=== PATIENT | female | born 1955 | race Hispanic/Latino ===

== ENCOUNTER 2016-08-30 13:53 | Inpatient (IN) | payer OTHER ==
[~2016-08-30] VITALS: Ht 157.5 cm; Wt 151.1 kg
[~2016-08-30 13:53] MED LIST: ACET-171 PO; BISA-67 PO; CRAN200C2 PO; Heparin 5,000 Unit/mL Inj SUBQ SCH; LISI10TA PO; METO25TA6 PO; MULT-1018 PO; NITR100 PO; NPR500T PO; OMEP20TA24 PO; ONDA8TAB7 PO; POLY17PO6 PO; PROC-4 PO
[2016-08-30 13:59] VITALS: BP 148/96; PULSE 81; RESP 18; O2SAT 97
[2016-08-30 16:20] LABS: BASOPHILS % (AUTO) 0.3 % (0-3); EOSINOPHILS % (AUTO) 0 % (0-5); MONOCYTES % (AUTO) 5.1 % (4-12)
[2016-08-30 16:23] LABS: Mean Corpuscular Hemoglobin 31.9 pg (27.0-35.0); Mean Corpuscular Volume 90.9 fL (81-100); NEUTROPHILS % (AUTO) 81.1 % (40-74); Platelet Count 92 bil/L (150-400)
[2016-08-30 16:45] LABS: TROPONIN T < 0.010 ug/L (0.0-0.011)
--- NOTE | 2016-08-30 16:56 | ED.REPORT ---
HPI-General Illness Date of Service Aug 30, 2016 ED Provider: Salo Meyer MD The patient is a 61-year-old lady with a history of intrahepatic cholangiocarcinoma with the bulk of the disease being located in the left hepatic lobe with poorly metastatic disease to the right femur. She has been treated with cisplatin and gemcitabine in our center with a palliative intent. Pt was seen by her oncologist, Dr. Meier, today who referred her to the ED for admission and further workup. Pt was noted to have an elevated bilirubin of 12.9. Her last CT was yesterday, last chemotherapy 08/02/16. Pt reports one week of increasing generalized weakness and "loose" swain colored stools with mild incontinence. Today the patient's noticed yellowing to the skin and eyes. She also reports fever ([id number], Tylenol improved) and head pressure. She denies cough. She finished a course of antibiotics for UTI this week. Denies dysuria currently. CODE STATUS: Full code Nursing Notes Stated Complaint: BILI LAB Chief Complaint: General Complaint Nursing Notes Reviewed: Yes Allergies: Coded Allergies: amoxicillin (Verified Allergy, Intermediate, Rash, 08/30/16) Scheduled Amlodipine (Amlodipine) 5 Mg Tablet 5 MG PO DAILY Bisacodyl (Dulcolax) 5 Mg Tablet.dr 5 MG PO DAILY Cranberry Extract (Cranberry) 200 Mg Capsule 200 MG PO BID Lisinopril (Lisinopril) 10 Mg Tablet 20 MG PO DAILY Metoprolol Tartrate (Metoprolol Tartrate) 25 Mg Tablet 25 MG PO DAILY Multivitamin (Multi Vitamin Daily) 1 Each Tablet 2 EACH PO DAILY Omeprazole Magnesium (Prilosec Otc) 20 Mg Tablet.dr 20 MG PO DAILY Polyethylene Glycol 3350 (Miralax) 17 Gm Powd.pack 17 GM PO DAILY Sertraline HCl (Zoloft) 20 Mg/1 Ml Oral.conc 50 MG PO DAILY Scheduled PRN Acetaminophen (Acetaminophen) 500 Mg Tablet 500 MG PO Q6H PRN PRN For Pain Naproxen (Naproxen) 500 Mg Tab 500 MG PO BID PRN PRN For Pain Ondansetron ODT (Zofran ODT) 8 Mg Tablet 8 MG PO Q8HRS PRN PRN PRN For Nausea Prochlorperazine Maleate (Compazine) 10 Mg Tablet 10 MG PO Q6H PRN PRN For Nausea General Time Seen by MD: 16:55 Chief Complaint Weakness (and elevated Bili) Hx Obtained From: Patient Arrived By: Walk-in Sudden in Onset?: No Onset Occurred: 1 week ago Symptom Duration: Since onset Severity: Current: No pain currently Associated with: Reports: Fever, Headache, Weakness Recent Healthcare: Recent doctor visit Past Medical History Past Medical History Intrahepatic cholangiocarcinoma with the bulk of the disease being located in the left hepatic lobe with poorly metastatic disease to the right femur. She has not had any convincing evidence of other metastatic sites. She has had tiny pulmonary nodules between 2-3 mm that were present at diagnosis in February and remained unchanged in May but some of them were smaller in the recent scan of August 15. She has been treated with cisplatin and gemcitabine with a palliative intent, Reports: Hypertension Past Surgical History Femur 2 partial knee replacement Smoking History Never Smoker Social History Alcohol Use: Denies alcohol use Drug Use: Denies drug use Other Social History: Good social support Review of Systems Full Review of Systems Constitutional: Reports: Fever, Weakness - generalized Respiratory: Denies: Shortness of breath Cardiovascular: Denies: Chest pain GI: Reports: Diarrhea, Denies: Abdominal pain, Vomiting Female: Denies: Dysuria Skin: Denies Rash Neurologic: Reports: Headache, Weakness, Denies: Change LOC Complete sys rev & neg: except as marked. Physical Exam Vital Signs Vital Signs Date Time Temp Pulse Resp B/P Pulse Ox O2 Delivery O2 Flow Rate FiO2 08/30/16 19:34 81 20 137/78 98 Room Air 08/30/16 13:59 36.5 81 18 148/96 97 Room Air Initial VS: Reviewed Neck: Full range of motion Extremities: Vascular intact, Neuro intact Neurologic: Alert, Oriented, Nonfocal Psychiatric: Mood/affect normal, Behavior normal, Normal thought content General/Constitutional: Awake, Alert Head / Eyes: Atraumatic, Normocephalic, PERRL Conjunctiva / Sclera: Positive: Icteric Respiratory / Chest: Breath sounds NL, Breath sounds = bilat, No respiratory distress, No rales, No rhonchi, No wheezing Abdomen: Soft, Non-tender, No rebound Skin: Warm, Dry Color / Condition: Positive: Jaundice present Interpretation & Diagnostics Lab Results Interpretation Result Diagram: 08/30/16 1609 08/30/16 1609 Test 1/18/17 16:09 08/30/16 16:51 White Blood Count 15.3th/mm3 (3.8-10.1) Red Blood Count 3.42mil/mm3 (3.90-5.20) Hemoglobin 10.9g/dL (12.0-15.6) Hematocrit 31.1% (35.0-46.0) Mean Corpuscular Volume 90.9fL (81-100) Mean Corpuscular Hemoglobin 31.9pg (27.0-35.0) Mean Corpuscular Hemoglobin Concent 35.0% (32.0-37.0) Red Cell Distribution Width 23.8% (12.3-15.4) Platelet Count 92bil/L (150-400) Neutrophils (%) (Auto) 81.1% (40-74) Lymphocytes (%) (Auto) 10.7% (14-46) Monocytes (%) (Auto) 5.1% (4-12) Eosinophils (%) (Auto) 0% (0-5) Basophils (%) (Auto) 0.3% (0-3) Sodium Level 133mEq/L (134-144) Potassium Level 3.5mEq/L (3.5-5.2) Chloride Level 90mEq/L (97-108) Carbon Dioxide Level 26mmol/L (18-29) Blood Urea Nitrogen 52mg/dL (8-27) Creatinine 1.62mg/dL (0.57-1.00) Estimat Glomerular Filtration Rate 46mL/min (>59) Glucose Level 100mg/dL (60-99) Calcium Level 8.2mg/dL (8.5-10.1) Magnesium Level 1.0mg/dL (1.6-2.6) Total Bilirubin 14.2mg/dL (0.0-1.2) Aspartate Amino Transf (AST/SGOT) 133U/L (0-50) Alanine Aminotransferase (ALT/SGPT) 76U/L (0-32) Alkaline Phosphatase 486U/L (25-165) Troponin T < 0.010ug/L (0.0-0.011) Total Protein 6.5g/dL (6.4-8.4) Albumin 2.5g/dL (3.4-5.0) Urine Color Dark yellow (YELLOW) Urine Appearance Hazy (CLEAR,HAZY) Urine pH 5.0 (5.0-8.0) Urine Specific King 1.025 (1.003-1.035) Urine Protein 100mg/dL (NEG,TRACE) Urine Glucose (UA) Negativemg/dL (NEGATIVE) Urine Ketones Tracemg/dL (NEGATIVE) Urine Occult Blood Moderate (NEGATIVE) Urine Nitrite Negative (NEGATIVE) Urine Bilirubin Large (NEGATIVE) Urine Ictotest Positive (Negative) Urine Urobilinogen 2.0mg/dL (NORMAL) Urine Leukocyte Esterase Moderate (NEGATIVE) Urine RBC 3-10/hpf (0-2) Urine WBC 6-10/hpf (0-5) Urine Epithelial Cells None/hpf (NONE-MOD) Urine Crystals None seen (NONE SEEN) Urine Bacteria Few/hpf (NONE-FEW) Urine Hyaline Casts None/lpf (NONE) Urine Granular Casts None seen (NONE SEEN) Urine Waxy Casts None seen (NONE SEEN) Urine Red Blood Cell Casts None seen (NONE SEEN) Urine White Blood Cell Casts None seen (NONE SEEN) Urine Mucus None seen (None Seen) Urine Trichomonas None seen (NONE SEEN) Urine Yeast None (NONE SEEN) Urinalysis Comment None Urine Culture Reflexed Indicated Re-Eval/Medical Decision Med Decision/Clinical Course 61-year-old female history of intrahepatic cholangiocarcinoma status post chemotherapy seen by Dr. Campos sent in by him for admission for rising bilirubin and requesting admission for MRCP. Patient with normal bilirubin 2 weeks ago now 14. CT scan yesterday shows no worsening of the cholangiocarcinoma. White blood cell count elevated. Urine suggestive UTI. Discussed with Dr. Blevins who would like patient admitted for MRCP tomorrow and IV hydration for acute kidney injury. She was also given a dose of Rocephin for UTI. Given 1 L normal saline. Patient is full code. Time of Eval: 19:23 Re-Evaluation/Progress Note: Pt understands and agrees with plan for admission. All questions addressed. Consultation #1: Referral / Consult Name: Derik West MD Call Returned at: 18:35 Note: GI- Nothing that he can do. Referred to consult with Hardeep. Consultation #2: Referral / Consult Name: Demarco Sofia MD Consulted With: Assistant Editor (/oncologist) Call Returned at: 19:14 Consultation #3: Referral / Consult Name: Markos Milligan MD Consulted With: Hospitalist Call Returned at: 19:43 Subscription Agent: Will see patient, Agrees with eval, Agrees with plan, Accepts admit Counseled Regarding: Diagnosis, Lab results, Need for admission Discharge & Departure Primary Impression: Cholangiocarcinoma metastatic to bone Additional Impressions: Hyperbilirubinemia UTI (urinary tract infection) Urinary tract infection type: site unspecified Hematuria presence: without hematuria Qualified Code: N39.0 - Urinary tract infection, site not specified REBEKA (acute kidney injury) Disposition: ADMITTED TO HOSPITAL Discharge Condition All VS Reviewed: Yes Referrals: Akhil Mo MD (PCP) Scribe Attestation Portions of this note were transcribed by Marissa Allen. I, (Dr. Meyer) personally performed the history, physical exam and medical decision-making; I reviewed and confirmed the accuracy of the information in the transcribed note. Signed by: Marissa Allen. 08/30/2016, 1943 copies to: Akhil Mo MD, Ben M MD Aug 30, 2016 16:56 Marissa Allen Aug 30, 2016 18:18
[2016-08-30] MEDS ORDERED: 0.9% Sodium Chloride 500 ML ONE (17:07)
[2016-08-30 17:26] LABS: APPEARANCE,URINE HAZY (CLEAR,HAZY); COLOR,URINE DARK YELLOW (YELLOW)
[2016-08-30 17:27] LABS: OCCULT BLOOD,URINE MODERATE (NEGATIVE)
[2016-08-30] MEDS ORDERED: cefTRIAXone Inj 1,000 MG in IV Premix 1 EACH IV ONE (18:30)
[2016-08-30] MEDS ORDERED: 0.9% Sodium Chloride 1,000 ML IV ONE (19:20)
[2016-08-30 19:34] VITALS: BP 137/78; PULSE 81; RESP 20; O2SAT 98
[2016-08-30] MEDS ORDERED: Magnesium Sulf 4 Gm/100 mL H2O 4 GM in IV Premix 1 EACH IV ONE (19:50)
[2016-08-30] MEDS ORDERED: Polyethylene Glycol (PEG) 17 Gm Powder PO PRN (20:20)
[2016-08-30] MEDS ORDERED: Alum-Mag Hydrox-Simeth 30 mL Suspension PO PRN (20:20)
[2016-08-30] MEDS ORDERED: SERT20OR PO (20:36)
--- NOTE | 2016-08-30 20:41 | NUR ---
MEDICATION Pt and her both state that she was started on additional BP medication about one week ago-they cannot recall the name at this time; it's not listed in 's notes and their pharmacy is already closed ([facility]). states he can call it in, once he gets home-please FOLLOW UP on this issue, thank you!
[2016-08-30 20:59] LABS: ICTOTEST,URINE POSITIVE (Negative)
--- NOTE | 2016-08-30 21:54 | NUR ---
care update spoke to Dr Askew, notified that no telemetry boxes are available at this time. ice chips okay til midnight. then npo. increase ivf to 150 ml/hr. care ongoing. Addendum: 08/30/16 at 2156 by MANOLO VELÁSQUEZ RN also ordered an ekg. called RT. notified. went home. notified of room change to 239-1.
[2016-08-30] MEDS: 0.9% Sodium Chloride 1,000 ML IV SCH (22:09)
--- NOTE | 2016-08-30 22:10 | PCM.HPMED ---
Subjective Date of Service Aug 30, 2016 Primary Provider: Admitting Physician: Primary Care Physician: Akhil Mo MD Attending Physician: Chief Complaint: jaundice and fevers History of Present Illness: The patient is a 61-year-old lady with a history of metastatic cholangiocarcinoma, HTN, and JAYLA presents for evaluation of acute jaundice and fever. Pt was seen by her oncologist, Dr. Meier, today who referred her to the ED for admission and further workup after noticing that her Tbili has been rapidly rising over the past 10 days. She has also had a CT abd/pelvis last week that did not show any disease progression. Per patient and , she has been having intermittent fevers since Sunday (Tmax 102), and also mild epigastric pain, increase in loose swain stools, and fatigue. reports that patient was diagnosed last summer with metastatic cholangiocarcinoma after a right femur fracture. They report that they have not noticed her to be jaundiced prior to today. They deny any associated CP, SOB, vision changes, focal weakness, or mental status changes. Patient does endorse a decrease in her urinary stream and a pressure sensation with urination. She has also been having a mild head congestion but denies any cough or rhinorrhea. Of note is that she just finished a course of antibiotics for UTI this week and reports that her urinary frequency and dysuria has improved. Per report, she is being treated with cisplatin and gemcitabine in our center with a palliative intent. In the ER, she was afebrile and her VSS. Her labs were pertinent for a WBC of 15.3 with segs of 81.1% and a Hct of 31.1. CMP was pertinent for BUN/Cr of 52/1.62 and Magnesium of 1.0. Albumin of 2.5 and Calcium of 8.2 Tbili- 14.2, AST-133, ALT- 76, Alk Phos - 486 A nam was placed and a UA was obtained which showed mod blood, Large Bili, and Moderate LEs. No casts were seen. She was started on IV Ceftriaxone, but no blood cultures were drawn yet. U/S abd was pending. EKG was pending. Review of Systems: 12 Point ROS negative except as stated in HPI Allergies Coded Allergies: amoxicillin (Verified Allergy, Intermediate, Rash, 08/30/16) PMH Hypertension Morbid Obesity Right femur fracture Left Clavicle fracture Metastatic Cholangiocarcinoma Obstructive Sleep Apnea Frequent UTIs Gastric Ulcers Surgical History Right knee arthroplasty Femur IM Family History Sister with CVA at age 57 Father with TIA Social History Hx Alcohol Use: No Hx Substance Use: No Hx Tobacco Use: No Smoking Status: Never Smoker Living Arrangement: with Family Exam Vital Signs Vital Sign - Last Date Time Temp Pulse Resp B/P Pulse Ox O2 Delivery O2 Flow Rate FiO2 08/30/16 19:34 81 20 137/78 98 Room Air 08/30/16 13:59 36.5 Exam Gen: Obese female who is frankly jaundiced, appears in NAD, cooperative HEENT: Mild Hirsutism noted, Sclera Icteric, Oropharynx non-erythematous, Oral mucosa pink but dry Neck: Obese, soft, non-tender CV: RRR, 2/6 systolic murmur noted Resp: CTAB, normal effort Abd; Morbidly obese, mild tenderness of epigastrium, normoactive BS, no rashes MSK: Grossly intact, Moderate pitting edema of BLE up to knee, R>L. Neuro: Alert and Oriented x3, Sensation grossly intact Skin: Stasis dermatitis changes of BLE, Warm, dry, no rashes noted. Psych: Appropriate mood and affect Lab and Diagnostics Result Diagram: 08/30/16 1609 08/30/16 1609 X-Rays, CTs and MRIs CT Abd/pelvis with contrast IMPRESSION: There is an irregular, lobulated mass involving the left aspect of the liver. This mass measures slightly decreased in size compared to the prior examinations. Please correlate with interval treatment. New development of moderate simple fluid within the peritoneal cavity. The gallbladder wall appears irregular and hyperenhancing, consistent with the given history of gallbladder cancer. Stable left adrenal nodule. Faintly seen right adrenal nodule. A few stable pulmonary nodules can be seen at the lung bases. Incidental note is made of: Dextroconvex scoliosis Bony degenerative changes Dictated by: Varghese Thorpe M.D. on 08/29/2016 at 15:30 Approved by: Varghese Thorpe M.D. on 08/29/2016 at 15:30 Assessment & Plan The patient is a 61-year-old lady with a history of metastatic cholangiocarcinoma, HTN, and JAYLA presents for evaluation of acute jaundice and fever. She is admitted for evaluation of possible obstructive cholangitis vs progression of cholangiocarcinoma, along with treatment for REBEKA likely secondary to contrast after CT and poor fluid intake. #Elevated Bilirubin, POA With her complaints of fever, epigastric abdominal pain, and rapidly increasing Tbili with anisha jaundice, this likely represents Cholangitis vs progression of her cholangiocarcinoma GI is already aware of the patient and will evaluate in the AM for MRCP or ERCP. Please refer to Dr. Meier's note for detailed heme/onc history. Tbili of 14.2 on admit NPO after midnight in anticipation of any procedures IV Ceftriaxone given in ER, but will switch to IV Zosyn (08/30) for better coverage. IV Zofran prn nausea, IV Dilaudid prn pain #Acute Kidney Injury, POA Baseline Cr noted to be around 0.8, is now 1.62 on admit Cr was slowly rising over the last few weeks, but abruptly increased yesterday after her CT with contrast. Likely REBEKA secondary to contrast, but patient's poor fluid intake along with her previous UTI likely contributed. Will plan to hydrate with IV NS 150mls/hr, but if Cr continues to worsen, consider renal U/S #Possible Urinary tract Infection, POA With patient's foul smelling urine, complaint of urinary pressure, and moderate LEs on UA, this is likely a UTI that was not completely treated Will tailor antibiotic therapy once cultures return, but IV Zosyn should have some coverage #Hypomagnesemia, POA Replenished with 4gm IV rider in the ER, continue to monitor and replenish as needed Placed on Telemetry for CV monitoring (no tele-box available at time of admit) EKG pending #Hypertension, POA Continue patient's home medication: Lisinopril and Metoprolol #JAYLA, POA Likely due to morbid obesity CPAP is patient is willing #Normocytic Anemia, POA Likely due to chemotherapy adverse effect per Dr. Meier No s/s of bleeding Continue to monitor, transfuse if Hgb <7.0 #Anxiety and Depression, POA Continue patient's Sertraline #Morbid Obesity, BMI 47.7, POA Tylenol prn fever/pain Pain Evaluation: Adequate Pain Control VTE Prophylaxis: Sub-Q Heparin (Unfractionated) Resuscitation Status: CPR: Attempt Resuscitation Attending Statement The patient was seen and examined together with Dr. Mcgrath on 08/30 and I agree with the history, exam and plan as outlined in the note above. copies to: Demarco Sofia MD [facility],Marc Wang DO Aug 30, 2016 21:05 Markos Milligan MD Aug 30, 2016 22:47
[2016-08-30 22:15] VITALS: BP 154/80; PULSE 77; RESP 20; O2SAT 97
[2016-08-30] MEDS: Piper-Tazo 3.375 Gm/50 mL D5W Minibag Plus - Q8H over 4 hrs IV SCH ×2 (23:07)
[2016-08-30] MEDS ORDERED: AMLO5TAB2 PO (23:17)
--- NOTE | 2016-08-30 23:45 | NUR ---
admission patient admitted to 239-1. no complaints of pain. nam catheter with dark gabby cloudy urine. denies nausea. reviewed fall precautions. verbalized understanding.
[2016-08-31] VITALS (8 sets, daily range): BP systolic 137–174; BP diastolic 77–85; PULSE 69–81; RESP 18–20; O2SAT 96–100
[2016-08-31] MEDS ORDERED: Meropenem Inj 1,000 MG in IV Premix 1 EACH IV SCH (00:30)
[2016-08-31] MEDS: Heparin 5,000 Unit/mL Inj SUBQ SCH ×3 (00:30→17:01)
[2016-08-31] MEDS ORDERED: HYDROmorphone 0.5 mg/0.5 mL iSecure Syringe IVPUSH PRN (00:55)
--- NOTE | 2016-08-31 01:14 | NUR ---
lab draw spoke to dr mccullough. gave okay for lactic acid to be drawn at 0300 along with the magnesium
[2016-08-31] MEDS: Ondansetron 2 mg/mL 2 mL Inj IVPUSH PRN (01:30)
--- NOTE | 2016-08-31 02:16 | NUR ---
PAIN PATIENT HAS DISCOMFORT "FULL FEELING" TO UPPER RIGHT ABDOMEN. RATES 3 MEDICATED WITH DILAUDID 0.5MG IV AND ZOFRAN 8MG IV PATIENT HAS EFFECTIVE RELIEF. RATES DISCOMFORT 0-1. PLACED ON 2 LITERS NC FOR JAYLA.
[2016-08-31 02:22] LABS: BASOPHILS % (AUTO) 0.3 % (0-3); EOSINOPHILS % (AUTO) 0.1 % (0-5); MONOCYTES % (AUTO) 8.8 % (4-12); Mean Corpuscular Hemoglobin 32.1 pg (27.0-35.0); Mean Corpuscular Volume 92.5 fL (81-100); NEUTROPHILS % (AUTO) 77.7 % (40-74); Platelet Count 89 bil/L (150-400)
[2016-08-31 02:45] LABS: INR 1.82 ratio
[2016-08-31] MEDS: 0.9% Sodium Chloride 1,000 ML IV SCH ×3 (03:58→17:55)
[2016-08-31] MEDS: Piper-Tazo 3.375 Gm/50 mL D5W Minibag Plus - Q8H over 4 hrs IV SCH ×8 (05:41→23:26)
[2016-08-31] MEDS: Pantoprazole 40 mg ER24 Tablet PO SCH (05:47)
--- NOTE | 2016-08-31 11:27 | DRSVH ---
PROCEDURE: MR ABDOMEN MRCP INDICATIONS: Elevated bilirubin TECHNIQUE: Coronal HASTE through the abdomen, axial 2-D FLASH in- and [id number], and breath-hold T2 FSE with fat saturation through the biliary system and pancreas. Oblique coronal and axial thin-slice HASTE, radial thick-slab HASTE centered on the extrahepatic bile ducts. Intravenous secretin: Not requested. COMPARISON: [facility], CT, CT CHEST ABD PELVIS W CON, 08/15/2016, 10:56. Outside Film, CT, CT CHEST ABD PELVIS W CON, 04/07/2016, 9:05. [facility], CT, CT ABD W CON, 08/29/2016, 14:07. FINDINGS: Image quality: Excellent. Pancreas and biliary system: Intra- and extra-hepatic biliary ducts are non dilated. Pancreas is no rmal in morphology, without adjacent soft tissue edema. Pancreatic duct is normal in caliber, withou t developmental anomalies. Other solid organs: Demonstrates abnormal signal change predominantly within the left lobe, extending into a small portion of the medial right hepatic lobe. This corresponds to the previously identified area of neoplasm. Gallbladder is contracted and irregular. No adrenal nodules. Both kidneys are no rmal in size, without hydronephrosis. Nodes and vessels: No retroperitoneal or mesenteric adenopathy by size criteria. Aorta and inferior vena cava are normal in size. Bowel and peritoneum: Unenhanced bowel loops are normal in caliber. The intrahepatic and perisplenic fluid are present, unchanged compared to 08/29/16. Partially visualized pelvic fluid is also noted. Lung bases: No basal pleural effusions. Heart size is normal. Bones and soft tissues: No ventral hernias. Bone marrow is of normal overall signal. IMPRESSION: 1. Mass lesion within the liver as previously identified and consistent with known history of neopla sm. 2. Contracted irregular gallbladder as above. While this could be secondary to contraction, superimpo sed neoplasm cannot be excluded. 3. No visualized biliary ductal dilation. Dictated by: Andreina Pena M.D. on 08/31/2016 at 11:25 Approved by: Andreina Pena M.D. on 08/31/2016 at 11:25
--- NOTE | 2016-08-31 13:05 | PCM.CHPMED ---
Subjective Date of Service: Aug 31, 2016 Provider requesting consult: Marc Mcgrath DO Primary Physician: Admitting Physician: Markos Milligan MD Primary Care Physician: Akhil Mo MD Attending Physician: Markos Milligan MD Chief Complaint: Chief Complaint: Jaundice History of Present Illness: Patient is a 61-year-old female with a history of metastatic cholangiocarcinoma who presents for evaluation of acute jaundice and fever. 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 Family stated they did not notice any jaundice prior to today. She denies any associated CP, SOB, vision changes, focal weakness, or mental status changes. She denies pruritus. She reports that she had been experiencing dysuria and frequency, and was recently diagnosed with UTI and completed outpatient antibiotics. She reports some improved dysuria , and her frequency has resolved. reports that patient was diagnosed last summer with metastatic cholangiocarcinoma after a right femur fracture. She has been seen by Dr. Meier , treated with cisplatin and gemcitabine in our center with a palliative intent. She was seen by Dr. Meier today who referred her to the ED for admission and further workup after noticing that her total bilirubin has been rapidly rising over the past 10 days. She has also had a CT abd/pelvis last week that did not show any disease progression. She denies smoking or alcohol use. She denies NSAID or Tylenol use. Her last colonoscopy was 12 years ago at 49, where she states polyps and diverticulosis were found. She has not followed up on a repeat colonoscopy since. No family history of colon cancer, Crohn's, UC, or Celiac disease. Today, WBC was 15.1, Hb 9.4, Hct 27.1, plt 89. K 3.3, Cr 1.49, bilirubin 12.7 down from 14.2 on admission, AST 133 --> 117, ALT 76 --> 66, alk phos 486 --> 428. Lipase was 40. UA showed large bilirubin, 6-10 WBC. Urine cultures showed gram negative rods, probable E. coli. Review of Systems: Comprehensive review of systems conducted and was negative except for the pertinent positives listed above. PMH Past Medical History Hypertension Morbid Obesity Right femur fracture Left Clavicle fracture Metastatic Cholangiocarcinoma Obstructive Sleep Apnea Frequent UTIs Gastric Ulcers Surgical History Right knee arthroplasty Femur IM Allergies: Coded Allergies: amoxicillin (Verified Allergy, Intermediate, Rash, 08/30/16) Family History Family History Sister with CVA at age 57 Father with TIA Social History Hx Alcohol Use: NoHx Substance Use: NoHx Tobacco Use: No Smoking Status: Never Smoker Living Arrangement: with Family Exam Vital Signs Vital Sign - Last Date Time Temp Pulse Resp B/P Pulse Ox O2 Delivery O2 Flow Rate FiO2 08/31/16 11:03 36.3 69 18 163/85 100 Nasal Cannula 2.00 Intake and Output 08/30/16 08/30/16 08/31/16 Cumulative From/Thru 15:00 23:00 07:00 08/30/16 13:59 - 08/31/16 05:04 Intake Total 500 ml 1227 ml 1727 ml Output Total 550 ml 550 ml Balance 500 ml 677 ml 1177 ml Intake Oral 100 ml 100 ml IV Total 500 ml 1127 ml 1627 ml Output Urine Total 550 ml 550 ml # Bowel Movements 0 0 Additional Information: General: Alert, Oriented X3, Cooperative, No Acute Distress Head: Normocephalic, atraumatic. External ears normal. Eyes: PERRLA, EOMI. Mild scleral icterus Mouth: Mouth Normal, Mucous Membranes Moist/[place] Neck: Neck supple with full range of motion. Chest & Lungs: Clear to auscultation bilaterally with no crackles, wheezes, or rhonchi. Cardiovascular: Regular Rate/Rhythm, Normal S1, Normal S2, No Murmurs/Rubs/ Gallops Abdomen: Non-tender, Non-distended, Normoactive bowel tones, Soft. Right sided epigastric mass palpable Musculoskeletal: Normal Range of Motion Extremities: No cyanosis/clubbing/edema bilaterally Skin: Jaundice present Neurological: Slurred Speech Lab and Diagnostics Result Diagram: 08/31/16 0200 08/31/16 0200 Assessment & Plan Assessment Patient is a 61-year-old female with a history of metastatic cholangiocarcinoma who presents for evaluation of acute jaundice and fever. Hyperbilirubinemia, acute. - Pt complains of fever, abdominal pressure but no pain in the context of high bilirubin, which has improved since admit (14.2 --> 12.7). Pt was afebrile this hospitalization. WBC was elevated (15.3). MRCP showed ascites, a mass lesion within the liver as previously identified, contracted irregular gallbladder, and no visualized biliary ductal dilation. She may have intrahepatic cholestasis secondary to her tumor, although the mass does not appear to have changed significantly. This may be a drug reaction; she was on an unknown antibiotic around the time her symptoms started. Gemcitabine has been associated with transaminitis, elevated alk phos, and elevated bilirubin. It has also been associated with hemolytic anemia, and she has been anemic, but she appears to have a direct hyperbilirubinemia based on recent labs. She is no longer on gemcitabine and her last dose was about 2 weeks ago, so if this is the cause, her labs should continue to improve. There does not appear to be any extrahepatic pathology that can be addressed via ERCP. Progression of her cholangiocarcinoma is likely the cause of her hyperbilirubinemia and jaundice. Ascending cholangitis is unlikely, as she does not have obvious abdominal pain to palpation and her fever and leukocytosis may be explained by her UTI. - IV Zosyn for empirical coverage - Continue to monitor LFTs and bilirubin Elevated LFTs, acute. - LFTs have been steadily increasing since 07/26/16, normal before that date. This may represent progression of her cholangiocarcinoma with hepatic injury. - Continue to monitor LFTs - Will order hepatitis A/B workup History of Cholangiocarcinoma - Patient has history of intrahepatic cholangiocarcinoma diagnosed in February 2016 , mainly in the left hepatic lobe, metastatic to the right femur. She is currently receiving palliative chemotherapy per Dr. Meier with cisplatin. - Dr. Meier of Oncology is following at this time. We appreciate his input. Problems: Pain Evaluation: Adequate Pain Control VTE Prophylaxis: Sub-Q Heparin (Unfractionated) Resuscitation Status: CPR: Attempt Resuscitation Attending Statement Patient seen and examined today along with Dr Arnold. Agree with the assessment and plan as described above. Essentially, painless jaundice with recent fevers. There is no evidence of tumor progression and no suggestion of biliary obstruction that would be amenable to stent insertion. Acute hepatitis serologies are pending. I'm quite concerned that she has developed an acute hepatotoxicity from nitrofurantoin. In speaking with her , sounds like this might have been stopped about 2 wks ago. Nitrofurantoin has been rarely associated with acute hepatotoxicity and often demonstrates autoimmune characteristics. Today bilirubin is slightly improved but this could easily be simply a consequence of IV hydration. INR is elevated. I have requested ARIANA and anti smooth muscle antibody. If these are positive and the patient does not continue to trend in the right direction (since nitrofurantoin has been removed), we'll need to consider a course of cortiocosteroid therapy. Daily PT/ INR, CMP, CBC should be followed. Will continue to follow with you. Arley Arnold Aug 31, 2016 13:05 Derik West MD Aug 31, 2016 22:05
--- NOTE | 2016-08-31 13:59 | NUR ---
MRCP done this shift. vinicius paged doctor r/t patient asking if any other procedures and has been NPO. doctor will contact GI doctor and notified patient.
--- NOTE | 2016-08-31 17:27 | NUR ---
Vital sign and mentation patient is alert and oriented X3. able to make needs known. notified doctor r/t systolic blood pressures this shift. general diet. patient's spouse wanting to speak with Dr. cross. vinicius paged doctor Jenna. room air per doctor orders. Mccurdy draining dark gabby color urine and patient. stable mood. call light with in reach for safety and verbalize the use of call light. IV normal saline and Zosyn running as ordered.
--- NOTE | 2016-08-31 17:34 | NUR ---
systolic blood pressures Doctor responded back r/t systolic blood pressures. no new orders noted. continue to monitor vital signs, pain and safety.
[2016-08-31] MEDS: 0.9% Sodium Chloride 250 ML IV SCH (18:32)
[2016-08-31] MEDS ORDERED: HepLOK Flush 100 unit/mL 5 mL Inj IVFLUSH PRN (18:35)
[2016-08-31] MEDS ORDERED: Sodium Chloride LOK Flush 10 mL Syringe IVFLUSH PRN ×2 (18:35)
--- NOTE | 2016-08-31 20:31 | NUR ---
spiritual care: pt request through nursing conversational visit; pt detailed her situation, concern and sources of hope/comfort. Plans to contact on her own, but was thankful for time of prayer and sifting through emotions with me and family members. prayer --care ongoing.
--- NOTE | 2016-08-31 20:35 | PCM.PNMED ---
Subjective Date of Service Aug 31, 2016 Subjective Patient was seen and examined at bedside today. Patient complains of mild abdominal pain. Patient denies chest pain, shortness of breath, nausea, vomiting, diarrhea. Exam Vital Signs Vital Sign - Last Date Time Temp Pulse Resp B/P Pulse Ox O2 Delivery O2 Flow Rate FiO2 08/31/16 16:48 36.4 73 18 162/80 100 Room Air Intake and Output 08/30/16 08/30/16 08/31/16 Cumulative From/Thru 15:00 23:00 07:00 08/30/16 13:59 - 08/31/16 05:04 Intake Total 500 ml 1227 ml 1727 ml Output Total 550 ml 550 ml Balance 500 ml 677 ml 1177 ml Intake Oral 100 ml 100 ml IV Total 500 ml 1127 ml 1627 ml Output Urine Total 550 ml 550 ml # Bowel Movements 0 0 Exam Physical Exam: GEN: Patient was awake, alert, responding appropriately to questions HEENT: PERRLA, EOMI, Neck soft supple, trachea midline, nomocephalic/atraumatic , eyes icteric bilaterally Skin: Positive jaundice CV: +S1/S2, RRR, no murmurs auscultated Respiratory: CTAB, no wheezes, rales, rhonchi GI: +bowel sounds x4, soft, compressible, non TTP EXT: no c/c/ bilateral pitting edema +2 Neuro: CN II-XII grossly intact Psych: mood and affect were appropriate IVs and Medications Medications Reviewed: Medications were reviewed in detail Medications Current Medications Heparin Sodium (Porcine) 5000 unit 5,000 unit Q8 SUBQ; Start 08/30/16 at 00:30; Stop 08/31/16 at 01:58; Status DC Sodium Chloride 1,000 ml @ 150 mls/hr Q6H40M IV Last administered on 08/31/16 17:55; Admin Dose 150 MLS/HR; Start 08/30/16 at 20:19 Al Hydrox/Mg Hydrox/Simethicone 30 ml Q6H PRN PO; Start 08/30/16 at 20:20 Ondansetron HCl 4 to 8 mg Q4H PRN IVPUSH Last administered on 08/31/16 01:30; Admin Dose 8 MG; Start 08/30/16 at 20:20 Senna 17.2 mg BID PRN PO; Start 08/30/16 at 20:20 Polyethylene Glycol 17 gm DAILY PRN PO; Start 08/30/16 at 20:20 Temazepam 15 mg HS PRN PO; Start 08/30/16 at 20:20 Acetaminophen 650 mg 650 mg Q4H PRN PO; Start 08/30/16 at 20:20 Meropenem-0.9% Sodium Chloride 1000 mg/Premix 50 ml @ 16.667 mls/ hr Q8 IV; Start 08/31/16 at 00:30; Status UNV Piperacillin Sod/ Tazobactam Sod/ Dextrose/Water 50 ml @ 12.5 mls/hr Q8H IV Last administered on 08/31/16 14:09; Admin Dose 12.5 MLS/HR; Start 08/30/16 at 22:30 Lisinopril 20 mg DAILY PO Last administered on 08/31/16 08:38; Admin Dose 20 MG ; Start 08/31/16 at 08:30 Metoprolol Tartrate 25 mg DAILY PO Last administered on 08/31/16 08:38; Admin Dose 25 MG; Start 08/31/16 at 08:30 Sertraline HCl 50 mg DAILY PO Last administered on 08/31/16 08:39; Admin Dose 50 MG; Start 08/31/16 at 08:30 Non-Formulary Medication 200 mg BID PO; Start 08/31/16 at 08:30; Status UNV Pantoprazole 40 mg 0630 PO Last administered on 08/31/16 05:47; Admin Dose 40 MG; Start 08/31/16 at 06:30 Hydromorphone HCl 0.5 mg Q4H PRN IVPUSH Last administered on 08/31/16 01:29; Admin Dose 0.5 MG; Start 08/31/16 at 00:55 Heparin Sodium (Porcine) 5,000 unit Q8 SUBQ Last administered on 08/31/16 17:01 ; Admin Dose 5,000 UNIT; Start 08/31/16 at 00:30 Potassium Chloride 10 meq 10 meq DAILYWM PO Last administered on 08/31/16 08:38 ; Admin Dose 10 MEQ; Start 08/31/16 at 08:00 Sodium Chloride 250 ml @ 10 mls/hr Q24H IV; Start 08/31/16 at 18:32 Lab and Diagnostics Result Diagram: 08/31/16 0200 08/31/16 0200 X-Rays, CTs and MRIs CT Abd/pelvis with contrast IMPRESSION: There is an irregular, lobulated mass involving the left aspect of the liver. This mass measures slightly decreased in size compared to the prior examinations. Please correlate with interval treatment. New development of moderate simple fluid within the peritoneal cavity. The gallbladder wall appears irregular and hyperenhancing, consistent with the given history of gallbladder cancer. Stable left adrenal nodule. Faintly seen right adrenal nodule. A few stable pulmonary nodules can be seen at the lung bases. Incidental note is made of: Dextroconvex scoliosis Bony degenerative changes Dictated by: Varghese Thorpe M.D. on 08/29/2016 at 15:30 Approved by: Varghese Thorpe M.D. on 08/29/2016 at 15:30 Assessment & Plan The patient is a 61-year-old lady with a history of metastatic cholangiocarcinoma, HTN, and JAYLA presents for evaluation of acute jaundice and fever. She is admitted for evaluation of possible obstructive cholangitis vs progression of cholangiocarcinoma, along with treatment for REBEKA likely secondary to contrast after CT and poor fluid intake. #Elevated Bilirubin, POA -- ERCP was performed today GI states that the patient will most likely not a candidate for ERCP -- Continue IV Zofran prn nausea, IV Dilaudid prn pain #Acute Kidney Injury, POA Baseline Cr noted to be around 0.8, is now 1.62 on admit Cr was slowly rising over the last few weeks, but abruptly increased yesterday after her CT with contrast. Likely REBEKA secondary to contrast, but patient's poor fluid intake along with her previous UTI likely contributed. Will plan to hydrate with IV NS 150mls/hr, but if Cr continues to worsen, consider renal U/S #Possible Urinary tract Infection, POA -- Gram-negative rods found in the urine sensitivity pending -- Cipro 500 mg twice a day #Hypomagnesemia, POA resolving -- Magnesium level will continue to monitor 2 -- We will continue to monitor #Hypertension, POA Continue patient's home medication: Lisinopril and Metoprolol #JAYLA, POA Likely due to morbid obesity --Nighttime oxygen #Normocytic Anemia, POA Likely due to chemotherapy adverse effect per Dr. Hardeep No s/s of bleeding Continue to monitor, transfuse if Hgb <7.0 #Anxiety and Depression, POA Continue patient's Sertraline #Morbid Obesity, BMI 47.7, POA Tylenol prn fever/pain VTE Prophylaxis: Sub-Q Heparin (Unfractionated) Resuscitation Status: CPR: Attempt Resuscitation Pallavi Jacobs DO Aug 31, 2016 20:35
[2016-08-31] MEDS: Ciprofloxacin Inj 400 MG in IV Premix 1 EACH IV SCH (22:22)
--- NOTE | 2016-08-31 23:32 | NUR ---
activity patient very fatigued this evening. alert and oriented x3 answers questions appropriately. states "i didn't sleep well last night." denies discomfort to abdomen at this time. supportive care given. care ongoing.
[2016-09-01] VITALS (10 sets, daily range): BP systolic 113–155; BP diastolic 68–83; PULSE 63–78; RESP 16–19; O2SAT 95–100
[2016-09-01] MEDS: Heparin 5,000 Unit/mL Inj SUBQ SCH ×3 (00:41→16:11)
[2016-09-01] MEDS: 0.9% Sodium Chloride 1,000 ML IV SCH ×4 (00:42→19:51)
[2016-09-01 06:10] LABS: Hepatitis A Antibody IgM Negative (Negative); Hepatitis B Core Antibody IgM Negative (Negative)
[2016-09-01] MEDS: Pantoprazole 40 mg ER24 Tablet PO SCH (06:21)
[2016-09-01] MEDS: Piper-Tazo 3.375 Gm/50 mL D5W Minibag Plus - Q8H over 4 hrs IV SCH ×6 (06:21→22:30)
[2016-09-01 08:50] LABS: Mean Corpuscular Hemoglobin 31.6 pg (27.0-35.0); Mean Corpuscular Volume 93.8 fL (81-100)
[2016-09-01] MEDS: Ciprofloxacin Inj 400 MG in IV Premix 1 EACH IV SCH ×2 (09:15→19:52)
--- NOTE | 2016-09-01 10:30 | NUR ---
Morning Rounds Staffed patient's case with Dr. Jacobs, social work and case management. I asked for a PT eval, Dr. Jacobs stated she would put the order in for PT eval. Dr. Jacobs stated patient will likely not discharge today, will likely stay through the weekend.
[2016-09-01] MEDS: Ondansetron 2 mg/mL 2 mL Inj IVPUSH PRN (11:25)
--- NOTE | 2016-09-01 11:48 | PCM.PNMED ---
Subjective Date of Service Sep 01, 2016 Subjective Patient reports that she feels much better today; significantly improved energy and less nausea. She reports abdominal pressure when trying to have a bowel movement and reports constipation. No BM in 2 days. She reports her dysuria is improved today. She has no other complaints. On further history, she reports she was on Nitrofurantoin for a UTI. She states she started taking 2 tablets BID starting the evening of 08/24/16, ending . She reports her symptoms leading to this hospitalization began shortly after then. Exam Vital Signs Vital Sign - Last Date Time Temp Pulse Resp B/P Pulse Ox O2 Delivery O2 Flow Rate FiO2 09/01/16 08:28 36.8 74 18 146/83 95 Room Air 08/31/16 16:48 Intake and Output 08/31/16 08/31/16 09/01/16 Cumulative From/Thru 15:00 23:00 07:00 08/30/16 13:59 - 09/01/16 05:40 Intake Total 360 ml 1575 ml 3662 ml Output Total 550 ml 1100 ml Balance 360 ml 1025 ml 2562 ml Intake Oral 360 ml 320 ml 780 ml IV Total 1255 ml 2882 ml Output Urine Total 550 ml 1100 ml # Bowel Movements 0 0 Exam General: Alert, Oriented X3, Cooperative, No Acute Distress Head: Normocephalic, atraumatic. External ears normal. Eyes: PERRLA, EOMI. Scleral icterus present. Mouth: Mouth Normal, Mucous Membranes Moist/[place] Neck: Neck supple with full range of motion. Chest & Lungs: Clear to auscultation bilaterally with no crackles, wheezes, or rhonchi. Cardiovascular: Regular Rate/Rhythm, Normal S1, Normal S2, No Murmurs/Rubs/ Gallops Abdomen: Non-tender, Non-distended, Normoactive bowel tones, Soft. Right sided epigastric mass palpable Musculoskeletal: Normal Range of Motion Extremities: No cyanosis/clubbing/edema bilaterally Skin: Jaundice present Neurological: Slurred Speech Lab and Diagnostics Result Diagram: 09/01/16 0810 09/01/16 0810 X-Rays, CTs and MRIs CT Abd/pelvis with contrast IMPRESSION: There is an irregular, lobulated mass involving the left aspect of the liver. This mass measures slightly decreased in size compared to the prior examinations. Please correlate with interval treatment. New development of moderate simple fluid within the peritoneal cavity. The gallbladder wall appears irregular and hyperenhancing, consistent with the given history of gallbladder cancer. Stable left adrenal nodule. Faintly seen right adrenal nodule. A few stable pulmonary nodules can be seen at the lung bases. Incidental note is made of: Dextroconvex scoliosis Bony degenerative changes Dictated by: Varghese Thorpe M.D. on 08/29/2016 at 15:30 Approved by: Varghese Thorpe M.D. on 08/29/2016 at 15:30 Assessment & Plan Patient is a 61-year-old female with a history of metastatic cholangiocarcinoma who presents for evaluation of acute jaundice and fever. Hyperbilirubinemia, acute. - Pt complains of fever, abdominal pressure but no pain in the context of high bilirubin. Bilirubin remains high today. Pt was afebrile this hospitalization. WBC was elevated (15.3). MRCP showed ascites, a mass lesion within the liver as previously identified, contracted irregular gallbladder, and no visualized biliary ductal dilation. She may have intrahepatic cholestasis secondary to her tumor, although the mass does not appear to have changed significantly. There does not appear to be any extrahepatic pathology that can be addressed via ERCP. Gemcitabine has been associated with transaminitis and elevated bilirubin , but she has not had this medication for several weeks. She reports she finished a course of nitrofurantoin for UTI around the time her symptoms started , and this medication has been associated with autoimmune hepatitis. Her LFTs appear to be improving after stopping nitrofurantoin, so this may be the source of her symptoms. - Continue to monitor LFTs and bilirubin Elevated LFTs, acute. - LFTs have been mildly elevated since 07/26/16, normal before that date. They became more elevated around 08/30, when she started her nitrofurantoin. Hepatitis workup negative. Ordered autoimmune workup to rule out nitrofurantoin- induced autoimmune hepatitis. - Continue to monitor LFTs - ARIANA, anti-Sm, CARRIER WASHER, anti-smooth muscle Abs pending. Elevated INR, acute. - INR 1.82 on admission, significantly elevated from previous INR of 1.34 in July. Likely secondary to acute hepatic injury. - Continue to monitor INR daily - Recommend Vitamin K if INR continues to increase Constipation, acute. - Pt complains of constipation and appears slightly confused, may be an element of early hepatic encephalopathy. - Will treat with lactulose 10 g daily History of Cholangiocarcinoma - Patient has history of intrahepatic cholangiocarcinoma diagnosed in February 2016 , mainly in the left hepatic lobe, metastatic to the right femur. She is currently receiving palliative chemotherapy per Dr. Meier with cisplatin. - Dr. Meier of Oncology is following at this time. We appreciate his input. VTE Prophylaxis: Sub-Q Heparin (Unfractionated) Resuscitation Status: CPR: Attempt Resuscitation Attending Statement Patient seen and examined today along with Dr Arnold. Agree with the assessment and plan as above. I suspect this may be related to nitrofurantoin toxicity. INR and Bilirubin up slightly. Awaiting ARIANA and antismooth muscle results. If no improvement tomorrow, then i'd be inclined to consider and empiric initiation of prednisone. Recommend a 10mg dose of SQ vitamin K Arley Arnold Sep 01, 2016 11:48 Derik West MD Sep 01, 2016 21:30
[2016-09-01] MEDS: Lactulose 20 Gm/30 mL 30 mL Syrup PO SCH (12:16)
[2016-09-01 12:41] LABS: INR 1.97 ratio
--- NOTE | 2016-09-01 15:12 | NUR ---
Social Work Continued Discharge Planning/Screen Note: SW met with patient at bedside to discuss discharge plan. Patient is a 61 year old female admitted on 08/30/16 for elevated bilirubin, UTI. [facility] [employer] health plan. 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 Patient PCP as MD Mo. Patient states residing in [place] with Akhil, who cares and assists with patient needs. Patient has no previous HHC history. Patient has previous SNF history in past, name unknown. Patient uses a wheelchair at home. Patient states oncologist as MD Umanzor. Patient states assists and care for her needs at home. SW will continue to follow if further needs arise. PLAN: Home with via POV. Wheelchair baseline. SW to follow pending clinical course Conrad MARTINEZ Addendum: 09/01/16 at 1520 by ANGEL BEST Therapy ordered. SW to await therapy eval for discharge recommendations. Conrad MARTINEZ
[2016-09-01] MEDS: 0.9% Sodium Chloride 250 ML IV SCH (18:32)
--- NOTE | 2016-09-01 18:55 | PCM.PNMED ---
Subjective Date of Service Sep 01, 2016 Subjective Patient was examined at bedside today. Patient denies any chest pain, shortness of breath. Diarrhea. Patient reports nausea and vomiting and abdominal pain Exam Vital Signs Vital Sign - Last Date Time Temp Pulse Resp B/P Pulse Ox O2 Delivery O2 Flow Rate FiO2 09/01/16 18:22 36.5 66 17 131/75 95 Room Air 08/31/16 16:48 Intake and Output 08/31/16 08/31/16 09/01/16 Cumulative From/Thru 15:00 23:00 07:00 08/30/16 13:59 - 09/01/16 05:40 Intake Total 360 ml 1575 ml 3662 ml Output Total 550 ml 1100 ml Balance 360 ml 1025 ml 2562 ml Intake Oral 360 ml 320 ml 780 ml IV Total 1255 ml 2882 ml Output Urine Total 550 ml 1100 ml # Bowel Movements 0 0 Exam Physical Exam: GEN: Patient was awake, alert, responding appropriately to questions HEENT: PERRLA, EOMI, Neck soft supple, trachea midline, nomocephalic/atraumatic , eyes icteric however improved from yesterday CV: +S1/S2, RRR, no murmurs auscultated Respiratory: CTAB, no wheezes, rales, rhonchi GI: +bowel sounds x4, soft, compressible, mildly TTP, hepatomegaly, positive distention : Mccurdy catheter in place turbid urine Skin: Positive jaundice improved from yesterday EXT: no c/c +2 pitting edema Neuro: CN II-XII grossly intact Psych: mood and affect were appropriate IVs and Medications Medications Reviewed: Medications were reviewed in detail Medications Current Medications Sodium Chloride 1,000 ml @ 150 mls/hr Q6H40M IV Last administered on 09/01/16 14:29; Admin Dose 150 MLS/HR; Start 08/30/16 at 20:19 Al Hydrox/Mg Hydrox/Simethicone 30 ml Q6H PRN PO; Start 08/30/16 at 20:20 Ondansetron HCl 4 to 8 mg Q4H PRN IVPUSH Last administered on 09/01/16 11:25; Admin Dose 8 MG; Start 08/30/16 at 20:20 Senna 17.2 mg BID PRN PO Last administered on 09/01/16 09:25; Admin Dose 17.2 MG; Start 08/30/16 at 20:20 Polyethylene Glycol 17 gm DAILY PRN PO; Start 08/30/16 at 20:20 Temazepam 15 mg HS PRN PO; Start 08/30/16 at 20:20 Acetaminophen 650 mg 650 mg Q4H PRN PO; Start 08/30/16 at 20:20 Meropenem-0.9% Sodium Chloride 1000 mg/Premix 50 ml @ 16.667 mls/ hr Q8 IV; Start 08/31/16 at 00:30; Status UNV Piperacillin Sod/ Tazobactam Sod/ Dextrose/Water 50 ml @ 12.5 mls/hr Q8H IV Last administered on 09/01/16 14:29; Admin Dose 12.5 MLS/HR; Start 08/30/16 at 22:30 Lisinopril 20 mg DAILY PO Last administered on 09/01/16 09:13; Admin Dose 20 MG ; Start 08/31/16 at 08:30 Metoprolol Tartrate 25 mg DAILY PO Last administered on 09/01/16 09:13; Admin Dose 25 MG; Start 08/31/16 at 08:30 Sertraline HCl 50 mg DAILY PO Last administered on 09/01/16 09:13; Admin Dose 50 MG; Start 08/31/16 at 08:30 Non-Formulary Medication 200 mg BID PO; Start 08/31/16 at 08:30; Status UNV Pantoprazole 40 mg 0630 PO Last administered on 09/01/16 06:21; Admin Dose 40 MG; Start 08/31/16 at 06:30 Hydromorphone HCl 0.5 mg Q4H PRN IVPUSH Last administered on 08/31/16 01:29; Admin Dose 0.5 MG; Start 08/31/16 at 00:55 Heparin Sodium (Porcine) 5,000 unit Q8 SUBQ Last administered on 09/01/16 16:11 ; Admin Dose 5,000 UNIT; Start 08/31/16 at 00:30 Potassium Chloride 10 meq 10 meq DAILYWM PO Last administered on 09/01/16 09:13 ; Admin Dose 10 MEQ; Start 08/31/16 at 08:00 Sodium Chloride 250 ml @ 10 mls/hr Q24H IV; Start 08/31/16 at 18:32 Ciprofloxacin Lactate/Premix 200 ml @ 200 mls/hr Q12 IV Last administered on t 09:15; Admin Dose 200 MLS/HR; Start 08/31/16 at 20:35 Lactulose 10 gm DAILY PO Last administered on 09/01/16t 12:16; Admin Dose 10 GM ; Start 09/01/16 at 11:50 Lab and Diagnostics Result Diagram: 09/01/16 0810 09/01/16 0810 X-Rays, CTs and MRIs CT Abd/pelvis with contrast IMPRESSION: There is an irregular, lobulated mass involving the left aspect of the liver. This mass measures slightly decreased in size compared to the prior examinations. Please correlate with interval treatment. New development of moderate simple fluid within the peritoneal cavity. The gallbladder wall appears irregular and hyperenhancing, consistent with the given history of gallbladder cancer. Stable left adrenal nodule. Faintly seen right adrenal nodule. A few stable pulmonary nodules can be seen at the lung bases. Incidental note is made of: Dextroconvex scoliosis Bony degenerative changes Dictated by: Varghese Thorpe M.D. on 08/29/2016 at 15:30 Approved by: Varghese Thorpe M.D. on 08/29/2016 at 15:30 Assessment & Plan Patient is a 61-year-old female with a history of metastatic cholangiocarcinoma who presents for evaluation of acute jaundice and fever. Hyperbilirubinemia, acute. - Pt complains of fever, abdominal pressure but no pain in the context of high bilirubin. Bilirubin remains high today. Pt was afebrile this hospitalization. WBC was elevated (15.3). MRCP showed ascites, a mass lesion within the liver as previously identified, contracted irregular gallbladder, and no visualized biliary ductal dilation. She may have intrahepatic cholestasis secondary to her tumor, although the mass does not appear to have changed significantly. There does not appear to be any extrahepatic pathology that can be addressed via ERCP. Gemcitabine has been associated with transaminitis and elevated bilirubin , but she has not had this medication for several weeks. She reports she finished a course of nitrofurantoin for UTI around the time her symptoms started , and this medication has been associated with autoimmune hepatitis. Her LFTs appear to be improving after stopping nitrofurantoin, so this may be the source of her symptoms. - Continue to monitor LFTs and bilirubin Elevated LFTs, acute. - LFTs have been mildly elevated since 07/26/16, normal before that date. They became more elevated around 08/30, when she started her nitrofurantoin. Hepatitis workup negative. Ordered autoimmune workup to rule out nitrofurantoin- induced autoimmune hepatitis. - Continue to monitor LFTs - ARIANA, anti-Sm, SCROLL SHEAR OPERATOR, anti-smooth muscle Abs pending. Elevated INR, acute. - INR 1.82 on admission, significantly elevated from previous INR of 1.34 in July. Likely secondary to acute hepatic injury. - Continue to monitor INR daily - Recommend Vitamin K if INR continues to increase Constipation, acute. - Pt complains of constipation and appears slightly confused, may be an element of early hepatic encephalopathy. - Will treat with lactulose 10 g daily History of Cholangiocarcinoma - Patient has history of intrahepatic cholangiocarcinoma diagnosed in February 2016 , mainly in the left hepatic lobe, metastatic to the right femur. She is currently receiving palliative chemotherapy per Dr. Meier with cisplatin. - Dr. Meier of Oncology is following at this time. We appreciate his input. Disposition: At this time we will continue to follow the recommendations of GI in and Dr. Meier her oncologist. At this time we are going to monitor the patient's T bili as it has been increasing. If the patient's T bili continues to increase and not respond to gentle hydration will consider treating the patient with steroids. Dr. Meier who was present today and agrees with this particular plan. The patient he feels is very fragile at this moment and should have closer monitoring. Physical therapy has also been added to this particular patient for deconditioning. VTE Prophylaxis: Sub-Q Heparin (Unfractionated) Resuscitation Status: CPR: Attempt Resuscitation Pallavi Jacobs DO Sep 01, 2016 18:55
[2016-09-01] MEDS ORDERED: Phytonadione (Adult) 10 mg/1 mL Inj PO ONE (22:35)
[2016-09-01 23:51] LABS: APPEARANCE,URINE CLOUDY (CLEAR,HAZY); COLOR,URINE ORANGE (YELLOW)
[2016-09-02] VITALS (8 sets, daily range): BP systolic 120–155; BP diastolic 74–84; PULSE 60–81; RESP 16–20; O2SAT 95–100
[2016-09-02] MEDS: Heparin 5,000 Unit/mL Inj SUBQ SCH ×3 (00:28→16:30)
--- NOTE | 2016-09-02 00:48 | CCS NOTE ---
[facility] [address], [address] [address] MEDICAL ONCOLOGY OFFICE NOTE PATIENT: HENRY HARRY : 1955 MR#: [id number] DATE: 08/30/2016 JOB ID: [id number] MEDICAL ONCOLOGY PROGRESS NOTE: DATE: 09/01/2016 SUBJECTIVE: Patient has remained afebrile since hospitalization after seen in our clinic on August 30, 2016. For details, please refer to my office note of August 30, 2016. She had acute elevation of bilirubin and a urinary tract infection. She has been started on ciprofloxacin and was given a dose of Zosyn IV q.8 h. starting since the ER transfer on August 30, 2016. Urine culture was positive for E. coli. LABORATORIES: Show a persistent mild leukocytosis of around 16,000, which today has improved to 12. Hemoglobin 9.2, platelets 89. Chemistry shows today of gradual improvement of creatinine from 1.66 to now 1.38. Total bilirubin remains elevated with 13. Liver transaminases are trending downward though. Alkaline phosphatase which was up to 493 is down to 400 now. MRCP showed no evidence of biliary obstruction. On exam, she is oriented and in no acute distress. Her is at bedside. Abdomen is soft. She is eating breakfast. No vomiting. ASSESSMENT AND PLAN: A 61-year-old pleasant lady with intrahepatic cholangiocarcinoma affecting the left hepatic lobe bordering to the medial aspect of the liver and a single metastatic site to the right femur that has been radiated. She had presented with this acute onset of rising bilirubin. Details are summarized in my note of August 30, 2016 through the office visit. I have had detailed conversations with Dr. West of Gastroenterology and also had a conference with her today reviewing the data so far. In summary, there appears to be neither an obstructive process in the biliary tree nor evidence of tumor progression radiographically based on the several CT scans that she has had in the last couple of months and the last one being performed on August 29, 2016, and prior to that, on August 15, 2016. Therefore, although tumor infiltration related cholestasis cannot be entirely excluded, it appears unusual given the acuity and lack of radiographic progression. Dr. West thought of possibility of some sort of liver toxicity possibly from antibiotics or other medication. We will continue supportive care at this point and observation. There is currently no role for ERCP which I agree with. Her urinary tract infection is being treated. She had received treatment with nitrofurantoin as an outpatient by primary care for her urinary tract infection which had started a couple of weeks ago. That timely would possibly fit to this acute deterioration. Dr. West has also sent off for a chronic hepatitis and autoimmune hepatitis panel. We would hope to see a trend towards improvement of the bilirubin in the next couple of days. The transaminase and alkaline phosphatase is improving slightly. Also, her acute kidney injury seems to be improving, creatinine coming down. That aspect I think was related possibly to multiple exposures to iodine contrast in this past two weeks.
[2016-09-02] MEDS: 0.9% Sodium Chloride 1,000 ML IV SCH ×4 (01:39→21:39)
--- NOTE | 2016-09-02 04:04 | NUR ---
GI/Urine Output/Medications Patient continues to have frequent soft stools; at least 4 BMs this shift. Single episode of nausea with 350 ml output of emesis. Specimen collected and sent for repeat urinalysis per order of Dr. West; urine noted to be dark colored and turbid, with small blood clots. Heparin sub-q held due to low platelets and elevated PTT; vitamin K PO given. Zosyn discontinued per Dr. West. Continue to monitor.
[2016-09-02 08:03] LABS: Mean Corpuscular Hemoglobin 31.6 pg (27.0-35.0); Mean Corpuscular Volume 94.2 fL (81-100)
[2016-09-02 08:13] LABS: INR 1.76 ratio
[2016-09-02] MEDS: Ciprofloxacin Inj 400 MG in IV Premix 1 EACH IV SCH ×2 (10:07→20:48)
[2016-09-02] MEDS: Lactulose 20 Gm/30 mL 30 mL Syrup PO SCH (10:07)
[2016-09-02] MEDS: Pantoprazole 40 mg ER24 Tablet PO SCH (10:07)
--- NOTE | 2016-09-02 10:09 | NUR ---
Held Heparin Held Heparin due to low platelets.
--- NOTE | 2016-09-02 10:40 | NUR ---
Morning Rounds Staffed patient's case with Dr. Jacobs and social service agency director. Dr. Jacobs stated patient's bilirubin still needs to be monitored and PT eval is still pending, no plan for discharge at this time.
--- NOTE | 2016-09-02 13:30 | NUR ---
Evaluation completed. Please go to "Notes" then click on "Assessments and Notes" (bottom left corner of screen). Then select appropriate discipline tab on top of screen.
--- NOTE | 2016-09-02 13:46 | PROG NOTE ---
[address] [address] PROGRESS NOTE PATIENT: HENRY HARRY : 1955 MR#: [id number] ADMIT: 08/30/2016 JOB ID: [id number] DATE: 09/02/2016 SUBJECTIVE: The patient has some nausea that has persisted and she did not keep her lunch down today. She, however, does still have evidence of urinary tract infection on her updated UA (this in spite of an appropriate antibiotic for the E. coli appears to be pansensitive). The patient's was at the bedside today and I helped to answer some questions. His thought was that the nitrofurantoin was stopped about nine days ago or so and she only remembers a five day course. OBJECTIVE: Vital signs are stable. Blood pressure 139/84. The patient is conversational, in no distress. Lying in the right lateral decubitus semi-recumbent position. LABORATORIES: UA demonstrates excess white cells. Bilirubin is up to 14.6. Creatinine is down to 1.21. INR came down with 10 mg of oral vitamin K to 1.76. Platelets are 91. White count is 12.8. Hemoglobin 9.9, hematocrit 29.5. Albumin is 2.2. Acute hepatitis serologies were negative. The ARIANA and anti smooth muscle antibody results are still pending. ASSESSMENT AND PLAN: A 61-year-old female with metastatic cholangiocarcinoma. She has developed subacute jaundice, but does not appear to have a significant increase in tumor burden nor does she have evidence of biliary obstruction. I suspect this is an intrahepatic cholestatic problem likely brought on by some element of drug toxicity. It is interesting that she was taking nitrofurantoin up to about nine days ago which very rarely has been associated with severe liver dysfunction, even fulminant liver failure and . I would defer any ongoing urinary tract infection problem to primary team. I would recommend we continue to follow PT/INR, CMP, CBC every day. Explained to the patient that it may take some time for her bilirubin to fall back down to normal, but that as long as her INR is stable or trending in a safe direction, she may be able to go home perhaps as early as Sunday depending on how things play out. I would like to see the ARIANA results before empirically starting her on steroid at this point in that she is for the most part right now clinically stable.
[2016-09-02] MEDS: Ondansetron 2 mg/mL 2 mL Inj IVPUSH PRN (15:07)
--- NOTE | 2016-09-02 15:50 | NUR ---
Mouth Sores Contacted Dr. Jacobs with the following cook page: Patient is reporting sores in her mouth, I have seen the sores and they are on the right side of her tongue, fairly large, some appear yellow and others appears red. Patient requesting something to decrease the sores. Please advise. Thank you. Camlia GOTTLIEB
--- NOTE | 2016-09-02 16:45 | NUR ---
Held Heparin Heparin held due to low platelets.
--- NOTE | 2016-09-02 16:59 | NUR ---
Return Call from Dr. Jacobs Received return call from DR. Jacobs regarding page concerning mouth sores, she stated to have the patient gargle/swish with some warm salt water.
--- NOTE | 2016-09-02 17:10 | PCM.PNMED ---
Subjective Date of Service Sep 02, 2016 Subjective Patient was examined at bedside today. Patient denies any chest pain, shortness of breath, diarrhea. Patient reports nausea vomiting but states that she feels this is more related to her diet as if she does not eat on a regular schedule she becomes nauseous and sometimes vomits. Patient states that overall today she is not feeling very well but unable to describe this in more detail. Exam Vital Signs Vital Sign - Last Date Time Temp Pulse Resp B/P Pulse Ox O2 Delivery O2 Flow Rate FiO2 09/02/16 12:43 36.4 61 20 139/84 95 Nasal Cannula 2.00 Intake and Output 09/01/16 09/01/16 09/02/16 Cumulative From/Thru 15:00 23:00 07:00 08/30/16 13:59 - 09/02/16 05:19 Intake Total 1857 ml 2356 ml 7875 ml Output Total 360 ml 400 ml 1860 ml Balance 1497 ml 1956 ml 6015 ml Intake Oral 540 ml 600 ml 1920 ml IV Total 1317 ml 1756 ml 5955 ml Output Urine Total 360 ml 400 ml 1860 ml # Bowel Movements 0 Exam Physical Exam: GEN: Patient was awake, alert, responding appropriately to questions HEENT: PERRLA, EOMI, Neck soft supple, trachea midline, nomocephalic/atraumatic , eyes icteric CV: +S1/S2, RRR, no murmurs auscultated Respiratory: CTAB, no wheezes, rales, rhonchi GI: +bowel sounds x4, soft, compressible, non TTP, obese Skin: Positive jaundice EXT: no c/c bilateral 2+ pitting edema in the lower extremities with mild tenderness to palpation bilaterally unchanged from baseline Neuro: CN II-XII grossly intact Psych: mood and affect were appropriate IVs and Medications Medications Reviewed: Medications were reviewed in detail Medications Current Medications Sodium Chloride 250 ml @ 10 mls/hr Q24H IV; Start 08/31/16 at 18:32 Ciprofloxacin Lactate/Premix 200 ml @ 200 mls/hr Q12 IV Last administered on 10:07; Admin Dose 200 MLS/HR; Start 08/31/16 at 20:35 Lactulose 10 gm DAILY PO Last administered on 09/02/16 10:07; Admin Dose 10 GM ; Start 09/01/16 at 11:50 Lab and Diagnostics Result Diagram: 09/02/16 0612 09/02/16 0612 X-Rays, CTs and MRIs CT Abd/pelvis with contrast IMPRESSION: There is an irregular, lobulated mass involving the left aspect of the liver. This mass measures slightly decreased in size compared to the prior examinations. Please correlate with interval treatment. New development of moderate simple fluid within the peritoneal cavity. The gallbladder wall appears irregular and hyperenhancing, consistent with the given history of gallbladder cancer. Stable left adrenal nodule. Faintly seen right adrenal nodule. A few stable pulmonary nodules can be seen at the lung bases. Incidental note is made of: Dextroconvex scoliosis Bony degenerative changes Dictated by: Varghese Thorpe M.D. on 08/29/2016 at 15:30 Approved by: Varghese Thorpe M.D. on 08/29/2016 at 15:30 Assessment & Plan Patient is a 61-year-old female with a history of metastatic cholangiocarcinoma who presents for evaluation of acute jaundice and fever. Hyperbilirubinemia, acute. - T bili on admission 12.7, 13.9 on 09/01/2016, 14.6 on 09/02/2016 T bili continues to trend upward - Continue to monitor LFTs and bilirubin Elevated LFTs, acute. - LFTs have been mildly elevated since 07/26/16, normal before that date. They became more elevated around 08/30, when she started her nitrofurantoin. Hepatitis workup negative. Ordered autoimmune workup to rule out nitrofurantoin- induced autoimmune hepatitis. - Continue to monitor LFTs - ARIANA, anti-Sm, DESIGN MAKER, anti-smooth muscle Abs pending. Elevated INR, acute. - INR 1.82 on admission, significantly elevated from previous INR of 1.34 in July. Likely secondary to acute hepatic injury. - INR today 1.76 trending down - Continue to monitor INR daily Constipation, acute. - Pt complains of constipation and appears slightly confused, may be an element of early hepatic encephalopathy. - Will treat with lactulose 10 g daily History of Cholangiocarcinoma - Patient has history of intrahepatic cholangiocarcinoma diagnosed in February 2016 , mainly in the left hepatic lobe, metastatic to the right femur. She is currently receiving palliative chemotherapy per Dr. Meier with cisplatin. - Dr. Meier of Oncology is following at this time. We appreciate his input. Disposition: At this time or continue to trend the patient's T bili as per recommendations by GI. At this time GI feels that the patient seems to be stabilizing and as long as her INR remained stable she may be able to be discharged home and followed as an outpatient next week. We will continue to monitor the patient and manage as medically necessary. VTE Prophylaxis: Sub-Q Heparin (Unfractionated) Resuscitation Status: CPR: Attempt Resuscitation Pallavi Jacobs DO Sep 02, 2016 17:10
[2016-09-02] MEDS: 0.9% Sodium Chloride 250 ML IV SCH (18:13)
[2016-09-03] VITALS (8 sets, daily range): BP systolic 99–157; BP diastolic 64–102; PULSE 61–65; RESP 16–20; O2SAT 94–100
--- NOTE | 2016-09-03 00:29 | NUR ---
Edema Pt has pitting edema to her lower extremities. Her weight since admission is up 6 kg per bedscale. Lungs are CTA. Pt denies SOB> Resting comfortably. Will cont to monitor
[2016-09-03] MEDS: Heparin 5,000 Unit/mL Inj SUBQ SCH ×2 (00:30→08:30)
[2016-09-03] MEDS: 0.9% Sodium Chloride 1,000 ML IV SCH (01:51)
[2016-09-03 04:06] LABS: Mean Corpuscular Hemoglobin 31.5 pg (27.0-35.0); Mean Corpuscular Volume 94.2 fL (81-100)
[2016-09-03 04:22] LABS: INR 1.77 ratio
--- NOTE | 2016-09-03 06:50 | NUR ---
Scale Attempted to get pt on standing scale. She is too weak. Bed scale is adequate at this time. Reported weight gain to this AM
--- NOTE | 2016-09-03 06:51 | NUR ---
Critical value Reported high bilirubin to oncoming red team via cook paging.
[2016-09-03] MEDS: Ciprofloxacin Inj 400 MG in IV Premix 1 EACH IV SCH ×2 (08:30→20:53)
[2016-09-03] MEDS: Pantoprazole 40 mg ER24 Tablet PO SCH (08:35)
[2016-09-03] MEDS: Lactulose 20 Gm/30 mL 30 mL Syrup PO SCH (08:35)
--- NOTE | 2016-09-03 10:42 | NUR ---
Morning Rounds Staffed patient's case with Dr. Jacobs and social work. Dr. Jacobs stated GI will need to make the recommendation for next course of action due to increasing bilirubin. D/C Heparin and Lactulose, Dr. Jacobs will recheck mag level, may also increase K. Dr. Jacobs asked that I contact pharmacy to find out if they can mix magic mouthwash, if so, put in verbal order for Magic Mouthwash TID, swish and spit.
[2016-09-03] MEDS: Diphen-Lido-Mylanta 1:1:1 Susp 15 mL Syringe PO SCH ×2 (11:53→20:51)
[2016-09-03] MEDS ORDERED: Potassium Chloride 20 mEq SR Tablet PO ONE (13:05)
--- NOTE | 2016-09-03 13:13 | PCM.PNMED ---
Subjective Date of Service Sep 03, 2016 Subjective Patient was examined at bedside today. Patient states that she is doing well today. Patient denies any chest pain, shortness of breath, nausea, vomiting, diarrhea. Patient reports abdominal pain has improved. Exam Vital Signs Vital Sign - Last Date Time Temp Pulse Resp B/P Pulse Ox O2 Delivery O2 Flow Rate FiO2 09/03/16 11:36 Room Air 09/03/16 09:10 65 09/03/16 07:47 36.6 16 124/79 98 09/03/16 04:38 2.00 Intake and Output 09/02/16 09/02/16 09/03/16 Cumulative From/Thru 15:00 23:00 07:00 08/30/16 13:59 - 09/03/16 06:41 Intake Total 2783 ml 1860 ml 86419 ml Output Total 600 ml 350 ml 2810 ml Balance 2183 ml 1510 ml 9708 ml Intake Oral 840 ml 220 ml 2980 ml IV Total 1943 ml 1640 ml 9538 ml Output Urine Total 600 ml 350 ml 2810 ml # Bowel Movements 3 3 6 Exam Physical Exam: GEN: Patient was awake, alert, responding appropriately to questions HEENT: PERRLA, EOMI, Neck soft supple, trachea midline, nomocephalic/atraumatic , eyes icteric, patient complains of lateral tongue ulcers CV: +S1/S2, RRR, no murmurs auscultated Respiratory: CTAB, no wheezes, rales, rhonchi GI: +bowel sounds x4, soft, compressible, non TTP, obese Skin: Positive jaundice EXT: no c/c bilateral 2+ pitting edema in the lower extremities with mild tenderness to palpation bilaterally unchanged from baseline Neuro: CN II-XII grossly intact Psych: mood and affect were appropriate IVs and Medications Medications Reviewed: Medications were reviewed in detail Medications Current Medications Lidocaine/ Diphenhydramine/ Alumin/Mg 15 ml TID PO Last administered on t 11:53; Admin Dose 15 ML; Start 09/03/16 at 14:30 Lab and Diagnostics Result Diagram: 09/03/16 0401 09/03/16 0401 X-Rays, CTs and MRIs CT Abd/pelvis with contrast IMPRESSION: There is an irregular, lobulated mass involving the left aspect of the liver. This mass measures slightly decreased in size compared to the prior examinations. Please correlate with interval treatment. New development of moderate simple fluid within the peritoneal cavity. The gallbladder wall appears irregular and hyperenhancing, consistent with the given history of gallbladder cancer. Stable left adrenal nodule. Faintly seen right adrenal nodule. A few stable pulmonary nodules can be seen at the lung bases. Incidental note is made of: Dextroconvex scoliosis Bony degenerative changes Dictated by: Varghese Thorpe M.D. on 08/29/2016 at 15:30 Approved by: Varghese Thorpe M.D. on 08/29/2016 at 15:30 Assessment & Plan Patient is a 61-year-old female with a history of metastatic cholangiocarcinoma who presents for evaluation of acute jaundice and fever. Hyperbilirubinemia, acute. - T bili on admission 12.7, 13.9 on 09/01/2016, 14.6 on 09/02/2016 T bili continues to trend upward today T bili was 15.3 - Continue to monitor LFTs and bilirubin - GI following Elevated LFTs, acute. - LFTs have been mildly elevated since 07/26/16, normal before that date. They became more elevated around 08/30, when she started her nitrofurantoin. Hepatitis workup negative. Ordered autoimmune workup to rule out nitrofurantoin- induced autoimmune hepatitis. - Continue to monitor LFTs - ARIANA, anti-Sm, VEGETABLE THINNER, anti-smooth muscle Abs pending. -Hepatitis A, B, C screen are negative Elevated INR, acute. - INR 1.82 on admission, significantly elevated from previous INR of 1.34 in July. Likely secondary to acute hepatic injury. - INR is currently stable - Continue to monitor INR daily Constipation, acute-resolved - Pt complains of constipation and appears slightly confused, may be an element of early hepatic encephalopathy. - Discontinue lactulose 10 g daily Hypokalemia - Potassium 3.3 - Continue patient's normal 10 mEq daily add a one-time dose of 20 mEq today - We will continue to monitor New onset camphorus ulcers of the tounge - Continue warm salt water gargles 3 times a day - Start Magic mouthwash 3 times a day - We will continue to monitor Hypomagnesemia on admission - Magnesium of 1.0 replacement was done magnesium improved to 2.0 - We will repeat magnesium in the morning to ensure this has stabilized History of Cholangiocarcinoma - Patient has history of intrahepatic cholangiocarcinoma diagnosed in February 2016 , mainly in the left hepatic lobe, metastatic to the right femur. She is currently receiving palliative chemotherapy per Dr. Meier with cisplatin. - Dr. Meier of Oncology is following at this time. We appreciate his input. Disposition: At this time or continue to trend the patient's T bili as per recommendations by GI. At this time GI feels that the patient seems to be stabilizing and as long as her INR remained stable she may be able to be discharged home and followed as an outpatient next week. We will continue to monitor the patient and manage as medically necessary. VTE Prophylaxis: Sub-Q Heparin (Unfractionated) Resuscitation Status: CPR: Attempt Resuscitation Pallavi Jacobs DO Sep 03, 2016 13:13
--- NOTE | 2016-09-03 16:29 | NUR ---
Heparin/Emesis Spoke with Dr. Jacobs about d/c'ing Heparin, she stated the Heparin can be discontinued, but she needs to be wearing SCD's. Also informed Dr. Jacobs that patient had a bout of vomiting about an hour after taking Potassium with applesauce, she stated she will recheck the Potassium level in the morning and prescribe IV Potassium if needed.
--- NOTE | 2016-09-03 17:30 | NUR ---
Social Work: Readiness for d/c Data: Pt is on day 4 of hospitalization. EMR reviewed, pt discussed in rounds. MD states pt likely to d/c in 1-2 days. GI to consult with pt. PSYCHOLOGIST MILITARY PERSONNEL will continue to follow. Assessment: Pt who is independent at baseline. Plan: Pt will d/c home via POV when medically stable. PSYCHOLOGIST MILITARY PERSONNEL will continue to follow. JUAN Benitez
[2016-09-03] MEDS: 0.9% Sodium Chloride 250 ML IV SCH (19:30)
--- NOTE | 2016-09-03 21:35 | PROG NOTE ---
[address] [address] PROGRESS NOTE PATIENT: HENRY HARRY : 1955 MR#: [id number] ADMIT: 08/30/2016 JOB ID: [id number] DATE: 09/03/2016 SUBJECTIVE: No significant clinical changes. The patient seemed to be intolerant of acutely taking in very cold content. She had a small emesis as a consequence. She has been a little on the constipated side but bowels have been moving in response to lactulose. The patient continues to prefer to lie in the semirecumbent right lateral decubitus position. She has 2-3+ bilateral pitting edema. OBJECTIVE: Vitals earlier this afternoon: Blood pressure a little elevated, pulse in the 60s, breathing comfortably 97% on room air, 36.5 temperature. She was conversational, alert, oriented, appropriate, cooperative. 2-3+ edema bilaterally in the lower extremities. LABORATORIES: Bilirubin 15.3, creatinine is down to 1.05. Potassium was a little low at 3.3. Albumin was 2.1. Hemoglobin is 9.3, hematocrit 27.8, white count 14.1, platelets 95. INR is essentially stable today at 1.77. The ARIANA and the anti smooth muscle antibody results are still pending. Repeat urinalysis from the continued to demonstrate evidence of urinary tract infection, however, the culture is so far not growing anything out. ASSESSMENT AND PLAN: This is a 61-year-old female with metastatic cholangiocarcinoma and recent onset of jaundice. So far this does not appear to be evidence of extrahepatic or even intrahepatic biliary obstruction. There is no suggestion of increase in tumor size. We suspect that this is some form of hepatotoxicity and nitrofurantoin is a possible culprit. We are still waiting on ARIANA and anti smooth muscle antibody results. I have not empirically started steroids in that the INR has demonstrated sufficient stability. We will continue to follow. Should the patient develop any symptoms of diarrhea with her antibiotic history, I would recommend a C. diff assay.
[2016-09-04] VITALS (8 sets, daily range): BP systolic 111–148; BP diastolic 69–81; PULSE 57–68; RESP 17–19; O2SAT 97–100
[2016-09-04] MEDS: 0.9% Sodium Chloride 1,000 ML IV SCH (04:19)
--- NOTE | 2016-09-04 04:27 | NUR ---
Mobility Patient prefers right side lying in bed for comfort need encouraged to reposition off the one side
[2016-09-04 06:27] LABS: Mean Corpuscular Hemoglobin 31.7 pg (27.0-35.0); Mean Corpuscular Volume 94.8 fL (81-100)
[2016-09-04] MEDS: Pantoprazole 40 mg ER24 Tablet PO SCH (06:31)
[2016-09-04 06:43] LABS: INR 1.79 ratio
[2016-09-04] MEDS: Diphen-Lido-Mylanta 1:1:1 Susp 15 mL Syringe PO SCH ×3 (08:49→20:22)
[2016-09-04] MEDS: Ciprofloxacin Inj 400 MG in IV Premix 1 EACH IV SCH (08:51)
--- NOTE | 2016-09-04 11:04 | NUR ---
nausea/vomiting pt states N/V post meals, this is not new for her. Feels better after mild vomiting. small emesis amount out at 1100. MD aware.
--- NOTE | 2016-09-04 11:20 | NUR ---
Social Work Continued Discharge Planning: SW met with patient at bedside to discuss discharge plan. Therapy notes reviewed and recommendations for SNF placement. SW met with patient at bedside to discuss discharge plan. SNF and HHC choice list provided. Patient states pending therapy eval today, she to follow up with NISHANT regarding plan of care of SNF vs HHC. Patient states SNF choice as [facility] or [facility]. NISHANT requested that UR specialist send referral. Patient states if insurance unable to authorize, alterative plans as home with and HHC via [facility]. SW will continue to follow pending clinical course. PLAN: Possible SNF vs HHC ([facility]), pending further PT eval and clinical course. SNF pending acceptance and auth. Conrad MARTINEZ
--- NOTE | 2016-09-04 11:24 | PCM.PNMED ---
Subjective Date of Service Sep 04, 2016 Subjective Pt reports her bowel movements have become more regular after starting lactulose , but apparently she may have some trouble telling when she is having a bowel movement. She reports nausea and vomiting, abdominal discomfort, and lower extremity edema but denies diarrhea, fevers, or chills. Exam Vital Signs Vital Sign - Last Date Time Temp Pulse Resp B/P Pulse Ox O2 Delivery O2 Flow Rate FiO2 09/04/16 10:27 57 09/04/16 08:40 Supplement Oxygen 09/04/16 07:20 36.5 18 146/69 99 09/04/16 05:37 2.00 Intake and Output 09/03/16 09/03/16 09/04/16 Cumulative From/Thru 15:00 23:00 07:00 08/30/16 13:59 - 09/04/16 06:34 Intake Total 964 ml 236 ml 63260 ml Output Total 400 ml 450 ml 3660 ml Balance 564 ml -214 ml 92885 ml Intake Oral 340 ml 236 ml 3556 ml IV Total 624 ml 87440 ml Output Urine Total 300 ml 250 ml 3360 ml Emesis 100 ml 200 ml 300 ml # Bowel Movements 2 4 12 Exam General: Alert, Oriented X3, Cooperative, No Acute Distress Head: Normocephalic, atraumatic. External ears normal. Eyes: PERRLA, EOMI. Scleral icterus present. Mouth: Mouth Normal, Mucous Membranes Moist/[place] Neck: Neck supple with full range of motion. Chest & Lungs: Clear to auscultation bilaterally with no crackles, wheezes, or rhonchi. Cardiovascular: Regular Rate/Rhythm, Normal S1, Normal S2, No Murmurs/Rubs/ Gallops Abdomen: Diffuse discomfort to palpation, Non-distended, Normoactive bowel tones, Soft. Right sided epigastric mass palpable Musculoskeletal: Normal Range of Motion Extremities: Bilateral lower extremity edema Skin: Jaundice present Neurological: Slurred Speech Lab and Diagnostics Result Diagram: 09/04/16 0610 09/04/16 0610 X-Rays, CTs and MRIs CT Abd/pelvis with contrast IMPRESSION: There is an irregular, lobulated mass involving the left aspect of the liver. This mass measures slightly decreased in size compared to the prior examinations. Please correlate with interval treatment. New development of moderate simple fluid within the peritoneal cavity. The gallbladder wall appears irregular and hyperenhancing, consistent with the given history of gallbladder cancer. Stable left adrenal nodule. Faintly seen right adrenal nodule. A few stable pulmonary nodules can be seen at the lung bases. Incidental note is made of: Dextroconvex scoliosis Bony degenerative changes Dictated by: Varghese Thorpe M.D. on 08/29/2016 at 15:30 Approved by: Varghese Thorpe M.D. on 08/29/2016 at 15:30 Assessment & Plan Patient is a 61-year-old female with a history of metastatic cholangiocarcinoma who presents for evaluation of acute jaundice and fever. Hyperbilirubinemia, acute. - Pt complains of fever, abdominal pressure but no pain in the context of high bilirubin. Bilirubin remains high today. Pt was afebrile this hospitalization. WBC was elevated (15.3). MRCP showed ascites, a mass lesion within the liver as previously identified, contracted irregular gallbladder, and no visualized biliary ductal dilation. She may have intrahepatic cholestasis secondary to her tumor, although the mass does not appear to have changed significantly. There does not appear to be any extrahepatic pathology that can be addressed via ERCP. Gemcitabine has been associated with transaminitis and elevated bilirubin , but she has not had this medication for several weeks. She reports she finished a course of nitrofurantoin for UTI around the time her symptoms started , and this medication has been associated with autoimmune hepatitis. Her bilirubin continues to climb. MRCP showed contracted irregular gallbladder. - Continue to monitor LFTs and bilirubin - Will order HIDA scan to evaluate gallbladder and biliary emptying. Elevated LFTs, acute. - LFTs have been mildly elevated since 07/26/16, normal before that date. They became more elevated around 08/30, when she started her nitrofurantoin. Hepatitis workup negative. Her LFTs have been fairly stable since, but appear to have started climbing again today. ARIANA positive, anti-smooth muscle weakly positive. Anti-Sm and TRAVEL ASSISTANT negative. Autoimmune hepatitis is possible. - Continue to monitor LFTs Elevated INR, acute. - INR 1.82 on admission, significantly elevated from previous INR of 1.34 in July. Likely secondary to acute hepatic injury. Pt received one dose of Vit K. INR now stable, in 1.7 - 1.8 range. - Continue to monitor INR daily - Recommend Vitamin K if INR continues to increase Leukocytosis, acute. - Pt has had leukocytosis (WBC 12 - 15) throughout her hospital stay but her WBC increased to 17.5 today. Blood cultures negative, repeat urine culture negative. C diff negative. Her repeat UA showed more WBCs (>50) but follow up urine cultures were negative. - Could be secondary to autoimmune hepatitis but consider ongoing infection. Constipation, acute. Improved. - Pt complains of constipation and appears slightly confused, may be an element of early hepatic encephalopathy. - Will treat with lactulose 10 g daily History of Cholangiocarcinoma - Patient has history of intrahepatic cholangiocarcinoma diagnosed in February 2016 , mainly in the left hepatic lobe, metastatic to the right femur. She is currently receiving palliative chemotherapy per Dr. Meier with cisplatin. - Dr. Meier of Oncology is following at this time. We appreciate his input. VTE Prophylaxis: Sub-Q Heparin (Unfractionated) VTE Mechanical Devices: Intermittant Pneumatic CD Resuscitation Status: CPR: Attempt Resuscitation Attending Statement Patient seen and examined. Agree with assessment and plan as described by Dr Arnold. Increased WBC. Slight increase in bili. ARIANA positive. INR stable. PO intolerance. Abnl gallbladder on imaging. Will hold on corticosteroid for now. HIDA scan is ordered. Arley Arnold Sep 04, 2016 11:24 Derik West MD Sep 04, 2016 21:56
--- NOTE | 2016-09-04 13:24 | PCM.PNMED ---
Subjective Date of Service Sep 04, 2016 Subjective Patient was examined at bedside today. Patient denies any chest pain, shortness of breath, diarrhea. Patient reports abdominal pain, Nausea, and occasional vomiting. Patient states that the abdominal pain and the nausea have improved. The patient states that overall she is feeling well and much improved. The patient also complains of multiple tongue ulcers however she states that since she started gargling with saltwater and Magic mouthwash the one that was central on her tongue seems to have improved significantly. Exam Vital Signs Vital Sign - Last Date Time Temp Pulse Resp B/P Pulse Ox O2 Delivery O2 Flow Rate FiO2 09/04/16 12:13 36.4 58 18 128/78 98 Room Air 09/04/16 05:37 2.00 Intake and Output 09/03/16 09/03/16 09/04/16 Cumulative From/Thru 15:00 23:00 07:00 08/30/16 13:59 - 09/04/16 06:34 Intake Total 964 ml 236 ml 36638 ml Output Total 400 ml 450 ml 3660 ml Balance 564 ml -214 ml 48120 ml Intake Oral 340 ml 236 ml 3556 ml IV Total 624 ml 60791 ml Output Urine Total 300 ml 250 ml 3360 ml Emesis 100 ml 200 ml 300 ml # Bowel Movements 2 4 12 Exam Physical Exam: GEN: Patient was awake, alert, responding appropriately to questions HEENT: PERRLA, EOMI, Neck soft supple, trachea midline, nomocephalic/atraumatic , eyes icteric, multiple tongue lesions CV: +S1/S2, RRR, no murmurs auscultated Respiratory: CTAB, no wheezes, rales, rhonchi GI: +bowel sounds x4, soft, compressible, non TTP, obese Skin: Positive jaundice EXT: no c/c bilateral 2+ pitting edema in the lower extremities with mild tenderness to palpation bilaterally unchanged from baseline Neuro: CN II-XII grossly intact Psych: mood and affect were appropriate IVs and Medications Medications Reviewed: Medications were reviewed in detail Medications Current Medications Lidocaine/ Diphenhydramine/ Alumin/Mg 15 ml TID PO Last administered on t 08:49; Admin Dose 15 ML; Start 09/03/16 at 14:30 Lab and Diagnostics Result Diagram: 09/04/16 0610 09/04/16 0610 X-Rays, CTs and MRIs CT Abd/pelvis with contrast IMPRESSION: There is an irregular, lobulated mass involving the left aspect of the liver. This mass measures slightly decreased in size compared to the prior examinations. Please correlate with interval treatment. New development of moderate simple fluid within the peritoneal cavity. The gallbladder wall appears irregular and hyperenhancing, consistent with the given history of gallbladder cancer. Stable left adrenal nodule. Faintly seen right adrenal nodule. A few stable pulmonary nodules can be seen at the lung bases. Incidental note is made of: Dextroconvex scoliosis Bony degenerative changes Dictated by: Varghese Thorpe M.D. on 08/29/2016 at 15:30 Approved by: Varghese Thorpe M.D. on 08/29/2016 at 15:30 Assessment & Plan Patient is a 61-year-old female with a history of metastatic cholangiocarcinoma who presents for evaluation of acute jaundice and fever. Hyperbilirubinemia, acute. - T bili on admission 12.7, 13.9 on 09/01/2016, 14.6 on 09/02/2016 T bili continues to trend upward today T bili was yesterday and 15.3 and 17 today - Continue to monitor LFTs and bilirubin - GI following Elevated LFTs, acute. -LFTs have been mildly elevated since admission however they were steadily trending down. However today he started to trend upwards once again. - Continue to monitor LFTs - ARIANA, anti-Sm, OPTICS ENGINEER, anti-smooth muscle Abs pending. -Hepatitis A, B, C screen are negative Elevated INR, acute. - INR is currently stable - Continue to monitor INR daily Constipation, acute-resolved - Discontinue lactulose 10 g daily - Patient currently has bowel movements will get a stool culture should patient have increase in loose stools. Hypokalemia (resolved) - Potassium 3.3 yesterday and today potassium is corrected to 4.0 - Continue patient's normal 10 mEq daily add a one-time dose of 20 mEq today - We will continue to monitor New onset camphorus ulcers of the tounge (resolving) - Continue warm salt water gargles 3 times a day - Continue Magic mouthwash 3 times a day - We will continue to monitor Hypomagnesemia on admission - Magnesium of 1.0 replacement was done magnesium improved to 2.0 - We will repeat magnesium in the morning to ensure this has stabilized History of Cholangiocarcinoma - Patient has history of intrahepatic cholangiocarcinoma diagnosed in February 2016 , mainly in the left hepatic lobe, metastatic to the right femur. She is currently receiving palliative chemotherapy per Dr. Meier with cisplatin. - Dr. Meier of Oncology is following at this time. We appreciate his input. DVT prophylaxis -Heparin has been discontinued from these lesions patient as her platelets have been low. - Continue using SCDs Disposition: Clinically patient seems to be improving daily however T Bili continues to rise. Unsure as to cause an appreciate the continue recommendations from GI. All antibiotics have been stopped and stool cultures have been sent for possible infection. Still awaiting immunologic testing results. Once these results are known GI will consider starting steroid therapy. We will continue to monitor the patient. Pain Evaluation: Adequate Pain Control VTE Prophylaxis: SCDs VTE Mechanical Devices: Intermittant Pneumatic CD Resuscitation Status: CPR: Attempt Resuscitation Time spent Greater than 35 minutes Pallavi Jacobs DO Sep 04, 2016 13:24
--- NOTE | 2016-09-04 15:35 | NUR ---
Faxed referral to [facility] per [facility]
--- NOTE | 2016-09-04 16:43 | CCS NOTE ---
[facility] [address], [address] [address] MEDICAL ONCOLOGY OFFICE NOTE PATIENT: HENRY HARRY : 1955 MR#: [id number] DATE: 08/30/2016 JOB ID: [id number] DATE: 09/04/2016 SUBJECTIVE: Patient is in bed and communicated in no apparent distress. Clinical data over the weekend in [facility] reviewed. She has not had any febrile issues. Continues on some hydration. Ciprofloxacin has been now discontinued. Urinalysis shows clearance of urine culture. Urine culture of August 30 was positive for E. coli. Repeat culture of September 01 was negative. She had a Mccurdy catheter in place. Is fairly inactive. LABS: Otherwise show a continuous gradual increase of bilirubin now to 17 from 15.3 yesterday and 13.9 on Sunday, September 01. On the other hand, the transaminases and alkaline phosphatase are slightly improved since admission but plateaued. The most significant improvement has been her renal function with creatinine and BUN gradually improving. The creatinine now is 0.89 compared to 1.66 on admission. On exam, she does not appear ill or toxic. Remains jaundiced. Afebrile, blood pressure 128/78, O2 sat 98% on room air. No significant edema. CURRENT MEDICATIONS: 1. Amlodipine. 2. Lisinopril. 3. Metoprolol. 4. Zoloft. 5. Omeprazole. 6. P.r.n. Compazine. ASSESSMENT AND PLAN: A 61-year-old lady with oligometastatic intrahepatic cholangiocarcinoma affecting a significant portion of the left hepatic lobe and a single metastases to the left femur that has been radiated. She has acute elevation of bilirubin without evidence of biliary obstruction and without radiographic evidence of tumor progression. So far, the idea has been that this could be some degree of hepatic stress reaction to medication, possibly nitrofurantoin, but we are so far not seeing any trend of improvement of bilirubin. Transaminases and alkaline phosphatase has started trending downward but has now plateaued. She does not appear toxic or infected systemically, although has had a positive urine culture for E. coli that was treated with Cipro and has cleared. Her acute kidney injury likely due to both infection and [id number] exposure to iodine contrast has gradually improved. Today, creatinine is normalized. Dr. West's input from GI is very much appreciated, pending the evaluation regarding the possibility of any autoimmune hepatitis. Viral hepatitis has been ruled out.
--- NOTE | 2016-09-04 16:49 | NUR ---
spiritual care: routine pt continuing to receive eucharistic ministry visits per her request
--- NOTE | 2016-09-04 17:25 | NUR ---
GI Dr. West at bedside this afternoon. Notified of loose bmx2-3 today with ongoing n/v post meals. MD aware. Aware of urine color/nam output. Notified of oral sores - being treated with salt water swish and swallow and magic mouthwash. Plan is for HIDA scan in am, pt to be npo at midnight. No narcotics after midnight. No pain this shfit. Per nuc med, will get patient at about 0800 tomorrow morning.
--- NOTE | 2016-09-04 18:01 | NUR ---
Viv DEAN notified that pt has only had 200ml of urine output in viv this shift. Addendum: 09/04/16 at 1837 by JARAD MARTINEZ RN to order 1L fluid bolus
[2016-09-04] MEDS ORDERED: 0.9% Sodium Chloride 1,000 ML IV ONE (18:35)
--- NOTE | 2016-09-04 21:15 | NUR ---
IV Fluids Dr Jacobs ordered the remainder of 1L bolus of fluid to be run at 150 mls/hour for the remainder of the bag and then run at 100 mls/hour for the next bags.
[2016-09-05] VITALS (7 sets, daily range): BP systolic 108–127; BP diastolic 63–81; PULSE 54–63; RESP 16–18; O2SAT 93–100
[2016-09-05] MEDS: 0.9% Sodium Chloride 250 ML IV SCH ×2 (00:33→16:26)
[2016-09-05] MEDS: 0.9% Sodium Chloride 1,000 ML IV SCH ×4 (00:37→21:23)
[2016-09-05 07:47] LABS: Mean Corpuscular Hemoglobin 32.2 pg (27.0-35.0); Mean Corpuscular Volume 95.3 fL (81-100)
[2016-09-05 07:59] LABS: INR 1.73 ratio
[2016-09-05 08:20] LABS: Magnesium 1.2 mg/dL (1.6-2.6)
--- NOTE | 2016-09-05 08:23 | NUR ---
Critical Pamela Contacted Dr. Jacobs with the following cook page: Critical labs-Mag 1.2 and Total Bilirubin 17.6. Please advise. Thank you. Camila GOTTLIEB
[2016-09-05] MEDS ORDERED: Magnesium Sulf 4 Gm/100 mL H2O 4 GM in IV Premix 1 EACH IV ONE (08:30)
[2016-09-05] MEDS: Pantoprazole 40 mg ER24 Tablet PO SCH (10:12)
[2016-09-05] MEDS: Diphen-Lido-Mylanta 1:1:1 Susp 15 mL Syringe PO SCH (10:12)
--- NOTE | 2016-09-05 10:29 | PCM.PNMED ---
Subjective Date of Service Sep 05, 2016 Subjective Patient has no complaints today, denies nausea, vomiting, abdominal pain, fevers , or chills. Exam Vital Signs Vital Sign - Last Date Time Temp Pulse Resp B/P Pulse Ox O2 Delivery O2 Flow Rate FiO2 09/05/16 07:35 36.4 59 16 127/68 93 Room Air 09/04/16 05:37 2.00 Intake and Output 09/04/16 09/04/16 09/05/16 Cumulative From/Thru 15:00 23:00 07:00 08/30/16 13:59 - 09/05/16 06:22 Intake Total 1075 ml 1894 ml 06670 ml Output Total 200 ml 250 ml 4110 ml Balance 875 ml 1644 ml 35022 ml Intake Oral 460 ml 600 ml 4616 ml IV Total 615 ml 1294 ml 02472 ml Output Urine Total 200 ml 250 ml 3810 ml Emesis 300 ml # Bowel Movements 3 2 17 Exam General: Alert, Oriented X3, Cooperative, No Acute Distress Head: Normocephalic, atraumatic. External ears normal. Eyes: PERRLA, EOMI. Scleral icterus present. Mouth: Ulcers on sides of tongue, Mucous Membranes Moist/[place] Neck: Neck supple with full range of motion. Chest & Lungs: Clear to auscultation bilaterally with no crackles, wheezes, or rhonchi. Cardiovascular: Regular Rate/Rhythm, Normal S1, Normal S2, No Murmurs/Rubs/ Gallops Abdomen: Diffuse mild discomfort to palpation, Non-distended, Normoactive bowel tones, Soft. Right sided epigastric mass palpable Musculoskeletal: Normal Range of Motion Extremities: Mild bilateral lower extremity edema Skin: Jaundice present Neurological: Slurred Speech Lab and Diagnostics Result Diagram: 09/05/16 0733 09/05/16 0733 X-Rays, CTs and MRIs CT Abd/pelvis with contrast There is an irregular, lobulated mass involving the left aspect of the liver. This mass measures slightly decreased in size compared to the prior examinations. Please correlate with interval treatment. New development of moderate simple fluid within the peritoneal cavity. The gallbladder wall appears irregular and hyperenhancing, consistent with the given history of gallbladder cancer. Stable left adrenal nodule. Faintly seen right adrenal nodule. A few stable pulmonary nodules can be seen at the lung bases. Incidental note is made of: Dextroconvex scoliosis and bony degenerative changes Assessment & Plan Patient is a 61-year-old female with a history of metastatic cholangiocarcinoma who presents for evaluation of acute jaundice and fever. Hyperbilirubinemia, acute. - Pt complains of fever, abdominal pressure but no pain in the context of high bilirubin. Bilirubin remains high today. Pt was afebrile this hospitalization. WBC was elevated (15.3). MRCP showed ascites, a mass lesion within the liver as previously identified, contracted irregular gallbladder, and no visualized biliary ductal dilation. She may have intrahepatic cholestasis secondary to her tumor, although the mass does not appear to have changed significantly. There does not appear to be any extrahepatic pathology that can be addressed via ERCP. Gemcitabine has been associated with transaminitis and elevated bilirubin , but she has not had this medication for several weeks. She reports she finished a course of nitrofurantoin for UTI around the time her symptoms started , and this medication has been associated with autoimmune hepatitis. Her bilirubin continues to climb. MRCP showed contracted irregular gallbladder. - Continue to monitor LFTs and bilirubin - HIDA scan results pending. Elevated LFTs, acute. - LFTs have been mildly elevated since 07/26/16, normal before that date. They became more elevated around 08/30, when she started her nitrofurantoin. Hepatitis workup negative. Her LFTs have been fairly stable since, but appear to have started climbing again today. ARIANA positive, anti-smooth muscle weakly positive. Anti-Sm and CAP COVERER negative. Autoimmune hepatitis is possible. - Continue to monitor LFTs Elevated INR, acute. Stable. - INR 1.82 on admission, significantly elevated from previous INR of 1.34 in July. Likely secondary to acute hepatic injury. Pt received one dose of Vit K. INR now stable, in 1.7 - 1.8 range. - Continue to monitor INR daily - Recommend Vitamin K if INR continues to increase Leukocytosis, acute. - Pt has had leukocytosis (WBC 12 - 15) throughout her hospital stay but her WBC increased to 17.5 today. Blood cultures negative, repeat urine culture negative. C diff negative. Her repeat UA showed more WBCs (>50) but follow up urine cultures were negative. - Could be secondary to autoimmune hepatitis but consider ongoing infection. Constipation, acute. Improved. - Pt complains of constipation and appears slightly confused, may be an element of early hepatic encephalopathy. - Will treat with lactulose 10 g daily History of Cholangiocarcinoma - Patient has history of intrahepatic cholangiocarcinoma diagnosed in February 2016 , mainly in the left hepatic lobe, metastatic to the right femur. She is currently receiving palliative chemotherapy per Dr. Meier with cisplatin. - Dr. Meier of Oncology is following at this time. We appreciate his input. VTE Prophylaxis: SCDs VTE Mechanical Devices: Intermittant Pneumatic CD Resuscitation Status: CPR: Attempt Resuscitation Attending Statement Patient seen and examined. Agree with assessment and plan as described by Dr Arnold. INR down. Cr stable. Bili up slightly. HIDA scan inconclusive but suspicious for hepatocellular injury. We discussed her intermittent emesis. A little better today. Sounds like with her left should fracture, she has been very limited in body positioning while in bed and prefers the right lateral position. We explored the possibility of obstipation. Sounds like she had a severe episode of obstipation a couple of years ago. I performed nurse chaperoned rectal examination. There was a swain stool that had seeped out into the perianal region. No mass lesions noted. Could not palpate a rectal impaction. I recommended we try make sure the bowel is well evacuated with a couple of enemas this afternoon. Will continue to follow. With INR stability, will hold on steroids. Arley Arnold Sep 05, 2016 10:29 Derik West MD Sep 05, 2016 22:36
--- NOTE | 2016-09-05 10:37 | NUR ---
Morning Rounds Staffed patient's case with Dr. Jacobs and case management/social work. Hida Scan done today, GI still following. Social Work stated they are looking at SNF placement for this placement, but no order to discharge at this time. Dr. Jacobs stated she does want NS @ 100ml/hr.
--- NOTE | 2016-09-05 10:50 | NUR ---
Page MD as requested Contacted Dr. Jacobs with the following cook page: Paging you as requested once patient brushed her teeth. Thank you.
--- NOTE | 2016-09-05 11:58 | DRSVH ---
PROCEDURE: NM HIDA SCAN WITHOUT CCK RADIOPHARMACEUTICAL: 5.6 mCi Tc-99m mebrofenin IV. INDICATIONS: Hyperbilirubinemia, hx cholangiocarcinoma TECHNIQUE: Following intravenous administration of Tc-99m mebrofenin, sequential anterior abdominal images were obtained through at least 60 minutes. COMPARISON: None. FINDINGS: There is markedly diminished tracer uptake and excretion by the liver. There is no visual ization of intrahepatic ducts, common bile duct, and the gallbladder. There is no definite tracer ex cretion into duodenum. IMPRESSION: Study is nondiagnostic for evaluation of biliary disease. There is markedly reduced radio tracer uptake and excretion by the liver suggesting severe hepatocellular disease. Please correlate w ith clinical and laboratory data. Dictated by: Melissa Pa MD, PhD on 09/05/2016 at 11:55 Approved by: Melissa Pa MD, PhD on 09/05/2016 at 11:56
[2016-09-05] MEDS: Nystatin 100,000 Unit/mL 5 mL Suspension PO SCH ×3 (13:52→22:49)
--- NOTE | 2016-09-05 16:03 | NUR ---
spiritual care: follow up pt continues to rec eucharistic visitors as requested. brief caring visit. pt said she's "holding her own" and was appreciative of prayer/visit. continuing to follow
--- NOTE | 2016-09-05 16:21 | NUR ---
Fleets Enema Enema administered at this time, will monitor patient and will repeat in 1.5 hrs as directed by Dr. West.
--- NOTE | 2016-09-05 18:05 | NUR ---
2nd Fleets Enema Administered repeat Fleets Enema as directed, only a small amount of BM from previous enema.
--- NOTE | 2016-09-05 19:06 | PCM.PNMED ---
Subjective Date of Service Sep 05, 2016 Subjective Patient was examined at bedside today. Patient denies any chest pain, shortness of breath, nausea, vomiting, diarrhea. Patient does complain of sores on her tongue. The patient states that overall she is feeling improved. Exam Vital Signs Vital Sign - Last Date Time Temp Pulse Resp B/P Pulse Ox O2 Delivery O2 Flow Rate FiO2 09/05/16 16:20 36.3 55 18 119/81 98 Room Air 09/04/16 05:37 2.00 Intake and Output 09/04/16 09/04/16 09/05/16 Cumulative From/Thru 15:00 23:00 07:00 08/30/16 13:59 - 09/05/16 06:22 Intake Total 1075 ml 1894 ml 75023 ml Output Total 200 ml 250 ml 4110 ml Balance 875 ml 1644 ml 08064 ml Intake Oral 460 ml 600 ml 4616 ml IV Total 615 ml 1294 ml 65020 ml Output Urine Total 200 ml 250 ml 3810 ml Emesis 300 ml # Bowel Movements 3 2 17 Lab and Diagnostics Result Diagram: 09/05/16 0733 09/05/16 0733 X-Rays, CTs and MRIs CT Abd/pelvis with contrast There is an irregular, lobulated mass involving the left aspect of the liver. This mass measures slightly decreased in size compared to the prior examinations. Please correlate with interval treatment. New development of moderate simple fluid within the peritoneal cavity. The gallbladder wall appears irregular and hyperenhancing, consistent with the given history of gallbladder cancer. Stable left adrenal nodule. Faintly seen right adrenal nodule. A few stable pulmonary nodules can be seen at the lung bases. Incidental note is made of: Dextroconvex scoliosis and bony degenerative changes Assessment & Plan Patient is a 61-year-old female with a history of metastatic cholangiocarcinoma who presents for evaluation of acute jaundice and fever. Hyperbilirubinemia, acute. - T bili on admission 12.7, 13.9 on 09/01/2016, 14.6 on 09/02/2016 T bili continues to trend upward today T bili was yesterday and 15.3 and 17 today - Continue to monitor LFTs and bilirubin - HIDA scan results pending - GI following Oral thrush -- Nystatin swish and swallow daily Elevated LFTs, acute. -LFTs have been mildly elevated since admission however they were steadily trending down. However today he started to trend upwards once again. - Continue to monitor LFTs - ARIANA, anti-Sm, CALL CENTER OPERATOR, anti-smooth muscle Abs pending. -Hepatitis A, B, C screen are negative Elevated INR, acute. - INR is currently stable - Continue to monitor INR daily Constipation, acute-resolved - Discontinue lactulose 10 g daily - Patient currently has bowel movements will get a stool culture should patient have increase in loose stools. Hypokalemia (resolved) - Potassium 3.3 yesterday and today potassium is corrected to 4.0 - Continue patient's normal 10 mEq daily add a one-time dose of 20 mEq today - We will continue to monitor New onset camphorus ulcers of the tounge (resolving) -Ulcers are improving daily with warm salt water gargles however patient has now developed oral thrush. Hypomagnesemia on admission - Magnesium of 1.0 replacement was done magnesium improved to 2.0 - We will repeat magnesium in the morning to ensure this has stabilized History of Cholangiocarcinoma - Patient has history of intrahepatic cholangiocarcinoma diagnosed in February 2016 , mainly in the left hepatic lobe, metastatic to the right femur. She is currently receiving palliative chemotherapy per Dr. Meier with cisplatin. - Dr. Meier of Oncology is following at this time. We appreciate his input. DVT prophylaxis -Heparin has been discontinued from these lesions patient as her platelets have been low. - Continue using SCDs Disposition: Patient currently has a history of cholangiocarcinoma which is currently being treated. The patient presented with an elevated T bili on admission and GI was consulted immediately. The patient's T bili has been monitored and continues to increase. 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 Multiple serologic studies have been done as the patient might need to be placed on steroid therapy. GI is currently following and appreciate their recommendations. The patient also had REBEKA which seemed to respond to IV fluids. IV fluids were stopped and the patient had decreased urinary output and IV fluids were then restarted. We are continuing to monitor the patient's urine output but recommendations from GI should be reviewed before discharge of the patient. VTE Prophylaxis: SCDs VTE Mechanical Devices: Intermittant Pneumatic CD Resuscitation Status: CPR: Attempt Resuscitation Pallavi Jacobs DO Sep 05, 2016 19:06
--- NOTE | 2016-09-05 19:53 | CCS NOTE ---
[facility] [address], [address] [address] MEDICAL ONCOLOGY OFFICE NOTE PATIENT: HENRY HARRY : 1955 MR#: [id number] DATE: 08/30/2016 JOB ID: [id number] DATE: 09/05/2016 HISTORY OF PRESENT ILLNESS: The patient's clinical status is unchanged, afebrile. Slightly lethargic but fully arousable and communicative and oriented. The constipation is being addressed by Dr. West with an enema. Her lab studies, unfortunately, show further increase of bilirubin slightly from previously 17 yesterday to now 17.6. Transaminases without any significant change. Her creatinine that had improved has now risen slightly. She was not exposed to any iodine contrast. She had a HIDA scan earlier today at the request of Gastroenterology, but it was nondiagnostic. EXAMINATION: On exam, she is afebrile, severely obese and jaundiced. Abdomen nontender. There is edema in the legs. ASSESSMENT AND PLAN: A 61-year-old lady with cholangiocarcinoma and acute liver dysfunction and hyperbilirubinemia. Unfortunately, we are not seeing over the past several days any improvement trend of her hyperbilirubinemia that has slightly worsened since admission. The majority of the deterioration, however, occurred the preceding week when her bilirubin went up from 2.5 to around 13 but since admission has increased from 13-17. The HIDA scan is nondiagnostic. The persistent hyperbilirubinemia with slight further elevation raises the concern about overall longer lasting dysfunction of the liver. I spoke today with Dr. Holder of Radiation Therapy and requested that the plan for liver radiation that was being discussed be placed on hold. Will review the situation tomorrow with Gastroenterology, Dr. West, and today her was not at bedside and will try to involve him in discussion of management as well. Her ARIANA was positive, but the antismooth muscle and antimitochondrial antibodies were negative.
[2016-09-06] VITALS (7 sets, daily range): BP systolic 110–132; BP diastolic 69–82; PULSE 57–62; RESP 14–18; O2SAT 96–100
[2016-09-06] MEDS: Pantoprazole 40 mg ER24 Tablet PO SCH (05:39)
[2016-09-06] MEDS: 0.9% Sodium Chloride 1,000 ML IV SCH ×4 (05:39→15:26)
--- NOTE | 2016-09-06 06:03 | NUR ---
Oxygen Pt did not need 02 throughout the night. Sats were 96%-100%
[2016-09-06 06:33] LABS: Mean Corpuscular Hemoglobin 32.5 pg (27.0-35.0); Mean Corpuscular Volume 94.5 fL (81-100)
--- NOTE | 2016-09-06 08:42 | NUR ---
Spoke with Dustin at [facility] and this is being reviewed and all they need to work on now is insurance piece. Updated HELMINTHOLOGY TEACHER Addendum: 09/06/16 at 1041 by JANELLE HANLEY [facility] is not in network for this patient and there would only be 60% coverage. Need to find SNF in network with [facility]. Updated HELMINTHOLOGY TEACHER
[2016-09-06 09:20] LABS: INR 1.67 ratio
[2016-09-06] MEDS: Nystatin 100,000 Unit/mL 5 mL Suspension PO SCH ×4 (09:50→22:00)
--- NOTE | 2016-09-06 10:13 | NUR ---
Low Urine Output/BM Dr. Arnold at bedside, made him aware of patient's continued low urine output, only 150 out overnight. Also made him aware that patient only had one small BM after first Fleets enema prescribed by Dr. West. He mentioned Lactulose, but I made him aware that this medication was discontinued.
--- NOTE | 2016-09-06 10:50 | NUR ---
Following Up on PT Called to find out if PT would be working with patient today, spoke with Eris, he was currently in a patient room, but stated he would check the schedule at his earliest convenience and will call back once he knows.
--- NOTE | 2016-09-06 10:56 | NUR ---
Morning Rounds Staffed patient's case with Dr. Shirley, case management and social work. Dr. Shirley stated there is no plan for discharge at this time. Dr. Shirley stated he will recheck Mag level in the morning. Dr. Shirley stated he thinks Pallative/Hospice may need to get involved, but would like to review the chart further and see the patient before making any plans.
--- NOTE | 2016-09-06 11:34 | PCM.PNMED ---
Subjective Date of Service Sep 06, 2016 Subjective Pt reports she has been constipated, and received 2x Fleets enema and only had a small bowel movement. No nausea or vomiting, and she reports she has been tolerating food better, with improving appetite. Exam Vital Signs Vital Sign - Last Date Time Temp Pulse Resp B/P Pulse Ox O2 Delivery O2 Flow Rate FiO2 09/06/16 09:17 62 09/06/16 08:01 36.4 14 132/82 100 Room Air 09/04/16 05:37 2.00 Intake and Output 09/05/16 09/05/16 09/06/16 Cumulative From/Thru 15:00 23:00 07:00 08/30/16 13:59 - 09/06/16 06:13 Intake Total 1531 ml 1265 ml 00765 ml Output Total 250 ml 120 ml 4480 ml Balance 1281 ml 1145 ml 75285 ml Intake Oral 720 ml 100 ml 5436 ml IV Total 811 ml 1165 ml 83662 ml Output Urine Total 250 ml 120 ml 4180 ml Emesis 300 ml # Bowel Movements 1 18 Exam General: Alert, Oriented X3, Cooperative, No Acute Distress Head: Normocephalic, atraumatic. External ears normal. Eyes: PERRLA, EOMI. Scleral icterus present. Mouth: Ulcers on sides of tongue, Mucous Membranes Moist/[place] Neck: Neck supple with full range of motion. Chest & Lungs: Clear to auscultation bilaterally with no crackles, wheezes, or rhonchi. Cardiovascular: Regular Rate/Rhythm, Normal S1, Normal S2, No Murmurs/Rubs/ Gallops Abdomen: No tenderness, Non-distended, Normoactive bowel tones, Soft. Right sided epigastric mass palpable Musculoskeletal: Normal Range of Motion Extremities: Mild bilateral lower extremity edema Skin: Jaundice present Neurological: Grossly neurologically intact. Lab and Diagnostics Result Diagram: 09/06/16 0550 09/06/16 0550 X-Rays, CTs and MRIs CT Abd/pelvis with contrast There is an irregular, lobulated mass involving the left aspect of the liver. This mass measures slightly decreased in size compared to the prior examinations. Please correlate with interval treatment. New development of moderate simple fluid within the peritoneal cavity. The gallbladder wall appears irregular and hyperenhancing, consistent with the given history of gallbladder cancer. Stable left adrenal nodule. Faintly seen right adrenal nodule. A few stable pulmonary nodules can be seen at the lung bases. Incidental note is made of: Dextroconvex scoliosis and bony degenerative changes Assessment & Plan Patient is a 61-year-old female with a history of metastatic cholangiocarcinoma who presents for evaluation of acute jaundice and fever. Hyperbilirubinemia, acute. Stable - Pt complains of fever, abdominal pressure but no pain in the context of high bilirubin. Bilirubin remains high today. Pt was afebrile this hospitalization. WBC was elevated (15.3). MRCP showed ascites, a mass lesion within the liver as previously identified, contracted irregular gallbladder, and no visualized biliary ductal dilation. She may have intrahepatic cholestasis secondary to her tumor, although the mass does not appear to have changed significantly. There does not appear to be any extrahepatic pathology that can be addressed via ERCP. MRCP showed contracted irregular gallbladder. HIDA scan was inconclusive but suspicious for hepatocellular injury. Her bilirubin has now leveled off and is starting to decrease and she is feeling better clinically, so she may begin to improve past this point. - Continue to monitor LFTs and bilirubin - HIDA scan results pending. Elevated LFTs, acute. Stable. - LFTs have been mildly elevated since 07/26/16, normal before that date. They became more elevated around 08/30, when she started her nitrofurantoin. Hepatitis workup negative. Her LFTs have been fairly stable since, but appear to have started climbing again today. ARIANA positive, anti-smooth muscle weakly positive. Anti-Sm and TEST ENGINEERING TECHNICIAN negative. Autoimmune hepatitis is possible. LFTs mildly elevated but stable. - Continue to monitor LFTs Elevated INR, acute. Improving. - INR 1.82 on admission, significantly elevated from previous INR of 1.34 in July. Likely secondary to acute hepatic injury. Pt received one dose of Vit K. INR now stable, in 1.7 - 1.8 range. Will hold off on steroids considering her INR is improving. - Continue to monitor INR daily Constipation, acute. - Pt complains of recurring constipation. She had experienced diarrhea with lactulose 10 g daily, so will try a lower dose. She reports a severe episode of obstipation a couple of years ago, so recommend treating constipation. No rectal impaction on exam yesterday. - Lactulose 5g daily. - Fiber supplements - Miralax PRN Leukocytosis, acute. - Blood cultures negative, repeat urine culture negative. C diff negative. Her repeat UA showed more WBCs (>50) but follow up urine cultures were negative. - Could be secondary to autoimmune hepatitis but consider ongoing infection. History of Cholangiocarcinoma - Patient has history of intrahepatic cholangiocarcinoma diagnosed in February 2016 , mainly in the left hepatic lobe, metastatic to the right femur. She is currently receiving palliative chemotherapy per Dr. Meier with cisplatin. - Dr. Meier of Oncology is following at this time. We appreciate his input. VTE Prophylaxis: SCDs VTE Mechanical Devices: Intermittant Pneumatic CD Resuscitation Status: CPR: Attempt Resuscitation Attending Statement Patient seen and examined. Agree with the assessment and plan as described by Dr Arnold. Minimal output with the enemas from yesterday. However, no further n/v. INR and bili down slightly. On a touch of lactulose. Has nam in situ. Would leave to discretion of primary service what to do on that score. Arley Arnold Sep 06, 2016 11:34 Derik West MD Sep 06, 2016 21:33
--- NOTE | 2016-09-06 11:35 | NUR ---
Order Issue Spoke with June in the pharmacy, she stated Dr. Arnold put in an order for this patient, but it was placed incorrectly, stated she has already paged Dr. Arnold at . June stated she will not be able to verify this order until he calls back to correct the order. I will monitor this issue and if the order is not verified within the hour, I will attempt to contact Dr. Arnold as well.
--- NOTE | 2016-09-06 12:57 | NUR ---
Attempt to reach Dr. Arnold I attemped to contact Dr. Arnold at the residency clinic at , was told to call ext [phone] and ask for Alejandra, as the doctor should be with Alejandra. I attempted to contact Dr. Arnold through Alejandra at ext [phone] in order to have him clarify Lactulose order for pharmacy, but was only able to leave a message requesting Dr. Arnold call pharmacy or [facility] in order to correct the order for Lactulose, otherwise the order will not be verified by the pharmacy.
--- NOTE | 2016-09-06 15:00 | NUR ---
PT Assisted PT supply assistant Della while working with patient. Patient was able to sit up and get to the edge of the bed with assistance and was able to stand a couple of times, but nothing further. Patient did not report any dizziness, but stated she felt like her energy was "zapped".
[2016-09-06] MEDS: Lactulose 20 Gm/30 mL 30 mL Syrup PO SCH (15:13)
[2016-09-06] MEDS: 0.9% Sodium Chloride 250 ML IV SCH (16:01)
--- NOTE | 2016-09-06 17:40 | NUR ---
Advanced Care Planning Dr. Shirley at bedside, he spoke with patient and her , had advanced care planning meeting/discussion. He will get Pallative Care involved and have them complete POLST.
--- NOTE | 2016-09-06 19:28 | CCS NOTE ---
[facility] [address] [place] [address], [address] [address] MEDICAL ONCOLOGY OFFICE NOTE PATIENT: HENRY HARRY : 1955 MR#: [id number] DATE: 08/30/2016 JOB ID: [id number] DATE: 09/06/2016 I saw the patient at beside, unfortunately her was not present. I checked on her both at noontime as well as the early evening. She remained afebrile and has shown again a trend of deterioration of creatinine and I am not sure about the cause. There has not been a significant change in her medication and she has not received any iodine contrast. Her bilirubin for the first time after the past 10 days shows a slight improvement after showing an ongoing trend upwards. It is down to about 16.5. PHYSICAL EXAMINATION: She is jaundiced but does not appear toxic. Denies any abdominal pain. Vitals stable. Her severely elevated blood pressure activity has significantly improved. She is on lisinopril. 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 She was diagnosed in February 2016 and has radiographically stable disease but has recent rapid and acute rise of bilirubin from previously normal within those two weeks. There is no evidence of any obstructive phenomena of the biliary tree. The main differential diagnosis remains medication-induced liver toxicity versus intrahepatic cholestasis due to tumor effect. The latter has been so far less favored due to lack of change in the size of the tumor and the sudden onset of this biliary change. However, so far we have not seen any major improvement of her bilirubin although today for the first time it had slightly improved after several days of gradual rise. She has had a conversation today about goals of care. I also reported that in case of a cardiopulmonary arrest, a resuscitation attempt would be detrimental in the face of advanced cholangiocarcinoma. A palliative care consult has been also obtained which I think is very reasonable to discuss this option to the patient. Up until a few weeks ago, she was planned to receive radiation therapy to the left hepatic lobe but this has been placed on hold. If her lab tomorrow shows further improvement of bilirubin, that would be a positive sign, otherwise I remain concerned that she might not recover her liver function adequate enough to receive meaningful therapy.
--- NOTE | 2016-09-06 22:02 | NUR ---
Bariatric bed Pt qualifies for a bariatric foam bed. Moved to new bed with 3 to assist with slider board Tolerated procedure. No complaints.
--- NOTE | 2016-09-06 23:45 | PCM.PNMED ---
Subjective Date of Service Sep 06, 2016 Subjective The patient has no new complaints. She appears optimistic about getting better. She has no pain, no fever, no chills, or other new complaints. Exam Vital Signs Vital Sign - Last Date Time Temp Pulse Resp B/P Pulse Ox O2 Delivery O2 Flow Rate FiO2 09/06/16 21:14 36.4 57 18 110/72 98 Room Air 09/04/16 05:37 2.00 Intake and Output 09/05/16 09/05/16 09/06/16 Cumulative From/Thru 15:00 23:00 07:00 08/30/16 13:59 - 09/06/16 06:13 Intake Total 1531 ml 1265 ml 66536 ml Output Total 250 ml 120 ml 4480 ml Balance 1281 ml 1145 ml 74867 ml Intake Oral 720 ml 100 ml 5436 ml IV Total 811 ml 1165 ml 50847 ml Output Urine Total 250 ml 120 ml 4180 ml Emesis 300 ml # Bowel Movements 1 18 Exam General: Patient is in no apparent distress HEENT: Head is atraumatic normocephalic. Eyes: Pupils are equally round and reactive to light and accommodation. Extraocular muscles are intact. Sclera are icteric. Subconjunctival mucosa is pink. Ears and nose are unremarkable. Oropharynx: There is no mucosal lesions, there is no thrush, there is no pharyngitis. Neck: Is supple, there are no nodes, or masses, or tenderness. Chest: Is clear to auscultation and percussion. There are no rales, rhonchi, wheezes or rubs. However, there is decreased breath sounds at the bases. Heart: Rate, rhythm is regular. There is no murmur, rub or gallop. Abdomen: Good bowel sounds are present. Abdomen is soft, nontender, no organomegaly or masses were appreciated. Extremities: Are symmetrical and well perfused. There is no edema, there is no cellulitis, no rash. Neurologic: There are no focal neurological deficits. Cranial nerves II through XII are intact. There are no sensory or motor deficits. Psychiatric: Patients mood is calm and shows no sign of agitation. Genital: Deferred Rectal: Deferred Lab and Diagnostics Result Diagram: 09/06/16 0550 09/06/16 0550 Microbiology Name: HENRY HARRY Age/Sex: 61/F Attend Dr: Markos Milligan MD Acct: [id number] Unit: [id number] Status: ADM [place] [facility] [place] Re08/30/16 Disch: Specimen: [id number] Collected: 09/04/16 Status: COMP Req#: [id number] Received: 09/04/16 Source: STOOL Sp Desc : STL ASP Subm Dr: Pallavi Jacobs DO Ordered: C DIFF DNA PCR Comments: Collected by Nurse/Unit? Y/N Y Procedure Result Verified Site Microbiology ARNALDO C DIF PCR STOOL Final 09/04/16-1247 CDIF DNA BY PCR NEGATIVE REFERENCE INTERVAL NEGATIVE Specimen: [id number] Collected: 08/30/16 Status: COMP Req#: [id number] Received: 08/30/16 Source: URINE CC Sp Desc : SAMIR Perry Dr: DOC,ED Ordered: URINE CULT Procedure Result Verified Site Microbiology ARNALDO CULT URINE Final 09/01/16-827 Organism 1 ESCHERICHIA COLI U COLONY COUNT/QUANTITY >100,000 CFU/ml Cefazolin-predicts results for the oral agents, cefaclor,cefdinir, cefpodoximen, cefprozil, cefuroximne axetil, cephalexin and loracarbed when used for therapy of uncomplicated UTI's due to E. coli, K. pneumoniae, and Proteus mirabilis. Cefpodoxime, cefdinir and cefuroxime axetil may be tested individually because some isolates may be susceptible to these agents while testing resistant to cefazolin. (CLSI S612-U00 pg 53) 1. ESCHERICHIA COLI M.I.C Interp --------- ------ * AMOXICILLIN/CLAVULATE <=2 S * AMPICILLIN 4 S * CEFAZOLIN (CEPHALOSPORIN) UTI 4 S * CEFEPIME <=1 S * CEFTRIAXONE <=1 S * CEFUROXIME SODIUM 4 S * CIPROFLOXACIN <=0.25 S * ERTAPENEM <=0.5 S * GENTAMICIN <=1 S * IMIPENEM <=1 S * LEVOFLOXACIN <=0.12 S * NITROFURANTOIN <=16 S * TETRACYCLINE <=1 S * TOBRAMYCIN <=1 S * TRIMETHOPRIM/SULFAMETHOXAZOLE <=20 S Name: HENRY HARRY Age/Sex: 61/F Attend Dr: Markos Milligan MD Acct: [id number] Unit: [id number] Status: ADM [place] [facility] [facility] [place]-1 Re08/30/16 Disch: Specimen: [id number] Collected: 09/01/16 Status: COMP Req#: [id number] Received: 09/01/16 Source: URINE CC Sp Desc : PP [place] Dr: Derik West MD Ordered: URINE CULT Procedure Result Verified Site Microbiology ARNALDO CULT URINE Final 09/03/16 No growth (<1,000 organisms/mL) Name: HENRY HARRY Age/Sex: 61/F Attend Dr: Markos Milligan MD Acct: [id number] Unit: [id number] Status: ADM IN Location: [place] [address] Re08/30/16 Disch: Specimen: [id number] Collected: 08/30/16 Status: COMP Req#: [id number] Received: 08/30/16 Source: BLOOD Sp Desc : ADRIANO Perry Dr: Marc Mcgrath DO Ordered: KAYY Comments: Collected by Nurse/Unit? Y/N N Comment: add on ok Procedure Result Verified Site Microbiology ARNALDO CULTURE BLOOD Final 09/04/16 NO GROWTH AFTER 5 DAYS X-Rays, CTs and MRIs CT Abd/pelvis with contrast There is an irregular, lobulated mass involving the left aspect of the liver. This mass measures slightly decreased in size compared to the prior examinations. Please correlate with interval treatment. New development of moderate simple fluid within the peritoneal cavity. The gallbladder wall appears irregular and hyperenhancing, consistent with the given history of gallbladder cancer. Stable left adrenal nodule. Faintly seen right adrenal nodule. A few stable pulmonary nodules can be seen at the lung bases. Incidental note is made of: Dextroconvex scoliosis and bony degenerative changes Assessment & Plan Patient is a 61-year-old female with a history of metastatic cholangiocarcinoma who presents for evaluation of acute jaundice and fever. Hyperbilirubinemia, acute. - T bili on admission 12.7, 13.9 on 09/01/2016, 14.6 on 09/02/2016 T bili continues to trend upward today T bili was yesterday and 15.3 and 17 today - Continue to monitor LFTs and bilirubin - HIDA scan results pending - GI following Oral thrush -- Nystatin swish and swallow daily Elevated LFTs, acute. -LFTs have been mildly elevated since admission however they were steadily trending down. However today he started to trend upwards once again. - Continue to monitor LFTs - ARIANA, anti-Sm, PLOW AND BORING MACHINE TENDER, anti-smooth muscle Abs pending. -Hepatitis A, B, C screen are negative Elevated INR, acute. - INR is currently stable - Continue to monitor INR daily Constipation, acute-resolved - Discontinue lactulose 10 g daily - Patient currently has bowel movements will get a stool culture should patient have increase in loose stools. Hypokalemia (resolved) - Potassium 3.3 yesterday and today potassium is corrected to 4.0 - Continue patient's normal 10 mEq daily add a one-time dose of 20 mEq today - We will continue to monitor New onset camphorus ulcers of the tounge (resolving) -Ulcers are improving daily with warm salt water gargles however patient has now developed oral thrush. Hypomagnesemia on admission - Magnesium of 1.0 replacement was done magnesium improved to 2.0 - We will repeat magnesium in the morning to ensure this has stabilized History of Cholangiocarcinoma - Patient has history of intrahepatic cholangiocarcinoma diagnosed in February 2016 , mainly in the left hepatic lobe, metastatic to the right femur. She is currently receiving palliative chemotherapy per Dr. Meier with cisplatin. - Dr. Meier of Oncology is following at this time. We appreciate his input. DVT prophylaxis -Heparin has been discontinued from these lesions patient as her platelets have been low. - Continue using SCDs Disposition: Patient currently has a history of cholangiocarcinoma which is currently being treated. The patient presented with an elevated T bili on admission and GI was consulted immediately. The patient's T bili has been monitored and continues to increase. 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 Multiple serologic studies have been done as the patient might need to be placed on steroid therapy. GI is currently following and appreciate their recommendations. The patient also had REBEKA which seemed to respond to IV fluids. IV fluids were stopped and the patient had decreased urinary output and IV fluids were then restarted. We are continuing to monitor the patient's urine output but recommendations from GI should be reviewed before discharge of the patient. I spent 30 minutes today in advance care planning with the patient at the bedside. She is still to achieve some improvement with current therapy and possibly with radiation therapy in the future. However, she is aware of her diagnosis of stage IV metastatic cholangiocarcinoma. She has not yet signed a POLST form and is willing to discuss this with palliative care even though she would like to continue to pursue whatever palliative events Dr. Meier he may have planned for her. Pain Evaluation: Adequate Pain Control GI Prophylaxis: Proton Pump Inhibitor (patient has thrombocytopenia and elevated INR and likely not a good candidate for anticoagulation.) VTE Prophylaxis: SCDs VTE Mechanical Devices: Intermittant Pneumatic CD Resuscitation Status: CPR: Attempt Resuscitation Time spent 30 minutes of advanced care planning were spent with the patient and her at bedside. Alfredito Shirley MD Sep 06, 2016 23:45
[2016-09-07] VITALS (8 sets, daily range): BP systolic 104–138; BP diastolic 63–84; PULSE 57–64; RESP 16–20; O2SAT 100
[2016-09-07] MEDS: 0.9% Sodium Chloride 1,000 ML IV SCH ×5 (01:33→23:15)
[2016-09-07] MEDS: Pantoprazole 40 mg ER24 Tablet PO SCH (06:35)
[2016-09-07 06:58] LABS: BASOPHILS % (AUTO) 0.1 % (0-3); EOSINOPHILS % (AUTO) 0.4 % (0-5); Mean Corpuscular Hemoglobin 32.5 pg (27.0-35.0); Mean Corpuscular Volume 95.9 fL (81-100); NEUTROPHILS % (AUTO) 85.7 % (40-74); Platelet Count 114 bil/L (150-400)
[2016-09-07 07:22] LABS: Magnesium 1.7 mg/dL (1.6-2.6); Phosphorus 4.8 mg/dL (2.5-4.9)
--- NOTE | 2016-09-07 07:54 | NUR ---
Critical Lab Received call from lab with critical lab value of total bilirubin 17.5. Contacted Dr. Shirley with the following cook page: Critical Lab value-total bilirubin 17.5. Thank you. Camlia GOTTLIEB
[2016-09-07] MEDS: Lactulose 20 Gm/30 mL 30 mL Syrup PO SCH (10:00)
[2016-09-07] MEDS: Nystatin 100,000 Unit/mL 5 mL Suspension PO SCH ×4 (10:00→22:21)
--- NOTE | 2016-09-07 10:31 | NUR ---
Palliative Care Palliative Care received verbal order from Dr Shirley 09/07/16 to assist with goals of care. Patient is a 61 year old female with history of metastatic cholangiocarcinoma. She was admitted 08/30/16 for evaluation of acute jaundice and fever. Patient lives home with in [place]. Akhil Her () [phone] Melita Sanon (friend) [phone] Palliative Care to follow. Marcelle Montague
--- NOTE | 2016-09-07 10:45 | NUR ---
Morning Rounds Staffed patient's case with utilization RN, case management and social work. Dr. Shirley was not available at this time. No current plan for discharge. Pallative Care consult is pending.
[2016-09-07 10:48] LABS: INR 1.64 ratio
--- NOTE | 2016-09-07 13:19 | PCM.CONPAL ---
Date of Service Sep 07, 2016 Date of Hospital Admission: Aug 30, 2016 at 20:55 Date of Palliative Consult: Sep 07, 2016 Requesting Provider: Alfredito Shirley MD Reason Palliative Care Consult: Goals of Care Discussion Hospital Unit @time of consult: Other ([facility] [place]) Palliative Care Recommendation 61-year-old female with history of metastatic cholangiocarcinoma, admitted with hyperbilirubinemia as well as acute renal failure. Despite aggressive, appropriate evaluation and treatment her bilirubin has continued to rise and her renal failure, after initial improvement, has begun to worsen again. As a consequence, palliative medicine consulted to assist patient and family and determination of goals of care. Summary of palliative recommendations: -Symptom management (Pain/other)- no significant distress at this time. Continued management per her medical and consulting teams. -DPOA/Advanced Directives/POLST- spoke at length with her Akhil who is her default POA. While he wants to continue attempts at treatment for the time being, he understands the grave nature of her prognosis. Patient is non- decisional at this time due to her encephalopathy. His wishes that she be DO NOT RESUSCITATE/DO NOT INTUBATE/continued limited interventions in the hope that her renal and hepatic function will stabilize and begin to improve. He understands that further focused treatment for her underlying neoplasm is out of the question at this time. Will plan on completing a POLST prior to discharge. -Family/emotional support- palliative medicine will continue to follow and support. I gave him my card with my personal cell phone number. He is going to be contacting family members in [place] and [place]- my advice to him was to advise family members that if it was important to them to see the patient before she , they should probably come now. Certainly he understands that she may still rally, but at the same time her prognosis does not look good. -Spiritual support- offered Patient Goals: 1. Patient and family want to be told the truth about her illness, even if it is unpleasant. 2. Patient and family would like to be told prognosis when it can be predicted, to better guide treatment decisions. Additional Medical Diagnoses with primary management by Hospitalist team include : Hyperbilirubinemia, acute. Oral thrush Elevated LFTs, acute. Elevated INR, acute. Constipation, acute-resolved Hypokalemia (resolved) New onset camphorus ulcers of the tounge (resolving) Hypomagnesemia on admission History of Cholangiocarcinoma Problems: End of Life Preferences DO NOT RESUSCITATE/DO NOT INTUBATE/limited interventions Not a candidate for CCU care, pressors, etc. Goals of Care Patient's continues to hope for stabilization and modest recovery so that she may return home. Disposition To be determined If over the next several days it appears that the patient is continuing to deteriorate, with worsening hepatic and renal function, I anticipate that we would transition to comfort care. Thereafter, would need to determine whether it would be more appropriate for her to stay here for end-of-life care versus considering other options such as home with hospice, etc. Her would be the only person at home with her and does not feel that he could manage her care with only episodic hospice support. Resuscitation Status Resuscitation Status: DNR/DNI:Do Not Resuscitate/Intubate POLST Updates/Changes Previous POLST?: No . Advanced Care Planning Address: Code status change Pain: None Symptom management: Delirium Pt History History of Present Illness Per admission H&P: Patient is a 61-year-old female with a history of metastatic cholangiocarcinoma who presents for evaluation of acute jaundice and fever. Per patient and , she has been having intermittent fevers since Sunday (Tmax 102), and also mild epigastric pain/pressure on bowel movements, increase in loose stools, drama director stools and darker urine, and fatigue. Family stated they did not notice any jaundice prior to today. She denies any associated CP, SOB, vision changes, focal weakness, or mental status changes. She denies pruritus. She reports that she had been experiencing dysuria and frequency, and was recently diagnosed with UTI and completed outpatient antibiotics. She reports some improved dysuria , and her frequency has resolved. reports that patient was diagnosed last summer with metastatic cholangiocarcinoma after a right femur fracture. She has been seen by Dr. Meier , treated with cisplatin and gemcitabine in our center with a palliative intent. She was seen by Dr. Meier today who referred her to the ED for admission and further workup after noticing that her total bilirubin has been rapidly rising over the past 10 days. She has also had a CT abd/pelvis last week that did not show any disease progression. During hospitalization patient continued with progression of hyperbilirubinemia and other liver function abnormalities. She was appropriately evaluated and no evidence was found of macroscopic obstructive process. She also showed evidence of acute renal insufficiency, initially improved with therapy but then deteriorating again. During this time she became progressively more somnolent/ encephalopathic. While she had earlier been considered for further intervention on her primary liver mass, her deterioration precluded this. Her oncologist spoke with the patient and her and informed them of this and opened the conversation about advance directive issues in light of her progressive illness. Palliative medicine was consulted by her hospitalist in order to assist patient and family in determination of goals of care and verification of their wishes for aggressive end-of-life care. Prior to visiting, I reviewed her records in the EMR in detail, going back all the way to her initial presentation at the oncology clinic following her initial treatment for pathologic fracture of the right femur. I spoke with her bedside nurse, and later spoke at length with her . When I visited, she is sleeping and quite lethargic. Deeply jaundiced. Was too sleepy to interact or cooperate with interview. 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 He hopes that she will recover enough to return home, but realizes at this time that her course/ prognosis is unpredictable Living Situation: Lives with her in [place] Palliative [facility] Scale PPS Patient Status: Baseline PPS Ambulation: Reduced (secondary to femur fracture) PPS Activity: Unable to do normal job/work PPS Self-Care: Occasional assistance necessary PPS Intake: Normal or reduced PPS Conscious Level: Full Performance Scale: 70% ADLs ADL Patient Status: Baseline ADL Ambulation: Reduced ADL Dressing: Full ADL Feeding: Occasional assistance necessary ADL Hygene/bathing: Full ADL Transfers: Occasional assistance necessary POLST at Time of Admission Previous POLST?: No Allergy Allergies Reviewed: Yes Medications Current Medications: Current Medications Nystatin 500,000 unit PCHS PO Last administered on 09/07/16 10:00; Admin Dose 500,000 UNIT; Start 09/05/16 at 13:00 Lactulose 5 gm DAILY PO Last administered on 09/07/16 10:00; Admin Dose 5 GM; Start 09/06/16 at 15:00 Scheduled Amlodipine (Amlodipine) 5 Mg Tablet 5 MG PO DAILY Bisacodyl (Dulcolax) 5 Mg Tablet.dr 5 MG PO DAILY Cranberry Extract (Cranberry) 200 Mg Capsule 200 MG PO BID Lisinopril (Lisinopril) 10 Mg Tablet 20 MG PO DAILY Metoprolol Tartrate (Metoprolol Tartrate) 25 Mg Tablet 25 MG PO DAILY Multivitamin (Multi Vitamin Daily) 1 Each Tablet 2 EACH PO DAILY Omeprazole Magnesium (Prilosec Otc) 20 Mg Tablet.dr 20 MG PO DAILY Polyethylene Glycol 3350 (Miralax) 17 Gm Powd.pack 17 GM PO DAILY Sertraline HCl (Zoloft) 20 Mg/1 Ml Oral.conc 50 MG PO DAILY Scheduled PRN Acetaminophen (Acetaminophen) 500 Mg Tablet 500 MG PO Q6H PRN PRN For Pain Naproxen (Naproxen) 500 Mg Tab 500 MG PO BID PRN PRN For Pain Ondansetron ODT (Zofran ODT) 8 Mg Tablet 8 MG PO Q8HRS PRN PRN PRN For Nausea Prochlorperazine Maleate (Compazine) 10 Mg Tablet 10 MG PO Q6H PRN PRN For Nausea Objective Findings Exam Vital Sign - Last Date Time Temp Pulse Resp B/P Pulse Ox O2 Delivery O2 Flow Rate FiO2 09/07/16 10:00 Supplement Oxygen 09/07/16 08:00 60 09/07/16 07:30 36.4 16 128/82 100 2.00 Intake and Output 09/06/16 09/06/16 09/07/16 Cumulative From/Thru 15:00 23:00 07:00 08/30/16 13:59 - 09/07/16 06:32 Intake Total 1933 ml 1360 ml 75861 ml Output Total 350 ml 4830 ml Balance 1933 ml 1010 ml 07784 ml Intake Oral 756 ml 100 ml 6292 ml IV Total 1177 ml 1260 ml 06685 ml Output Urine Total 350 ml 4530 ml Emesis 300 ml # Voids 2 2 # Bowel Movements 1 19 Objective Per medicine team exam today: General: Patient is in no apparent distress HEENT: Head is atraumatic normocephalic. Eyes: Pupils are equally round and reactive to light and accommodation. Extraocular muscles are intact. Sclera are icteric. Subconjunctival mucosa is pink. Ears and nose are unremarkable. Oropharynx: There is no mucosal lesions, there is no thrush, there is no pharyngitis. Neck: Is supple, there are no nodes, or masses, or tenderness. Chest: Is clear to auscultation and percussion. There are no rales, rhonchi, wheezes or rubs. However, there is decreased breath sounds at the bases. Heart: Rate, rhythm is regular. There is no murmur, rub or gallop. Abdomen: Good bowel sounds are present. Abdomen is soft, nontender, no organomegaly or masses were appreciated. Extremities: Are symmetrical and well perfused. There is no edema, there is no cellulitis, no rash. Lab/Diagnostics Lab and Imaging results reviewed in detail in EMR. Time spent Total time 75 minutes; >50% face to face with patient and family, providing counselling regarding plans and recommendations, and in care coordination with her medical teams. Of the above total time, 20 minutes counseling for advanced care planning with the patient's , reviewing advanced directive wishes. copies to: Akhil Mo MD; Demarco Sofia MD, David F MD Sep 07, 2016 13:19
--- NOTE | 2016-09-07 13:21 | NUR ---
NUTRITION ASSESSMENT: ASSESS: Pt is a 61yo F admitted for acute jaundice and fever. Pt is also being followed by oncology for metastatic cholangiocarcinoma. She is currently receiving palliative chemotherapy. Pt is on a general diet with good PO at 75-100%. Her wt has increased by 21kg since admit. Palliative is involved for goals of care PMHX: cholangiocarcinoma, HTN, JAYLA, UTI, Gastric Ulcers LABS: Reviewed. Bun 57, Facility Designer 1.80, T.bili 17.5, AST 75, ALT 46, Alk phos 419, Alb 2.1 MEDS: Reviewed. GI: lactulose, Zofran, senna SKIN: jaundiced. Alberto 15 CURRENT WTS: 139.6kg, BMI 56.3kg/m2, admit wt 118.kg. Wt up 21kgx 8 days. IBW 50kg, Adj bw 67kg DIET: General, PO 75-100% EST. NEEDS: ca (based off admit wt) Kcals: 1675-2010kcal/day (25-30kcal/kg adj bw) Pro: 80-100g/day (1.2-1.5g/kg adj bw) NUTRITION DIAGNOSIS: 1.) Increased nutrient needs related to chronic disease as evidence by pt on palliative chemo and pt with metastatic cholangiocarcinoma. NUTRITION INTERVENTION: 1.) Continue current diet at this time. PO is adequate. 2.) Will continue to monitor wt as it continues to trend up MONITOR / EVAL: wt, PO, labs, GI, POC, nutrition status. Will continue to monitor per moderate nutrition risk guidelines
--- NOTE | 2016-09-07 14:29 | NUR ---
[facility] can clinically accept patient and they are also out of network, but they have reached out to the son as this was patient preference. Next step is to look into facilities with first choice in network. Updated CONDITIONER TUMBLER OPERATOR Addendum: 09/07/16 at 1510 by JANELLE HANLEY Nieves from [facility] spoke with her Broom Worker and they have signed an agreement for one time for this patient. ED was placing additional call to the son and update him on the insurance piece. Updated CONDITIONER TUMBLER OPERATOR
[2016-09-07] MEDS ORDERED: ALBUMIN IV ONE (14:45)
--- NOTE | 2016-09-07 16:22 | PCM.PNMED ---
Subjective Date of Service Sep 07, 2016 Subjective Pt states she is feeling slightly better, appetite is improving, with no nausea , vomiting, fevers, chills, or shortness of breath. She has not been having bowel movements at this time. Exam Vital Signs Vital Sign - Last Date Time Temp Pulse Resp B/P Pulse Ox O2 Delivery O2 Flow Rate FiO2 09/07/16 13:28 36.4 57 16 106/68 100 Nasal Cannula 2.00 Intake and Output 09/06/16 09/06/16 09/07/16 Cumulative From/Thru 15:00 23:00 07:00 08/30/16 13:59 - 09/07/16 06:32 Intake Total 1933 ml 1360 ml 81507 ml Output Total 350 ml 4830 ml Balance 1933 ml 1010 ml 34528 ml Intake Oral 756 ml 100 ml 6292 ml IV Total 1177 ml 1260 ml 28451 ml Output Urine Total 350 ml 4530 ml Emesis 300 ml # Voids 2 2 # Bowel Movements 1 19 Exam General: Alert, Oriented X3, Cooperative, No Acute Distress Head: Normocephalic, atraumatic. External ears normal. Eyes: PERRLA, EOMI. Scleral icterus present. Mouth: Ulcers on sides of tongue, Mucous Membranes Moist/[place] Neck: Neck supple with full range of motion. Chest & Lungs: Clear to auscultation bilaterally with no crackles, wheezes, or rhonchi. Cardiovascular: Regular Rate/Rhythm, Normal S1, Normal S2, No Murmurs/Rubs/ Gallops Abdomen: No tenderness, Non-distended, Normoactive bowel tones, Soft. Right sided epigastric mass palpable Musculoskeletal: Normal Range of Motion Extremities: Mild bilateral lower extremity edema Skin: Jaundice present Neurological: Grossly neurologically intact. Lab and Diagnostics Result Diagram: 09/07/1662909/07/16629 Microbiology Name: HARRY,HENRY M Age/Sex: 61/F Attend Dr: Markos Milligan MD Acct: [id number] Unit: [id number] Status: [place] [facility] [place] Disch: Specimen: [id number] Collected: 09/04/16 Status: COMP Req#: [id number] Received: 09/04/16 Source: STOOL Sp Desc : STL ASP Subm Dr: Pallavi Jacobs DO Ordered: C DIFF DNA PCR Comments: Collected by Nurse/Unit? Y/N Y Procedure Result Verified Site Microbiology ARNALDO C DIF PCR STOOL Final 09/04/16 CDIF DNA BY PCR NEGATIVE REFERENCE INTERVAL NEGATIVE Specimen: [id number] Collected: 08/30/16 Status: JEANMARIE Guillory#: [id number] Received: 08/30/16 Source: URINE CC Wayne Desc : SAMIR Perry Dr: DOC,ED MD Ordered: URINE CULT Procedure Result Verified Site Microbiology ARNALDO CULT URINE Final 09/01/16 Organism 1 ESCHERICHIA COLI U COLONY COUNT/QUANTITY >100,000 CFU/ml Cefazolin-predicts results for the oral agents, cefaclor,cefdinir, cefpodoximen, cefprozil, cefuroximne axetil, cephalexin and loracarbed when used for therapy of uncomplicated UTI's due to E. coli, K. pneumoniae, and Proteus mirabilis. Cefpodoxime, cefdinir and cefuroxime axetil may be tested individually because some isolates may be susceptible to these agents while testing resistant to cefazolin. (CLSI G398-D92 pg 53) 1. ESCHERICHIA COLI M.I.C Interp --------- ------ * AMOXICILLIN/CLAVULATE <=2 S * AMPICILLIN 4 S * CEFAZOLIN (CEPHALOSPORIN) UTI 4 S * CEFEPIME <=1 S * CEFTRIAXONE <=1 S * CEFUROXIME SODIUM 4 S * CIPROFLOXACIN <=0.25 S * ERTAPENEM <=0.5 S * GENTAMICIN <=1 S * IMIPENEM <=1 S * LEVOFLOXACIN <=0.12 S * NITROFURANTOIN <=16 S * TETRACYCLINE <=1 S * TOBRAMYCIN <=1 S * TRIMETHOPRIM/SULFAMETHOXAZOLE <=20 S Name: EDILSON HARRYCHARLINE Power Age/Sex: 61/F Attend Dr: Markos Milligan MD Acct: [id number] Unit: [id number] Status: ADM [place] [facility] [place] Re08/30/[place] Disch: Specimen: [id number] Collected: 09/01/16 Status: COMP Req#: [id number] Received: 09/01/16 Source: URINE CC Sp Desc : PP [place] Dr: Derik West MD Ordered: URINE CULT Procedure Result Verified Site Microbiology ARNALDO CULT URINE Final 09/03/16-0928 No growth (<1,000 organisms/mL) Name: HENRY HARRY Age/Sex: 61/F Attend Dr: Markos Milligan MD Acct: [id number] Unit: [id number] Status: ADM [place] [facility] [place] [facility] [place] Re08/30/[place] Disch: Specimen: [id number] Collected: 08/30/16 Status: JEANMARIE Guillory#: [id number] Received: 08/30/16 Source: BLOOD Sp Desc : ADRIANO Perry Dr: Marc Mcgrath DO Ordered: BC Comments: Collected by Nurse/Unit? Y/N N Comment: add on ok Procedure Result Verified Site Microbiology ARNALDO CULTURE BLOOD Final 09/04/16 NO GROWTH AFTER 5 DAYS X-Rays, CTs and MRIs CT Abd/pelvis with contrast There is an irregular, lobulated mass involving the left aspect of the liver. This mass measures slightly decreased in size compared to the prior examinations. Please correlate with interval treatment. New development of moderate simple fluid within the peritoneal cavity. The gallbladder wall appears irregular and hyperenhancing, consistent with the given history of gallbladder cancer. Stable left adrenal nodule. Faintly seen right adrenal nodule. A few stable pulmonary nodules can be seen at the lung bases. Incidental note is made of: Dextroconvex scoliosis and bony degenerative changes Assessment & Plan Patient is a 61-year-old female with a history of metastatic cholangiocarcinoma who presents for evaluation of acute jaundice and fever. Leukocytosis, acute. - Blood cultures negative, repeat urine culture negative. C diff negative. Her repeat UA showed more WBCs (>50) but follow up urine cultures were negative, as she was already on antibiotics. Given her REBEKA, consider recurrent UTI/ pyelonephritis. There is also the possibility of a spontaneous bacterial peritonitis at this time that responded temporarily to the IV antibiotics. - Could be secondary to autoimmune hepatitis but consider ongoing infection. - Recommend follow up UA with culture - Recommend abd US for evaluation for diagnostic paracentesis. Hyperbilirubinemia, acute. Stable - Pt complains of fever, abdominal pressure but no pain in the context of high bilirubin. Bilirubin remains high today. Pt was afebrile this hospitalization. WBC was elevated (15.3). MRCP showed ascites, a mass lesion within the liver as previously identified, contracted irregular gallbladder, and no visualized biliary ductal dilation. She may have intrahepatic cholestasis secondary to her tumor, although the mass does not appear to have changed significantly. There does not appear to be any extrahepatic pathology that can be addressed via ERCP. MRCP showed contracted irregular gallbladder. HIDA scan was inconclusive but suspicious for hepatocellular injury. Her bilirubin has now leveled off and is starting to decrease and she is feeling better clinically, so she may begin to improve past this point. - Continue to monitor LFTs and bilirubin Elevated LFTs, acute. Stable. - LFTs have been mildly elevated since 07/26/16, normal before that date. They became more elevated around 08/30, when she started her nitrofurantoin. Hepatitis workup negative. Her LFTs have been fairly stable since, but appear to have started climbing again today. ARIANA positive, anti-smooth muscle weakly positive. Anti-Sm and DISK AND TAPE MACHINE TENDER negative. Autoimmune hepatitis is possible. LFTs mildly elevated but stable. - Continue to monitor LFTs Elevated INR, acute. Improving. - INR 1.82 on admission, significantly elevated from previous INR of 1.34 in July. Likely secondary to acute hepatic injury. Pt received one dose of Vit K. INR has been slowly improving since then. Will hold off on steroids considering her INR is improving. - Continue to monitor INR daily Acute kidney injury. - Cr has been steadily increasing since 09/04. May be related to recent contrast but may also be infection. Consider pursuing further renal imaging. Constipation, acute. - Pt complains of recurring constipation. She reports a severe episode of obstipation a couple of years ago, so recommend treating constipation. No rectal impaction on exam yesterday. - Lactulose 10 g daily - Fiber supplements - Miralax PRN History of Cholangiocarcinoma - Patient has history of intrahepatic cholangiocarcinoma diagnosed in February 2016 , mainly in the left hepatic lobe, metastatic to the right femur. She is currently receiving palliative chemotherapy per Dr. Meier with cisplatin. - Dr. Meier of Oncology is following at this time. We appreciate his input. GI Prophylaxis: Proton Pump Inhibitor (patient has thrombocytopenia and elevated INR and likely not a good candidate for anticoagulation.) VTE Prophylaxis: SCDs VTE Mechanical Devices: Intermittant Pneumatic CD Resuscitation Status: DNR/DNI:Do Not Resuscitate/Intubate Attending Statement Patient seen and examined. Agree with assessment and plan as described by Dr Arnold. INR down. Bili up slightly. Persistent leukocytosis. No further fevers. Creatinine rising. High on the differential would be contrast induced nephropathy from the 08/29/16 CT scan. At this point, I would recommend withholding diuretics and give 100grams IV albumin. I would additionally recommend and u/s guided paracentesis to make sure we have not overlooked the possibility of SBP (partially treated at this point). Arley Arnold Sep 07, 2016 16:22 Derik West MD Sep 07, 2016 23:51
[2016-09-07 17:47] LABS: INR 1.67 ratio
[2016-09-07] MEDS: 0.9% Sodium Chloride 250 ML IV SCH (18:32)
[2016-09-08] VITALS (13 sets, daily range): BP systolic 113–156; BP diastolic 64–85; PULSE 59–79; RESP 16–20; O2SAT 95–100
--- NOTE | 2016-09-08 00:14 | PCM.PNMED ---
Subjective Date of Service Sep 07, 2016 Subjective Patient is more somnolent today. However, she is easily arousable and has no new complaints. Exam Vital Signs Vital Sign - Last Date Time Temp Pulse Resp B/P Pulse Ox O2 Delivery O2 Flow Rate FiO2 09/07/16 22:24 Supplement Oxygen 09/07/16 19:55 36.4 64 20 138/84 100 3.00 Intake and Output 09/06/16 09/06/16 09/07/16 Cumulative From/Thru 15:00 23:00 07:00 08/30/16 13:59 - 09/07/16 06:32 Intake Total 1933 ml 1360 ml 29609 ml Output Total 350 ml 4830 ml Balance 1933 ml 1010 ml 72738 ml Intake Oral 756 ml 100 ml 6292 ml IV Total 1177 ml 1260 ml 89458 ml Output Urine Total 350 ml 4530 ml Emesis 300 ml # Voids 2 2 # Bowel Movements 1 19 Exam General: Patient is in no apparent distress. She is more somnolent today. However, she is easily arousable late this afternoon. Her states that he could not arouse her at lunchtime. HEENT: Head is atraumatic normocephalic. Eyes: Pupils are equally round and reactive to light and accommodation. Extraocular muscles are intact. Sclera are icteric. Subconjunctival mucosa is pink. Ears and nose are unremarkable. Oropharynx: There is no mucosal lesions, there is no thrush, there is no pharyngitis. Neck: Is supple, there are no nodes, or masses, or tenderness. Chest: Is clear to auscultation and percussion. There are no rales, rhonchi, wheezes or rubs. However, there is decreased breath sounds at the bases. Heart: Rate, rhythm is regular. There is no murmur, rub or gallop. Abdomen: Good bowel sounds are present. Abdomen is soft, nontender, no organomegaly or masses were appreciated. Extremities: Are symmetrical and well perfused. There is no edema, there is no cellulitis, no rash. Neurologic: There are no focal neurological deficits. Cranial nerves II through XII are intact. There are no sensory or motor deficits. Psychiatric: Patients mood is calm and shows no sign of agitation. Genital: Deferred Rectal: Deferred Lab and Diagnostics Result Diagram: 09/07/1662909/07/16629 Microbiology Name: HENRY HARRY Age/Sex: 61/F Attend Dr: Markos Milligan MD Acct: [id number] Unit: [id number] Status: ADM IN [place] [facility] [place]-1 Re08/30/16 Disch: Specimen: [id number] Collected: 09/04/16-5 Status: COMP Req#: [id number] Received: 09/04/16 Source: STOOL Sp Desc : STL ASP Subm Dr: Pallaiv Jacobs DO Ordered: Altagracia HORVATH DNA PCR Comments: Collected by Nurse/Unit? Y/N Y Procedure Result Verified Site Microbiology ARNALDO C DIF PCR STOOL Final 09/04/16-1246 CDIF DNA BY PCR NEGATIVE REFERENCE INTERVAL NEGATIVE Specimen: [id number] Collected: 08/30/16 Status: JEANMARIE Guillory#: [id number] Received: 08/30/16 Source: URINE CC Sp Desc : SAMIR Perry Dr: DOC,ED MD Ordered: URINE CULT Procedure Result Verified Site Microbiology ARNALDO CULT URINE Final 09/01/16 Organism 1 ESCHERICHIA COLI U COLONY COUNT/QUANTITY >100,000 CFU/ml Cefazolin-predicts results for the oral agents, cefaclor,cefdinir, cefpodoximen, cefprozil, cefuroximne axetil, cephalexin and loracarbed when used for therapy of uncomplicated UTI's due to E. coli, K. pneumoniae, and Proteus mirabilis. Cefpodoxime, cefdinir and cefuroxime axetil may be tested individually because some isolates may be susceptible to these agents while testing resistant to cefazolin. (CLSI S539-N67 pg 53) 1. ESCHERICHIA COLI M.I.C Interp --------- ------ * AMOXICILLIN/CLAVULATE <=2 S * AMPICILLIN 4 S * CEFAZOLIN (CEPHALOSPORIN) UTI 4 S * CEFEPIME <=1 S * CEFTRIAXONE <=1 S * CEFUROXIME SODIUM 4 S * CIPROFLOXACIN <=0.25 S * ERTAPENEM <=0.5 S * GENTAMICIN <=1 S * IMIPENEM <=1 S * LEVOFLOXACIN <=0.12 S * NITROFURANTOIN <=16 S * TETRACYCLINE <=1 S * TOBRAMYCIN <=1 S * TRIMETHOPRIM/SULFAMETHOXAZOLE <=20 S Name: HENRY HARRY Age/Sex: 61/F Attend Dr: Markos Milligan MD Acct: [id number] Unit: [id number] Status: ADM IN Location: [facility] [place] 239-1 Re08/30/16 Disch: Specimen: [id number] Collected: 09/01/16 Status: JEANMARIE Guillory#: [id number] Received: 09/01/16 Source: URINE CC Sp Desc : PP Subm Dr: Derik West MD Ordered: URINE CULT Procedure Result Verified Site Microbiology ARNALDO CULT URINE Final 09/03/16 No growth (<1,000 organisms/mL) Name: HENRY HARRY Age/Sex: 61/F Attend Dr: Markos Milligan MD Acct: [id number] Unit: [id number] Status: ADM IN Location: [facility] [place] 239-1 Re08/30/16 Disch: Specimen: [id number] Collected: 08/30/16 Status: COMP Req#: [id number] Received: 08/30/16 Source: BLOOD Sp Desc : ADRIANO Perry Dr: Marc Mcgrath DO Ordered: BC Comments: Collected by Nurse/Unit? Y/N N Comment: add on ok Procedure Result Verified Site Microbiology ARNALDO CULTURE BLOOD Final 09/04/16 NO GROWTH AFTER 5 DAYS X-Rays, CTs and MRIs CT Abd/pelvis with contrast There is an irregular, lobulated mass involving the left aspect of the liver. This mass measures slightly decreased in size compared to the prior examinations. Please correlate with interval treatment. New development of moderate simple fluid within the peritoneal cavity. The gallbladder wall appears irregular and hyperenhancing, consistent with the given history of gallbladder cancer. Stable left adrenal nodule. Faintly seen right adrenal nodule. A few stable pulmonary nodules can be seen at the lung bases. Incidental note is made of: Dextroconvex scoliosis and bony degenerative changes Assessment & Plan Patient is a 61-year-old female with a history of metastatic cholangiocarcinoma who presents for evaluation of acute jaundice and fever. Hyperbilirubinemia, acute. - T bili on admission 12.7, 13.9 on 09/01/2016, 14.6 on 09/02/2016 T bili continues to trend upward today T bili was yesterday and 15.3 and 17.5 today - Continue to monitor LFTs and bilirubin - HIDA scan is nondiagnostic for evaluation of biliary disease. There is markedly reduced radiotracer uptake and excretion by the liver suggesting severe hepatocellular disease. - GI following Oral thrush -- Nystatin swish and swallow daily Elevated LFTs, acute. -LFTs have been mildly elevated since admission however they were steadily trending down. However, today they started to trend upwards once again. - An autoimmune reaction to nitrofurantoin is certainly a possibility. - Continue to monitor LFTs - ARIANA, anti-Sm, GROUNDS MANAGER, anti-smooth muscle Abs pending. -Hepatitis A, B, C screen are negative Acute renal failure is progressive rise in serum creatinine - Discussed with Dr. Johnson he would like to give the patient 100 g of albumin IV today - We will continue to monitor closely Elevated INR, acute. - INR is currently stable - Continue to monitor INR daily Constipation, acute-resolved - Discontinue lactulose 10 g daily - Patient currently has bowel movements will get a stool culture should patient have increase in loose stools. Hypokalemia (resolved) - Potassium 3.3 yesterday and today potassium is corrected to 4.0 - Continue patient's normal 10 mEq daily add a one-time dose of 20 mEq today - We will continue to monitor New onset camphorus ulcers of the tounge (resolving) -Ulcers are improving daily with warm salt water gargles however patient has now developed oral thrush. Hypomagnesemia on admission - Magnesium of 1.0 replacement was done magnesium improved to 2.0 - We will repeat magnesium periodically to ensure this has stabilized History of Cholangiocarcinoma - Patient has history of intrahepatic cholangiocarcinoma diagnosed in February 2016 , mainly in the left hepatic lobe, metastatic to the right femur. She is was receiving palliative chemotherapy per Dr. Meier with cisplatin. - Dr. Meier of Oncology is following at this time. We appreciate his input. - Palliative care has been consulted and appreciate Dr. Mccullough's input DVT prophylaxis -Heparin has been discontinued from these lesions patient as her platelets have been low. - Continue using SCDs Disposition: Patient currently has a history of cholangiocarcinoma which is currently being treated. The patient presented with an elevated T bili on admission and GI was consulted immediately. The patient's T bili has been monitored and continues to increase. 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 Multiple serologic studies have been done as the patient might need to be placed on steroid therapy. GI is currently following and appreciate their recommendations. The patient also had REBEKA which seemed to respond to IV fluids. IV fluids were stopped and the patient had decreased urinary output and IV fluids were then restarted. We are continuing to monitor the patient's urine output but recommendations from GI should be reviewed before discharge of the patient. Appreciate palliative care consult. Patient is now a DO NOT RESUSCITATE/DO NOT INTUBATE Pain Evaluation: Adequate Pain Control GI Prophylaxis: Proton Pump Inhibitor (patient has thrombocytopenia and elevated INR and likely not a good candidate for anticoagulation.) VTE Prophylaxis: SCDs VTE Mechanical Devices: Intermittant Pneumatic CD Resuscitation Status: DNR/DNI:Do Not Resuscitate/Intubate Alfredito Shirley MD Sep 08, 2016 00:13
[2016-09-08] MEDS: 0.9% Sodium Chloride 1,000 ML IV SCH ×3 (02:10→17:39)
[2016-09-08 05:09] LABS: BASOPHILS % (AUTO) 0.1 % (0-3); EOSINOPHILS % (AUTO) 0.3 % (0-5); MONOCYTES % (AUTO) 5.9 % (4-12); Mean Corpuscular Hemoglobin 32.9 pg (27.0-35.0); Mean Corpuscular Volume 98.3 fL (81-100); Platelet Count 83 bil/L (150-400)
[2016-09-08 05:12] LABS: INR 1.89 ratio
[2016-09-08 05:19] LABS: Magnesium 1.7 mg/dL (1.6-2.6)
--- NOTE | 2016-09-08 05:52 | NUR ---
Critical Lab result Critical Lab result received at 4154, paged at 2927. Total Bilirubin 18.4
[2016-09-08 06:01] LABS: ERYTHROCYTE SEDIMENTATION RATE 34 mm/hr (0-40)
[2016-09-08] MEDS: Pantoprazole 40 mg ER24 Tablet PO SCH (06:34)
[2016-09-08] MEDS: Nystatin 100,000 Unit/mL 5 mL Suspension PO SCH ×4 (09:00→22:00)
[2016-09-08] MEDS: Lactulose 20 Gm/30 mL 30 mL Syrup PO SCH (09:05)
--- NOTE | 2016-09-08 10:27 | DRSVH ---
PROCEDURE: US RENAL SONOGRAM INDICATIONS: ARF/Possible obstructive uropathy/eval for ascites for para TECHNIQUE: Real-time scanning was performed of the kidneys and bladder, with image documentation. COMPARISON: None. FINDINGS: Kidneys: Kidneys are normal in size. Right kidney measures 9.7 cm long; left kidney measures 11.9 c m long. Right renal cortical thickness is 1.6 cm; left renal cortical thickness is 1.5 cm. Renal co rtical echotexture is normal. No hydronephrosis or nephrolithiasis. No suspicious solid mass lesion s. Bladder: Mccurdy catheter present decompressing the urinary bladder. Miscellaneous: Trace perihepatic. IMPRESSION: 1. Limited exam demonstrating no obstructive uropathy. 2. Trace perihepatic fluid with volume not sufficient for safe paracentesis. Dictated by: Grover Espinal [facility] Interpreted: Melissa Pa MD on 09/08/2016 at 10:25 Transcribed by: GRISELDA on 09/08/2016 at 10:27 Approved by: Melissa Pa MD, PhD on 09/08/2016 at 16:47
--- NOTE | 2016-09-08 10:30 | NUR ---
Rounds 1030 MDs aware that pt is obtunded today. Slow to respond and hard to keep awake. VSS. MD to review chart and place orders prn.
[2016-09-08] MEDS ORDERED: Furosemide 10 mg/mL 2 mL Inj IVPUSH ONE (11:15)
--- NOTE | 2016-09-08 13:01 | NUR ---
ABBryan 1245 to transfer pt to [facility] for bipap therapy. Pt less able to respond to questions/commands that this am, aware. Drowsy and responds to voice but quickly falls back asleep and snores. Continues on CPOX with sats in 100 on 3LNC. Pt's notified of planned transfer. Addendum: 09/08/16 at 1435 by JARAD MARTINEZ RN Transfer report called to Jesus Matos RN at 1330. Pt incontinent of stool in bed. Linens changed and pt cleaned. Stool sample collected and sent. Pt transferred with RN and MEAGAN at 1417 with all belongings.
[2016-09-08] MEDS ORDERED: Lactulose 200 GM/Bottle Enema RECTAL SCH (13:15)
--- NOTE | 2016-09-08 13:53 | PCM.PALLBR ---
Palliative Care Recommendation 61-year-old female with history of metastatic cholangiocarcinoma, admitted with hyperbilirubinemia as well as acute renal failure. Despite aggressive, appropriate evaluation and treatment her bilirubin has continued to rise and her renal failure, after initial improvement, has begun to worsen again. As a consequence, palliative medicine consulted to assist patient and family and determination of goals of care. Summary of palliative recommendations: -Symptom management (Pain/other)- no significant distress at this time. Continued management per her medical and consulting teams. Awaiting results of evaluation for worsening lethargy which may necessitate changes in care. Because of her progressive hepatic dysfunction, I have decreased her Seroquel dose. Other interventions per medical/hospitalist team. -DPOA/Advanced Directives/POLST- spoke at length with her Akhil who is her default POA. While he wants to continue attempts at treatment for the time being, he understands the grave nature of her prognosis. Patient is non- decisional at this time due to her encephalopathy. His wishes that she be DO NOT RESUSCITATE/DO NOT INTUBATE/continued limited interventions in the hope that her renal and hepatic function will stabilize and begin to improve. He understands that further focused treatment for her underlying neoplasm is out of the question at this time. Will plan on completing a POLST prior to discharge. -Family/emotional support- palliative medicine will continue to follow and support. I gave him my card with my personal cell phone number. He is going to be contacting family members in [place] and [place]- my advice to him was to advise family members that if it was important to them to see the patient before she , they should probably come now. Certainly he understands that she may still rally, but at the same time her prognosis does not look good. -Spiritual support- offered Patient Goals: 1. Patient and family want to be told the truth about her illness, even if it is unpleasant. 2. Patient and family would like to be told prognosis when it can be predicted, to better guide treatment decisions. Additional Medical Diagnoses with primary management by Hospitalist team include : Hyperbilirubinemia, acute. Oral thrush Elevated LFTs, acute. Elevated INR, acute. Constipation, acute-resolved Hypokalemia (resolved) New onset camphorus ulcers of the tounge (resolving) Hypomagnesemia on admission History of Cholangiocarcinoma Problems: End of Life Preferences DO NOT RESUSCITATE/DO NOT INTUBATE/limited interventions Goals of Care Patient's continues to hope for stabilization and modest recovery so that she may return home. Disposition To be determined If over the next several days it appears that the patient is continuing to deteriorate, with worsening hepatic and renal function, I anticipate that we would transition to comfort care. Thereafter, would need to determine whether it would be more appropriate for her to stay here for end-of-life care versus considering other options such as home with hospice, etc. Her would be the only person at home with her and does not feel that he could manage her care with only episodic hospice support. Resuscitation Status Resuscitation Status: DNR/DNI:Do Not Resuscitate/Intubate POLST Updates/Changes Previous POLST?: No . Pain: None Symptom management: Drowsiness/sleepiness Total time 45 minutes; >50% face to face with patient and family, providing counselling regarding plans and recommendations, and in care coordination with her medical teams. Palliative Brief Note Date of Service Sep 08, 2016 . Return to reevaluate patient. Prior to visiting, reviewed her updated records in the EMR in detail, spent with bedside nurse and spoke with her hospitalist. Her was present and I also spoke with him. Patient is lying in bed, quite sleepy/lethargic, but arousable. Drops back to sleep very rapidly. Deeply jaundiced. Vital signs noted. Snoring loudly. Head and neck exam otherwise unremarkable. Lungs clear anterolaterally. Heart sounds distant and regular. Abdomen is obese and distended though without obvious tenderness or peritoneal signs. Skin is diffusely puffy but with just trace pitting. Laboratories reviewed in detail. I spoke with Dr. Shirley because of my concerns given her increasing lethargy. He was going to order appropriate studies. Gustavo Dean MD Sep 08, 2016 13:53
[2016-09-08 14:07] LABS: BASOPHILS % (AUTO) 0.1 % (0-3); EOSINOPHILS % (AUTO) 0.4 % (0-5); MONOCYTES % (AUTO) 4.9 % (4-12); Mean Corpuscular Hemoglobin 32.6 pg (27.0-35.0); Mean Corpuscular Volume 99.2 fL (81-100); NEUTROPHILS % (AUTO) 88.6 % (40-74); Platelet Count 93 bil/L (150-400)
--- NOTE | 2016-09-08 14:13 | NUR ---
spiritual care: routine pt continues to rec eucharistic visits per her request
[2016-09-08 14:22] LABS: INR 1.82 ratio
--- NOTE | 2016-09-08 14:25 | DRSVH ---
[facility] [address] [place] [address] Echocardiogram Report Name: HENRY HARRY MStudy Date: 09/08/2016 Height: 61 in Hospital Exam Location: [facility] Weight: 310 lb Gender: Female BSA: 2.3 m2 : 1955 Age: 61 yrs BP: 143/80 mmHg Reason For Study: Possible Congestive Heart Failure HR: 65 Ordering Physician: Performed By: [facility] Interpretation Summary The left ventricular cavity is small. The left ventricle is hyperdynamic. The ejection fraction is estimated to be 70-75%. There is no echo evidence for significant left ventricular outflow tract obstruction. The right ventricle is not well visualized. Right ventricular function cannot be assessed due to poor image quality. All the valves were not well visualized, however, no significant valvular pathology seen. Procedure: A two-dimensional transthoracic echocardiogram with color flow and Doppler was performed. The study quality was technically difficult. Very suboptimal and limited parasternal windows. Patient was not able to follow breathing commands.No Definity uesed, while scanning subcostal images the patient asked we end the exam. There is no prior echocardiogram noted for this patient. The patient was in normal sinus rhythm during the exam. Left Ventricle: The left ventricular cavity is small. There is no echo evidence for significant left ventricular outflow tract obstruction. There is no thrombus. The left ventricle is hyperdynamic. The ejection fraction is estimated to be 70-75%. Spectral Doppler of the mitral valve is reversed, with an E/A wave ratio < 1.0. Right Ventricle: The right ventricle is not well visualized. Right ventricular function cannot be assessed due to poor image quality. Atria: The left atrium is mildly dilated. Right atrial size is normal. The interatrial septum is intact with no evidence for an atrial septal defect. Mitral Valve: The mitral valve is grossly normal. There is no mitral stenosis. There is trace mitral regurgitation. Aortic Valve: The aortic valve is not well visualized. There is mild aortic valve sclerosis. There is no hemodynamically significant valvular aortic stenosis. No aortic regurgitation is present. Tricuspid Valve: The tricuspid valve is not well visualized, but is grossly normal. The tricuspid valve is not well visualized. There is trace tricuspid regurgitation. Pulmonary artery pressures cannot be estimated because of the lack of a measurable TR jet velocity. Pulmonic Valve: The pulmonic valve is not well visualized. Great Vessels: The aortic root is normal size. The inferior vena cava was not visualized. Pericardium/ Pleura There is no pericardial effusion. There is an anterior echo-free space consistent with a fat pad. There is no pleural effusion. MMode/2D Measurements & Calculations RA long axis: 5.2 cm LVOT diam: 1.9 cm LA A2 area: 23.9 cm Ao root diam: 3.0 cm LA A4 area: 25.0 cm RA area: 17.2 cm LA length (vol): 5.7 cm RA vol: 48.3 ml LA vol: 89.7 ml RA : 21.0 ml/m2 LA vol index: 38.9 ml/m2 Doppler Measurements & Calculations Ao V2 max MV E max anton MV E/A: 0.69 MV dec time : 186.4 cm/sec : 86.4 cm/sec Med Peak E' Anton : 0.34 sec Ao max PG MV A max anton : 13.9 mmHg : 124.4 cm/sec E/E' med: 14.2 Ao mean PG Pulm A Revs Dur LVOT Max Anton MV A dur: 0.18 sec : 132.2 cm/sec MERVIN(I,D): 2.1 cm sev ratio Ao V2 mean LV V1 max PG MERVIN indexed to BSA Pulm A Revs Dur - MV : 123.6 cm/sec (cm^2/m^2): 0.90 A Dur: -0.03 msec Ao V2 VTI LV V1 VTI : 31.2 cm MERVIN(V,D): 2.0 cm2 Reading Physician:PANDA
--- NOTE | 2016-09-08 15:34 | PCM.PNMED ---
Subjective Date of Service Sep 08, 2016 Subjective Pt became altered overnight. This morning she was somnolent, difficult to arouse. She was unable to answer questions. Exam Vital Signs Vital Sign - Last Date Time Temp Pulse Resp B/P Pulse Ox O2 Delivery O2 Flow Rate FiO2 09/08/16 13:48 36.3 59 18 156/85 99 Nasal Cannula 3.00 Intake and Output 09/07/16 09/07/16 09/08/16 Cumulative From/Thru 15:00 23:00 07:00 08/30/16 13:59 - 09/08/16 06:44 Intake Total 1569 ml 1355 ml 38543 ml Output Total 400 ml 400 ml 5630 ml Balance 1169 ml 955 ml 47858 ml Intake Oral 474 ml 200 ml 6966 ml IV Total 1095 ml 1155 ml 87284 ml Output Urine Total 100 ml 400 ml 5030 ml Emesis 300 ml 600 ml # Voids 2 # Bowel Movements 1 09 02 Exam General: Somnolent, somewhat arousable, No Acute Distress Head: Normocephalic, atraumatic. External ears normal. Eyes: PERRLA, EOMI. Scleral icterus present. Mouth: Ulcers on sides of tongue, Mucous Membranes Moist/Grady Neck: Neck supple with full range of motion. Chest & Lungs: Clear to auscultation bilaterally with no crackles, wheezes, or rhonchi. Cardiovascular: Regular Rate/Rhythm, Normal S1, Normal S2, No Murmurs/Rubs/ Gallops Abdomen: No tenderness, Non-distended, Normoactive bowel tones, Soft. Right sided epigastric mass palpable Musculoskeletal: Normal Range of Motion Extremities: Mild bilateral lower extremity edema Skin: Jaundice present Neurological: Pt is obtunded and cannot answer simple questions. Lab and Diagnostics Result Diagram: 09/08/16 13509/08/16 135 Microbiology Name: EDILSON HARRYCHARLINE Power Age/Sex: 61/F Attend Dr: Markos Milligan MD Acct: [id number] Unit: [id number] Status: ADM IN [place] [facility] [place] Disch: Specimen: [id number] Collected: 09/04/16 Status: COMP Req#: [id number] Received: 09/04/16 Source: STOOL Sp Desc : STL ASP Subm Dr: Pallavi Jacobs DO Ordered: C DIFF DNA PCR Comments: Collected by Nurse/Unit? Y/N Y Procedure Result Verified Site Microbiology ARNALDO C DIF PCR STOOL Final 09/04/16 CDIF DNA BY PCR NEGATIVE REFERENCE INTERVAL NEGATIVE Specimen: [id number] Collected: 08/30/16 Status: JEANMARIE Guillory#: [id number] Received: 08/30/16 Source: URINE CC Sp Desc : SAMIR Perry Dr: DK,ED Ordered: URINE CULT Procedure Result Verified Site Microbiology ARNALDO CULT URINE Final 09/01/16 Organism 1 ESCHERICHIA COLI U COLONY COUNT/QUANTITY >100,000 CFU/ml Cefazolin-predicts results for the oral agents, cefaclor,cefdinir, cefpodoximen, cefprozil, cefuroximne axetil, cephalexin and loracarbed when used for therapy of uncomplicated UTI's due to E. coli, K. pneumoniae, and Proteus mirabilis. Cefpodoxime, cefdinir and cefuroxime axetil may be tested individually because some isolates may be susceptible to these agents while testing resistant to cefazolin. (CLSI V967-Q29 pg 53) 1. ESCHERICHIA COLI M.I.C Interp --------- ------ * AMOXICILLIN/CLAVULATE <=2 S * AMPICILLIN 4 S * CEFAZOLIN (CEPHALOSPORIN) UTI 4 S * CEFEPIME <=1 S * CEFTRIAXONE <=1 S * CEFUROXIME SODIUM 4 S * CIPROFLOXACIN <=0.25 S * ERTAPENEM <=0.5 S * GENTAMICIN <=1 S * IMIPENEM <=1 S * LEVOFLOXACIN <=0.12 S * NITROFURANTOIN <=16 S * TETRACYCLINE <=1 S * TOBRAMYCIN <=1 S * TRIMETHOPRIM/SULFAMETHOXAZOLE <=20 S Name: EDILSON HARRYCHARLINE Power Age/Sex: 61/F Attend Dr: Markos Milligan MD Acct: [id number] Unit: [id number] Status: ADM IN Location: [place] [address]-1 Re08/30/16 Disch: Specimen: [id number] Collected: 09/01/16 Status: COMP Req#: [id number] Received: 09/01/16 Source: URINE CC Sp Desc : PP [place] Dr: Derik West MD Ordered: URINE CULT Procedure Result Verified Site Microbiology ARNALDO CULT URINE Final 09/03/16-0928 No growth (<1,000 organisms/mL) Name: HENRY HARRY Age/Sex: 61/F Attend Dr: Markos Milligan MD Acct: [id number] Unit: [id number] Status: ADM IN [place] [facility] [place] Re08/30/16 Disch: Specimen: [id number] Collected: 08/30/16 Status: COMP Req#: [id number] Received: 08/30/16 Source: BLOOD Sp Desc : ADRIANO Perry Dr: Marc Mcgrath DO Ordered: BC Comments: Collected by Nurse/Unit? Y/N N Comment: add on ok Procedure Result Verified Site Microbiology ARNALDO CULTURE BLOOD Final 09/04/16 NO GROWTH AFTER 5 DAYS X-Rays, CTs and MRIs CT Abd/pelvis with contrast There is an irregular, lobulated mass involving the left aspect of the liver. This mass measures slightly decreased in size compared to the prior examinations. Please correlate with interval treatment. New development of moderate simple fluid within the peritoneal cavity. The gallbladder wall appears irregular and hyperenhancing, consistent with the given history of gallbladder cancer. Stable left adrenal nodule. Faintly seen right adrenal nodule. A few stable pulmonary nodules can be seen at the lung bases. Incidental note is made of: Dextroconvex scoliosis and bony degenerative changes Assessment & Plan Patient is a 61-year-old female with a history of metastatic cholangiocarcinoma who presents for evaluation of acute jaundice and fever. Leukocytosis, acute. - Blood cultures negative, repeat urine culture negative. C diff negative. Her repeat UA showed more WBCs (>50) but follow up urine cultures were negative, as she was already on antibiotics. Given her REBEKA, consider recurrent UTI/ pyelonephritis. There is also the possibility of a spontaneous bacterial peritonitis at this time that responded temporarily to the IV antibiotics. Paracentesis was unable to be done because of insufficient fluids. - Could be secondary to autoimmune hepatitis but consider ongoing infection. - Recommend follow up UA with culture - Consider empirical antibiotics Altered mental status, acute. - Pt became suddenly obtunded overnight. ABG showed hypercapnic respiratory failure, so pt was placed on bipap and sent to [facility]. Likely secondary to fluid overload. However, hepatic encephalopathy may also be a factor. - Lactulose per rectum q1h until having diarrhea, then restart regular lactulose - Added rifaximin 550 mg BID - Continue diuresis Hyperbilirubinemia, acute. Worsening. - Pt complains of fever, abdominal pressure but no pain in the context of high bilirubin. Bilirubin remains high today. Pt was afebrile this hospitalization. WBC was elevated (15.3). MRCP showed ascites, a mass lesion within the liver as previously identified, contracted irregular gallbladder, and no visualized biliary ductal dilation. She may have intrahepatic cholestasis secondary to her tumor, although the mass does not appear to have changed significantly. There does not appear to be any extrahepatic pathology that can be addressed via ERCP. MRCP showed contracted irregular gallbladder. HIDA scan was inconclusive but suspicious for hepatocellular injury. Her bilirubin appears to be worsening at this point. Will check for signs of hemolysis given her new anemia and continuing elevation in bilirubin. - Ordered haptoglobin, LDH, direct bilirubin - Continue to monitor LFTs and bilirubin - Will likely start steroids tomorrow Elevated LFTs, acute. Stable. - LFTs have been mildly elevated since 07/26/16, normal before that date. They became more elevated around 08/30, when she started her nitrofurantoin. Hepatitis workup negative. Her LFTs have been fairly stable since, but appear to have started climbing again today. ARIANA positive, anti-smooth muscle weakly positive. Anti-Sm and TOWER SUPERVISOR negative. Autoimmune hepatitis is possible. LFTs appear to have improved. - Continue to monitor LFTs Elevated INR, acute. Worsening - INR 1.82 on admission, significantly elevated from previous INR of 1.34 in July. Likely secondary to acute hepatic injury. Pt received one dose of Vit K. INR has been slowly improving since then. Will hold off on steroids considering her INR is improving. - Continue to monitor INR daily - Will give Vitamin K today Acute kidney injury. - Cr has been steadily increasing since 09/04. May be related to recent contrast but may also be infection. Consider pursuing further renal imaging. Albumin 100 g IV was given. Constipation, acute. - Pt complains of recurring constipation. She reports a severe episode of obstipation a couple of years ago, so recommend treating constipation. No rectal impaction on exam yesterday. - Lactulose 10 g daily - Fiber supplements - Miralax PRN History of Cholangiocarcinoma - Patient has history of intrahepatic cholangiocarcinoma diagnosed in February 2016 , mainly in the left hepatic lobe, metastatic to the right femur. She is currently receiving palliative chemotherapy per Dr. Meier with cisplatin. - Dr. Meier of Oncology is following at this time. We appreciate his input. GI Prophylaxis: Proton Pump Inhibitor (patient has thrombocytopenia and elevated INR and likely not a good candidate for anticoagulation.) VTE Prophylaxis: SCDs VTE Mechanical Devices: Intermittant Pneumatic CD Resuscitation Status: DNR/DNI:Do Not Resuscitate/Intubate Attending Statement Patient seen and examined. Agree with assessment and plan. Patient has decompensated over last 24 hours. Blood gas demonstrates CO2 retention. Now on BiPAP with improving gas. Mental status better than this morning. Needs aggressive lactulose to 3 bm's per day. Enemas up front until mental status acceptable for PO. Agree with Rifaximin. Was given more Vitamin K today. Bili up. INR also up spontaneously which is not a good prognostic sign. May additionally have contrast induced nephropathy. Being diuresed now (?? poor tolerance of albumin ??). Depending on response to above, would favor empiric trial of hydrocortisone 100mg BID. Arley Arnold Sep 08, 2016 15:34 Derik West MD Sep 08, 2016 17:00
[2016-09-08] MEDS ORDERED: Phytonadione (Adult) 10 MG in Dextrose 5%-Pha MIX 50 ML IV ONE (16:00)
--- NOTE | 2016-09-08 16:02 | DRSVH ---
PROCEDURE: X-RAY CHEST ONE VIEW, PORTABLE ([id number]) INDICATIONS: Hypoxia/Possible fluid overload TECHNIQUE: One view of the chest was acquired. COMPARISON: Outside Film, CT, CT CHEST ABD PELVIS W CON, 04/07/2016, 9:05. FINDINGS: Surgical changes and devices: Right subclavian chest port present projected over the lower SVC. Lungs and pleura: Exam limited by rotation. Within the limits small layering left pleural effusion i s present. Bibasilar airspace opacities noted, left greater than right. No pneumothorax. Mediastinum: Mediastinal contours appear normal. Heart size is normal. Bones and chest wall: No suspicious bony lesions. Overlying soft tissues appear unremarkable. IMPRESSION: 1. Layering left pleural effusion and bibasilar airspace opacities consistent compressive atelectasis versus aspiration or pneumonia. Differential diagnosis would also include patchy pulmonary edema. Dictated by: Grover Espinal [facility] Interpreted: Melissa Pa MD on 09/08/2016 at 16:00 Transcribed by: GRISELDA on 09/08/2016 at 16:02 Approved by: Melissa Pa MD, PhD on 09/08/2016 at 16:52
--- NOTE | 2016-09-08 16:32 | ABG ---
DateTimeAnalyzed 16:27:00 -_ pH ____7.265 - 7.350 7.450 pCO2 ___46.4__ -mmHg 35.0 45.0 pO2 124 -mmHg 69.0 116 HCO3- ___20.3__ -mmol/L 22.0 26.0 ABE ___-5.7__ -mmol/L -2.0 2.0 tHb ____7.7__ -g/dL O2Hb ___97.8__ -% COHb ____1.5__ -% MetHb ___-0.3__ -% sO2 ___99.0__ -% 25.0 FIO2 ___50.0__ -% Drawn By NB - Date/Time Notified____ 16:32:00 -_ Oxygen Device 1 _ROOM AIR - Notified By nb - Notified Whom __Radvany - B 772 -mmHg tO2 ___10.8__ -Vol% Ford test N/A -
[2016-09-08] MEDS: 0.9% Sodium Chloride 250 ML IV SCH (16:37)
--- NOTE | 2016-09-08 19:19 | NUR ---
Transfer from [facility] Pt. transferred to room 2030 PCC from [facility] around 1430. Pt. came to PCC to be on BIPAP because her carbon dioxide level was high and her pH was acidic. Pt. on arrival was alert and responding to command. As of about 1440 Pt. is on BIPAP and somnolent, jaundice throughout her body as well as her eyes. Pt. does not c/o of pain, CP, or SOB when asked.
--- NOTE | 2016-09-08 21:01 | CCS NOTE ---
[facility] [address], [address] [address] MEDICAL ONCOLOGY OFFICE NOTE PATIENT: HENRY HARRY : 1955 MR#: [id number] DATE: 08/30/2016 JOB ID: [id number] DATE: 09/08/2016 SUBJECTIVE: Patient was receiving an echocardiogram as I visited her in her room. She was significantly more somnolent than usual and had a hard time staying awake. She remains severely jaundiced and afebrile. Her blood pressure has been stable. There has been quite a bit of change in the degree of somnolence between yesterday and today. Lab studies review shows bilirubin still, after a transient stabilization, rising a little more to around 18.5, while transaminases continue to improve, getting close to normal, as well as alkaline phosphatase improving. Creatinine has further deteriorated after previously had normalized. She received albumin yesterday. ASSESSMENT AND PLAN: A 61-year-old lady with cholangiocarcinoma of the left hepatic lobe and single metastasis to the right femur that has been radiated, diagnosed in February 2016. She has a deterioration of mental status today with severe somnolence. I have had a detailed phone conversation with both Dr. West of gastroenterology, as well as the hospitalist team. Her ARIANA titer was positive and anti-smooth muscle antibody was borderline range. Decision so far for initiation of steroids for possibility of an autoimmune hepatitis associated with nitrofurantoin has been deferred since her INR was improving and transaminases were improving even though the bilirubin has not shown any meaningful improvement. In fact, it has slightly worsened. She also has become more low on oxygen and elevated bicarbonate. She has received a large dose of albumin infusion yesterday to improve renal perfusion. Overall, her current status is concerning and she is being transferred to the progressive care unit for usage of BiPAP. Her code status is changed to DNR after discussions yesterday, appropriately. A stroke was discussed in the differential diagnosis but appeared less likely per my discussion with the hospitalist team, given the alternative explanations. She also has an elevated ammonia level that goes along with hepatic encephalopathy, which might have gotten somewhat aggravated with albumin infusion, although not sure. Overall, her outlook is becoming more guarded. Over the weekend, Dr. Oquendo will be sergeant of corrections for Oncology for any potential questions.
[2016-09-09] VITALS (14 sets, daily range): BP systolic 101–142; BP diastolic 43–76; PULSE 60–88; RESP 15–26; O2SAT 98–100
[2016-09-09] MEDS: 0.9% Sodium Chloride 1,000 ML IV SCH ×4 (00:19→16:13)
--- NOTE | 2016-09-09 00:31 | PCM.PNMED ---
Subjective Date of Service Sep 09, 2016 Subjective Patient is less responsive today and very somnolent. She is arousable and does follow a few commands. However, she then goes right back to sleep. Exam Vital Signs Vital Sign - Last Date Time Temp Pulse Resp B/P Pulse Ox O2 Delivery O2 Flow Rate FiO2 09/08/16 23:59 36.5 63 16 125/64 99 BiPAP 09/08/16 21:47 28 09/08/16 13:48 3.00 Intake and Output 09/08/16 09/08/16 09/09/16 Cumulative From/Thru 15:00 23:00 07:00 08/30/16 13:59 - 09/08/16 18:38 Intake Total 530 ml 38798 ml Output Total 150 ml 5780 ml Balance 530 ml -150 ml 25018 ml Intake Oral 200 ml 7166 ml IV Total 330 ml 84384 ml Output Urine Total 150 ml 5180 ml Emesis 600 ml # Voids 2 # Bowel Movements 1 22 Exam General: Patient is much more somnolent today. She is arousable and does follow a few commands but then goes right back to sleep. HEENT: Head is atraumatic normocephalic. Eyes: Pupils are equally round and reactive to light and accommodation. Extraocular muscles are intact. Sclera are icteric. Subconjunctival mucosa is pink. Ears and nose are unremarkable. Oropharynx: There is no mucosal lesions, there is no thrush, there is no pharyngitis. Neck: Is supple, there are no nodes, or masses, or tenderness. Chest: There are a few scattered rhonchi and wheezes and decreased breath sounds. Heart: Rate, rhythm is regular. There is no new murmur, rub or gallop. Abdomen: Good bowel sounds are present. Abdomen is soft, nontender, no organomegaly or masses were appreciated. Extremities: Extremities Exhibit 2+ edema of all 4 extremities. However they remain well perfused. There is no cellulitis, no rash. Neurologic: There are no focal neurological deficits. Cranial nerves II through XII are intact. There are no sensory or motor deficits. However, patient is poorly responsive. She is arousable and does follow a few commands but then readily falls back to sleep. Psychiatric: Patients mood is calm and shows no sign of agitation. Genital: Deferred Rectal: Deferred Lab and Diagnostics Result Diagram: 09/08/16 1615 09/08/16 1353 Microbiology Name: HENRY HARRY Age/Sex: 61/F Attend Dr: Markos Milligan MD Acct: [id number] Unit: [id number] Status: ADM IN [place] [facility] [place] Re08/30/16 Disch: Specimen: [id number] Collected: 09/04/16-1015 Status: COMP Req#: [id number] Received: 09/04/16 Source: STOOL Sp Desc : STL ASP Subm Dr: Pallavi Jacobs DO Ordered: C DIFF DNA PCR Comments: Collected by Nurse/Unit? Y/N Y Procedure Result Verified Site Microbiology ARNALDO C DIF PCR STOOL Final 09/04/16 CDIF DNA BY PCR NEGATIVE REFERENCE INTERVAL NEGATIVE Specimen: [id number] Collected: 08/30/16 Status: JEANMARIE Guillory#: [id number] Received: 08/30/16 Source: URINE CC Sp Desc : SAMIR Perry Dr: DOC,ED MD Ordered: URINE CULT Procedure Result Verified Site Microbiology ARNALDO CULT URINE Final 09/01/16 Organism 1 ESCHERICHIA COLI U COLONY COUNT/QUANTITY >100,000 CFU/ml Cefazolin-predicts results for the oral agents, cefaclor,cefdinir, cefpodoximen, cefprozil, cefuroximne axetil, cephalexin and loracarbed when used for therapy of uncomplicated UTI's due to E. coli, K. pneumoniae, and Proteus mirabilis. Cefpodoxime, cefdinir and cefuroxime axetil may be tested individually because some isolates may be susceptible to these agents while testing resistant to cefazolin. (CLSI J040-P15 pg 53) 1. ESCHERICHIA COLI M.I.C Interp --------- ------ * AMOXICILLIN/CLAVULATE <=2 S * AMPICILLIN 4 S * CEFAZOLIN (CEPHALOSPORIN) UTI 4 S * CEFEPIME <=1 S * CEFTRIAXONE <=1 S * CEFUROXIME SODIUM 4 S * CIPROFLOXACIN <=0.25 S * ERTAPENEM <=0.5 S * GENTAMICIN <=1 S * IMIPENEM <=1 S * LEVOFLOXACIN <=0.12 S * NITROFURANTOIN <=16 S * TETRACYCLINE <=1 S * TOBRAMYCIN <=1 S * TRIMETHOPRIM/SULFAMETHOXAZOLE <=20 S Name: HENRY HARRY Age/Sex: 61/F Attend Dr: Markos Milligan MD Acct: [id number] Unit: [id number] Status: ADM IN Location: [facility] [place]-1 Re08/30/16 Disch: Specimen: [id number] Collected: 09/01/16 Status: JEANMARIE Guillory#: [id number] Received: 09/01/16 Source: URINE CC Sp Desc : PP Subm Dr: Derik West MD Ordered: URINE CULT Procedure Result Verified Site Microbiology ARNALDO CULT URINE Final 09/03/16 No growth (<1,000 organisms/mL) Name: HENRY HARRY Age/Sex: 61/F Attend Dr: Markos Milligan MD Acct: [id number] Unit: [id number] Status: ADM IN [place]: [facility] [place]-1 Re08/30/16 Disch: Specimen: [id number] Collected: 08/30/16 Status: COMP Req#: [id number] Received: 08/30/16 Source: BLOOD Sp Desc : ADRIANO Perry Dr: Marc Mcgrath DO Ordered: BC Comments: Collected by Nurse/Unit? Y/N N Comment: add on ok Procedure Result Verified Site Microbiology ARNALDO CULTURE BLOOD Final 09/04/16 NO GROWTH AFTER 5 DAYS X-Rays, CTs and MRIs CT Abd/pelvis with contrast There is an irregular, lobulated mass involving the left aspect of the liver. This mass measures slightly decreased in size compared to the prior examinations. Please correlate with interval treatment. New development of moderate simple fluid within the peritoneal cavity. The gallbladder wall appears irregular and hyperenhancing, consistent with the given history of gallbladder cancer. Stable left adrenal nodule. Faintly seen right adrenal nodule. A few stable pulmonary nodules can be seen at the lung bases. Incidental note is made of: Dextroconvex scoliosis and bony degenerative changes Assessment & Plan Patient is a 61-year-old female with a history of metastatic cholangiocarcinoma who presents for evaluation of acute jaundice and fever. Hyperbilirubinemia, acute. - T bili on admission 12.7, 13.9 on 09/01/2016, 14.6 on 09/02/2016 T bili continues to trend upward today T bili was 17.5 yesterday and 18.4 today. - Continue to monitor LFTs and bilirubin - HIDA scan is nondiagnostic for evaluation of biliary disease. There is markedly reduced radiotracer uptake and excretion by the liver suggesting severe hepatocellular disease. - GI following. I had discussed with Dr. Johnson today and he is concerned that the patient's INR and bilirubin have gone up. However, patient is on: Phosphatase and transaminases have improved. Oral thrush -- Nystatin swish and swallow daily Elevated LFTs, acute. -LFTs showed decline in transaminases and alkaline phosphatase with slowly increasing bilirubin and PT/INR - An autoimmune reaction to nitrofurantoin is certainly a possibility. - Continue to monitor LFTs - ARIANA, anti-Sm, OIM ARCHITECT, anti-smooth muscle Abs pending. -Hepatitis A, B, C screen are negative Acute renal failure with progressive rise in serum creatinine appears to have stopped after albumin was given yesterday - Discussed with Dr. Johnson 100 g of albumin IV was given yesterday - We will continue to monitor closel - We will give 20 mg of Lasix IV today Elevated INR, acute. - INR is slightly higher today indicating possible progressive hepatocellular disease. However transaminases are improved - Continue to monitor INR daily Constipation, acute-resolved - Continue lactulose 10 g daily - Patient currently has bowel movements will get a stool culture should patient have increase in loose stools. Hypokalemia (resolved) - Potassium 3.3 yesterday and today potassium is corrected to 4.0 - Continue patient's normal 10 mEq daily add a one-time dose of 20 mEq today - We will continue to monitor New onset camphorus ulcers of the tounge (resolving) -Ulcers are improving daily with warm salt water gargles however patient has now developed oral thrush. Hypomagnesemia on admission - Magnesium of 1.0 replacement was done magnesium improved to 2.0 - We will repeat magnesium periodically to ensure this has stabilized History of Cholangiocarcinoma - Patient has history of intrahepatic cholangiocarcinoma diagnosed in February 2016 , mainly in the left hepatic lobe, metastatic to the right femur. She is was receiving palliative chemotherapy per Dr. Meier with cisplatin. - Dr. Meier of Oncology is following at this time. We appreciate his input. Discussed with Dr. Lucina wills today - Palliative care has been consulted and appreciate Dr. Mccullough's input DVT prophylaxis -Heparin has been discontinued from these lesions patient as her platelets have been low. - Continue using SCDs Disposition: Patient currently has a history of cholangiocarcinoma which is currently being treated. The patient presented with an elevated T bili on admission and GI was consulted immediately. The patient's T bili has been monitored and continues to increase. 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 Multiple serologic studies have been done as the patient might need to be placed on steroid therapy. GI is currently following and appreciate their recommendations. If patient does not improve we may begin steroid therapy. The patient also had REBEKA which seemed to respond to IV fluids. IV fluids were stopped and the patient had decreased urinary output and IV fluids were then restarted. We are continuing to monitor the patient's urine output but recommendations from GI should be reviewed before discharge of the patient. Appreciate palliative care consult. Patient is now a DO NOT RESUSCITATE/DO NOT INTUBATE Pain Evaluation: Adequate Pain Control GI Prophylaxis: Proton Pump Inhibitor (patient has thrombocytopenia and elevated INR and likely not a good candidate for anticoagulation.) VTE Prophylaxis: SCDs VTE Mechanical Devices: Intermittant Pneumatic CD Resuscitation Status: DNR/DNI:Do Not Resuscitate/Intubate Alfredito Shirley MD Sep 09, 2016 00:31
--- NOTE | 2016-09-09 01:24 | NUR ---
Urine Output/Mentation Patient somnolent, sleeping heavily. Difficult to arouse, but does respond after repeated loud stimuli. Raises arm to accept blood pressure cuff, answers questions with short, 1-2 word answers. Yes/no easiest. At 0015, nam bag noted to have scant (<10 mL) urine in it. Tubing checked for kinks; none found. Nam irrigated with 100 ml sterile water. Immediate return of multiple large clumps of greenish sediment. Nam bag observed to have at least 200 ml dark gabby urine after irrigation. Continue to monitor.
[2016-09-09 06:06] LABS: INR 1.67 ratio
[2016-09-09 06:08] LABS: BASOPHILS % (AUTO) 0 % (0-3); EOSINOPHILS % (AUTO) 0.1 % (0-5); MONOCYTES % (AUTO) 4.5 % (4-12); Mean Corpuscular Hemoglobin 32.6 pg (27.0-35.0); Mean Corpuscular Volume 99.1 fL (81-100); NEUTROPHILS % (AUTO) 89.2 % (40-74); Platelet Count 82 bil/L (150-400)
[2016-09-09] MEDS: Pantoprazole 40 mg ER24 Tablet PO SCH (06:30)
[2016-09-09] MEDS: Lactulose 20 Gm/30 mL 30 mL Syrup PO SCH ×2 (08:30→20:18)
[2016-09-09] MEDS: Nystatin 100,000 Unit/mL 5 mL Suspension PO SCH ×4 (08:30→20:18)
--- NOTE | 2016-09-09 11:00 | NUR ---
Mccurdy cath changed Pt Mccurdy catheter draining large amounts of brown/green sediment with irrigation. Mccurdy cath changed. Noted green sludge on Mccurdy tip after removal. Pt tolerated procedure well. made aware. ongoing care.
--- NOTE | 2016-09-09 11:33 | PCM.PNMED ---
Subjective Date of Service Sep 09, 2016 Subjective Patient on BiPAP and in respiratory distress. She appears to be more somnolent during yesterday according to the sign out from my partner. Exam Vital Signs Vital Sign - Last Date Time Temp Pulse Resp B/P Pulse Ox O2 Delivery O2 Flow Rate FiO2 09/09/16 09:23 Supplement Oxygen 09/09/16 09:21 36.7 67 142/76 100 2.00 09/09/16 08:59 15 28 Intake and Output 09/08/16 09/08/16 09/09/16 Cumulative From/Thru 15:00 23:00 07:00 08/30/16 13:59 - 09/09/16 06:04 Intake Total 530 ml 203 ml 42194 ml Output Total 150 ml 225 ml 6005 ml Balance 530 ml -150 ml -22 ml 78476 ml Intake Oral 200 ml 0 ml 7166 ml IV Total 330 ml 203 ml 90956 ml Output Urine Total 150 ml 225 ml 5405 ml Emesis 600 ml # Voids 2 # Bowel Movements 09 03 Exam Physical examination patient is on BiPAP. Not arousable tactile stimuli and mild noxious stimuli. However at the nursing staff inform me when they were changing to fully, she will linnea and she was communicative. Head and neck obese neck Lungs turbulent flow of air as well as rhonchus breath sounds and at times decreased breath sounds. Cardiovascular regular rate and rhythm normal S1 and S2 Abdomen soft obese distended questionable tenderness, guarding rebound tenderness with decreased bowel sounds Skin showing jaundice Lab and Diagnostics Result Diagram: 09/09/16 0535 09/09/16 0535 Microbiology Name: HENRY HARRY Age/Sex: 61/F Attend Dr: Markos Milligan MD Acct: [id number] Unit: [id number] Status: ADM IN Location: [place] [id number] Re08/30/16 Disch: Specimen: [id number] Collected: 09/04/16 Status: COMP Req#: [id number] Received: 09/04/16 Source: STOOL Sp Desc : STL ASP Subm Dr: Pallavi Jacobs DO Ordered: Altagracia DIFF DNA PCR Comments: Collected by Nurse/Unit? Y/N Y Procedure Result Verified Site Microbiology ARNALDO C DIF PCR STOOL Final 09/04/16 CDIF DNA BY PCR NEGATIVE REFERENCE INTERVAL NEGATIVE Specimen: [id number] Collected: 08/30/16 Status: COMP Req#: [id number] Received: 08/30/16 Source: URINE CC Sp Desc : SAMIR Perry Dr: DK,ED Ordered: URINE CULT Procedure Result Verified Site Microbiology ARNALDO CULT URINE Final 09/01/16 Organism 1 ESCHERICHIA COLI U COLONY COUNT/QUANTITY >100,000 CFU/ml Cefazolin-predicts results for the oral agents, cefaclor,cefdinir, cefpodoximen, cefprozil, cefuroximne axetil, cephalexin and loracarbed when used for therapy of uncomplicated UTI's due to E. coli, K. pneumoniae, and Proteus mirabilis. Cefpodoxime, cefdinir and cefuroxime axetil may be tested individually because some isolates may be susceptible to these agents while testing resistant to cefazolin. (CLSI C986-B75 pg 53) 1. ESCHERICHIA COLI M.I.C Interp --------- ------ * AMOXICILLIN/CLAVULATE <=2 S * AMPICILLIN 4 S * CEFAZOLIN (CEPHALOSPORIN) UTI 4 S * CEFEPIME <=1 S * CEFTRIAXONE <=1 S * CEFUROXIME SODIUM 4 S * CIPROFLOXACIN <=0.25 S * ERTAPENEM <=0.5 S * GENTAMICIN <=1 S * IMIPENEM <=1 S * LEVOFLOXACIN <=0.12 S * NITROFURANTOIN <=16 S * TETRACYCLINE <=1 S * TOBRAMYCIN <=1 S * TRIMETHOPRIM/SULFAMETHOXAZOLE <=20 S Name: HENRY HARRY Age/Sex: 61/F Attend Dr: Markos Milligan MD Acct: [id number] Unit: [id number] Status: ADM [place] [facility] [place] Disch: Specimen: [id number] Collected: 09/01/16 Status: COMP Req#: [id number] Received: 09/01/16 Source: URINE CC Sp Desc : SAMIR Perry Dr: Derik West MD Ordered: URINE CULT Procedure Result Verified Site Microbiology ARNALDO CULT URINE Final 09/03/16 No growth (<1,000 organisms/mL) Name: EDILSON HARRYCHARLINE Power Age/Sex: 61/F Attend Dr: Markos Milligan MD Acct: [id number] Unit: [id number] Status: ADM [place] [facility] [place]08[place] Disch: Specimen: [id number] Collected: 08/30/16 Status: COMP Req#: [id number] Received: 08/30/16 Source: BLOOD Sp Desc : AA Subm Dr: Marc Mcgrath DO Ordered: Comments: Collected by Nurse/Unit? Y/N N Comment: add on ok Procedure Result Verified Site Microbiology ARNALDO CULTURE BLOOD Final 09/04/16-2143 NO GROWTH AFTER 5 DAYS X-Rays, CTs and MRIs CT Abd/pelvis with contrast There is an irregular, lobulated mass involving the left aspect of the liver. This mass measures slightly decreased in size compared to the prior examinations. Please correlate with interval treatment. New development of moderate simple fluid within the peritoneal cavity. The gallbladder wall appears irregular and hyperenhancing, consistent with the given history of gallbladder cancer. Stable left adrenal nodule. Faintly seen right adrenal nodule. A few stable pulmonary nodules can be seen at the lung bases. Incidental note is made of: Dextroconvex scoliosis and bony degenerative changes Assessment & Plan Patient is a 61-year-old female with a history of metastatic cholangiocarcinoma who presents for evaluation of acute jaundice and fever. She has not been febrile overnight. She seems to be deteriorating. Her total bilirubin is 20 yesterday and walk and is 19.2 today with direct of 14. INR went down from 1.82 -1.67. Albumin is low at 2.7 phosphatase is 297 and there is mild elevation of alkaline phosphatase. HIDA was nondiagnostic. The cause of acute deterioration is still uncertain. It could be due to nitrofurantoin however she has not been off of this for a while. Acute renal failure is progressive. INR has somewhat stabilized as well as the total bilirubin at this point. Nitrofurantoin is a possibility however small. I also think there could be an underlying infection as well. I spoke in with a [facility] medical team who has not seen the patient yet. After their evaluation, we will reconnected to determine what the next step would be. I think trial of broad spectrum antibiotics or even looking for atypical infection should be considered. For the past 24 hours, it appears she is holding her own home alone. However it appears her prognosis is extremely guarded at this point. - Please consider infectious disease input. - Awaiting palliative care disposition. - I understand she is now DO NOT RESUSCITATE. - Continue monitoring the LFTs - Panculture including stool. - Continued medical therapy for now. GI Prophylaxis: Proton Pump Inhibitor (patient has thrombocytopenia and elevated INR and likely not a good candidate for anticoagulation.) VTE Prophylaxis: SCDs VTE Mechanical Devices: Intermittant Pneumatic CD Resuscitation Status: DNR/DNI:Do Not Resuscitate/Intubate Mendoza Mark MD Sep 09, 2016 11:33
--- NOTE | 2016-09-09 12:04 | ABG ---
DateTimeAnalyzed 11:57:00 -_ pH ____7.251 - 7.350 7.450 pCO2 ___47.3__ -mmHg 35.0 45.0 pO2 ___96.3__ -mmHg 69.0 116 HCO3- ___20.0__ -mmol/L 22.0 26.0 ABE ___-6.2__ -mmol/L -2.0 2.0 tHb ____7.6__ -g/dL O2Hb ___95.6__ -% COHb ____1.8__ -% MetHb ____0.4__ -% sO2 ___97.8__ -% 25.0 FIO2 ___28.0__ -% CPAP ___12.0__ -cmH2O PEEP ____6.0__ -cmH2O Set_RR ___12.0__ -b/min Drawn By NB - Date/Time Notified____ 12:03:00 -_ Oxygen Device 1 ____BIPAP - Notified By NB - Notified Whom __Radvany - B 771 -mmHg tO2 ___10.4__ -Vol% Ford test N/A -
--- NOTE | 2016-09-09 14:08 | PCM.PNMED ---
Subjective Date of Service Sep 09, 2016 Subjective Patient denies having any dyspnea despite obvious dyspnea and no chest pain no nausea vomiting. Does not even entirely clear what she makes her problems out to be but surprisingly is able to make her needs known intermittently despite what almost look like stroke symptoms. Exam Vital Signs Vital Sign - Last Date Time Temp Pulse Resp B/P Pulse Ox O2 Delivery O2 Flow Rate FiO2 09/09/16 12:42 72 15 99 28 09/09/16 09:23 Supplement Oxygen 09/09/16 09:21 36.7 142/76 2.00 Intake and Output 09/08/16 09/08/16 09/09/16 Cumulative From/Thru 15:00 23:00 07:00 08/30/16 13:59 - 09/09/16 06:04 Intake Total 530 ml 203 ml 73759 ml Output Total 150 ml 225 ml 6005 ml Balance 530 ml -150 ml -22 ml 67180 ml Intake Oral 200 ml 0 ml 7166 ml IV Total 330 ml 203 ml 91575 ml Output Urine Total 150 ml 225 ml 5405 ml Emesis 600 ml # Voids 2 # Bowel Movements 1 22 Exam Gen.- A+ O 3 no apparent distress. Jaundiced morbidly obese female lying in bed Eyes- open conjunctiva clear, pupils equal patient does have icteric sclera and she almost looks like she has myxedema Mouth- oral mucosa moist, no exudate ENT- ears normal, nose normal Neck- supple/trach midline CVS- RRR no murmur or gallop , edema consistent with body habitus Lungs CTA GI- NABS/NT soft, huge pannus Musc- moving 4 no obvious deformity Neuro- cranial nerves II through XII intact to gross examination, nonfocal Patient initially could not speak at all and was having a hard time responding to simple commands. Then she would speak in short bursts looking dyspneic. She would intermittently speak lucid and coherent. She was following simple commands, time and sometimes not. Her neurologic exam is variable. Taken as a whole it appears nonfocal. Skin- warm and dry, no rashes/lesions/wounds noted Psych- pleasant and appropriate, Lab and Diagnostics Troponin 0.01, BNP 3143, ammonia 67 DateTimeAnalyzed 11:57:00 -_ pH ____7.251 - 7.350 7.450 pCO2 ___47.3__ -mmHg 35.0 45.0 pO2 ___96.3__ -mmHg 69.0 116 HCO3- ___20.0__ -mmol/L 22.0 26.0 ABE ___-6.2__ -mmol/L -2.0 2.0 tHb ____7.6__ -g/dL O2Hb ___95.6__ -% COHb ____1.8__ -% MetHb ____0.4__ -% sO2 ___97.8__ -% 25.0 FIO2 ___28.0__ -% CPAP ___12.0__ -cmH2O PEEP ____6.0__ -cmH2O Set_RR ___12.0__ -b/min Drawn By NB - Date/Time Notified____ 12:03:00 -_ Oxygen Device 1 ____BIPAP - Result Diagram: 09/09/1653409/09/1635 Microbiology Name: HENRY HARRY Age/Sex: 61/F Attend Dr: Markos Milligan MD Acct: [id number] Unit: [id number] Status: ADM IN Location: [place] [address] Re08/30/16 Disch: Specimen: [id number] Collected: 09/04/16 Status: JEANMARIE Req#: [id number] Received: 09/04/16 Source: STOOL Sp Desc : STL ASP Subm Dr: Pallavi Jacobs DO Ordered: C DIFF DNA PCR Comments: Collected by Nurse/Unit? Y/N Y Procedure Result Verified Site Microbiology ARNALDO Frias DIF PCR STOOL Final 09/04/16 CDIF DNA BY PCR NEGATIVE REFERENCE INTERVAL NEGATIVE Specimen: [id number] Collected: 08/30/16 Status: COMP Req#: [id number] Received: 08/30/16 Source: URINE CC Sp Desc : PP Subm Dr: ELLA ROOT MD Ordered: URINE CULT Procedure Result Verified Site Microbiology ARNALDO CULT URINE Final 09/01/16 Organism 1 ESCHERICHIA COLI U COLONY COUNT/QUANTITY >100,000 CFU/ml Cefazolin-predicts results for the oral agents, cefaclor,cefdinir, cefpodoximen, cefprozil, cefuroximne axetil, cephalexin and loracarbed when used for therapy of uncomplicated UTI's due to E. coli, K. pneumoniae, and Proteus mirabilis. Cefpodoxime, cefdinir and cefuroxime axetil may be tested individually because some isolates may be susceptible to these agents while testing resistant to cefazolin. (CLSI A841-W17 pg 53) 1. ESCHERICHIA COLI M.I.C Interp --------- ------ * AMOXICILLIN/CLAVULATE <=2 S * AMPICILLIN 4 S * CEFAZOLIN (CEPHALOSPORIN) UTI 4 S * CEFEPIME <=1 S * CEFTRIAXONE <=1 S * CEFUROXIME SODIUM 4 S * CIPROFLOXACIN <=0.25 S * ERTAPENEM <=0.5 S * GENTAMICIN <=1 S * IMIPENEM <=1 S * LEVOFLOXACIN <=0.12 S * NITROFURANTOIN <=16 S * TETRACYCLINE <=1 S * TOBRAMYCIN <=1 S * TRIMETHOPRIM/SULFAMETHOXAZOLE <=20 S Name: HENRY HARRY Age/Sex: 61/F Attend Dr: Markos Milligan MD Acct: [id number] Unit: [id number] Status: ADM IN [place] [facility] [place]/16 Disch: Specimen: [id number] Collected: 09/01/16 Status: JEANMARIE Req#: [id number] Received: 09/01/16 Source: URINE CC Sp Desc : PP [place] Dr: Derik West MD Ordered: URINE CULT Procedure Result Verified Site Microbiology ARNALDO CULT URINE Final 09/03/16 No growth (<1,000 organisms/mL) Name: HENRY HARRY Age/Sex: 61/F Attend Dr: Markos Milligan MD Acct: [id number] Unit: [id number] Status: ADM IN [place] [facility] [place] Re08/30/16 Disch: Specimen: [id number] Collected: 08/30/16 Status: COMP Req#: [id number] Received: 08/30/16 Source: BLOOD Sp Desc : ADRIANO Perry Dr: Marc Mcgrath DO Ordered: BC Comments: Collected by Nurse/Unit? Y/N N Comment: add on ok Procedure Result Verified Site Microbiology ARNALDO CULTURE BLOOD Final 09/04/16-2143 NO GROWTH AFTER 5 DAYS X-Rays, CTs and MRIs CXR 09/08 1. Layering left pleural effusion and bibasilar airspace opacities consistent compressive atelectasis versus aspiration or pneumonia. Differential diagnosis would also include patchy pulmonary edema. CT Abd/pelvis with contrast There is an irregular, lobulated mass involving the left aspect of the liver. This mass measures slightly decreased in size compared to the prior examinations. Please correlate with interval treatment. New development of moderate simple fluid within the peritoneal cavity. The gallbladder wall appears irregular and hyperenhancing, consistent with the given history of gallbladder cancer. Stable left adrenal nodule. Faintly seen right adrenal nodule. A few stable pulmonary nodules can be seen at the lung bases. Incidental note is made of: Dextroconvex scoliosis and bony degenerative changes 12-lead ECG Personally and concurrently reviewed by [place] 09/09 . Sinus rhythm rate 75, QTC 479 ms . Low voltage, precordial leads * Borderline repol abnormality, lateral leads * No previous study for comparison 08/30 Cardiac Echo Impressions ECHO 09/08 Interpretation Summary The left ventricular cavity is small. The left ventricle is hyperdynamic. The ejection fraction is estimated to be 70-75%. There is no echo evidence for significant left ventricular outflow tract obstruction. The right ventricle is not well visualized. Right ventricular function cannot be assessed due to poor image quality. All the valves were not well visualized, however, no significant valvular pathology seen. [facility] Additional Diagnostics [facility] DateTimeAnalyzed 11:57:00 -_ pH ____7.251 - 7.350 7.450 pCO2 ___47.3__ -mmHg 35.0 45.0 pO2 ___96.3__ -mmHg 69.0 116 HCO3- ___20.0__ -mmol/L 22.0 26.0 ABE ___-6.2__ -mmol/L -2.0 2.0 Assessment & Plan Patient is a 61-year-old female admitted 08/30 for acute jaundice and fever has a history of metastatic cholangiocarcinoma. Transferred to stepdown status due to respiratory failure and need for BiPAP and increasing lethargy. Chest x-ray shows patient may have a pneumonia possible aspiration, she also has ongoing acidosis despite improvement of respiratory acidosis suggestive of worsening metabolic acidosis. Checking labs including d-dimer, lactic acid and starting treatment for aspiration pneumonia with Levaquin/clindamycin because patient is penicillin allergic. Acute respiratory failure-likely secondary to aspiration pneumonia and respiratory fatigue/hypoventilation blood gases actually improved despite the ongoing acidosis. I am going to hydrate despite elevated BNP because she has good left ventricular function and I think that this is falsely elevated in the setting of REBEKA. Follow overall function and assess 09/10 Pneumonia-treating for aspiration having swallow evaluation and treating for aspiration pneumonia with Levaquin/clindamycin 09/08- and treating with bronchodilators holding off on steroids for now. Neurologic-I would have a low tolerance to get a CT scan of this patient's head, just as I was sure she was having some right-sided gaze and left-sided weakness everything corrected and she began speaking lucidly after having very holding speech looking like she was having difficulty finding words and sometimes intermittently difficulty understanding. 09/10 Acute encephalopathy-patient may have been suffering from respiratory acidosis yesterday however changes or ongoing suggestive of sepsis which will be treated with IV fluids and antibiotics. Ammonia level is 67 Will start lactulose 09/09, additionally she has respiratory acidosis and may have CO2 narcosis I would have a low tolerance to repeating the blood gas. Leukocytosis-will follow-up UA as well as treating for pneumonia as noted above and below. Metabolic acidosis-concerning for hypo-perfusion state we will try and volume resuscitate as able. Anemia- Hg 9.5 09/07, 7.6 09/08, 7.5 09/01 follow it seems to stabilize we will also check anemia panel in a.m. Hyperbilirubinemia, - T bili on 12.7 08/30, 13.9 on 09/01, 14.6 09/02 T bili continues to trend upward today T bili was 17.5 09/08, 18.4 09/09. monitor. HIDA 09/05 c/w severe hepatocellular disease. GI following. I had discussed with Dr. Johnson today and he is concerned that the patient's INR and bilirubin have gone up. However, patient is on: Phosphatase and transaminases have improved. Oral thrush-- Nystatin swish and swallow daily Transaminitis, acute.-LFTs showed decline in transaminases and alkaline phosphatase with slowly increasing bilirubin and PT/INR diff autoimmune 2' nitrofurantoin vs other ARIANA, anti-Sm, [employer], anti-smooth muscle Abs neg 08/31, Hep A, B, C neg 08/31. Current GI thought is autoimmune secondary to nitrofurantoin REBEKA- baseline Cr 0.5 , 1.75 09/07, 1.8 09/08, 1.75 09/09 uncertain etiology but consistent with multiorgan failure, hold lisinopril 09/09, echocardiogram shows hyperdynamic state most consistent with volume depletion. We will volume resuscitate as able 09/09 Elevated INR, - INR is slightly higher today indicating possible progressive hepatocellular disease. Monitor Constipation, - Continue lactulose 10 g dailly Hypokalemia (resolved)- K 3.3 09/07, 4.0 09/08, 4.0 09/09 New onset camphorus ulcers of the tounge (resolving) -Ulcers are improving daily with warm salt water gargles however patient has now developed oral thrush. Hypomag- Mag 1.0 admit replacement was done magnesium improved to 2.0 Cholangiocarcinoma- hx intrahepatic cholangiocarcinoma dx7/2016, L lobe, mets R femur. palliative cisplatin Dr. Meier. Palliative/[facility] care consulted and appreciated Prophylaxis - DVT -Heparin contraindicated thrombocytopenia, Cont SCDs, GI on PPI Disposition: DO NOT RESUSCITATE from home to uncertain Pain Evaluation: Adequate Pain Control GI Prophylaxis: Proton Pump Inhibitor (patient has thrombocytopenia and elevated INR and likely not a good candidate for anticoagulation.) VTE Prophylaxis: SCDs VTE Mechanical Devices: Intermittant Pneumatic CD Resuscitation Status: DNR/DNI:Do Not Resuscitate/Intubate First day meeting medically complex patient at high risk for complications 09/09 Any deterioration on this patient probably go to ICU status. While the patient is DO NOT RESUSCITATE I think the family still wants to pursue aggressive medical care. I am not sure how close she is to at this point in time she has an end-of-life diagnosis with cholangiocarcinoma in her liver may be failing for him and it is not clear why. GI Prophylaxis: Proton Pump Inhibitor (patient has thrombocytopenia and elevated INR and likely not a good candidate for anticoagulation.) VTE Prophylaxis: SCDs VTE Mechanical Devices: Intermittant Pneumatic CD Resuscitation Status: DNR/DNI:Do Not Resuscitate/Intubate Time spent At least 90 minutes Mo Huddleston MD Sep 09, 2016 14:08
[2016-09-09] MEDS ORDERED: hydrALAZINE 20 mg/mL Inj IV PRN (14:10)
--- NOTE | 2016-09-09 14:23 | NUR ---
Evaluation completed. Please go to "Notes" then click on "Assessments and Notes" (bottom left corner of screen). Then select appropriate discipline tab on top of screen.
[2016-09-09] MEDS: Albuterol 2.5 mg/3 mL Inhalation Solution NEB SCH ×2 (15:41→20:34)
[2016-09-09 16:12] LABS: TROPONIN T < 0.010 ug/L (0.0-0.011)
[2016-09-09] MEDS: Clindamycin Inj 900 MG in IV Premix 1 EACH IV SCH (16:42)
[2016-09-09] MEDS: levoFLOXacin Inj 500 MG in IV Premix 1 EACH IV SCH (17:38)
--- NOTE | 2016-09-09 19:25 | NUR ---
mentation pt very drowsy at beginning of day shift able to open eyes, however only answering questions by shaking her head yes or no. During midday pt able to open eyes and have conversation with her family. Oriented to place however not time. Pt intermittently incoherent, mumbling and slurring her words. Report given to oncoming RN. Ongoing care.
[2016-09-10] VITALS (14 sets, daily range): BP systolic 92–122; BP diastolic 53–63; PULSE 53–75; RESP 12–29; O2SAT 97–100
[2016-09-10] MEDS: Clindamycin Inj 900 MG in IV Premix 1 EACH IV SCH ×3 (00:43→16:45)
[2016-09-10] MEDS: 0.9% Sodium Chloride 1,000 ML IV SCH ×4 (00:44→16:19)
[2016-09-10] MEDS: Albuterol 2.5 mg/3 mL Inhalation Solution NEB SCH ×4 (02:14→20:30)
--- NOTE | 2016-09-10 04:37 | NUR ---
Mentation Patient alert and interactive during care throughout the night. States to nurse "I feel like I am being a bother to everyone" and "I don't want to be complaining." Reassured patient that staff is here to care for her and that it is not a bother. Patient able to express preference during repositioning and helps minimally when turning. Speaks with effort, but able to be understood. Sleeping deeply between care, BiPAP in place. Continue to monitor.
--- NOTE | 2016-09-10 04:53 | ABG ---
DateTimeAnalyzed 04:49:00 -_ pH ____7.331 - 7.350 7.450 pCO2 ___37.1__ -mmHg 35.0 45.0 pO2 115 -mmHg 69.0 116 HCO3- ___19.0__ -mmol/L 22.0 26.0 ABE ___-5.8__ -mmol/L -2.0 2.0 tHb ____7.1__ -g/dL O2Hb ___96.9__ -% COHb ____1.6__ -% MetHb ____0.6__ -% sO2 ___99.1__ -% 25.0 FIO2 ___28.0__ -% CPAP ___12.0__ -cmH2O PEEP ____5.0__ -cmH2O Set_RR ___12.0__ -b/min Drawn By MM - Date/Time Notified____ 04:53:00 -_ Oxygen Device 1 ____BIPAP - Notified By MM - Notified Whom RN - B 767 -mmHg tO2 ____9.9__ -Vol%
[2016-09-10 05:20] LABS: BASOPHILS % (AUTO) 0 % (0-3); EOSINOPHILS % (AUTO) 0.1 % (0-5); MONOCYTES % (AUTO) 5.2 % (4-12); Mean Corpuscular Hemoglobin 32.4 pg (27.0-35.0); Mean Corpuscular Volume 96.8 fL (81-100); Platelet Count 92 bil/L (150-400)
[2016-09-10 05:44] LABS: Unsaturated Iron Binding < 17 ug/dL
[2016-09-10] MEDS: Lactulose 20 Gm/30 mL 30 mL Syrup PO SCH ×4 (06:30→20:15)
[2016-09-10] MEDS: Pantoprazole 40 mg ER24 Tablet PO SCH (06:30)
[2016-09-10] MEDS: Nystatin 100,000 Unit/mL 5 mL Suspension PO SCH ×4 (09:20→20:15)
--- NOTE | 2016-09-10 09:27 | PCM.PNMED ---
Subjective Date of Service Sep 10, 2016 Subjective Patient much more awake/lucid. She still does not have any complaints of chest pain, dyspnea or nausea and vomiting. Exam Vital Signs Vital Sign - Last Date Time Temp Pulse Resp B/P Pulse Ox O2 Delivery O2 Flow Rate FiO2 09/10/16 04:46 36.5 53 29 92/53 100 BiPAP 09/10/16 04:42 28 09/09/16 09:21 2.00 Intake and Output 09/09/16 09/09/16 09/10/16 Cumulative From/Thru 15:00 23:00 07:00 08/30/16 13:59 - 09/10/16 06:56 Intake Total 400 ml 1338 ml 50507 ml Output Total 150 ml 200 ml 6355 ml Balance 250 ml 1138 ml 64926 ml Intake Oral 0 ml 0 ml 7166 ml IV Total 400 ml 1338 ml 04104 ml Output Urine Total 150 ml 200 ml 5755 ml Emesis 600 ml # Voids 2 # Bowel Movements 1 09 05 Exam Gen.- A+ O 3 no apparent distress. Jaundiced morbidly obese female lying in bed Eyes- open conjunctiva clear, pupils equal patient does have icteric sclera and she almost looks like she has myxedema Mouth- oral mucosa moist, no exudate ENT- ears normal, nose normal Neck- supple/trach midline CVS- RRR no murmur or gallop , edema consistent with body habitus Lungs CTA GI- NABS/NT soft, huge pannus Musc- moving 4 no obvious deformity Neuro- cranial nerves II through XII intact to gross examination, nonfocal Patient initially could not speak at all and was having a hard time responding to simple commands. Then she would speak in short bursts looking dyspneic. She would intermittently speak lucid and coherent. She was following simple commands, time and sometimes not. Her neurologic exam is variable. Taken as a whole it appears nonfocal. Skin- warm and dry, no rashes/lesions/wounds noted Psych- pleasant and appropriate, Lab and Diagnostics Total bili 19.2 09/09, 17.51 Iron levels normal, transferrin and binding low, B12 still pending 09/10 D-dimer 4.0 09/10 INR 1.67 09/10 DateTimeAnalyzed 04:49:00 -_ pH ____7.331 - 7.350 7.450 pCO2 ___37.1__ -mmHg 35.0 45.0 pO2 115 -mmHg 69.0 116 HCO3- ___19.0__ -mmol/L 22.0 26.0 ABE ___-5.8__ -mmol/L -2.0 2.0 tHb ____7.1__ -g/dL O2Hb ___96.9__ -% COHb ____1.6__ -% MetHb ____0.6__ -% sO2 ___99.1__ -% 25.0 FIO2 ___28.0__ -% CPAP ___12.0__ -cmH2O PEEP ____5.0__ -cmH2O Set_RR ___12.0__ -b/min Drawn By MM - Date/Time Notified____ 04:53:00 -_ Oxygen Device 1 ____BIPAP - Result Diagram: 09/10/1649909/10/16499 Microbiology Name: HENRY HARRY Age/Sex: 61/F Attend Dr: Markos Milligan MD Acct: [id number] Unit: [id number] Status: ADM IN Location: [place] [address]- Re08/30/16 Disch: Specimen: [id number] Collected: 09/04/16 Status: JEANMARIE Req#: [id number] Received: 09/04/16 Source: STOOL Sp Desc : STL ASP Subm Dr: Pallavi Jacobs DO Ordered: C DIFF DNA PCR Comments: Collected by Nurse/Unit? Y/N Y Procedure Result Verified Site Microbiology ARNALDO Frias DIF PCR STOOL Final 09/04/16 CDIF DNA BY PCR NEGATIVE REFERENCE INTERVAL NEGATIVE Specimen: [id number] Collected: 08/30/16 Status: COMP Req#: [id number] Received: 08/30/16 Source: URINE CC Sp Desc : PP [place] Dr: ELLA ROOT MD Ordered: URINE CULT Procedure Result Verified Site Microbiology ARNALDO CULT URINE Final 09/01/16 Organism 1 ESCHERICHIA COLI U COLONY COUNT/QUANTITY >100,000 CFU/ml Cefazolin-predicts results for the oral agents, cefaclor,cefdinir, cefpodoximen, cefprozil, cefuroximne axetil, cephalexin and loracarbed when used for therapy of uncomplicated UTI's due to E. coli, K. pneumoniae, and Proteus mirabilis. Cefpodoxime, cefdinir and cefuroxime axetil may be tested individually because some isolates may be susceptible to these agents while testing resistant to cefazolin. (CLSI G953-J38 pg 53) 1. ESCHERICHIA COLI M.I.C Interp --------- ------ * AMOXICILLIN/CLAVULATE <=2 S * AMPICILLIN 4 S * CEFAZOLIN (CEPHALOSPORIN) UTI 4 S * CEFEPIME <=1 S * CEFTRIAXONE <=1 S * CEFUROXIME SODIUM 4 S * CIPROFLOXACIN <=0.25 S * ERTAPENEM <=0.5 S * GENTAMICIN <=1 S * IMIPENEM <=1 S * LEVOFLOXACIN <=0.12 S * NITROFURANTOIN <=16 S * TETRACYCLINE <=1 S * TOBRAMYCIN <=1 S * TRIMETHOPRIM/SULFAMETHOXAZOLE <=20 S Name: HENRY HARRY Age/Sex: 61/F Attend Dr: Markos Milligan MD Acct: [id number] Unit: [id number] Status: ADM IN Location: [facility] 239-1 Re08/30/16 Disch: Specimen: [id number] Collected: 09/01/16 Status: COMP Req#: [id number] Received: 09/01/16 Source: URINE CC Sp Desc : SAMIR Perry Dr: Derik West MD Ordered: URINE CULT Procedure Result Verified Site Microbiology ARNALDO CULT URINE Final 09/03/16 No growth (<1,000 organisms/mL) Name: HENRY HARRY Age/Sex: 61/F Attend Dr: Markos Milligan MD Acct: [id number] Unit: [id number] Status: ADM IN Location: [facility] 239-1 Re08/30/16 Disch: Specimen: [id number] Collected: 08/30/16 Status: JEANMARIE Req#: [id number] Received: 08/30/16 Source: BLOOD Sp Desc : ADRIANO Perry Dr: Marc Mcgrath DO Ordered: KAYY Comments: Collected by Nurse/Unit? Y/N N Comment: add on ok Procedure Result Verified Site Microbiology ARNALDO CULTURE BLOOD Final 09/04/16-2143 NO GROWTH AFTER 5 DAYS X-Rays, CTs and MRIs CXR 09/08 1. Layering left pleural effusion and bibasilar airspace opacities consistent compressive atelectasis versus aspiration or pneumonia. Differential diagnosis would also include patchy pulmonary edema. CT Abd/pelvis with contrast There is an irregular, lobulated mass involving the left aspect of the liver. This mass measures slightly decreased in size compared to the prior examinations. Please correlate with interval treatment. New development of moderate simple fluid within the peritoneal cavity. The gallbladder wall appears irregular and hyperenhancing, consistent with the given history of gallbladder cancer. Stable left adrenal nodule. Faintly seen right adrenal nodule. A few stable pulmonary nodules can be seen at the lung bases. Incidental note is made of: Dextroconvex scoliosis and bony degenerative changes 12-lead ECG Personally and concurrently reviewed by Flaquito 09/09 . Sinus rhythm rate 75, QTC 479 ms . Low voltage, precordial leads * Borderline repol abnormality, lateral leads * No previous study for comparison 08/30 Cardiac Echo Impressions ECHO 09/08 Interpretation Summary The left ventricular cavity is small. The left ventricle is hyperdynamic. The ejection fraction is estimated to be 70-75%. There is no echo evidence for significant left ventricular outflow tract obstruction. The right ventricle is not well visualized. Right ventricular function cannot be assessed due to poor image quality. All the valves were not well visualized, however, no significant valvular pathology seen. [facility] [place] Additional Diagnostics DateTimeAnalyzed 04:49:00 -_ pH ____7.331 - 7.350 7.450 pCO2 ___37.1__ -mmHg 35.0 45.0 pO2 115 -mmHg 69.0 116 HCO3- ___19.0__ -mmol/L 22.0 26.0 ABE ___-5.8__ -mmol/L -2.0 2.0 tHb ____7.1__ -g/dL O2Hb ___96.9__ -% COHb ____1.6__ -% MetHb ____0.6__ -% sO2 ___99.1__ -% 25.0 FIO2 ___28.0__ -% CPAP ___12.0__ -cmH2O PEEP ____5.0__ -cmH2O Set_RR ___12.0__ -b/min Drawn By MM - Date/Time Notified____ 04:53:00 -_ Oxygen Device 1 ____BIPAP - ABG DateTimeAnalyzed 11:57:00 -_ pH ____7.251 - 7.350 7.450 pCO2 ___47.3__ -mmHg 35.0 45.0 pO2 ___96.3__ -mmHg 69.0 116 HCO3- ___20.0__ -mmol/L 22.0 26.0 ABE ___-6.2__ -mmol/L -2.0 2.0 Assessment & Plan Patient is a 61-year-old female admitted 08/30 for acute jaundice and fever has a history of metastatic cholangiocarcinoma. Transferred to stepdown status due to respiratory failure and need for BiPAP and increasing lethargy. 09/09 Chest x-ray shows patient may have a pneumonia possible aspiration, she also has ongoing acidosis despite improvement of respiratory acidosis suggestive of worsening metabolic acidosis. Checking labs including d-dimer, lactic acid and starting treatment for aspiration pneumonia with Levaquin/ clindamycin because patient is penicillin allergic. 09/10 clinically improved, most labs look better other than CR and Hg getting worse. Cautiously optimistic at this time patient may recover from this event REBEKA- baseline Cr 0.5 , 1.75 09/07, 1.8 09/08, 1.75 09/09, CR 1.91 09/10 uncertain etiology but consistent with multiorgan failure, hold lisinopril 09/09 , echocardiogram shows hyperdynamic state most consistent with volume depletion. We will volume resuscitate as able 09/09- Acute respiratory failure- 2' aspiration pneumonia+resp fatigue/ hypoventilation blood gas improving. PH improving PCO2 down, clinically patient looks much better. Pneumonia-treating for aspiration having swallow evaluation and treating for aspiration pneumonia with Levaquin/clindamycin 09/09- and treating with bronchodilators holding off on steroids for now. Neurologic-I would have a low tolerance to get a CT scan of this patient's head, just as I was sure she was having some right-sided gaze and left-sided weakness everything corrected and she began speaking lucidly after having very holding speech looking like she was having difficulty finding words and sometimes intermittently difficulty understanding. 09/10 Acute encephalopathy-patient may have been suffering from respiratory acidosis yesterday however changes or ongoing suggestive of sepsis which will be treated with IV fluids and antibiotics. Ammonia level is 67 Will start lactulose 09/09, additionally she has respiratory acidosis and may have CO2 narcosis I would have a low tolerance to repeating the blood gas. Leukocytosis-will follow-up UA as well as treating for pneumonia as noted above and below. WBC 16 09/09, 11.1 09/10 Anemia- Hg 9.5 09/07, 7.6 09/08, 7.5 09/09, 7.2 09/10 following, transfuse 1U , iron wnl low trans/binding, retic 4.8, b12 Pend 10/01 . Hyperbilirubinemia, - T bili on 12.7 08/30, 13.9 on 09/01, 14.6 09/02. T bili was 17.5 09/08, 18.4 09/09, 17.5 09/10. monitor. HIDA 09/05 c/w severe hepatocellular disease. GI following. I had discussed with Dr. Johnson today and he is concerned that the patient's INR and bilirubin have gone up. However , patient is on: Phosphatase and transaminases have improved. Oral thrush-- Nystatin swish and swallow daily. Resolved 09/10 Transaminitis, acute.-LFTs showed decline in transaminases and alkaline phosphatase with slowly increasing bilirubin and PT/INR diff autoimmune 2' nitrofurantoin vs other ARIANA, anti-Sm, [employer], anti-smooth muscle Abs neg 08/31, Hep A, B, C neg 08/31. Current GI thought is autoimmune secondary to nitrofurantoin Elevated INR, - INR 1.67 09/07, 1.89 09/08, 1.67 09/10. 2' progressive hepatocellular disease. Monitor Constipation, - Continue lactulose 10 g dailly, NH4 elv increased dose 09/09 Hypokalemia (resolved)- K 3.3 09/07, 4.0 09/08, 4.0 09/09, 3.9 09/10 monitor/ replace as needed New onset camphorus ulcers of the tounge (resolving) -Ulcers are improving daily with warm salt water gargles Hypomag- Mag 1.0 admit replaced, 1.8 09/06, 1.7 09/07, 1.7 09/08 Cholangiocarcinoma- hx intrahepatic cholangiocarcinoma dx02/2016, L lobe, mets R femur. palliative cisplatin Dr. Meier. Palliative/[place] care consulted and appreciated Prophylaxis - DVT -Heparin contraindicated thrombocytopenia, Cont SCDs, GI on PPI Disposition: DO NOT RESUSCITATE from home to ?uncertain Pain Evaluation: Adequate Pain Control GI Prophylaxis: Proton Pump Inhibitor (patient has thrombocytopenia and elevated INR and likely not a good candidate for anticoagulation.) VTE Prophylaxis: SCDs VTE Mechanical Devices: Intermittant Pneumatic CD Resuscitation Status: DNR/DNI:Do Not Resuscitate/Intubate First day meeting medically complex patient at high risk for complications 09/09 Any deterioration on this patient probably go to ICU status. While the patient is DO NOT RESUSCITATE I think the family still wants to pursue aggressive medical care. I am not sure how close she is to at this point in time she has an end-of-life diagnosis with cholangiocarcinoma in her liver may be failing for him and it is not clear why. GI Prophylaxis: Proton Pump Inhibitor (patient has thrombocytopenia and elevated INR and likely not a good candidate for anticoagulation.) VTE Prophylaxis: SCDs VTE Mechanical Devices: Intermittant Pneumatic CD Resuscitation Status: DNR/DNI:Do Not Resuscitate/Intubate Mo Huddleston MD Sep 10, 2016 09:26
--- NOTE | 2016-09-10 14:32 | NUR ---
Social Work: Continued Discharge Planning D: Pt discussed in morning rounds. Pt is much more lucid and alert than days past. Pt is medically complex and continues to require hospitalization; MD cannot give estimated discharge timeframe at this time due to complexity. ST assessed pt on 09/09 with recommendation for NPO due to aspiration risk. PT was able to minimally work with pt to complete bilateral LEs with max assist; recommendation is for skilled rehab via BLS. Pt is currently DNR/DNI however family is still requesting full treatment of pt's conditions. Palliative care has been following with some discussion about possible comfort care if pt continues to decompensate. [employer] attempted to meet with family to discuss SNF preference- no family present. PPW on chart PASSR requires lvl II exemption from MD- form in folder A: Pt who continues to require hospitalization due to medical complexity P: Evolving; [employer] to follow up with family about SNF preference JUAN Song
--- NOTE | 2016-09-10 14:51 | PCM.PNMED ---
Subjective Date of Service Sep 10, 2016 Subjective Patient is more awake and is able to have some conversation. Patient denies any significant pain of the abdomen. However she is so short of breath. Exam Vital Signs Vital Sign - Last Date Time Temp Pulse Resp B/P Pulse Ox O2 Delivery O2 Flow Rate FiO2 09/10/16 11:45 36.3 72 20 122/63 100 BiPAP 09/10/16 09:39 28 09/09/16 09:21 2.00 Intake and Output 09/09/16 09/09/16 09/10/16 Cumulative From/Thru 15:00 23:00 07:00 08/30/16 13:59 - 09/10/16 06:56 Intake Total 400 ml 1338 ml 86021 ml Output Total 150 ml 200 ml 6355 ml Balance 250 ml 1138 ml 17747 ml Intake Oral 0 ml 0 ml 7166 ml IV Total 400 ml 1338 ml 48594 ml Output Urine Total 150 ml 200 ml 5755 ml Emesis 600 ml # Voids 2 # Bowel Movements 1 09 05 Exam Physical examination: Patient is arousable and is able to maintain some conversation. She seems to be more appropriate. Head and neck obese neck patient has icterus Lungs bronchial breath sounds. The turbulence that occurred yesterday seemed to Improve quite a bit there seems to be better airflow into the lungs. Vascular regular rate and rhythm normal S1-S2 Abdomen soft obese nontender moderate distention with decreased bowel sounds Skin shows jaundice Lab and Diagnostics Result Diagram: 09/10/16 0500 09/10/16 0500 Microbiology Name: HENRY HARRY Age/Sex: 61/F Attend Dr: Markos Milligan MD Acct: [id number] Unit: [id number] Status: ADM IN Location: [place] [id number] Re08/30/16 Disch: Specimen: [id number] Collected: 09/04/16 Status: COMP Req#: [id number] Received: 09/04/16 Source: STOOL Sp Desc : STL ASP Subm Dr: Pallavi Jacobs DO Ordered: C DIFF DNA PCR Comments: Collected by Nurse/Unit? Y/N Y Procedure Result Verified Site Microbiology ARNALDO C DIF PCR STOOL Final 09/04/16 CDIF DNA BY PCR NEGATIVE REFERENCE INTERVAL NEGATIVE Specimen: [id number] Collected: 08/30/16 Status: COMP Req#: [id number] Received: 08/30/16 Source: URINE CC Sp Desc : PP Subm Dr: DOC,ED MD Ordered: URINE CULT Procedure Result Verified Site Microbiology ARNALDO CULT URINE Final 09/01/16 Organism 1 ESCHERICHIA COLI U COLONY COUNT/QUANTITY >100,000 CFU/ml Cefazolin-predicts results for the oral agents, cefaclor,cefdinir, cefpodoximen, cefprozil, cefuroximne axetil, cephalexin and loracarbed when used for therapy of uncomplicated UTI's due to E. coli, K. pneumoniae, and Proteus mirabilis. Cefpodoxime, cefdinir and cefuroxime axetil may be tested individually because some isolates may be susceptible to these agents while testing resistant to cefazolin. (CLSI J482-U40 pg 53) 1. ESCHERICHIA COLI M.I.C Interp --------- ------ * AMOXICILLIN/CLAVULATE <=2 S * AMPICILLIN 4 S * CEFAZOLIN (CEPHALOSPORIN) UTI 4 S * CEFEPIME <=1 S * CEFTRIAXONE <=1 S * CEFUROXIME SODIUM 4 S * CIPROFLOXACIN <=0.25 S * ERTAPENEM <=0.5 S * GENTAMICIN <=1 S * IMIPENEM <=1 S * LEVOFLOXACIN <=0.12 S * NITROFURANTOIN <=16 S * TETRACYCLINE <=1 S * TOBRAMYCIN <=1 S * TRIMETHOPRIM/SULFAMETHOXAZOLE <=20 S Name: HENRY HARRY Age/Sex: 61/F Attend Dr: Markos Milligan MD Acct: [id number] Unit: [id number] Status: ADM IN Location: [facility] [place]-1 Re08/30/16 Disch: Specimen: [id number] Collected: 09/01/16 Status: COMP Req#: [id number] Received: 09/01/16 Source: URINE CC Sp Desc : SAMIR Perry Dr: Derik West MD Ordered: URINE CULT Procedure Result Verified Site Microbiology ARNALDO CULT URINE Final 09/03/16 No growth (<1,000 organisms/mL) Name: EDILSON HARRYLOMihaela Power Age/Sex: 61/F Attend Dr: Markos Milligan MD Acct: [id number] Unit: [id number] Status: ADM IN Location: [facility] [place]-1 Re08/30/16 Disch: Specimen: [id number] Collected: 08/30/16 Status: COMP Req#: [id number] Received: 08/30/16 Source: BLOOD Sp Desc : ADRIANO Perry Dr: Marc Mcgrath DO Ordered: Comments: Collected by Nurse/Unit? Y/N N Comment: add on ok Procedure Result Verified Site Microbiology ARNALDO CULTURE BLOOD Final 09/04/16-2143 NO GROWTH AFTER 5 DAYS X-Rays, CTs and MRIs CXR 09/08 1. Layering left pleural effusion and bibasilar airspace opacities consistent compressive atelectasis versus aspiration or pneumonia. Differential diagnosis would also include patchy pulmonary edema. CT Abd/pelvis with contrast There is an irregular, lobulated mass involving the left aspect of the liver. This mass measures slightly decreased in size compared to the prior examinations. Please correlate with interval treatment. New development of moderate simple fluid within the peritoneal cavity. The gallbladder wall appears irregular and hyperenhancing, consistent with the given history of gallbladder cancer. Stable left adrenal nodule. Faintly seen right adrenal nodule. A few stable pulmonary nodules can be seen at the lung bases. Incidental note is made of: Dextroconvex scoliosis and bony degenerative changes 12-lead ECG Personally and concurrently reviewed by [place]quito 09/09 . Sinus rhythm rate 75, QTC 479 ms . Low voltage, precordial leads * Borderline repol abnormality, lateral leads * No previous study for comparison 08/30 Cardiac Echo Impressions ECHO 09/08 Interpretation Summary The left ventricular cavity is small. The left ventricle is hyperdynamic. The ejection fraction is estimated to be 70-75%. There is no echo evidence for significant left ventricular outflow tract obstruction. The right ventricle is not well visualized. Right ventricular function cannot be assessed due to poor image quality. All the valves were not well visualized, however, no significant valvular pathology seen. [facility] Additional Diagnostics DateTimeAnalyzed 04:49:00 -_ pH ____7.331 - 7.350 7.450 pCO2 ___37.1__ -mmHg 35.0 45.0 pO2 115 -mmHg 69.0 116 HCO3- ___19.0__ -mmol/L 22.0 26.0 ABE ___-5.8__ -mmol/L -2.0 2.0 tHb ____7.1__ -g/dL O2Hb ___96.9__ -% COHb ____1.6__ -% MetHb ____0.6__ -% sO2 ___99.1__ -% 25.0 FIO2 ___28.0__ -% CPAP ___12.0__ -cmH2O PEEP ____5.0__ -cmH2O Set_RR ___12.0__ -b/min Drawn By MM - Date/Time Notified____ 04:53:00 -_ Oxygen Device 1 ____BIPAP - ABG DateTimeAnalyzed 11:57:00 -_ pH ____7.251 - 7.350 7.450 pCO2 ___47.3__ -mmHg 35.0 45.0 pO2 ___96.3__ -mmHg 69.0 116 HCO3- ___20.0__ -mmol/L 22.0 26.0 ABE ___-6.2__ -mmol/L -2.0 2.0 Assessment & Plan Patient is a 61-year-old female with a history of metastatic cholangiocarcinoma who presents for evaluation of acute jaundice and fever. She has not been febrile overnight. Yesterday, patient was treated with broad-spectrum antibiotics and IV resuscitation. Her mental status has improved significantly since yesterday. She is now able to have a short conversation and is easily arousable. Her labs also improved with decrease in white count from 16,000-11, 000 and her bilirubin went down from 19-17. The pro BNP is in 3100's. Her hemoglobin is trending down to 7.8 7.5 and today 7.2. No gross evidence of bleeding such as blood in the stools or black stools. She has improved but I am cautiously optimistic. Her kidney function has declined from 1.75-1.91 creatinine. HIDA was nondiagnostic. The cause of the liver deterioration is still uncertain. It could be due to nitrofurantoin however she has not been off of this for a while. Furthermore autoimmune markers were negative except for ARIANA which is the most nonspecific. Cause of it could be Nitrofurantoin, however other differential on the circumstances include sepsis which she is being treated for his improved on broad-spectrum antibiotics plus or minus right heart failure especially in light of elevated pro BNP and diastolic dysfunction and the bilirubin ratios with elevated LDH. Neurologically, I would continue the rifaximin however it appears that she is a high risk for aspiration. She needs to continue on lactulose enemas. However she started having diarrhea. Patient is currently being treated for aspiration pneumonia and apparently. Patient's having multiple diarrheas since 9:00 this morning. They held the lactulose enemas. I am concerned about the development of encephalopathy. I will follow contact the nurse and gave a verbal order for C. difficile. If she cannot tolerate lactulose enemas, I suggest we deploy an [place] by radiology so we could give her lactulose orally as well as rifaximin orally. However if the diarrhea resolves later today, lactulose enema could be resumed. Cardiovascular,- possible right heart failure. Consider cardiology consult. I will defer to the primary care physician. Creatinine mild elevation. - Consider albumin infusion if creatinine continues to rise. Liver is improving. I would hold off on steroid treatment for autoimmune hepatitis. Anemia - no gross blood or melena noted. We will follow the hemoglobin level. We will give her prophylaxis with Protonix IV 20 mg mg twice a day. GI Prophylaxis: Proton Pump Inhibitor (patient has thrombocytopenia and elevated INR and likely not a good candidate for anticoagulation.) VTE Prophylaxis: SCDs VTE Mechanical Devices: Intermittant Pneumatic CD Resuscitation Status: DNR/DNI:Do Not Resuscitate/Intubate Mendoza Mark MD Sep 10, 2016 14:51 A, B, C neg 08/31. Current GI thought is autoimmune secondary to nitrofurantoin Elevated INR, - INR 1.67 09/07, 1.89 09/08, 1.67 09/10. 2' progressive hepatocellular disease. Monitor Constipation, - Continue lactulose 10 g dailly, NH4 elv increased dose 09/09 Hypokalemia (resolved)- K 3.3 09/07, 4.0 09/08, 4.0 09/09, 3.9 09/10 monitor/ replace as needed New onset camphorus ulcers of the tounge (resolving) -Ulcers are improving daily with warm salt water gargles Hypomag- Mag 1.0 admit replaced, 1.8 09/06, 1.7 09/07, 1.7 09/08 Cholangiocarcinoma- hx intrahepatic cholangiocarcinoma dx02/2016, L lobe, mets R femur. palliative cisplatin Dr. Meier. Palliative/[facility] care consulted and appreciated Prophylaxis - DVT -Heparin contraindicated thrombocytopenia, Cont SCDs, GI on PPI Disposition: DO NOT RESUSCITATE from home to ?uncertain Pain Evaluation: Adequate Pain Control GI Prophylaxis: Proton Pump Inhibitor (patient has thrombocytopenia and elevated INR and likely not a good candidate for anticoagulation.) VTE Prophylaxis: SCDs VTE Mechanical Devices: Intermittant Pneumatic CD Resuscitation Status: DNR/DNI:Do Not Resuscitate/Intubate First day meeting medically complex patient at high risk for complications 09/09 Any deterioration on this patient probably go to ICU status. While the patient is DO NOT RESUSCITATE I think the family still wants to pursue aggressive medical care. I am not sure how close she is to at this point in time she has an end-of-life diagnosis with cholangiocarcinoma in her liver may be failing for him and it is not clear why. GI Prophylaxis: Proton Pump Inhibitor (patient has thrombocytopenia and elevated INR and likely not a good candidate for anticoagulation.) VTE Prophylaxis: SCDs VTE Mechanical Devices: Intermittant Pneumatic CD Resuscitation Status: DNR/DNI:Do Not Resuscitate/Intubate Mendoza Mark MD Sep 10, 2016 14:51
--- NOTE | 2016-09-10 15:00 | NUR ---
C/o RUE edema increasing, as well as more painful to touch->U/S to r/o DVT in all extremities pending. Addendum: 09/10/16 at 2008 by YUNG CHAUDHARI RN Correction: LEFT upper extremity >swollen and painful than RUE, reports pt's Spouse.
--- NOTE | 2016-09-10 15:01 | NUR ---
Correction: Left UE more edematous & painful today, reports pt's spouse. MD notified.
[2016-09-10] MEDS: levoFLOXacin Inj 500 MG in IV Premix 1 EACH IV SCH (15:15)
[2016-09-10 15:25] LABS: INR 1.77 ratio
--- NOTE | 2016-09-10 16:00 | NUR ---
Improved mentation/able to geoff short periods off Bipap to communicate with family. Pt's Spouse present @ bedside most of today; also pt's 2 sons from [employer] @ bedside. Supportive & interacting with pt today, who is much more alert, awake, and interacting w/ family.
--- NOTE | 2016-09-10 19:20 | DRSVH ---
PROCEDURE: US VENOUS LEG DUPLEX BILATERAL INDICATIONS: positive d-dimer, painful left upper extremity TECHNIQUE: Real-time imaging, as well as color and pulse Doppler interrogation, were performed of the deep veins of both legs from the inguinal ligament to the popliteal fossa. COMPARISON: None. FINDINGS: Examination is limited secondary to body habitus. There is limited ability to compress the right mid and distal superficial femoral vein, suggestive of thrombus. No evidence of left lower extr emity DVT. IMPRESSION: 1. Limited examination demonstrating findings suggestive of right lower extremity DVT. Findings disc ussed with the patient's nurse, Charlene, on 09.10.16 at 1920 hrs. She understood the urgent nature of t he findings, and agreed to communicate them to the patient's physician as soon as possible. Dictated by: Maria Fernanda Pierre M.D. on 09/10/2016 at 19:17 Transcribed by: GERSON on 09/10/2016 at 19:20 Approved by: Maria Fernanda Pierre M.D. on 09/10/2016 at 19:25
--- NOTE | 2016-09-10 19:28 | NUR ---
Results Phone call from Dr. Pierre. Doppler exam shows probable right lower extremity DVT. Shantal berryd. Awaiting further orders. Addendum: 09/10/16 at 2041 by MASON AGUDELO RN Second page to shantal georges. Addendum: 09/10/16 at 2117 by MASON AGUDELO RN Received call from Dr. Garrett at 2114; discussed results of doppler. Awaiting new treatment plan.
[2016-09-10] MEDS ORDERED: ENOXAPARIN SUBQ SCH ×2 (21:35)
[2016-09-11] VITALS (15 sets, daily range): BP systolic 115–147; BP diastolic 52–77; PULSE 62–76; RESP 13–22; O2SAT 95–100
[2016-09-11] MEDS: 0.9% Sodium Chloride 1,000 ML IV SCH ×4 (00:21→16:08)
[2016-09-11] MEDS: Clindamycin Inj 900 MG in IV Premix 1 EACH IV SCH ×3 (00:21→18:38)
--- NOTE | 2016-09-11 02:28 | NUR ---
Mentation/Mobility Patient Ox3, alert at times but still frequently somnolent. Patient states "I'm just going to sleep until somebody comes and wakes me up." Speech labored at times, but able to be understood; speaking full sentences. Participates in bed mobility; still a 2 person max assist to turn in bed. Continue to monitor.
[2016-09-11] MEDS: Albuterol 2.5 mg/3 mL Inhalation Solution NEB SCH ×4 (03:05→21:00)
--- NOTE | 2016-09-11 04:40 | ABG ---
DateTimeAnalyzed 04:35:00 -_ pH ____7.340 - 7.350 7.450 pCO2 ___36.8__ -mmHg 35.0 45.0 pO2 145 -mmHg 69.0 116 HCO3- ___19.3__ -mmol/L 22.0 26.0 ABE ___-5.4__ -mmol/L -2.0 2.0 tHb ____7.0__ -g/dL O2Hb ___97.8__ -% COHb ____1.4__ -% MetHb ____0.7__ -% sO2 ___99.9__ -% 25.0 FIO2 ___28.0__ -% CPAP ___12.0__ -cmH2O PEEP ____5.0__ -cmH2O Set_RR ___12.0__ -b/min Drawn By AF - Date/Time Notified____ 04:40:00 -_ Oxygen Device 1 ____BIPAP - Notified By AF - Notified Whom ____Nurse - B 767 -mmHg tO2 ____9.9__ -Vol% Ford test _Positive -
[2016-09-11 05:34] LABS: BASOPHILS % (AUTO) 0.1 % (0-3); EOSINOPHILS % (AUTO) 0.3 % (0-5); MONOCYTES % (AUTO) 5.9 % (4-12); Mean Corpuscular Hemoglobin 32.9 pg (27.0-35.0); Mean Corpuscular Volume 95.8 fL (81-100); NEUTROPHILS % (AUTO) 86.1 % (40-74); Platelet Count 91 bil/L (150-400)
[2016-09-11 05:55] LABS: Magnesium 1.4 mg/dL (1.6-2.6)
[2016-09-11] MEDS: Pantoprazole 40 mg ER24 Tablet PO SCH (06:30)
[2016-09-11] MEDS: Lactulose 20 Gm/30 mL 30 mL Syrup PO SCH ×4 (06:30→19:30)
--- NOTE | 2016-09-11 07:43 | PCM.PNMED ---
Subjective Date of Service Sep 11, 2016 Subjective Patient does awaken not having any pain, dyspnea, nausea or vomiting per se. She is pleasant but seems to understand her precarious state but is not seemingly ready to simply go comfort care either yet. Exam Vital Signs Vital Sign - Last Date Time Temp Pulse Resp B/P Pulse Ox O2 Delivery O2 Flow Rate FiO2 09/11/16 04:18 36.4 67 16 123/58 100 BiPAP 28 09/09/16 09:21 2.00 Intake and Output 09/10/16 09/10/16 09/11/16 Cumulative From/Thru 15:00 23:00 07:00 08/30/16 13:59 - 09/11/16 06:15 Intake Total 2087 ml 1733 ml 25477 ml Output Total 1104 ml 800 ml 8259 ml Balance 983 ml 933 ml 12362 ml Intake Oral 0 ml 0 ml 7166 ml IV Total 2087 ml 1733 ml 67991 ml Output Urine Total 800 ml 800 ml 7355 ml Stool Total 304 ml 304 ml Emesis 600 ml # Voids 2 # Bowel Movements 6 30 Exam en.- A+ O 3 no apparent distress. Jaundiced morbidly obese female lying in bed Eyes- open conjunctiva clear, pupils equal patient does have icteric sclera and she almost looks like she has myxedema Mouth- oral mucosa moist, no exudate ENT- ears normal, nose normal Neck- supple/trach midline CVS- RRR no murmur or gallop , edema consistent with body habitus Lungs CTA GI- NABS/NT soft, huge pannus Musc- moving 4 no obvious deformity Neuro- cranial nerves II through XII intact to gross examination, nonfocal Patient initially could not speak at all and was having a hard time responding to simple commands. Then she would speak in short bursts looking dyspneic. She would intermittently speak lucid and coherent. She was following simple commands, time and sometimes not. Her neurologic exam is variable. Taken as a whole it appears nonfocal. Skin- warm and dry, no rashes/lesions/wounds noted Psych- pleasant and appropriate, Lab and Diagnostics Result Diagram: 09/11/16 0525 09/11/16 0525 Microbiology Name: HENRY HARRY Age/Sex: 61/F Attend Dr: Markos Milligan MD Acct: [id number] Unit: [id number] Status: ADM IN Location: [place] [id number] Re08/30/16 Disch: Specimen: [id number] Collected: 09/04/16 Status: COMP Req#: [id number] Received: 09/04/16 Source: STOOL Sp Desc : STL ASP Subm Dr: Pallavi Jacobs DO Ordered: C DIFF DNA PCR Comments: Collected by Nurse/Unit? Y/N Y Procedure Result Verified Site Microbiology ARNALDO C DIF PCR STOOL Final 09/04/16 CDIF DNA BY PCR NEGATIVE REFERENCE INTERVAL NEGATIVE Specimen: [id number] Collected: 08/30/16 Status: COMP Req#: [id number] Received: 08/30/16 Source: URINE CC Sp Desc : SAMIR Perry Dr: DOC,ED MD Ordered: URINE CULT Procedure Result Verified Site Microbiology ARNALDO CULT URINE Final 09/01/16 Organism 1 ESCHERICHIA COLI U COLONY COUNT/QUANTITY >100,000 CFU/ml Cefazolin-predicts results for the oral agents, cefaclor,cefdinir, cefpodoximen, cefprozil, cefuroximne axetil, cephalexin and loracarbed when used for therapy of uncomplicated UTI's due to E. coli, K. pneumoniae, and Proteus mirabilis. Cefpodoxime, cefdinir and cefuroxime axetil may be tested individually because some isolates may be susceptible to these agents while testing resistant to cefazolin. (CLSI P065-Q37 pg 53) 1. ESCHERICHIA COLI M.I.C Interp --------- ------ * AMOXICILLIN/CLAVULATE <=2 S * AMPICILLIN 4 S * CEFAZOLIN (CEPHALOSPORIN) UTI 4 S * CEFEPIME <=1 S * CEFTRIAXONE <=1 S * CEFUROXIME SODIUM 4 S * CIPROFLOXACIN <=0.25 S * ERTAPENEM <=0.5 S * GENTAMICIN <=1 S * IMIPENEM <=1 S * LEVOFLOXACIN <=0.12 S * NITROFURANTOIN <=16 S * TETRACYCLINE <=1 S * TOBRAMYCIN <=1 S * TRIMETHOPRIM/SULFAMETHOXAZOLE <=20 S Name: EDILSON HARRYCHARLINE Power Age/Sex: 61/F Attend Dr: Markos Milligan MD Acct: [id number] Unit: [id number] Status: IN Location: [facility] [place] [facility]-1 Re08/30/16 Disch: Specimen: [id number] Collected: 09/01/16 Status: JEANMARIE Guillory#: [id number] Received: 09/01/16 Source: URINE CC Sp Desc : PP Subm Dr: Derik West MD Ordered: URINE CULT Procedure Result Verified Site Microbiology ARNALDO CULT URINE Final 09/03/16 No growth (<1,000 organisms/mL) Name: HARRY,HENRY M Age/Sex: 61/F Attend Dr: Markos Milligan MD Acct: [id number] Unit: [id number] Status: ADM IN Location: [facility] [place] 239-1 Re08/30/16 Disch: Specimen: [id number] Collected: 08/30/16 Status: COMP Req#: [id number] Received: 08/30/16 Source: BLOOD Sp Desc : ADRIANO Perry Dr: Marc Mcgrath DO Ordered: BC Comments: Collected by Nurse/Unit? Y/N N Comment: add on ok Procedure Result Verified Site Microbiology ARNALDO CULTURE BLOOD Final 09/04/16 NO GROWTH AFTER 5 DAYS X-Rays, CTs and MRIs CXR 09/08 1. Layering left pleural effusion and bibasilar airspace opacities consistent compressive atelectasis versus aspiration or pneumonia. Differential diagnosis would also include patchy pulmonary edema. CT Abd/pelvis with contrast There is an irregular, lobulated mass involving the left aspect of the liver. This mass measures slightly decreased in size compared to the prior examinations. Please correlate with interval treatment. New development of moderate simple fluid within the peritoneal cavity. The gallbladder wall appears irregular and hyperenhancing, consistent with the given history of gallbladder cancer. Stable left adrenal nodule. Faintly seen right adrenal nodule. A few stable pulmonary nodules can be seen at the lung bases. Incidental note is made of: Dextroconvex scoliosis and bony degenerative changes 12-lead ECG Personally and concurrently reviewed by Flaquito 09/09 . Sinus rhythm rate 75, QTC 479 ms . Low voltage, precordial leads * Borderline repol abnormality, lateral leads * No previous study for comparison 08/30 Cardiac Echo Impressions ECHO 09/08 Interpretation Summary The left ventricular cavity is small. The left ventricle is hyperdynamic. The ejection fraction is estimated to be 70-75%. There is no echo evidence for significant left ventricular outflow tract obstruction. The right ventricle is not well visualized. Right ventricular function cannot be assessed due to poor image quality. All the valves were not well visualized, however, no significant valvular pathology seen. [facility] Additional Diagnostics DateTimeAnalyzed 04:49:00 -_ pH ____7.331 - 7.350 7.450 pCO2 ___37.1__ -mmHg 35.0 45.0 pO2 115 -mmHg 69.0 116 HCO3- ___19.0__ -mmol/L 22.0 26.0 ABE ___-5.8__ -mmol/L -2.0 2.0 tHb ____7.1__ -g/dL O2Hb ___96.9__ -% COHb ____1.6__ -% MetHb ____0.6__ -% sO2 ___99.1__ -% 25.0 FIO2 ___28.0__ -% CPAP ___12.0__ -cmH2O PEEP ____5.0__ -cmH2O Set_RR ___12.0__ -b/min Drawn By MM - Date/Time Notified____ 04:53:00 -_ Oxygen Device 1 ____BIPAP - ABG DateTimeAnalyzed 11:57:00 -_ pH ____7.251 - 7.350 7.450 pCO2 ___47.3__ -mmHg 35.0 45.0 pO2 ___96.3__ -mmHg 69.0 116 HCO3- ___20.0__ -mmol/L 22.0 26.0 ABE ___-6.2__ -mmol/L -2.0 2.0 Assessment & Plan Patient is a 61-year-old female admitted 08/30 for acute jaundice and fever has a history of metastatic cholangiocarcinoma. Transferred to stepdown status due to respiratory failure and need for BiPAP and increasing lethargy. REBEKA- baseline Cr 0.5 , 1.75 09/07, 1.8 09/08, 1.75 09/09, 1.91 09/10, 1.99 09/11 uncertain etiology but consistent with multiorgan failure, hold lisinopril 09/09, echocardiogram shows hyperdynamic state most consistent with volume depletion. We will volume resuscitate as able 09/09- Hypomag- Mag 1.0 admit replaced, 1.8 09/06, 1.7 09/07, 1.7 09/08, 1.4 09/11 monitor/replace Anemia- Hg 9.5 09/07, 7.6 09/08, 7.5 09/09, 7.2 09/10, 7.1 09/11 following, transfuse 1U 09/11, iron wnl low trans/binding 09/10, retic 4.8, b12 still Pend 09/13 +Ddimer, ?DVT RLext?- can't do CTA 2' REBEKA, VQ not likely to be useful, repeating dopplers for confirmation, pt got enoxaparin 09/10 per heme/onc Dr Lee (09/10) replative contraindication with Cr 1.9, heparin gtt difficult as pt josé miguel blood draw and picc difficult thrombocytopenia- plt 91 09/11 liver disease vs HIT? follow Acute respiratory failure- 2' aspiration pneumonia+resp fatigue/ hypoventilation blood gas improving. PH improving PCO2 down, clinically patient looks much better. Pneumonia-treating for aspiration having swallow evaluation and treating for aspiration pneumonia with Levaquin/clindamycin 09/09- and treating with bronchodilators holding off on steroids for now. Dysphagia- speech following and adjusting, NPO 09/10-? Neurologic-I would have a low tolerance to get a CT scan of this patient's head, just as I was sure she was having some right-sided gaze and left-sided weakness everything corrected and she began speaking lucidly after having very holding speech looking like she was having difficulty finding words and sometimes intermittently difficulty understanding. 09/10, seemingly resolved after NIPPV 09/11 metabolic encephalopathy-patient may have been suffering from respiratory acidosis yesterday however changes or ongoing suggestive of sepsis which will be treated with IV fluids and antibiotics. Ammonia level is 67 Will start lactulose 09/09, additionally she has respiratory acidosis and may have CO2 narcosis I would have a low tolerance to repeating the blood gas. Leukocytosis-will follow-up UA as well as treating for pneumonia as noted above and below. WBC 16 09/09, 11.1 09/10, 9.3 09/11 Hyperbilirubinemia, - T bili on 12.7 08/30, 13.9 on 09/01, 14.6 09/02. T bili was 17.5 09/08, 18.4 09/09, 17.5 09/10. monitor. HIDA 09/05 c/w severe hepatocellular disease. GI +/- following spoke w/ Dr Mark last 09/10 Oral thrush-- Nystatin swish and swallow daily. Resolved 09/10 Transaminitis, LFTs/Coags improving 09/09- diff etiology unclear ast 56, alt 31, alk 274 09/11 seems to be resolving Elevated INR, - INR 1.67 09/07, 1.89 09/08, 1.67 09/10, 1.85 09/11. 2' progressive hepatocellular disease. Monitor Constipation, - Continue lactulose 10 g dailly, NH4 elv increased dose 09/09 Hypokalemia (resolved)- K 3.3 09/07, 4.0 09/08, 4.0 09/09, 3.9 09/10, 3.4 09/11 monitor/replace as needed New onset camphorus ulcers of the tounge (resolving) -Ulcers are improving daily with warm salt water gargles Cholangiocarcinoma- hx intrahepatic cholangiocarcinoma dx02/2016, L lobe, mets R femur. palliative cisplatin Dr. Meier. Palliative/[facility] care consulted and appreciated Prophylaxis - DVT -Heparin contraindicated thrombocytopenia, Cont SCDs, GI on PPI Disposition: DO NOT RESUSCITATE from home to ?uncertain Multiple severe medical issues and high risk for complications medically complex. At this point in time we are pursuing care that is fairly aggressively as long as there is no pain suffering thank you Dr. Herrera palliative care and Dr. Meier for your input GI Prophylaxis: Proton Pump Inhibitor (patient has thrombocytopenia and elevated INR and likely not a good candidate for anticoagulation.) VTE Prophylaxis: SCDs VTE Mechanical Devices: Intermittant Pneumatic CD Resuscitation Status: DNR/DNI:Do Not Resuscitate/Intubate Mo Huddleston MD Sep 11, 2016 07:43
[2016-09-11] MEDS: Nystatin 100,000 Unit/mL 5 mL Suspension PO SCH ×4 (07:49→19:36)
[2016-09-11] MEDS ORDERED: Heparin 1,000 Units/mL 10 mL DVT/PE Bolus Inj IVPUSH PRN (08:10)
[2016-09-11] MEDS ORDERED: Heparin 25K Unit/500mL 0.45 NS 25,000 UNIT in IV Premix 1 EACH IV SCH (08:10)
[2016-09-11 08:52] LABS: INR 2.33 ratio
[2016-09-11 13:16] LABS: INR 1.85 ratio
--- NOTE | 2016-09-11 13:40 | PCM.PNMED ---
Subjective Date of Service Sep 11, 2016 Subjective Patient appears to be improved mentally today, as she is conversive and alert. She denies nausea, vomiting, or diarrhea. Denies abdominal pain, fevers, or chills. She reports mild shortness of breath but feels like it is greatly improved from the weekend. Exam Vital Signs Vital Sign - Last Date Time Temp Pulse Resp B/P Pulse Ox O2 Delivery O2 Flow Rate FiO2 09/11/16 12:22 36.6 70 20 144/73 100 BiPAP 28 09/09/16 09:21 2.00 Intake and Output 09/10/16 09/10/16 09/11/16 Cumulative From/Thru 15:00 23:00 07:00 08/30/16 13:59 - 09/11/16 06:15 Intake Total 2087 ml 1733 ml 17643 ml Output Total 1104 ml 800 ml 8259 ml Balance 983 ml 933 ml 49867 ml Intake Oral 0 ml 0 ml 7166 ml IV Total 2087 ml 1733 ml 45737 ml Output Urine Total 800 ml 800 ml 7355 ml Stool Total 304 ml 304 ml Emesis 600 ml # Voids 2 # Bowel Movements 6 30 Exam General: Alert and oriented x3, No Acute Distress Head: Normocephalic, atraumatic. External ears normal. Eyes: PERRLA, EOMI. Scleral icterus present. Mouth: Ulcers on sides of tongue, Mucous Membranes Moist/[place] Neck: Neck supple with full range of motion. Chest & Lungs: Clear to auscultation bilaterally with no crackles, wheezes, or rhonchi. Cardiovascular: Regular Rate/Rhythm, Normal S1, Normal S2, No Murmurs/Rubs/ Gallops Abdomen: No tenderness, Non-distended, Normoactive bowel tones, Soft. Right sided epigastric mass palpable Musculoskeletal: Normal Range of Motion Extremities: Mild bilateral lower extremity edema Skin: Jaundice present Neurological: Grossly neurologically intact Lab and Diagnostics Result Diagram: 09/11/16 0525 09/11/16 0525 Microbiology Name: LACY HARRY Age/Sex: 61/F Attend Dr: Markos Milligan MD Acct: [id number] Unit: [id number] Status: ADM IN Location: [facility] [place] 239-1 Re08/30/16 Disch: Specimen: [id number] Collected: 09/04/16 Status: COMP Req#: [id number] Received: 09/04/16 Source: STOOL Sp Desc : STL ASP Subm Dr: Pallavi Jacobs DO Ordered: C DIFF DNA PCR Comments: Collected by Nurse/Unit? Y/N Y Procedure Result Verified Site Microbiology ARNALDO C DIF PCR STOOL Final 09/04/16 CDIF DNA BY PCR NEGATIVE REFERENCE INTERVAL NEGATIVE Specimen: [id number] Collected: 08/30/16 Status: JEANMARIE Guillory#: [id number] Received: 08/30/16 Source: URINE CC Sp Desc : SAMIR Perry Dr: DOC,ED MD Ordered: URINE CULT Procedure Result Verified Site Microbiology ARNALDO CULT URINE Final 09/01/16 Organism 1 ESCHERICHIA COLI U COLONY COUNT/QUANTITY >100,000 CFU/ml Cefazolin-predicts results for the oral agents, cefaclor,cefdinir, cefpodoximen, cefprozil, cefuroximne axetil, cephalexin and loracarbed when used for therapy of uncomplicated UTI's due to E. coli, K. pneumoniae, and Proteus mirabilis. Cefpodoxime, cefdinir and cefuroxime axetil may be tested individually because some isolates may be susceptible to these agents while testing resistant to cefazolin. (CLSI G789-P52 pg 53) 1. ESCHERICHIA COLI M.I.C Interp --------- ------ * AMOXICILLIN/CLAVULATE <=2 S * AMPICILLIN 4 S * CEFAZOLIN (CEPHALOSPORIN) UTI 4 S * CEFEPIME <=1 S * CEFTRIAXONE <=1 S * CEFUROXIME SODIUM 4 S * CIPROFLOXACIN <=0.25 S * ERTAPENEM <=0.5 S * GENTAMICIN <=1 S * IMIPENEM <=1 S * LEVOFLOXACIN <=0.12 S * NITROFURANTOIN <=16 S * TETRACYCLINE <=1 S * TOBRAMYCIN <=1 S * TRIMETHOPRIM/SULFAMETHOXAZOLE <=20 S Name: LACY HARRY Age/Sex: 61/F Attend Dr: Markos Milligan MD Acct: [id number] Unit: [id number] Status: ADM IN Location: [place] [address] Re08/30/16 Disch: Specimen: [id number] Collected: 09/01/16 Status: COMP Req#: [id number] Received: 09/01/16 Source: URINE CC Sp Desc : SAMIR Perry Dr: Derik West MD Ordered: URINE CULT Procedure Result Verified Site Microbiology ARNALDO CULT URINE Final 09/03/16-0928 No growth (<1,000 organisms/mL) Name: LACY HARRY Age/Sex: 61/F Attend Dr: Markos Milligan MD Acct: [id number] Unit: [id number] Status: ADM IN Location: [facility] [place] 239-1 Re08/30/16 Disch: Specimen: [id number] Collected: 08/30/16 Status: JEANMARIE Guillory#: [id number] Received: 08/30/16 Source: BLOOD Sp Desc : ADRIANO Perry Dr: Marc Mcgrath DO Ordered: BC Comments: Collected by Nurse/Unit? Y/N N Comment: add on ok Procedure Result Verified Site Microbiology ARNALDO CULTURE BLOOD Final 09/04/16 NO GROWTH AFTER 5 DAYS X-Rays, CTs and MRIs CXR 09/08 1. Layering left pleural effusion and bibasilar airspace opacities consistent compressive atelectasis versus aspiration or pneumonia. Differential diagnosis would also include patchy pulmonary edema. CT Abd/pelvis with contrast There is an irregular, lobulated mass involving the left aspect of the liver. This mass measures slightly decreased in size compared to the prior examinations. Please correlate with interval treatment. New development of moderate simple fluid within the peritoneal cavity. The gallbladder wall appears irregular and hyperenhancing, consistent with the given history of gallbladder cancer. Stable left adrenal nodule. Faintly seen right adrenal nodule. A few stable pulmonary nodules can be seen at the lung bases. Incidental note is made of: Dextroconvex scoliosis and bony degenerative changes 12-lead ECG Personally and concurrently reviewed by Flaquito 09/09 . Sinus rhythm rate 75, QTC 479 ms . Low voltage, precordial leads * Borderline repol abnormality, lateral leads * No previous study for comparison 08/30 Cardiac Echo Impressions ECHO 09/08 Interpretation Summary The left ventricular cavity is small. The left ventricle is hyperdynamic. The ejection fraction is estimated to be 70-75%. There is no echo evidence for significant left ventricular outflow tract obstruction. The right ventricle is not well visualized. Right ventricular function cannot be assessed due to poor image quality. All the valves were not well visualized, however, no significant valvular pathology seen. [facility] Additional Diagnostics DateTimeAnalyzed 04:49:00 -_ pH ____7.331 - 7.350 7.450 pCO2 ___37.1__ -mmHg 35.0 45.0 pO2 115 -mmHg 69.0 116 HCO3- ___19.0__ -mmol/L 22.0 26.0 ABE ___-5.8__ -mmol/L -2.0 2.0 tHb ____7.1__ -g/dL O2Hb ___96.9__ -% COHb ____1.6__ -% MetHb ____0.6__ -% sO2 ___99.1__ -% 25.0 FIO2 ___28.0__ -% CPAP ___12.0__ -cmH2O PEEP ____5.0__ -cmH2O Set_RR ___12.0__ -b/min Drawn By MM - Date/Time Notified____ 04:53:00 -_ Oxygen Device 1 ____BIPAP - ABG DateTimeAnalyzed 11:57:00 -_ pH ____7.251 - 7.350 7.450 pCO2 ___47.3__ -mmHg 35.0 45.0 pO2 ___96.3__ -mmHg 69.0 116 HCO3- ___20.0__ -mmol/L 22.0 26.0 ABE ___-6.2__ -mmol/L -2.0 2.0 Assessment & Plan Patient is a 61-year-old female with a history of metastatic cholangiocarcinoma who presents for evaluation of acute jaundice and fever. Hyperbilirubinemia, acute. Improving. - Pt complains of fever, abdominal pressure but no pain in the context of high bilirubin. Bilirubin remains high today. Pt was afebrile this hospitalization. WBC was elevated (15.3). MRCP showed ascites, a mass lesion within the liver as previously identified, contracted irregular gallbladder, and no visualized biliary ductal dilation. She may have intrahepatic cholestasis secondary to her tumor, although the mass does not appear to have changed significantly. There does not appear to be any extrahepatic pathology that can be addressed via ERCP. MRCP showed contracted irregular gallbladder. HIDA scan was inconclusive but suspicious for hepatocellular injury. - Continue to monitor LFTs and bilirubin Elevated LFTs, acute. Stable. - LFTs have been mildly elevated since 07/26/16, normal before that date. They became more elevated around 08/30, when she started her nitrofurantoin. Hepatitis workup negative. Her LFTs have been fairly stable since, but appear to have started climbing again today. ARIANA positive, anti-smooth muscle weakly positive. Anti-Sm and [employer]ER negative. Autoimmune hepatitis is possible. LFTs appear to have improved. - Continue to monitor LFTs Acute anemia. - Pt Hb has been steadily dropping, now 7.1. She is receiving PRBCs currently. No signs of GI bleed, with no dark/red stools and guaiac negative. It is possible that her anemia may be secondary to hemolysis. Her haptoglobin is low, but this may be low in liver failure. Retic count is high, bilitubin is high, and LDH is slightly high. She does not appear to be actively bleeding, but since she is now on a heparin drip for DVT, recommend that her Hb is closely monitored. - Closely monitor Hb, stop heparin if this acutely drops - Transfuse as necessary Elevated INR, acute. Worsening - INR 1.82 on admission, significantly elevated from previous INR of 1.34 in July. Likely secondary to acute hepatic injury. Her INR suddenly increased overnight from 1.77 to 2.33. - Continue to monitor INR daily - Will repeat INR - Will give Vitamin K today if repeat INR is consistent with acute elevation Acute kidney injury. - Cr has been steadily increasing since 09/04. May be related to recent contrast but may also be infection. Consider pursuing further renal imaging. Albumin 100 g IV was given. - Recommend nephrology consultation at this time. Right lower extremity DVT. - US showed RLE DVT. Currently on heparin gtt. - Watch for signs of bleeding. Leukocytosis, acute. Resolved. - Blood cultures negative, repeat urine culture negative. C diff negative. Her repeat UA showed more WBCs (>50) but follow up urine cultures were negative, as she was already on antibiotics. Her leukocytosis has since resolved since starting on antibiotics. - Continue empirical antibiotics. Altered mental status, acute. Resolved. - Pt became suddenly obtunded overnight. ABG showed hypercapnic respiratory failure, so pt was placed on bipap and sent to PCC. This has now resolved. - Lactulose 20g PO QID - Rifaximin 550 mg BID History of Cholangiocarcinoma - Patient has history of intrahepatic cholangiocarcinoma diagnosed in February 2016 , mainly in the left hepatic lobe, metastatic to the right femur. She is currently receiving palliative chemotherapy per Dr. Meier with cisplatin. - Dr. Meier of Oncology is following at this time. We appreciate his input. GI Prophylaxis: Proton Pump Inhibitor (patient has thrombocytopenia and elevated INR and likely not a good candidate for anticoagulation.) VTE Prophylaxis: SCDs VTE Mechanical Devices: Intermittant Pneumatic CD Resuscitation Status: DNR/DNI:Do Not Resuscitate/Intubate Attending Statement Patient seen and examined. Agree with assessment and plan as described by Dr Arnold. Stage IV CholangioCA. Intrahepatic cholestasis of uncertain etiology but quite possibly secondary to nitrofurantoin. Decompensation lat last week has somewhat stabilized i suspect in large part as a consequence of improved respiratory parameters with use of BiPAP. ABG significantly improved and so has overall mental status. Bilirubin continues to slowly trend back down. However, creatinine continues to slowly creep in the wrong direction. INR bumped this morning. Prognostically, this would be quite concerning. INR this afternoonw has improved. Vitamin K was rec'd. I have recommended nephrology consultation here. May still be dealing with the effects of a contrast induced nephropathy but i suspect the renal insufficiency to be multifactorial. H/H stable but low. Difficult to exclude an element of hemolysis here. White count has normalized and there has not been any fever. Empiric antibiotics should for the time being continue. There was no fluid to safely tap at u/s guided attempt at paracentesis last week. Overall prognosis poor. Had lengthy conversation with Lacy's this evening. Will continue to follow. We've held off on steroids. Will closely monitor for signs of bleeding on heparin. Arley Arnold Sep 11, 2016 13:39 Derik West MD Sep 11, 2016 20:57
[2016-09-11] MEDS: levoFLOXacin Inj 500 MG in IV Premix 1 EACH IV SCH (14:45)
--- NOTE | 2016-09-11 14:55 | NUR ---
NUTRITION FOLLOW UP: ASSESS: 61 YO F admitted for acute jaundice and fever. Pt is also being followed by oncology for metastatic cholangiocarcinoma. She is currently receiving palliative chemotherapy. Pt has been NPO for at least 2 days. Palliative is involved for goals of care PMHX: cholangiocarcinoma, HTN, JAYLA, UTI, Gastric Ulcers LABS: Reviewed. K+ 3.4, BUN 66, CR 1.99, Mg 1.4, T.bili 16.7, AST 56, Alk Phos 274, Alb 2.3 MEDS: Reviewed. lactulose, Senna GI: 7 BM 09/10, diarrhea. SKIN: jaundiced. Alberto 15 CURRENT WTS: 141.4 kg, BMI 57.0 kg/m2, admit wt 118 kg. Wt up 23.4 kg x 12 days. IBW 50 kg, Adj bw 67 kg DIET: NPO X 2 days. ESTIMATED NEEDS: ca (based off admit wt) Calories: 9310-5340 kcal/day (25-30 kcal/kg adj bw) Protein: 80-100 g/day (1.2-1.5 g/kg adj bw) NUTRITION DIAGNOSIS: 1.) Increased nutrient needs related to chronic disease as evidence by pt on palliative chemo and pt with metastatic cholangiocarcinoma.---PERSISTS. NUTRITION INTERVENTION: 1.) Will await timely advancement of diet. 2.) Will continue to monitor wt as it continues to trend up MONITOR/EVALUATE: Wt, NPO status, diet advance, labs, GI, POC, nutrition status. Follow per high nutrition risk guidelines
--- NOTE | 2016-09-11 16:07 | DRSVH ---
PROCEDURE: US VENOUS ARM DUPLEX, BILATERAL INDICATIONS: evaluate for DVT TECHNIQUE: Real-time imaging, as well as color and pulse Doppler interrogation, was performed of both upper extr emity deep veins from the inferior neck to the antecubital fossa. COMPARISON: None. FINDINGS: The internal jugular veins, visualized portions of the subclavian veins, axillary veins, a nd brachial veins are free of intraluminal thrombus. Where physically possible, the veins are normal ly compressible. Color and pulse Doppler demonstrate normal intraluminal flow, with expected phasici ty and pulsatility. Additional scanning of the cephalic and basilic veins of the superficial system demonstrate normal compressibility, without thrombus. IMPRESSION: Edema present otherwise upper extremity venous thrombosis bilaterally. Dictated by: Grover Espinal RR Interpreted: Melissa Pa MD on 09/11/2016 at 15:49 Transcribed by: GRISELDA on 09/11/2016 at 15:49 Approved by: Melissa Pa MD, PhD on 09/11/2016 at 17:07
[2016-09-11] MEDS ORDERED: Magnesium Sulf 4 Gm/100 mL H2O 4 GM in IV Premix 1 EACH IV ONE (16:30)
--- NOTE | 2016-09-11 17:02 | PCM.PALLBR ---
Palliative Care Recommendation 61-year-old female with history of metastatic cholangiocarcinoma, admitted with hyperbilirubinemia as well as acute renal failure. Despite aggressive, appropriate evaluation and treatment her bilirubin has continued to rise and her renal failure, after initial improvement, has begun to worsen again. As a consequence, palliative medicine consulted to assist patient and family and determination of goals of care. Summary of palliative recommendations: 09/11/16-Pain adequately controlled Dyspnea- improved with improved ABG since intermittent use of BIPAP. Lethargy-continues, speech slightly slurred. Responds to questions briefly and then back to sleep. Hepatic insuff-improving transaminases but continued coagulopathy and autoanticoag. Some concern with starting anticoag in light of her anemia and elevated INR but evidence of DVT. ? if this dates back to her fx or if it is new. CRI- may be a deciding factor if continues to progress. -Symptom management (Pain/other)- no significant distress at this time. Continued management per her medical and consulting teams. Awaiting results of evaluation for worsening lethargy which may necessitate changes in care. Because of her progressive hepatic dysfunction, I have decreased her Seroquel dose. Other interventions per medical/hospitalist team. -DPOA/Advanced Directives/POLST- spoke at length with her Akhil who is her default POA. While he wants to continue attempts at treatment for the time being, he understands the grave nature of her prognosis. Patient is non- decisional at this time due to her encephalopathy. His wishes that she be DO NOT RESUSCITATE/DO NOT INTUBATE/continued limited interventions in the hope that her renal and hepatic function will stabilize and begin to improve. He understands that further focused treatment for her underlying neoplasm is out of the question at this time. Will plan on completing a POLST prior to discharge. -Family/emotional support- palliative medicine will continue to follow and support. I gave him my card with my personal cell phone number. He is going to be contacting family members in [place] and [place]- my advice to him was to advise family members that if it was important to them to see the patient before she , they should probably come now. Certainly he understands that she may still rally, but at the same time her prognosis does not look good. -Spiritual support- offered Patient Goals: 1. Patient and family want to be told the truth about her illness, even if it is unpleasant. 2. Patient and family would like to be told prognosis when it can be predicted, to better guide treatment decisions. Additional Medical Diagnoses with primary management by Hospitalist team include : Hyperbilirubinemia, acute. Oral thrush Elevated LFTs, acute. Elevated INR, acute. Constipation, acute-resolved Hypokalemia (resolved) New onset camphorus ulcers of the tounge (resolving) Hypomagnesemia on admission History of Cholangiocarcinoma Problems: End of Life Preferences DO NOT RESUSCITATE/DO NOT INTUBATE/limited interventions Goals of Care Patient's continues to hope for stabilization and modest recovery so that she may return home. Disposition To be determined If over the next several days it appears that the patient is continuing to deteriorate, with worsening hepatic and renal function, I anticipate that we would transition to comfort care. Thereafter, would need to determine whether it would be more appropriate for her to stay here for end-of-life care versus considering other options such as home with hospice, etc. Her would be the only person at home with her and does not feel that he could manage her care with only episodic hospice support. and son Nigel will be her this evening to meet with Dr. Meier to review his sense of likelihood to recover. UE US should have been read by then. Resuscitation Status Resuscitation Status: DNR/DNI:Do Not Resuscitate/Intubate POLST Updates/Changes Previous POLST?: No Artificially Admin Nutrition: No Artifical Nutrition by Tube POLST Discussed with: Spouse/Other . Symptom management: Drowsiness/sleepiness, Dyspnea Total time 50 minutes; >50% face to face with patient and/or family, providing counselling regarding plans and recommendations, and in care coordination with his/her medical teams. Including time with family and discussion with team and Dr. Meier. I also spent an additional [ ] minutes counseling for advanced care planning with the patient/the patients family/the surrogate decision maker. Palliative Brief Note Date of Service Sep 11, 2016 . 61 yo patient with known metastatic cholangiocarcinoma diagnosed when she had a pathological fracture of her R femur in February and then a path fx of her L clavicle. She gradually recovered from this and underwent chemo and rad tx. She was able to get down to [place] to see family in July but then noted increasing weakness and malaise around the time of a 5 d course of nitrofurantoin for a UTI. Her family noted her profound jaundice and she was hospitalized. There is question as to the cause of her acute hepatic decompensation-including possible rxn to nitrofurantoin. She otherwise has dx of obesity and JAYLA On admission she was noted to have renal insuff which improved only to again deteriorate now with a CR 1.99/ eGFR of 36. She ahd anemia which has gradually dropped now to Hgb of 7.1 and getting transfused. Stool is guaiac neg. ProBNP > 3000, Tbili ranging 16-18 but transaminases are improving. INR was in range of 1.7-1.8 but today 2.33. She noted increasing weakness of legs and pain prompting US noting R DVT but poor viz due to her obesity. She is undergoing UE doppler re UE swelling. She was started on anticoag yest. She also had decreased mentation and presumed aspiration with increasing respiratory distress end of last week which has improved with BIPAP. Pt is in bed with mask off her face. Ox in range of 96%. She is arousable but falls asleep easily and later is snoring without witnessed apnea. Mask is replaced. Meeting with her son Nigel briefly and longer visit with her . wondering what the limits are to appropriate care. Determination based on QOL, expectation of benefit of treatment etc. He is aware of the relatively poor prognosis of her malignancy. Reviewed option of continued support as is including respiratory support. Reiterates DNR/DNI. Reviewed alternative of comfort measures and possible support at home with hospice. He states if renal fxn deteriorates further that dialysis is not an option for her. Camila Herrera MD Sep 11, 2016 17:02
--- NOTE | 2016-09-11 19:39 | NUR ---
Oxygenation/PO meds/Output Patient alert and oriented x3 this shift although forgetful with some slurred/mumbled speech. Patient remained on Bipap the majority of the shift, Fi02 at 35% continuous SPO2 monitor showed 94-98%. No reports of SOB at rest from patient, lung sounds diminished but clear. RN would take bipap for 15 minute breaks with patient care, tolerated well but would fatigue very easily. No PO meds administered due to strict NPO status. Normal saline running at 150 per MD orders, 750 out of nam.
--- NOTE | 2016-09-11 20:54 | CCS NOTE ---
[facility] [address], [address] [address] MEDICAL ONCOLOGY OFFICE NOTE PATIENT: HENRY HARRY : 1955 MR#: [id number] DATE: 08/30/2016 JOB ID: [id number] DATE: 09/11/2016 I met with the patient and her , as well as Dr. Herrera of palliative care team. Had extensive conversation also with Dr. West on Sunday. The patient's hypersomnolence and respiratory status was quite severely affected on Sunday. Has improved over the weekend with BiPAP treatment. I suspect that she has a serious component of sleep apnea that has not been formally diagnosed but she has obvious features of it. Labs and diagnostic work[facility] the [facility] The patient has, due to her liver dysfunction, already an abnormal INR, fluctuating between 1.7 and 2.3. The most recent one was 1.85. Her ultrasound of the right leg scan that was done because of swelling on Sunday showed a DVT in the distal superficial femoral vein. Upper extremity ultrasounds that were done this morning because of swelling due to edema showed no evidence of DVT. The patient received one dose of Lovenox at 140 mg last night. Other labs show a normalization of white count. Hemoglobin 7.1, platelets 92. Chemistry shows normal electrolytes, except for low magnesium. Creatinine has increased to 1.99. LFTs show only minor improvement of bilirubin to 16.7. Transaminases have close to normalized. Albumin 2.3. EXAMINATION: She has some element of anasarca. Is severely jaundiced. Is arousable and asked her to remove her mask so she could talk. MEDICATION LIST: Reviewed. She is on clindamycin and levofloxacin, as well as rifaximin and lactulose for hepatic encephalopathy. ASSESSMENT AND PLAN: A 61-year-old, very pleasant lady with morbid obesity and cholangiocarcinoma, who has been deteriorating over the past few days, particularly in regard to her renal function, fluid retention, and symptoms of hypercapnia and hypersomnolence. I would agree with transfusion of packed red cells to improve her oxygenation, as her hemoglobin is only 7.1. I also agree with albumin infusion to mobilize some of her fluids. We had a good discussion with multiple physicians involved today, as well as patient, mostly also her . Overall, I am concerned that her hepatic dysfunction is going to limit our ability to deliver any further meaningful therapy for her oligometastatic cholangiocarcinoma. The etiology of her liver dysfunction has been speculated to be possibly due to nitrofurantoin, but we would, by now, expect a more meaningful improvement. She might have other underlying risk factors including hepatic steatosis given her body mass index of 57, and the infiltrative nature of intrahepatic cholangiocarcinoma that is affecting the majority of her left liver lobe, even though she does not have any obstructive phenomenon on her biliary tree on imaging. She does have a DVT in her right leg and has a fairly high risk of further thromboembolic events. Because of her renal dysfunction, a CT angio of the chest should be avoided to not further aggravate nephropathy. She is already partially anticoagulated because of her liver dysfunction with an INR that is fluctuating between 1.6 and 2.3. Therefore, I would support her only with significantly dose-reduced Lovenox given her renal dysfunction. She did receive one dose of Lovenox yesterday at 1 mg/kg based on the actual body weight of 140 kg. But from here forward, we agreed upon using only 60 mg of Lovenox once a day, which will be given this evening. The etiology of her renal dysfunction is also multifactorial and a component of hepatorenal syndrome might be the case. We discussed the guarded prognosis, and patient's family members are arriving on from out of state. I explained to the family that the previously discussed plan to deliver radiation therapy to the left hepatic lobe is currently canceled, given the severe liver function abnormalities.
[2016-09-11] MEDS ORDERED: KCl 40 mEq/100 mL Premix (K 3 - 3.7 & Creat < 2) IV ONE (21:40)
[2016-09-12] VITALS (15 sets, daily range): BP systolic 113–130; BP diastolic 61–83; PULSE 55–65; RESP 14–22; O2SAT 96–100
[2016-09-12] MEDS: 0.9% Sodium Chloride 1,000 ML IV SCH ×4 (01:37→21:39)
[2016-09-12] MEDS: Clindamycin Inj 900 MG in IV Premix 1 EACH IV SCH ×3 (01:38→17:31)
[2016-09-12] MEDS: Ondansetron 2 mg/mL 2 mL Inj IVPUSH PRN ×3 (01:54→21:46)
[2016-09-12] MEDS: Albuterol 2.5 mg/3 mL Inhalation Solution NEB SCH ×4 (03:16→20:36)
[2016-09-12 03:49] LABS: BASOPHILS % (AUTO) 0 % (0-3); EOSINOPHILS % (AUTO) 0.2 % (0-5); MONOCYTES % (AUTO) 5.8 % (4-12); Mean Corpuscular Hemoglobin 32.1 pg (27.0-35.0); Mean Corpuscular Volume 92.5 fL (81-100); NEUTROPHILS % (AUTO) 84.4 % (40-74); Platelet Count 98 bil/L (150-400)
--- NOTE | 2016-09-12 03:55 | NUR ---
Nausea/ mentation Pt noted to be dry heaving on BIPAP. Mask immediately removed, upon removal pt vomited 50cc of brown/ green emesis. NO vomiting occurred with mask on. PRN IV Zofran given with good relief. BIPAP not resumed at this time- Pt on RA with sats in the high 90s- monitored via continuous pulse ox. Pt currently resting comfortably. Pt alert and oriented x3- speech slightly delayed and mumbled, however pt cooperative and compliant with care.
[2016-09-12 04:35] LABS: Magnesium 1.9 mg/dL (1.6-2.6)
[2016-09-12] MEDS ORDERED: KCl 40 mEq/100 mL Premix (K 3 - 3.7 & Creat < 2) IV ONE (05:40)
--- NOTE | 2016-09-12 05:59 | NUR ---
k+ k florentino on am of 09/11 noted to be 3.4. MAg had been replaced, but k was ordered as scheduled PO which pt has not been receiving because of NPO status. paged and made aware. Order received to place pt on k/ mag protocol. K replaced per protocol. recheck in am noted to be 3.3, addition 40 meq given per portacath.
--- NOTE | 2016-09-12 08:01 | PCM.PNMED ---
Subjective Date of Service Sep 12, 2016 Subjective No new complaints of chest pain, dyspnea, no nausea or vomiting. A bleeding hemorrhoid was reported Exam Vital Signs Vital Sign - Last Date Time Temp Pulse Resp B/P Pulse Ox O2 Delivery O2 Flow Rate FiO2 09/12/16 03:19 36.4 65 19 124/61 99 Room Air 09/12/16 03:17 21 09/09/16 09:21 2.00 Intake and Output 09/11/16 09/11/16 09/12/16 Cumulative From/Thru 15:00 23:00 07:00 08/30/16 13:59 - 09/12/16 06:24 Intake Total 350 ml 750 ml 1869 ml 40840 ml Output Total 750 ml 800 ml 9809 ml Balance 350 ml 0 ml 1069 ml 29561 ml Intake Oral 0 ml 0 ml 7166 ml IV Total 50 ml 750 ml 1869 ml 79490 ml Packed Cells 300 ml 300 ml Output Urine Total 750 ml 800 ml 8905 ml Stool Total 304 ml Emesis 600 ml # Voids 2 # Bowel Movements 30 Exam Gen.- A+ O 3 no apparent distress. Jaundiced morbidly obese female lying in bed Eyes- open conjunctiva clear, pupils equal patient does have icteric sclera and she almost looks like she has myxedema ENT- ears normal, nose normal Neck- supple/trach midline CVS- RRR, edema consistent with body habitus Lungs regular respirations nonlabored normal rate GI- NABS/NT soft, huge pannus Musc- moving 4 no obvious deformity Neuro- cranial nerves II through XII intact to gross examination, nonfocal Skin- warm and dry, no rashes/lesions/wounds noted Psych- pleasant and appropriate The most awake that I have seen her and comfortable since I have met her Lab and Diagnostics Result Diagram: 09/12/16 0237 09/12/16 0325 Microbiology Name: HARRYHENRY M Age/Sex: 61/F Attend Dr: Markos Milligan MD Acct: [id number] Unit: [id number] Status: [place] [facility] [place] Disch: Specimen: [id number] Collected: 09/04/16 Status: COMP Req#: [id number] Received: 09/04/16 Source: STOOL Sp Desc : STL ASP Subm Dr: Pallavi Jacobs DO Ordered: C DIFF DNA PCR Comments: Collected by Nurse/Unit? Y/N Y Procedure Result Verified Site Microbiology ARNALDO C DIF PCR STOOL Final 09/04/16 CDIF DNA BY PCR NEGATIVE REFERENCE INTERVAL NEGATIVE Specimen: [id number] Collected: 08/30/16 Status: JEANMARIE Guillory#: [id number] Received: 08/30/16 Source: URINE CC Wayne Desc : SAMIR Perry Dr: DOC,ED MD Ordered: URINE CULT Procedure Result Verified Site Microbiology ARNALDO CULT URINE Final 09/01/16 Organism 1 ESCHERICHIA COLI U COLONY COUNT/QUANTITY >100,000 CFU/ml Cefazolin-predicts results for the oral agents, cefaclor,cefdinir, cefpodoximen, cefprozil, cefuroximne axetil, cephalexin and loracarbed when used for therapy of uncomplicated UTI's due to E. coli, K. pneumoniae, and Proteus mirabilis. Cefpodoxime, cefdinir and cefuroxime axetil may be tested individually because some isolates may be susceptible to these agents while testing resistant to cefazolin. (CLSI O500-F07 pg 53) 1. ESCHERICHIA COLI M.I.C Interp --------- ------ * AMOXICILLIN/CLAVULATE <=2 S * AMPICILLIN 4 S * CEFAZOLIN (CEPHALOSPORIN) UTI 4 S * CEFEPIME <=1 S * CEFTRIAXONE <=1 S * CEFUROXIME SODIUM 4 S * CIPROFLOXACIN <=0.25 S * ERTAPENEM <=0.5 S * GENTAMICIN <=1 S * IMIPENEM <=1 S * LEVOFLOXACIN <=0.12 S * NITROFURANTOIN <=16 S * TETRACYCLINE <=1 S * TOBRAMYCIN <=1 S * TRIMETHOPRIM/SULFAMETHOXAZOLE <=20 S Name: EDILSON HARRYLOU Tono Age/Sex: 61/F Attend Dr: Markos Milligan MD Acct: [id number] Unit: [id number] Status: ADM IN [place] [facility] [place]08/[place] Disch: Specimen: [id number] Collected: 09/01/16 Status: COMP Req#: [id number] Received: 09/01/16 Source: URINE CC Sp Desc : SAMIR Perry Dr: Derik West MD Ordered: URINE CULT Procedure Result Verified Site Microbiology ARNALDO CULT URINE Final 09/03/16-0928 No growth (<1,000 organisms/mL) Name: HENRY HARRY Age/Sex: 61/F Attend Dr: Markos Milligan MD Acct: [id number] Unit: [id number] Status: [place] [facility] [place]08/[place] Disch: Specimen: [id number] Collected: 08/30/16 Status: COMP Req#: [id number] Received: 08/30/16 Source: BLOOD Sp Desc : ADRIANO Perry Dr: Marc Mcgrath DO Ordered: BC Comments: Collected by Nurse/Unit? Y/N N Comment: add on ok Procedure Result Verified Site Microbiology ARNALDO CULTURE BLOOD Final 09/04/16 NO GROWTH AFTER 5 DAYS X-Rays, CTs and MRIs CXR 09/08 1. Layering left pleural effusion and bibasilar airspace opacities consistent compressive atelectasis versus aspiration or pneumonia. Differential diagnosis would also include patchy pulmonary edema. CT Abd/pelvis with contrast There is an irregular, lobulated mass involving the left aspect of the liver. This mass measures slightly decreased in size compared to the prior examinations. Please correlate with interval treatment. New development of moderate simple fluid within the peritoneal cavity. The gallbladder wall appears irregular and hyperenhancing, consistent with the given history of gallbladder cancer. Stable left adrenal nodule. Faintly seen right adrenal nodule. A few stable pulmonary nodules can be seen at the lung bases. Incidental note is made of: Dextroconvex scoliosis and bony degenerative changes 12-lead ECG Personally and concurrently reviewed by Flaquito 09/09 . Sinus rhythm rate 75, QTC 479 ms . Low voltage, precordial leads * Borderline repol abnormality, lateral leads * No previous study for comparison 08/30 Cardiac Echo Impressions ECHO 09/08 Interpretation Summary The left ventricular cavity is small. The left ventricle is hyperdynamic. The ejection fraction is estimated to be 70-75%. There is no echo evidence for significant left ventricular outflow tract obstruction. The right ventricle is not well visualized. Right ventricular function cannot be assessed due to poor image quality. All the valves were not well visualized, however, no significant valvular pathology seen. [facility] Additional Diagnostics DateTimeAnalyzed 04:49:00 -_ pH ____7.331 - 7.350 7.450 pCO2 ___37.1__ -mmHg 35.0 45.0 pO2 115 -mmHg 69.0 116 HCO3- ___19.0__ -mmol/L 22.0 26.0 ABE ___-5.8__ -mmol/L -2.0 2.0 tHb ____7.1__ -g/dL O2Hb ___96.9__ -% COHb ____1.6__ -% MetHb ____0.6__ -% sO2 ___99.1__ -% 25.0 FIO2 ___28.0__ -% CPAP ___12.0__ -cmH2O PEEP ____5.0__ -cmH2O Set_RR ___12.0__ -b/min Drawn By MM - Date/Time Notified____ 04:53:00 -_ Oxygen Device 1 ____BIPAP - ABG DateTimeAnalyzed 11:57:00 -_ pH ____7.251 - 7.350 7.450 pCO2 ___47.3__ -mmHg 35.0 45.0 pO2 ___96.3__ -mmHg 69.0 116 HCO3- ___20.0__ -mmol/L 22.0 26.0 ABE ___-6.2__ -mmol/L -2.0 2.0 Assessment & Plan Patient is a 61-year-old female admitted 08/30 for acute jaundice and fever has a history of metastatic cholangiocarcinoma. Transferred to stepdown status due to respiratory failure and need for BiPAP and increasing lethargy. She woke up quite quickly with the institution of BiPAP and she will need to go home with this. I have been treating possible PE and right lower extremity clot with low-dose Lovenox for life or as per Dr. Lee (no good way to do this given renal failure) 09/12. Patient transitioning to discharge to [facility] she still wants chemotherapy we are trying to obtain Trilogy which is the only delay factor to discharge 09/12 +Ddimer, ?DVT RLext?- can't do CTA 2' REBEKA, VQ not likely to be useful, repeating dopplers for confirmation, pt got enoxaparin 09/10 per heme/onc Dr Lee (09/10) relative contraindication with Cr 1.9, heparin gtt difficult as pt josé miguel blood draw and picc difficult start warfar Hypokalemia- K 3.3 09/07, 4.0 09/08, 4.0 09/09, 3.9 09/10, 3.4 09/11, 3.3 09/12 monitor/replace as needed REBEKA- baseline Cr 0.5 , 1.75 09/07, 1.8 09/08, 1.75 09/09, 1.91 09/10, 1.99 09/11, 1.98 09/12 uncertain etiology but consistent with multiorgan failure, hold lisinopril 09/09, Anemia- Hg 9.5 09/07, 7.6 09/08, 7.5 09/09, 7.2 09/10, 7.1 09/11, 8.1 a/p 1UPRBCs 09/12, iron wnl low trans/binding 09/10, retic 4.8, b12 still Pend 09/13 thrombocytopenia- plt 911, 98 09/12 liver disease vs HIT? follow stable no changes 09/12 Acute respiratory failure- 2' aspiration pneumonia+resp fatigue/ hypoventilation blood gas improving. PH improving PCO2 down, clinically patient looks much better. Pneumonia-treating for aspiration having swallow evaluation and treating for aspiration pneumonia with Levaquin/clindamycin 09/09- (PCN allergic) tx bronchodilators. Dysphagia- speech following and adjusting, NPO 09/10-09/12. [place] Liquids, Ice Chips, Full Liquids 09/12 Neurologic-I would have a low tolerance to get a CT scan of this patient's head, just as I was sure she was having some right-sided gaze and left-sided weakness everything corrected and she began speaking lucidly after having very holding speech looking like she was having difficulty finding words and sometimes intermittently difficulty understanding. 09/10, seemingly resolved after NIPPV 09/11 metabolic encephalopathy-patient may have been suffering from respiratory acidosis yesterday however changes or ongoing suggestive of sepsis which will be treated with IV fluids and antibiotics. Ammonia level is 67 Will start lactulose 09/09, additionally she has respiratory acidosis and may have CO2 narcosis I would have a low tolerance to repeating the blood gas. Leukocytosis-will follow-up UA as well as treating for pneumonia as noted above and below. WBC 16 09/09, 11.1 09/10, 9.3 09/11, 8.9 09/12 Hyperbilirubinemia, - T bili on 12.7 08/30, 13.9 on 09/01, 14.6 09/02. T bili was 17.5 09/08, 18.4 09/09, 17.5 09/10, 16.3 09/12. monitor. HIDA 09/05 c/w severe hepatocellular disease. GI +/- following spoke w/ Dr Mark last 09/10 Oral thrush-- Nystatin swish and swallow daily. Resolved 09/10 Transaminitis, LFTs/Coags improving 09/09- diff etiology unclear ast/alt/alk 56,//274 09/11, 51/32/258 09/12 seems to be resolving Elevated INR, - INR 1.67 09/07, 1.89 09/08, 1.67 09/10, 1.85 09/11. 2' progressive hepatocellular disease. Monitor Constipation, - Continue lactulose 10 g dailly, NH4 elv increased dose 09/09 Hypomag- Mag 1.0 admit replaced, 1.8 09/06, 1.7 09/07, 1.7 09/08, 1.4 09/11, 1.9 09/12 monitor/replace New onset camphorus ulcers of the tounge (resolving) -Ulcers are improving daily with warm salt water gargles Cholangiocarcinoma- hx intrahepatic cholangiocarcinoma dx02/2016, L lobe, mets R femur. palliative cisplatin Dr. Meier. Palliative/[place] care consulted and appreciated Prophylaxis - DVT -Heparin contraindicated thrombocytopenia, Cont SCDs, GI on PPI Disposition: DO NOT RESUSCITATE from home to ?uncertain Multiple severe medical issues and high risk for complications medically complex. At this point in time we are pursuing care that is fairly aggressively as long as there is no pain suffering thank you Dr. Herrera palliative care and Dr. Meier for your input 09/12 GI Prophylaxis: Proton Pump Inhibitor (patient has thrombocytopenia and elevated INR and likely not a good candidate for anticoagulation.) VTE Prophylaxis: SCDs VTE Mechanical Devices: Intermittant Pneumatic CD Resuscitation Status: DNR/DNI:Do Not Resuscitate/Intubate Mo Huddleston MD Sep 12, 2016 08:01
--- NOTE | 2016-09-12 10:07 | PCM.PNMED ---
Subjective Date of Service Sep 12, 2016 Subjective Patient became nauseous overnight and began dry heaving; BiPAP was able to be removed before the patient vomited. This morning she reports mild occasional nausea but no further vomiting, denies fevers, chills, abdominal pain. She reports she has been passing gas and having bowel movements but is unable to tell if she's been having diarrhea. Exam Vital Signs Vital Sign - Last Date Time Temp Pulse Resp B/P Pulse Ox O2 Delivery O2 Flow Rate FiO2 09/12/16 09:49 65 16 98 Room Air 09/12/16 09:21 36.5 128/72 09/12/16 03:17 21 09/09/16 09:21 2.00 Intake and Output 09/11/16 09/11/16 09/12/16 Cumulative From/Thru 15:00 23:00 07:00 08/30/16 13:59 - 09/12/16 06:24 Intake Total 350 ml 750 ml 1869 ml 12388 ml Output Total 750 ml 800 ml 9809 ml Balance 350 ml 0 ml 1069 ml 84853 ml Intake Oral 0 ml 0 ml 7166 ml IV Total 50 ml 750 ml 1869 ml 69030 ml Packed Cells 300 ml 300 ml Output Urine Total 750 ml 800 ml 8905 ml Stool Total 304 ml Emesis 600 ml # Voids 2 # Bowel Movements 30 Exam General: Alert and oriented x3, No Acute Distress Head: Normocephalic, atraumatic. External ears normal. Eyes: PERRLA, EOMI. Scleral icterus present. Neck: Neck supple with full range of motion. Chest & Lungs: Clear to auscultation bilaterally with no crackles, wheezes, or rhonchi. Cardiovascular: Regular Rate/Rhythm, Normal S1, Normal S2, No Murmurs/Rubs/ Gallops Abdomen: Nontender, Non-distended, Normoactive bowel tones, Soft. Right sided epigastric mass palpable Musculoskeletal: Normal Range of Motion Extremities: Bilateral lower extremity edema Skin: Jaundice present Neurological: Grossly neurologically intact Lab and Diagnostics Result Diagram: 09/12/16 0237 09/12/16 0325 Microbiology Name: HENRY HARRY Age/Sex: 61/F Attend Dr: Markos Milligan MD Acct: [id number] Unit: [id number] Status: ADM IN Location: [place] [id number] Re08/30/16 Disch: Specimen: [id number] Collected: 09/04/16 Status: COMP Req#: [id number] Received: 09/04/16 Source: STOOL Sp Desc : STL ASP Subm Dr: Pallavi Jacobs DO Ordered: C DIFF DNA PCR Comments: Collected by Nurse/Unit? Y/N Y Procedure Result Verified Site Microbiology ARNALDO C DIF PCR STOOL Final 09/04/16 CDIF DNA BY PCR NEGATIVE REFERENCE INTERVAL NEGATIVE Specimen: [id number] Collected: 08/30/16 Status: JEANMARIE Guillory#: [id number] Received: 08/30/16 Source: URINE CC Sp Desc : SAMIR Perry Dr: DOC,ED MD Ordered: URINE CULT Procedure Result Verified Site Microbiology ARNALDO CULT URINE Final 09/01/16 Organism 1 ESCHERICHIA COLI U COLONY COUNT/QUANTITY >100,000 CFU/ml Cefazolin-predicts results for the oral agents, cefaclor,cefdinir, cefpodoximen, cefprozil, cefuroximne axetil, cephalexin and loracarbed when used for therapy of uncomplicated UTI's due to E. coli, K. pneumoniae, and Proteus mirabilis. Cefpodoxime, cefdinir and cefuroxime axetil may be tested individually because some isolates may be susceptible to these agents while testing resistant to cefazolin. (CLSI N266-A08 pg 53) 1. ESCHERICHIA COLI M.I.C Interp --------- ------ * AMOXICILLIN/CLAVULATE <=2 S * AMPICILLIN 4 S * CEFAZOLIN (CEPHALOSPORIN) UTI 4 S * CEFEPIME <=1 S * CEFTRIAXONE <=1 S * CEFUROXIME SODIUM 4 S * CIPROFLOXACIN <=0.25 S * ERTAPENEM <=0.5 S * GENTAMICIN <=1 S * IMIPENEM <=1 S * LEVOFLOXACIN <=0.12 S * NITROFURANTOIN <=16 S * TETRACYCLINE <=1 S * TOBRAMYCIN <=1 S * TRIMETHOPRIM/SULFAMETHOXAZOLE <=20 S Name: HENRY HARRY Age/Sex: 61/F Attend Dr: Markos Milligan MD Acct: [id number] Unit: [id number] Status: ADM IN Location: [facility] [place] 239-1 Re08/30/16 Disch: Specimen: [id number] Collected: 09/01/16 Status: COMP Req#: [id number] Received: 09/01/16 Source: URINE CC Sp Desc : PP [place] Dr: Derik West MD Ordered: URINE CULT Procedure Result Verified Site Microbiology ARNALDO CULT URINE Final 09/03/16-927 No growth (<1,000 organisms/mL) Name: EDILSON HARRYCHARLINE Power Age/Sex: 61/F Attend Dr: Markos Milligan MD Acct: [id number] Unit: [id number] Status: ADM IN Location: [facility] [place] 239-1 Re08/30/16 Disch: Specimen: [id number] Collected: 08/30/16 Status: COMP Req#: [id number] Received: 08/30/16 Source: BLOOD Sp Desc : ADRIANO Perry Dr: Marc Mcgrath DO Ordered: BC Comments: Collected by Nurse/Unit? Y/N N Comment: add on ok Procedure Result Verified Site Microbiology ARNALDO CULTURE BLOOD Final 09/04/16 NO GROWTH AFTER 5 DAYS X-Rays, CTs and MRIs CXR 09/08 1. Layering left pleural effusion and bibasilar airspace opacities consistent compressive atelectasis versus aspiration or pneumonia. Differential diagnosis would also include patchy pulmonary edema. CT Abd/pelvis with contrast There is an irregular, lobulated mass involving the left aspect of the liver. This mass measures slightly decreased in size compared to the prior examinations. Please correlate with interval treatment. New development of moderate simple fluid within the peritoneal cavity. The gallbladder wall appears irregular and hyperenhancing, consistent with the given history of gallbladder cancer. Stable left adrenal nodule. Faintly seen right adrenal nodule. A few stable pulmonary nodules can be seen at the lung bases. Incidental note is made of: Dextroconvex scoliosis and bony degenerative changes 12-lead ECG Personally and concurrently reviewed by Flaquito 09/09 . Sinus rhythm rate 75, QTC 479 ms . Low voltage, precordial leads * Borderline repol abnormality, lateral leads * No previous study for comparison 08/30 Cardiac Echo Impressions ECHO 09/08 Interpretation Summary The left ventricular cavity is small. The left ventricle is hyperdynamic. The ejection fraction is estimated to be 70-75%. There is no echo evidence for significant left ventricular outflow tract obstruction. The right ventricle is not well visualized. Right ventricular function cannot be assessed due to poor image quality. All the valves were not well visualized, however, no significant valvular pathology seen. [facility] Additional Diagnostics DateTimeAnalyzed 04:49:00 -_ pH ____7.331 - 7.350 7.450 pCO2 ___37.1__ -mmHg 35.0 45.0 pO2 115 -mmHg 69.0 116 HCO3- ___19.0__ -mmol/L 22.0 26.0 ABE ___-5.8__ -mmol/L -2.0 2.0 tHb ____7.1__ -g/dL O2Hb ___96.9__ -% COHb ____1.6__ -% MetHb ____0.6__ -% sO2 ___99.1__ -% 25.0 FIO2 ___28.0__ -% CPAP ___12.0__ -cmH2O PEEP ____5.0__ -cmH2O Set_RR ___12.0__ -b/min Drawn By MM - Date/Time Notified____ 04:53:00 -_ Oxygen Device 1 ____BIPAP - ABG DateTimeAnalyzed 11:57:00 -_ pH ____7.251 - 7.350 7.450 pCO2 ___47.3__ -mmHg 35.0 45.0 pO2 ___96.3__ -mmHg 69.0 116 HCO3- ___20.0__ -mmol/L 22.0 26.0 ABE ___-6.2__ -mmol/L -2.0 2.0 Assessment & Plan Patient is a 61-year-old female with a history of metastatic cholangiocarcinoma who presents for evaluation of acute jaundice and fever. Hyperbilirubinemia, acute. Improving. - MRCP showed ascites, a mass lesion within the liver as previously identified, contracted irregular gallbladder, and no visualized biliary ductal dilation. She may have intrahepatic cholestasis secondary to her tumor, although the mass does not appear to have changed significantly. There does not appear to be any extrahepatic pathology that can be addressed via ERCP. MRCP showed contracted irregular gallbladder. HIDA scan was inconclusive but suspicious for hepatocellular injury. Bilirubin now appears to be improving slowly. Will continue to trend. - Continue to monitor LFTs and bilirubin Elevated LFTs, acute. Stable. - LFTs have been mildly elevated since 07/26/16, normal before that date. They became more elevated around 08/30, when she started her nitrofurantoin. Hepatitis workup negative. Her LFTs have been fairly stable since, but appear to have started climbing again today. ARIANA positive, anti-smooth muscle weakly positive. Anti-Sm and [employer] negative. Autoimmune hepatitis is possible. LFTs appear to have improved. - Continue to monitor LFTs Acute anemia. - Pt Hb has been steadily dropping, now 7.1. She is receiving PRBCs currently. No signs of GI bleed, with no dark/red stools and guaiac negative. It is possible that her anemia may be secondary to hemolysis. Her haptoglobin is low, but this may be low in liver failure. Retic count is high, bilitubin is high, and LDH is slightly high. She does not appear to be actively bleeding, but since she is now on a heparin drip for DVT, recommend that her Hb is closely monitored. - Closely monitor Hb, stop heparin if this acutely drops - Transfuse as necessary Elevated INR, acute. Worsening - INR 1.82 on admission, significantly elevated from previous INR of 1.34 in July. Likely secondary to acute hepatic injury. Her INR suddenly increased overnight from 1.77 to 2.33. However, repeat lab showed INR 1.85. - Continue to monitor INR daily - Will give Vitamin K today if INR has increased Acute kidney injury. - Cr has been steadily increasing since 09/04. May be related to recent contrast but may also be infection. - Recommend nephrology consultation at this time. Right lower extremity DVT. - US showed RLE DVT. Currently on heparin gtt. - Watch for signs of bleeding. Leukocytosis, acute. Resolved. - Blood cultures negative, repeat urine culture negative. C diff negative. Her repeat UA showed more WBCs (>50) but follow up urine cultures were negative, as she was already on antibiotics. Her leukocytosis has since resolved since starting on antibiotics. - Continue empirical antibiotics. Altered mental status, acute. Resolved. - Pt became suddenly obtunded overnight. ABG showed hypercapnic respiratory failure, so pt was placed on bipap and sent to PCC. This has now resolved. - Lactulose 20g PO QID - Rifaximin 550 mg BID History of Cholangiocarcinoma - Patient has history of intrahepatic cholangiocarcinoma diagnosed in February 2016 , mainly in the left hepatic lobe, metastatic to the right femur. She is currently receiving palliative chemotherapy per Dr. Meier with cisplatin. - Dr. Meier of Oncology is following at this time. We appreciate his input. GI Prophylaxis: Proton Pump Inhibitor (patient has thrombocytopenia and elevated INR and likely not a good candidate for anticoagulation.) VTE Prophylaxis: SCDs VTE Mechanical Devices: Intermittant Pneumatic CD Resuscitation Status: DNR/DNI:Do Not Resuscitate/Intubate Attending Statement Patient seen and examined. Agree with assessment and plan as discussed by Dr Arnold. Overall, very slight improvement in INR, Bili, and Cr. WBC remains normal. Remains on active therapy for DVT. Anemic. Per nursing staff having some intermittent obvious hemorroidal bleeding. Will need to monitor this in the face of thrombocytopenia and active anticoagulation. If persistently problematic may need to inspect with flexible proctoscopy and consider surgery involvement for banding. Arley Arnold Sep 12, 2016 10:07 Derik West MD Sep 12, 2016 16:01
[2016-09-12] MEDS ORDERED: KCl 40 mEq/100 mL (CENTRAL) 40 MEQ in IV Premix 1 EACH IV ONE (10:20)
[2016-09-12] MEDS: Lactulose 20 Gm/30 mL 30 mL Syrup PO SCH ×4 (11:02→19:27)
[2016-09-12] MEDS: Pantoprazole 40 mg ER24 Tablet PO SCH (11:02)
[2016-09-12] MEDS: Nystatin 100,000 Unit/mL 5 mL Suspension PO SCH ×4 (11:03→22:28)
--- NOTE | 2016-09-12 13:03 | NUR ---
PO intake/ Nausea Pt had a speech eval this morning, now on a full liquid nect thick diet with pills whole in apple sauce. Administered am medication around 1000. Pt then became nausea and threw up about 25 cc's of pudding. No more nausea noted. Around 1300 the pt then became nauseated again after taking in some PO from lunch, vomited about 250 cc's. Zofran administered and suggested to take in less just sips of nectar thick liquids. Will continue to monitor.
[2016-09-12 13:15] LABS: INR 1.83 ratio
--- NOTE | 2016-09-12 15:11 | PCM.PALLBR ---
Palliative Care Recommendation 61-year-old female with history of metastatic cholangiocarcinoma, admitted with hyperbilirubinemia as well as acute renal failure. Despite aggressive, appropriate evaluation and treatment her bilirubin has continued to rise and her renal failure, after initial improvement, has begun to worsen again. As a consequence, palliative medicine consulted to assist patient and family and determination of goals of care. Summary of palliative recommendations: 09/12/16- Dyspnea with possible aspiration vs CHF based on CXR-improved with BIPAP and antibiotics. On no diuretics. Has tendency to hypoK-she may benefit from spironolactone. CO2 retainer and clinically has JAYLA--could use CPAP being arranged while in hosp so as to be able to use it OP/SNF. Lethargy-improved Weakness/deconditioning-this will take time but limited due to fx of clavicle. 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 Slow to heal and has hindered her recovery. She shouldn't have severe osteoporosis based on body habitus alone. Hepatic insuff-gradually improving. Etiology remains unclear. If malignant-only option is chemo and then very poor prognosis. Tbili remains fairly stable as does coagulopathy. Nausea/vomiting- assume relates to liver ds. CRI-unclear as to cause of recent decrease in fxn but now stable. DVT-assoc with pain in leg- due to sx probably acute rather than old. Will increase lovenox dose to compensate. Warfarin r/o due to difficulty to draw and monitor. May be able to use xarelto but depends on renal fxn--want >30 CCL and stable HCT Disposition- knows he would not be able to deal with at home unless able to transfer and short ambulation. He works. She was at [facility] [address] but he would prefer her placed at [facility] due to proximity to this hospital. 09/11/16-Pain adequately controlled Dyspnea- improved with improved ABG since intermittent use of BIPAP. Lethargy-continues, speech slightly slurred. Responds to questions briefly and then back to sleep. Hepatic insuff-improving transaminases but continued coagulopathy and autoanticoag. Some concern with starting anticoag in light of her anemia and elevated INR but evidence of DVT. ? if this dates back to her fx or if it is new. CRI- may be a deciding factor if continues to progress. -Symptom management (Pain/other)- no significant distress at this time. Continued management per her medical and consulting teams. Awaiting results of evaluation for worsening lethargy which may necessitate changes in care. Because of her progressive hepatic dysfunction, I have decreased her Seroquel dose. Other interventions per medical/hospitalist team. -DPOA/Advanced Directives/POLST- spoke at length with her Akhil who is her default POA. While he wants to continue attempts at treatment for the time being, he understands the grave nature of her prognosis. Patient is non- decisional at this time due to her encephalopathy. His wishes that she be DO NOT RESUSCITATE/DO NOT INTUBATE/continued limited interventions in the hope that her renal and hepatic function will stabilize and begin to improve. He understands that further focused treatment for her underlying neoplasm is out of the question at this time. Goal-- if she shows improvement in hepatic and renal fxn--then being able to sustain chemo-they would both be interested in this. Dr. Meier is pessimistic about this defining the multitude of comorbidities she has. They are interested in continuing antibiotics as appropriate and the monitoring of labs, transfusions etc and treatment for the DVT. They are both very realistic that should her numbers worsen-then comfort only and Hospice consult to be considered. Will plan on completing a POLST prior to discharge. -Family/emotional support- palliative medicine will continue to follow and support. I gave him my card with my personal cell phone number. [place] my advice to him was to advise family members that if it was important to them to see the patient before she , they should probably come now. Certainly he understands that she may still rally, but at the same time her prognosis does not look good. -Spiritual support- offered Patient Goals: 1. Patient and family want to be told the truth about her illness, even if it is unpleasant. 2. Patient and family would like to be told prognosis when it can be predicted, to better guide treatment decisions. Additional Medical Diagnoses with primary management by Hospitalist team include : Hyperbilirubinemia, acute. Oral thrush Elevated LFTs, acute. Elevated INR, acute. Constipation, acute-resolved Hypokalemia (resolved) New onset camphorus ulcers of the tounge (resolving) Hypomagnesemia on admission History of Cholangiocarcinoma Problems: End of Life Preferences DO NOT RESUSCITATE/DO NOT INTUBATE/limited interventions Goals of Care Patient's continues to hope for stabilization and modest recovery so that she may return home. Disposition To be determined If over the next several days it appears that the patient is continuing to deteriorate, with worsening hepatic and renal function, I anticipate that we would transition to comfort care. Thereafter, would need to determine whether it would be more appropriate for her to stay here for end-of-life care versus considering other options such as home with hospice, etc. Her would be the only person at home with her and does not feel that he could manage her care with only episodic hospice support. and son Nigel will be her this evening to meet with Dr. Meier to review his sense of likelihood to recover. UE US should have been read by then. Resuscitation Status Resuscitation Status: DNR/DNI:Do Not Resuscitate/Intubate POLST Updates/Changes Previous POLST?: No Artificially Admin Nutrition: No Artifical Nutrition by Tube POLST Discussed with: Spouse/Other Total time 45 minutes; >50% face to face with patient and/or family, providing counselling regarding plans and recommendations, and in care coordination with his/her medical teams. I also spent an additional [ ] minutes counseling for advanced care planning with the patient/the patients family/the surrogate decision maker. copies to: Demarco Sofia MD Palliative Brief Note Date of Service Sep 12, 2016 . Patient is seen with at bedside. Mask is off and she is quite chatty. She states her goal is to be comfortable. she states she is willing to do chemo if would help but also that she is very weak. Nausea ongoing with 1 episode of vomiting early this AM when on BIPAP. RN was able to get mask off just prior. Pt has been on mouth swabs since respir deterioration thought due to aspiration 09/08. She has been on clinda and levo since ? aspiration. She has hypoventilation and notices that she does better since using BIPAP. She has long hx of snoring and had an appt for a sleep study in 2 weeks. O: morbidly obese, hirsute with very thick neck speaks slowly but appropriately , frequently asking for mouth swab--ie thirsty lungs diminished BS COR- RR, HS distant INR 1.83 Hgb 8.1 decreasing tranaminases and alkphos. PLT 90K Camila Herrera MD Sep 12, 2016 15:11
[2016-09-12] MEDS: levoFLOXacin Inj 500 MG in IV Premix 1 EACH IV SCH (15:28)
--- NOTE | 2016-09-12 16:15 | NUR ---
Social Work Note: Continued Discharge Planning Data& Assessment: Per MD pt will require Trilogy Machine at time of discharge. Pt has been accepted at [facility] when medically ready as they are the only in network local SNF. NISHANT confirmed that [employer] is the contracted company and spoke with Liaison Maranda who will come by the hospital tomorrow 09/13/2016 to assess pt and provide further information. SW to continue to follow. Plan: Anticipated discharge to [facility] when medically ready with Trilogy through [facility]. SW to continue to follow. JUAN Maurer
--- NOTE | 2016-09-12 17:15 | NUR ---
spiritual care: follow up pt continues to receive to receive eucharistic visitors.
[2016-09-12] MEDS ORDERED: Furosemide 10 mg/mL 4 mL Inj IVPUSH ONE (18:35)
[2016-09-12] MEDS: Phenyleph-Petrol-Min Oil 57 Gm Ointment RECTAL PRN (19:39)
[2016-09-12] MEDS ORDERED: Potassium Chloride Oral 20 mEq SR Tab(K 3 - 3.7 & Creat < 2) PO ONE (22:25)
[2016-09-13] VITALS (11 sets, daily range): BP systolic 95–143; BP diastolic 57–80; PULSE 55–65; RESP 16–22; O2SAT 96–100
[2016-09-13] MEDS: Clindamycin Inj 900 MG in IV Premix 1 EACH IV SCH ×2 (00:46→10:06)
[2016-09-13] MEDS: 0.9% Sodium Chloride 1,000 ML IV SCH ×3 (01:28→20:56)
[2016-09-13 03:41] LABS: INR 1.98 ratio
[2016-09-13 04:09] LABS: Magnesium 1.7 mg/dL (1.6-2.6)
--- NOTE | 2016-09-13 04:22 | NUR ---
Respiratory/ skin Pt restless and not tolerating BIPAP. Continually attempting to take BIPAP off. PT requesting something to help her sleep. PRN PO Trazadone given with some effect- pt sleeping intermittently overnight. BIPAP removed frequently per pt request and oral care performed. PT had one large episode of incontinence. mepilex on backside removed. area cleaned and Calmoseptine applied to back side and pannus. Perpetration H applied to bleeding Hemorid, pt turned and positioned q2hrs.
[2016-09-13] MEDS: Albuterol 2.5 mg/3 mL Inhalation Solution NEB SCH ×4 (05:31→20:32)
[2016-09-13 08:40] LABS: BASOPHILS % (AUTO) 0 % (0-3); EOSINOPHILS % (AUTO) 0.5 % (0-5); Mean Corpuscular Hemoglobin 32.3 pg (27.0-35.0); Mean Corpuscular Volume 93.6 fL (81-100); NEUTROPHILS % (AUTO) 82.4 % (40-74); Platelet Count 101 bil/L (150-400)
[2016-09-13] MEDS: Ondansetron 2 mg/mL 2 mL Inj IVPUSH PRN ×2 (09:36→22:33)
[2016-09-13] MEDS ORDERED: Phytonadione (Adult) 10 MG in Dextrose 5%-Pha MIX 50 ML IV ONE (09:55)
[2016-09-13] MEDS: Pantoprazole 40 mg ER24 Tablet PO SCH (10:05)
[2016-09-13] MEDS: Nystatin 100,000 Unit/mL 5 mL Suspension PO SCH ×5 (10:06→21:48)
[2016-09-13] MEDS: Lactulose 20 Gm/30 mL 30 mL Syrup PO SCH ×5 (10:06→21:30)
--- NOTE | 2016-09-13 10:20 | PCM.PNMED ---
Subjective Date of Service Sep 13, 2016 Subjective Pt continues to have nausea on occasion, worse when on BiPAP as she feels she is "choking on it". She also reports some mild right-sided abdominal pain. Her is concerned that she appears more groggy and lethargic today and she reports feeling more confused today. Exam Vital Signs Vital Sign - Last Date Time Temp Pulse Resp B/P Pulse Ox O2 Delivery O2 Flow Rate FiO2 09/13/16 09:42 36.6 63 124/67 Room Air 09/13/16 05:32 16 96 21 09/09/16 09:21 2.00 Intake and Output 09/12/16 09/12/16 09/13/16 Cumulative From/Thru 14:59 22:59 06:59 08/30/16 13:59 - 09/13/16 04:59 Intake Total 2197 ml 2051 ml 02971 ml Output Total 950 ml 350 ml 97723 ml Balance 1247 ml 1701 ml 58292 ml Intake Oral 518 ml 350 ml 8034 ml IV Total 1679 ml 1701 ml 05363 ml Packed Cells 300 ml Output Urine Total 700 ml 350 ml 9955 ml Stool Total 304 ml Emesis 250 ml 850 ml # Voids 2 # Bowel Movements 1 32 Exam General: Alert and oriented x3, No Acute Distress Head: Normocephalic, atraumatic. External ears normal. Eyes: PERRLA, EOMI. Scleral icterus present. Chest & Lungs: Clear to auscultation bilaterally with no crackles, wheezes, or rhonchi. Cardiovascular: Regular Rate/Rhythm, Normal S1, Normal S2, No Murmurs/Rubs/ Gallops Abdomen: Mild LUQ tenderness, Non-distended, Normoactive bowel tones, Soft. Right sided epigastric mass palpable Musculoskeletal: Normal Range of Motion Extremities: Bilateral lower extremity edema, right leg tenderness Skin: Jaundice present Neurological: Appears more lethargic and confused today. Lab and Diagnostics Result Diagram: 09/13/1629909/13/16299 Microbiology Name: HENRY HARRY Age/Sex: 61/F Attend Dr: Markos Milligan MD Acct: [id number] Unit: [id number] Status: ADM IN [place]: [facility] Re08/30/16 Disch: Specimen: [id number] Collected: 09/04/16 Status: COMP Req#: [id number] Received: 09/04/16 Source: STOOL Sp Desc : STL ASP Subm Dr: Pallavi Jacobs DO Ordered: C DIFF DNA PCR Comments: Collected by Nurse/Unit? Y/N Y Procedure Result Verified Site Microbiology ARNALDO C DIF PCR STOOL Final 09/04/16 CDIF DNA BY PCR NEGATIVE REFERENCE INTERVAL NEGATIVE Specimen: [id number] Collected: 08/30/16 Status: JEANMARIE Guillory#: [id number] Received: 08/30/16 Source: URINE CC Sp Desc : SAMIR Perry Dr: DOC,ED MD Ordered: URINE CULT Procedure Result Verified Site Microbiology ARNALDO CULT URINE Final 09/01/16 Organism 1 ESCHERICHIA COLI U COLONY COUNT/QUANTITY >100,000 CFU/ml Cefazolin-predicts results for the oral agents, cefaclor,cefdinir, cefpodoximen, cefprozil, cefuroximne axetil, cephalexin and loracarbed when used for therapy of uncomplicated UTI's due to E. coli, K. pneumoniae, and Proteus mirabilis. Cefpodoxime, cefdinir and cefuroxime axetil may be tested individually because some isolates may be susceptible to these agents while testing resistant to cefazolin. (CLSI C466-V86 pg 53) 1. ESCHERICHIA COLI M.I.C Interp --------- ------ * AMOXICILLIN/CLAVULATE <=2 S * AMPICILLIN 4 S * CEFAZOLIN (CEPHALOSPORIN) UTI 4 S * CEFEPIME <=1 S * CEFTRIAXONE <=1 S * CEFUROXIME SODIUM 4 S * CIPROFLOXACIN <=0.25 S * ERTAPENEM <=0.5 S * GENTAMICIN <=1 S * IMIPENEM <=1 S * LEVOFLOXACIN <=0.12 S * NITROFURANTOIN <=16 S * TETRACYCLINE <=1 S * TOBRAMYCIN <=1 S * TRIMETHOPRIM/SULFAMETHOXAZOLE <=20 S Name: HENRY HARRY Age/Sex: 61/F Attend Dr: Markos Milligan MD Acct: [id number] Unit: [id number] Status: ADM IN [place]: [facility] Re08/30/16 Disch: Specimen: [id number] Collected: 09/01/16 Status: COMP Req#: [id number] Received: 09/01/16 Source: URINE CC Sp Desc : SAMIR Perry Dr: Derik West MD Ordered: URINE CULT Procedure Result Verified Site Microbiology ARNALDO CULT URINE Final 09/03/16-0928 No growth (<1,000 organisms/mL) Name: HENRY HARRY Age/Sex: 61/F Attend Dr: Markos Milligan MD Acct: [id number] Unit: [id number] Status: ADM IN Location: [facility] Re08/30/16 Disch: Specimen: [id number] Collected: 08/30/16 Status: JEANMARIE Guillory#: [id number] Received: 08/30/16 Source: BLOOD Sp Desc : ADRIANO Perry Dr: Marc Mcgrath DO Ordered: BC Comments: Collected by Nurse/Unit? Y/N N Comment: add on ok Procedure Result Verified Site Microbiology ARNALDO CULTURE BLOOD Final 09/04/16 NO GROWTH AFTER 5 DAYS X-Rays, CTs and MRIs CXR 09/08 1. Layering left pleural effusion and bibasilar airspace opacities consistent compressive atelectasis versus aspiration or pneumonia. Differential diagnosis would also include patchy pulmonary edema. CT Abd/pelvis with contrast There is an irregular, lobulated mass involving the left aspect of the liver. This mass measures slightly decreased in size compared to the prior examinations. Please correlate with interval treatment. New development of moderate simple fluid within the peritoneal cavity. The gallbladder wall appears irregular and hyperenhancing, consistent with the given history of gallbladder cancer. Stable left adrenal nodule. Faintly seen right adrenal nodule. A few stable pulmonary nodules can be seen at the lung bases. Incidental note is made of: Dextroconvex scoliosis and bony degenerative changes 12-lead ECG Personally and concurrently reviewed by Flaquito 09/09 . Sinus rhythm rate 75, QTC 479 ms . Low voltage, precordial leads * Borderline repol abnormality, lateral leads * No previous study for comparison 08/30 Cardiac Echo Impressions ECHO 09/08 Interpretation Summary The left ventricular cavity is small. The left ventricle is hyperdynamic. The ejection fraction is estimated to be 70-75%. There is no echo evidence for significant left ventricular outflow tract obstruction. The right ventricle is not well visualized. Right ventricular function cannot be assessed due to poor image quality. All the valves were not well visualized, however, no significant valvular pathology seen. [facility] Additional Diagnostics DateTimeAnalyzed 04:49:00 -_ pH ____7.331 - 7.350 7.450 pCO2 ___37.1__ -mmHg 35.0 45.0 pO2 115 -mmHg 69.0 116 HCO3- ___19.0__ -mmol/L 22.0 26.0 ABE ___-5.8__ -mmol/L -2.0 2.0 tHb ____7.1__ -g/dL O2Hb ___96.9__ -% COHb ____1.6__ -% MetHb ____0.6__ -% sO2 ___99.1__ -% 25.0 FIO2 ___28.0__ -% CPAP ___12.0__ -cmH2O PEEP ____5.0__ -cmH2O Set_RR ___12.0__ -b/min Drawn By MM - Date/Time Notified____ 04:53:00 -_ Oxygen Device 1 ____BIPAP - ABG DateTimeAnalyzed 11:57:00 -_ pH ____7.251 - 7.350 7.450 pCO2 ___47.3__ -mmHg 35.0 45.0 pO2 ___96.3__ -mmHg 69.0 116 HCO3- ___20.0__ -mmol/L 22.0 26.0 ABE ___-6.2__ -mmol/L -2.0 2.0 Assessment & Plan Patient is a 61-year-old female with a history of metastatic cholangiocarcinoma who presents for evaluation of acute jaundice and fever. C difficile infection, acute - Pt tested positive for C diff. She was placed on IV Flagyl as she is NPO due to dysphagia. If she does not clinically improve within the next 1-2 days, we recommend placing an NG tube for administration of PO Vancomycin and Flagyl, as well as PO lactulose and rifaximin. - Stopped Clindamycin and Levofloxacin. Hyperbilirubinemia, acute. Improving. - MRCP showed ascites, a mass lesion within the liver as previously identified, contracted irregular gallbladder, and no visualized biliary ductal dilation. She may have intrahepatic cholestasis secondary to her tumor, although the mass does not appear to have changed significantly. There does not appear to be any extrahepatic pathology that can be addressed via ERCP. MRCP showed contracted irregular gallbladder. HIDA scan was inconclusive but suspicious for hepatocellular injury. Bilirubin now appears to be improving slowly. Will continue to trend. - Continue to monitor LFTs and bilirubin Elevated LFTs, acute. Stable. - LFTs have been mildly elevated since 07/26/16, normal before that date. They became more elevated around 08/30, when she started her nitrofurantoin. Hepatitis workup negative. Her LFTs have been fairly stable since, but appear to have started climbing again today. ARIANA positive, anti-smooth muscle weakly positive. Anti-Sm and FIBER HEEL PIECE SHAPER negative. Autoimmune hepatitis is possible. LFTs appear to have improved. - Continue to monitor LFTs Acute anemia. Ongoing. - She is off the heparin drip and on Lovenox, and is concern for a current hemorrhoid bleed. - Closely monitor H&H - Transfuse as necessary Hemorrhoids. - This needs to be closely monitored given her recent heparin drip and current Lovenox, as well as her thrombocytopenia. As her Hb continues to drop, it may be worth setting up a flexible proctoscopy. If this continues to be an issue, consider surgery consultation for possible banding of hemorrhoids. Altered mental status, acute. Recurring. - Pt appears to be more lethargic and confused today. Because of her nausea and NPO status, she has not had oral lactulose or rifaximin in a few days, and vomited her medications yesterday. If her mentation does not improve, consider NG tube placement for admin of lactulose/rifaximin. - Lactulose 20g PO QID - Rifaximin 550 mg BID Elevated INR, acute. Worsening - INR 1.82 on admission, significantly elevated from previous INR of 1.34 in July. Likely secondary to acute hepatic injury. INR continues to rise. - Continue to monitor INR daily - Ordered Vitamin K 10 mg IV. Acute kidney injury. Stable - Cr has been steadily increasing since 09/04. May be related to recent contrast but may also be infection. - Recommend nephrology consultation at this time. Right lower extremity DVT. - US showed RLE DVT. Currently on Lovenox - Watch for signs of bleeding. Leukocytosis, acute. Resolved. - Blood cultures negative, repeat urine culture negative. C diff negative. Her repeat UA showed more WBCs (>50) but follow up urine cultures were negative, as she was already on antibiotics. Her leukocytosis has since resolved since starting on antibiotics. - Continue empirical antibiotics. History of Cholangiocarcinoma - Patient has history of intrahepatic cholangiocarcinoma diagnosed in February 2016 , mainly in the left hepatic lobe, metastatic to the right femur. She is currently receiving palliative chemotherapy per Dr. Meier with cisplatin. - Dr. Meier of Oncology is following at this time. We appreciate his input. GI Prophylaxis: Proton Pump Inhibitor (patient has thrombocytopenia and elevated INR and likely not a good candidate for anticoagulation.) VTE Prophylaxis: SCDs VTE Mechanical Devices: Intermittant Pneumatic CD Resuscitation Status: DNR/DNI:Do Not Resuscitate/Intubate Attending Statement Patient seen and examined. Agree with assessment and plan as described above by Dr Arnold. Cr stable to slightly improved, Bili slightly improved. INR up slightly. Rec'd another oral dose of Vitamin K. Mental status fluctuates. Recommend attempt to take oral meds/nutrition/hydration. While on therapy for C diff hold lactulose, but continue the Rifaximin. Monitor BRBPR. If hemorroidal bleeding persists while on the anticoagulation, will need surgical c /s for banding. Would recommend discontinuation of levaquin and clindamycin. Overall prognosis is still quite poor. Arley Arnold Sep 13, 2016 10:20 Derik West MD Sep 13, 2016 21:59
--- NOTE | 2016-09-13 11:12 | NUR ---
Palliative care note D/A: Case discussed in PC rounds. . Current plan is for pt to go to [facility]. Pt is being seen regarding need for Trilogy. Pt has a malignancy which Dr. Herrera feels will result in eol in about the next one or two months. Plan is for pt to go to SNF under skilled benefit and for consideration after that time to hospice benefit. Pt is noted to have [employer] as well as [employer]. dept is pursuing SNF authorization for this pt. Spoke to [facility] to request [facility] info visit. Agency unable to provide visit today and will work on schedule for 09/14/16. Case discussed further with Dr. Herrera. Pt felt to benefit from C-PAP but with greater need for investigatory assessment in order to qualify. Pt could potentially be qualified for Trilogy today, depending on arterial gasses. Faced with issues regarding benefits and funding in the face of his spouse's needs regarding SNF and respiratory intervention decisions, it was felt that spouse would benefit from hearing hospice information post acute care visit. Phone call to Salima to cancel request for [facility] info visit for now and to request agency to follow up with spouse/pt/family in about a week, when she is settled at [facility]. [facility] agrees to request. P: [facility] to follow up with pt/family in about a week, after pt settled at facility. Palliative to continue to follow. Deann RESENDEZ, [facility]
--- NOTE | 2016-09-13 12:40 | PCM.PNMED ---
Subjective Date of Service Sep 13, 2016 Subjective She is very somnolent. She does however answer simple questions and denies pain. She has had no pain medication in several days. She did have nausea and threw up several times this morning. Speech did make her nothing by mouth because of her emesis. She has ongoing rectal bleeding from a hemorrhoid and multiple excoriations over the buttocks. She does feel a fair amount of abdominal bloating. Exam Vital Signs Vital Sign - Last Date Time Temp Pulse Resp B/P Pulse Ox O2 Delivery O2 Flow Rate FiO2 09/13/16 12:26 35.4 56 17 143/80 96 Room Air 09/13/16 05:32 21 09/09/16 09:21 2.00 Intake and Output 09/12/16 09/12/16 09/13/16 Cumulative From/Thru 15:00 23:00 07:00 08/30/16 13:59 - 09/13/16 04:59 Intake Total 2197 ml 2051 ml 89479 ml Output Total 950 ml 350 ml 12763 ml Balance 1247 ml 1701 ml 78831 ml Intake Oral 518 ml 350 ml 8034 ml IV Total 1679 ml 1701 ml 94836 ml Packed Cells 300 ml Output Urine Total 700 ml 350 ml 9955 ml Stool Total 304 ml Emesis 250 ml 850 ml # Voids 2 # Bowel Movements 08 13 31 Exam She is a lethargic with slurred speech but is fluent. She is in no distress. She has had mildly icteric sclera. Oropharynx without drip. Neck supple. Lungs are clear with normal effort. Heart is regular without murmur Abdomen is distended but nontender Extremities with 2+ edema. No skin rash or lesions. Good radial pulses. IVs and Medications Medications Reviewed: Medications were reviewed in detail Lab and Diagnostics Result Diagram: 09/13/1629909/13/16299 Microbiology Name: HARRYHENRY M Age/Sex: 61/F Attend Dr: Markos Milligan MD Acct: [id number] Unit: [id number] Status: AD[place] IN [place] [facility] [place] Disch: Specimen: [id number] Collected: 09/04/16 Status: COMP Req#: [id number] Received: 09/04/16 Source: STOOL Sp Desc : STL ASP Subm Dr: Pallavi Jacobs DO Ordered: C DIFF DNA PCR Comments: Collected by Nurse/Unit? Y/N Y Procedure Result Verified Site Microbiology ARNALDO C DIF PCR STOOL Final 09/04/16 CDIF DNA BY PCR NEGATIVE REFERENCE INTERVAL NEGATIVE Specimen: [id number] Collected: 08/30/16 Status: JEANMARIE Guillory#: [id number] Received: 08/30/16 Source: URINE VIVIAN Black Desc : SAMIR Perry Dr: DOC,ED MD Ordered: URINE CULT Procedure Result Verified Site Microbiology ARNALDO CULT URINE Final 09/01/16 Organism 1 ESCHERICHIA COLI U COLONY COUNT/QUANTITY >100,000 CFU/ml Cefazolin-predicts results for the oral agents, cefaclor,cefdinir, cefpodoximen, cefprozil, cefuroximne axetil, cephalexin and loracarbed when used for therapy of uncomplicated UTI's due to E. coli, K. pneumoniae, and Proteus mirabilis. Cefpodoxime, cefdinir and cefuroxime axetil may be tested individually because some isolates may be susceptible to these agents while testing resistant to cefazolin. (CLSI I505-R15 pg 53) 1. ESCHERICHIA COLI M.I.C Interp --------- ------ * AMOXICILLIN/CLAVULATE <=2 S * AMPICILLIN 4 S * CEFAZOLIN (CEPHALOSPORIN) UTI 4 S * CEFEPIME <=1 S * CEFTRIAXONE <=1 S * CEFUROXIME SODIUM 4 S * CIPROFLOXACIN <=0.25 S * ERTAPENEM <=0.5 S * GENTAMICIN <=1 S * IMIPENEM <=1 S * LEVOFLOXACIN <=0.12 S * NITROFURANTOIN <=16 S * TETRACYCLINE <=1 S * TOBRAMYCIN <=1 S * TRIMETHOPRIM/SULFAMETHOXAZOLE <=20 S Name: EDILSON HARRYCHARLINE oPwer Age/Sex: 61/F Attend Dr: Markos Milligan MD Acct: [id number] Unit: [id number] Status: ADM IN [place] [facility] [place]08[place] Disch: Specimen: [id number] Collected: 09/01/16 Status: COMP Req#: [id number] Received: 09/01/16 Source: URINE CC Sp Desc : SAMIR Perry Dr: Derik West MD Ordered: URINE CULT Procedure Result Verified Site Microbiology ARNALDO CULT URINE Final 09/03/16-0928 No growth (<1,000 organisms/mL) Name: HENRY HARRY Age/Sex: 61/F Attend Dr: Markos Milligan MD Acct: [id number] Unit: [id number] Status: ADM IN [place] [facility] [place]08/30/16 Disch: Specimen: [id number] Collected: 08/30/16 Status: JEANMARIE Reamanda#: [id number] Received: 08/30/16 Source: BLOOD Sp Desc : AA Subm Dr: Marc Mcgrath DO Ordered: BC Comments: Collected by Nurse/Unit? Y/N N Comment: add on ok Procedure Result Verified Site Microbiology ARNALDO CULTURE BLOOD Final 09/04/16 NO GROWTH AFTER 5 DAYS X-Rays, CTs and MRIs CXR 09/08 1. Layering left pleural effusion and bibasilar airspace opacities consistent compressive atelectasis versus aspiration or pneumonia. Differential diagnosis would also include patchy pulmonary edema. CT Abd/pelvis with contrast There is an irregular, lobulated mass involving the left aspect of the liver. This mass measures slightly decreased in size compared to the prior examinations. Please correlate with interval treatment. New development of moderate simple fluid within the peritoneal cavity. The gallbladder wall appears irregular and hyperenhancing, consistent with the given history of gallbladder cancer. Stable left adrenal nodule. Faintly seen right adrenal nodule. A few stable pulmonary nodules can be seen at the lung bases. Incidental note is made of: Dextroconvex scoliosis and bony degenerative changes 12-lead ECG Personally and concurrently reviewed by [place] 09/09 . Sinus rhythm rate 75, QTC 479 ms . Low voltage, precordial leads * Borderline repol abnormality, lateral leads * No previous study for comparison 08/30 Cardiac Echo Impressions ECHO 09/08 Interpretation Summary The left ventricular cavity is small. The left ventricle is hyperdynamic. The ejection fraction is estimated to be 70-75%. There is no echo evidence for significant left ventricular outflow tract obstruction. The right ventricle is not well visualized. Right ventricular function cannot be assessed due to poor image quality. All the valves were not well visualized, however, no significant valvular pathology seen. [facility] Additional Diagnostics DateTimeAnalyzed 04:49:00 -_ pH ____7.331 - 7.350 7.450 pCO2 ___37.1__ -mmHg 35.0 45.0 pO2 115 -mmHg 69.0 116 HCO3- ___19.0__ -mmol/L 22.0 26.0 ABE ___-5.8__ -mmol/L -2.0 2.0 tHb ____7.1__ -g/dL O2Hb ___96.9__ -% COHb ____1.6__ -% MetHb ____0.6__ -% sO2 ___99.1__ -% 25.0 FIO2 ___28.0__ -% CPAP ___12.0__ -cmH2O PEEP ____5.0__ -cmH2O Set_RR ___12.0__ -b/min Drawn By MM - Date/Time Notified____ 04:53:00 -_ Oxygen Device 1 ____BIPAP - ABG DateTimeAnalyzed 11:57:00 -_ pH ____7.251 - 7.350 7.450 pCO2 ___47.3__ -mmHg 35.0 45.0 pO2 ___96.3__ -mmHg 69.0 116 HCO3- ___20.0__ -mmol/L 22.0 26.0 ABE ___-6.2__ -mmol/L -2.0 2.0 Assessment & Plan Patient is a 61-year-old female with a history of metastatic cholangiocarcinoma who presents for evaluation of acute jaundice and fever. Positive CDT 2/2. No PO due to dysphagia. Will start metronidazole IV. Hyperbilirubinemia, acute. Improving. - MRCP showed ascites, a mass lesion within the liver as previously identified, contracted irregular gallbladder, and no visualized biliary ductal dilation. She may have intrahepatic cholestasis secondary to her tumor, although the mass does not appear to have changed significantly. There does not appear to be any extrahepatic pathology that can be addressed via ERCP. MRCP showed contracted irregular gallbladder. HIDA scan was inconclusive but suspicious for hepatocellular injury. Bilirubin now appears to be improving slowly. Will continue to trend. - Continue to monitor LFTs and bilirubin No other changes for today. Acute anemia. Ongoing. - She is off the heparin drip and on Lovenox, and is concern for a current hemorrhoid bleed. - Closely monitor H&H - Transfuse as necessary He did receive 1 unit of blood. Hemorrhoids. Ongoing bleeding. - She is at the end of her life and not a surgical candidate. In fact her may not be interested in more blood products support either. Possible hepatic encephalopathy. Recurring. - Pt appears to be more lethargic and confused today. Because of her nausea and NPO status, she has not had oral lactulose or rifaximin in a few days, and vomited her medications yesterday. Will attempt to pretreat with Zofran before giving PO medications today. - Lactulose 20g PO QID - Rifaximin 550 mg BID no change to the current medical management. Elevated INR, acute. Worsening - INR 1.82 on admission, significantly elevated from previous INR of 1.34 in July. Likely secondary to acute hepatic injury. INR continues to rise. - Continue to monitor INR daily We will continue to follow her coagulopathy secondary to liver dysfunction. Acute kidney injury. Stable - Cr has been steadily increasing since 09/04. May be related to recent contrast but may also be infection. - Recommend nephrology consultation at this time. Right lower extremity DVT. - US showed RLE DVT. Currently on Lovenox - Watch for signs of bleeding. History of Cholangiocarcinoma - Patient has history of intrahepatic cholangiocarcinoma diagnosed in February 2016 , mainly in the left hepatic lobe, metastatic to the right femur. She is currently receiving palliative chemotherapy per Dr. Meier with cisplatin. - Dr. Meier of Oncology is following at this time. We appreciate his input. Had a long discussion with today regarding her prognosis and the fact that most of her current problems are not fixable. Have really tried to guide him towards the importance of comfort and considering pulling back and all measures that at this point likely are going to extend her life incrementally and possibly increase suffering. He shows good understanding of what is happening and likely will change the perspective from ongoing treatment to comfort in the next day or 2. He is expecting relatives from out of town tonight or tomorrow morning. Pain Evaluation: Adequate Pain Control GI Prophylaxis: Proton Pump Inhibitor (patient has thrombocytopenia and elevated INR and likely not a good candidate for anticoagulation.) VTE Prophylaxis: SCDs VTE Mechanical Devices: Intermittant Pneumatic CD Resuscitation Status: DNR/DNI:Do Not Resuscitate/Intubate Time spent 30 minutes Ford Fernandes MD Sep 13, 2016 12:40
--- NOTE | 2016-09-13 14:06 | NUR ---
Afternoon medications/ Mentation Pt not alert enough to take afternoon Lactobacilus and Nystatin, medications with held. Will evaluate alertness when next dose is due. Speech therapy saw Pt and made her NPO if not alert.
--- NOTE | 2016-09-13 14:30 | NUR ---
NUTRITION FOLLOW UP: ASSESS: 61 YO F admitted for acute jaundice and fever. Pt is being followed by oncology for metastatic cholangiocarcinoma. She is currently receiving palliative chemotherapy. Per progress not, MRCP showed ascites. Diet adv per ST on 09/12 after ~3 days of NPO status. Pt tolerated a full liquid diet, eating 25-50%, for about 1 day. After re-evaluation today, ST has made pt NPO again d/t decreased alertness. Per MD, pt may transition to comfort centered care in the next few days. PMHX: cholangiocarcinoma, HTN, JAYLA, UTI, Gastric Ulcers LABS: Reviewed. Cl 110, CO2 17, BUN 62, Cr 1.97, Ca 8.4, T-bili 14.5, AST 56, Alk phos 241, Albumin 2.3 MEDS: Reviewed. Giovana Slater GI: BM x1 09/13 SKIN: jaundiced. Alberto 11 CURRENT WTS: 146.5 kg, BMI 59.1 kg/m2, admit wt 118 kg. (BMI: 47.6 kg/m2)Wt up 28.5 kg x 12 days. IBW 50 kg, Adj bw 67 kg DIET: NPO ESTIMATED NEEDS: ca (based off admit wt) Calories: 0240-9131 kcal/day (25-30 kcal/kg adj bw) Protein: 80-100 g/day (1.2-1.5 g/kg adj bw) NUTRITION DIAGNOSIS: 1.) Increased nutrient needs related to chronic disease as evidence by pt on palliative chemo and pt with metastatic cholangiocarcinoma.---PERSISTS. 2.) Chewing/swallowing difficulty related to mentation as evidenced by decreased alertness and NPO status per ST. NUTRITION INTERVENTION: 1.) Diet per ST recommendations 2.) Consider nutrition support in the next couple if unable to advance diet and is consistent with pt's goals of care. MONITOR/EVALUATE: Wt, NPO status, diet advance, labs, GI, POC, nutrition status. Follow per high nutrition risk guidelines
[2016-09-13] MEDS: levoFLOXacin Inj 500 MG in IV Premix 1 EACH IV SCH (15:14)
[2016-09-13] MEDS: metroNIDAZOLE Inj 500 MG in IV Premix 1 EACH IV SCH (16:56)
--- NOTE | 2016-09-13 17:06 | PCM.PALLBR ---
Palliative Care Recommendation 61-year-old female with history of metastatic cholangiocarcinoma, admitted with hyperbilirubinemia as well as acute renal failure. Despite aggressive, appropriate evaluation and treatment her bilirubin has continued to rise and her renal failure, after initial improvement, has begun to worsen again. As a consequence, palliative medicine consulted to assist patient and family and determination of goals of care. Summary of palliative recommendations: 09/13/16- Ga[place] of care again reviewed. Will need SNF due to level of care and debility. Dyspnea and respiratory insuff-she dislikes BIPAP and not able to get nasal pillow CPAP. Now improved and may do fine without intervention-for short term. Consider BIPAP but if goes on hospice this would not be continued Nutrition-variable level of consciousness-encourage PO intake when awake and will liberalize diet to pureed to reflect this. If sedated- DO NOT FEED hepatic and renal insuff- stable but not improving Cdiff-reviewed with Dr. West-will try PO vanco Disposition-to go to [facility]. They are interested in hospice but the funding of [facility] vs hospice needs further exploration. Reviewed goal is to treat her to the best of abiltiy in facility and not transfer to hospital Code status remains DNR/DNI with knowledge of probable progression of cholangiocarcinoma without treatment. No further studies are anticipated at this time. 09/12/16- Dyspnea with possible aspiration vs CHF based on CXR-improved with BIPAP and antibiotics. On no diuretics. Has tendency to hypoK-she may benefit from spironolactone. CO2 retainer and clinically has JAYLA--could use CPAP being arranged while in hosp so as to be able to use it OP/SNF. Lethargy-improved Weakness/deconditioning-this will take time but limited due to fx of clavicle. 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 Slow to heal and has hindered her recovery. She shouldn't have severe osteoporosis based on body habitus alone. Hepatic insuff-gradually improving. Etiology remains unclear. If malignant-only option is chemo and then very poor prognosis. Tbili remains fairly stable as does coagulopathy. Nausea/vomiting- assume relates to liver ds. CRI-unclear as to cause of recent decrease in fxn but now stable. DVT-assoc with pain in leg- due to sx probably acute rather than old. Will increase lovenox dose to compensate. Warfarin r/o due to difficulty to draw and monitor. May be able to use xarelto but depends on renal fxn--want >30 CCL and stable HCT Disposition- knows he would not be able to deal with at home unless able to transfer and short ambulation. He works. She was at [facility] [address] but he would prefer her placed at [facility] due to proximity to this hospital. 09/11/16-Pain adequately controlled Dyspnea- improved with improved ABG since intermittent use of BIPAP. Lethargy-continues, speech slightly slurred. Responds to questions briefly and then back to sleep. Hepatic insuff-improving transaminases but continued coagulopathy and autoanticoag. Some concern with starting anticoag in light of her anemia and elevated INR but evidence of DVT. ? if this dates back to her fx or if it is new. CRI- may be a deciding factor if continues to progress. -Symptom management (Pain/other)- no significant distress at this time. Continued management per her medical and consulting teams. Awaiting results of evaluation for worsening lethargy which may necessitate changes in care. Because of her progressive hepatic dysfunction, I have decreased her Seroquel dose. Other interventions per medical/hospitalist team. -DPOA/Advanced Directives/POLST- spoke at length with her Akhil who is her default POA. While he wants to continue attempts at treatment for the time being, he understands the grave nature of her prognosis. Patient is non- decisional at this time due to her encephalopathy. His wishes that she be DO NOT RESUSCITATE/DO NOT INTUBATE/continued limited interventions in the hope that her renal and hepatic function will stabilize and begin to improve. He understands that further focused treatment for her underlying neoplasm is out of the question at this time. Goal-- if she shows improvement in hepatic and renal fxn--then being able to sustain chemo-they would both be interested in this. Dr. Meier is pessimistic about this defining the multitude of comorbidities she has. They are interested in continuing antibiotics as appropriate and the monitoring of labs, transfusions etc and treatment for the DVT. They are both very realistic that should her numbers worsen-then comfort only and Hospice consult to be considered. Will plan on completing a POLST prior to discharge. -Family/emotional support- palliative medicine will continue to follow and support. I gave him my card with my personal cell phone number. He is going to be contacting family members in [place] and [place]- my advice to him was to advise family members that if it was important to them to see the patient before she , they should probably come now. Certainly he understands that she may still rally, but at the same time her prognosis does not look good. -Spiritual support- offered Patient Goals: 1. Patient and family want to be told the truth about her illness, even if it is unpleasant. 2. Patient and family would like to be told prognosis when it can be predicted, to better guide treatment decisions. Additional Medical Diagnoses with primary management by Hospitalist team include : Hyperbilirubinemia, acute. Oral thrush Elevated LFTs, acute. Elevated INR, acute. Constipation, acute-resolved Hypokalemia (resolved) New onset camphorus ulcers of the tounge (resolving) Hypomagnesemia on admission History of Cholangiocarcinoma Problems: End of Life Preferences DO NOT RESUSCITATE/DO NOT INTUBATE/limited interventions Goals of Care Patient's continues to hope for stabilization and modest recovery so that she may return home. Disposition To be determined If over the next several days it appears that the patient is continuing to deteriorate, with worsening hepatic and renal function, I anticipate that we would transition to comfort care. Thereafter, would need to determine whether it would be more appropriate for her to stay here for end-of-life care versus considering other options such as home with hospice, etc. Her would be the only person at home with her and does not feel that he could manage her care with only episodic hospice support. and son Nigel will be her this evening to meet with Dr. Meier to review his sense of likelihood to recover. UE US should have been read by then. Resuscitation Status Resuscitation Status: DNR/DNI:Do Not Resuscitate/Intubate POLST Updates/Changes Previous POLST?: No Artificially Admin Nutrition: No Artifical Nutrition by Tube POLST Discussed with: Patient, Spouse/Other Total time 60 minutes; >50% face to face with patient and/or family, providing counselling regarding plans and recommendations, and in care coordination with his/her medical teams. I also spent an additional [ ] minutes counseling for advanced care planning with the patient/the patients family/the surrogate decision maker. Palliative Brief Note Date of Service Sep 13, 2016 . 61 yo with known cholangiocarcinoma with hepatic insufficiency of unclear cause with elevated INR to near therapeutic range assoc with acute renal insuff now seeming to stabilize in range of CR 1.98 R leg DVT Respiratory insuff with CO2 retention improved with few days of BIPAP O: alert and involved in conversation this AM but thinks not as astute few bites of pudding this AM hates the BIPAP- claustrophobic and nose hurts. Reviewed ?CPAP vs BIPAP with Dr. Yee-not able to get CPAP without sleep study and pt has had too many health issues with her cancer to get this eval done. CR and INR stable. Camila Herrera MD Sep 13, 2016 17:06
--- NOTE | 2016-09-13 18:13 | NUR ---
spiritual care: follow up brief caring visit and prayer. pt continues to appreciate visits from eucharistic team.
--- NOTE | 2016-09-13 18:54 | CCS NOTE ---
[facility] [address], [address] [address] MEDICAL ONCOLOGY OFFICE NOTE PATIENT: HENRY HARRY : 1955 MR#: [id number] DATE: 08/30/2016 JOB ID: [id number] DATE: 09/13/2016 The patient was off BiPAP when I saw her late this afternoon. Her O2 sat has been stable above 95% and she has been afebrile. She continues to be very weak and somewhat lethargic but can carry on with conversation with slightly slurred speech. Her lab studies show a slight further improvement of bilirubin, coming down to 14 from previously 16 and prior to that 18. Creatinine remains abnormal without any further improvement around 1.9 with a BUN in the mid 60s and she has remained anemic. On exam, she continued to be edematous and jaundiced. No new findings. ASSESSMENT AND PLAN: A 61-year-old lady with cholangiocarcinoma and a significant liver dysfunction. For details, please refer to my note of September 11. Her bilirubin has actually, surprisingly, started improving over the past 48 hours and is now down to 14. Her INR is around 1.8 and she was on a cautious dose of Lovenox at 60 mg once a day. Her renal dysfunction has not shown any further improvement so far, and her situation remains guarded but there is at least some evidence of an improvement of the liver in insufficiency, although at this point, too early to say whether it will make any clinical significance.
[2016-09-13] MEDS: Vancomycin 100 mg/mL Oral Solution PO SCH (23:44)
[2016-09-14] VITALS (12 sets, daily range): BP systolic 92–135; BP diastolic 47–72; PULSE 51–60; RESP 12–20; O2SAT 95–100
[2016-09-14] MEDS: metroNIDAZOLE Inj 500 MG in IV Premix 1 EACH IV SCH ×4 (01:20→23:17)
[2016-09-14] MEDS: Albuterol 2.5 mg/3 mL Inhalation Solution NEB SCH ×4 (02:41→20:08)
[2016-09-14] MEDS: Vancomycin 100 mg/mL Oral Solution PO SCH ×4 (03:47→23:49)
[2016-09-14] MEDS: 0.9% Sodium Chloride 1,000 ML IV SCH ×3 (04:25→20:19)
[2016-09-14 04:28] LABS: INR 1.79 ratio
--- NOTE | 2016-09-14 05:43 | NUR ---
Diarrhea/thirst/Emesis/ Pt had large incontinent episode , full bed, linen, gown change, Bleeding from sores on skin folds , no C/O pain, PO meds crushed in applesauce had emesis with most of the medication expelled immediately, 8 Mg zofran prior to PO Vanco, no emesis, Gave PO temazepam and put on BiPap to sleep, Pt constantly asking for Ice Cream on Ice Water, thirst not satisfied. Very edematous, sores in skin folds., Calmoseptine for skin protection as well as Barrier wipes. pillow cases in skin folds Non-compliant with call light , calling out for needs , NS @ 150 Tele SR [id number].
[2016-09-14] MEDS: Lactulose 20 Gm/30 mL 30 mL Syrup PO SCH ×4 (06:30→21:30)
[2016-09-14] MEDS: Ondansetron 2 mg/mL 2 mL Inj IVPUSH PRN (08:12)
[2016-09-14] MEDS: Pantoprazole 40 mg ER24 Tablet PO SCH (08:15)
[2016-09-14] MEDS: Nystatin 100,000 Unit/mL 5 mL Suspension PO SCH ×4 (08:17→22:00)
[2016-09-14 11:30] LABS: BASOPHILS % (AUTO) 0 % (0-3); EOSINOPHILS % (AUTO) 0.8 % (0-5); MONOCYTES % (AUTO) 4.7 % (4-12); Mean Corpuscular Hemoglobin 32.4 pg (27.0-35.0); Mean Corpuscular Volume 94.3 fL (81-100); NEUTROPHILS % (AUTO) 84.1 % (40-74); Platelet Count 98 bil/L (150-400)
[2016-09-14] MEDS ORDERED: HYDROMORPHONE 1 MG/ML PO PRN (12:25)
--- NOTE | 2016-09-14 13:45 | PCM.PALLBR ---
Palliative Care Recommendation 61-year-old female with history of metastatic cholangiocarcinoma, admitted with hyperbilirubinemia as well as acute renal failure. Despite aggressive, appropriate evaluation and treatment her bilirubin has continued to rise and her renal failure, after initial improvement, has begun to worsen again. As a consequence, palliative medicine consulted to assist patient and family and determination of goals of care. Summary of palliative recommendations: 09/14/16: Goals of Care: Discussed at length with today. He has considered the very low likelihood that the patient will recover/regain any meaningful quality of life and reports that he is considering a transition to comfort-focused care to start after her family has left, sometime this weekend. We discussed some measures to start to increase her comfort now: -Symptom management (Pain/other)- Pain: most significant area of pain is her right lower extremity/ right lower abdomen, presumably related to the DVT in her RLE. agrees to more regular dosing of IV hydromorphone to manage this. -- start 0.2 mg HM IV QID early during the day, then a 0.5 mg dose at HS. -- adjust schedule of prn HM to allow for adequate dosing 05/03. Nausea, with some vomiting: Pt mostly nauseous with morning and evening meds. Now refusing lactobacillus and lactulose. --schedule ondansetron 8 mg ODT or IV q 12 hours (08,20) one hour prior to morning and evening meds. --consider alprazolam or haldol, especially if patient transitions to full comfort care. PLEASE NOTE: Due to increased ascites/fluid issues, IV hydration will be slowed to 10 ml/hr. Drs. Fernandes and Hardeep notified of this potential development/changes for this patient's goals of care. Dr. Dean is updated and will likely follow patient tomorrow; noted appreciation of Dr. Dean's goal Because of her progressive hepatic dysfunction, I have decreased her Seroquel dose. Other interventions per medical/hospitalist team. Disposition- know feels that the patient is getting more fragile, is more unwell and is suffering more as well. He knows he would not be able to deal with at home unless able to transfer and short ambulation; he needs to work. She was at [facility] [employer] but he would prefer her placed at [facility] if she needed to transfer from hospital. He does see her staying here for end of life as he does not think she will last long once the transition from current therapies to comfort has begun. -DPOA/Advanced Directives/POLST- Akhil is her default surrogate decision-maker for health care decisions. Today, he states that his decision for life-prolonging care is changing in light of his understanding of the grave nature of her prognosis. Patient remains non-decisional at this time due to her encephalopathy. His wishes that she be DO NOT RESUSCITATE/DO NOT INTUBATE/continued limited interventions in the hope that her renal and hepatic function will stabilize and begin to improve. He now feels that further focused treatment for her underlying neoplasm is out of the question at all. Goal-- given that she is not showing improvement of hepatic and renal fxn-- the states that the patient would NOT want further care focused on prolonging life, but would instead want comfort-focused care. If she was stable enough to be discharged, it would likely be to skilled comfort care or hospice at [facility]. Will plan on completing a POLST prior to discharge. -Family/emotional support- palliative medicine will continue to follow and support. Her family members in [place] and [place] have arrived and are visiting through Sunday. Support offered to ; he is appreciative and will look forward to palliative care following up with him -Spiritual support- offered Patient Goals: 1. Patient and family want to be told the truth about her illness, even if it is unpleasant. 2. Patient and family would like to be told prognosis when it can be predicted, to better guide treatment decisions. 3. Minimize suffering in the face of untreatable illness. Additional Medical Diagnoses with primary management by Hospitalist team include : Hyperbilirubinemia, acute. Oral thrush Elevated LFTs, acute. Elevated INR, acute. Constipation, acute-resolved Hypokalemia (resolved) New onset camphorus ulcers of the tounge (resolving) Hypomagnesemia on admission History of Cholangiocarcinoma Problems: End of Life Preferences DO NOT RESUSCITATE/DO NOT INTUBATE/limited interventions until family has gone, then comfort for EOL care. Goals of Care Patient's now realizing the unlikelihood of recovery and return to a meaningful quality of life for patient. Wants care to now begin to focus on comfort. Disposition To be determined As noted above, we anticipate a transition to comfort care over the weekend. Thereafter, would need to determine whether it would be more appropriate for her to stay here for end-of-life care versus considering other options such as home with hospice, return to [facility], etc. Her would be the only person at home with her and does not feel that he could manage her care with only episodic hospice support. Resuscitation Status Resuscitation Status: DNR/DNI:Do Not Resuscitate/Intubate POLST Updates/Changes Previous POLST?: No Artificially Admin Nutrition: No Artifical Nutrition by Tube POLST Discussed with: Patient, Spouse/Other . Advanced Care Planning Address: Comfort care Pain: Moderate Symptom management: Nausea, Vomiting, Anxiety, Dyspnea, Pain Total time 60 minutes; >50% face to face with patient and/or family, providing counselling regarding plans and recommendations, and in care coordination with his/her medical teams. I also spent an additional 15 minutes counseling for advanced care planning with the patient/the patients family/the surrogate decision maker. copies to: Akhil Mo MD; Demarco Sofia MD Palliative Brief Note Date of Service Sep 14, 2016 . Met with patient's at bedside with multiple other family members. He asks me to step outside with him as he shares with me his realization of her decline and that he is coming to the decision to transition her to comfort care. He feels that he will likely wait until her family is gone--it is not clear if he plans to let them know this plan, but they have come with the knowledge that they are coming to say their goodbyes. He is appreciative of efforts to increase her comfort, allowing for IV meds to be scheduled at this time. See orders Harvey Jett Sep 14, 2016 12:27
[2016-09-14] MEDS ORDERED: HYDROmorphone 0.5 mg/0.5 mL iSecure Syringe IVPUSH PRN (14:30)
--- NOTE | 2016-09-14 14:39 | PCM.PNMED ---
Subjective Date of Service Sep 14, 2016 Subjective Patient has been tolerating PO this morning without vomiting. Her mental status is beginning to improve and she is more alert and oriented than yesterday. She reports Right leg pain but no abdominal pain. She had a large bout of diarrhea earlier today. Exam Vital Signs Vital Sign - Last Date Time Temp Pulse Resp B/P Pulse Ox O2 Delivery O2 Flow Rate FiO2 09/14/16 13:13 36.5 51 16 108/56 99 Room Air 09/14/16 04:32 21 09/09/16 09:21 2.00 Intake and Output 09/13/16 09/13/16 09/14/16 Cumulative From/Thru 15:00 23:00 07:00 08/30/16 13:59 - 09/14/16 06:26 Intake Total 400 ml 3603 ml 97570 ml Output Total 500 ml 450 ml 55477 ml Balance -100 ml 3153 ml 67336 ml Intake Oral 400 ml 550 ml 8984 ml IV Total 3053 ml 30469 ml Packed Cells 300 ml Output Urine Total 500 ml 450 ml 36820 ml Stool Total 304 ml Emesis 850 ml # Voids 2 # Bowel Movements 3 1 36 Exam General: Alert and oriented x3, No Acute Distress Head: Normocephalic, atraumatic. External ears normal. Eyes: PERRLA, EOMI. Scleral icterus present. Chest & Lungs: Clear to auscultation bilaterally with no crackles, wheezes, or rhonchi. Cardiovascular: Regular Rate/Rhythm, Normal S1, Normal S2, No Murmurs/Rubs/ Gallops Abdomen: Mild LUQ tenderness, Non-distended, Normoactive bowel tones, Soft. Right sided epigastric mass palpable Musculoskeletal: Normal Range of Motion Extremities: Bilateral lower extremity edema, right leg tenderness Skin: Jaundice present Neurological: Appears tired but otherwise alert and oriented. Lab and Diagnostics Result Diagram: 09/14/16111409/14/161114 Microbiology Name: HENRY HARRY Age/Sex: 61/F Attend Dr: Markos Milligan MD Acct: [id number] Unit: [id number] Status: ADM IN [place] [facility] Re08/30/[place] Disch: Specimen: [id number] Collected: 09/04/16 Status: COMP Req#: [id number] Received: 09/04/16 Source: STOOL Sp Desc : STL ASP Subm Dr: Pallavi Jacobs DO Ordered: Altagracia DIFF DNA PCR Comments: Collected by Nurse/Unit? Y/N Y Procedure Result Verified Site Microbiology ARNALDO Frias DIF PCR STOOL Final 09/04/16 CDIF DNA BY PCR NEGATIVE REFERENCE INTERVAL NEGATIVE Specimen: [id number] Collected: 08/30/16 Status: JEANMARIE Guillory#: [id number] Received: 08/30/16 Source: URINE CC Sp Desc : SAMIR Perry Dr: DOC,ED MD Ordered: URINE CULT Procedure Result Verified Site Microbiology ARNALDO CULT URINE Final 09/01/16 Organism 1 ESCHERICHIA COLI U COLONY COUNT/QUANTITY >100,000 CFU/ml Cefazolin-predicts results for the oral agents, cefaclor,cefdinir, cefpodoximen, cefprozil, cefuroximne axetil, cephalexin and loracarbed when used for therapy of uncomplicated UTI's due to E. coli, K. pneumoniae, and Proteus mirabilis. Cefpodoxime, cefdinir and cefuroxime axetil may be tested individually because some isolates may be susceptible to these agents while testing resistant to cefazolin. (CLSI X479-T41 pg 53) 1. ESCHERICHIA COLI M.I.C Interp --------- ------ * AMOXICILLIN/CLAVULATE <=2 S * AMPICILLIN 4 S * CEFAZOLIN (CEPHALOSPORIN) UTI 4 S * CEFEPIME <=1 S * CEFTRIAXONE <=1 S * CEFUROXIME SODIUM 4 S * CIPROFLOXACIN <=0.25 S * ERTAPENEM <=0.5 S * GENTAMICIN <=1 S * IMIPENEM <=1 S * LEVOFLOXACIN <=0.12 S * NITROFURANTOIN <=16 S * TETRACYCLINE <=1 S * TOBRAMYCIN <=1 S * TRIMETHOPRIM/SULFAMETHOXAZOLE <=20 S Name: EDILSON HARRYCHARLINE Power Age/Sex: 61/F Attend Dr: Markos Milligan MD Acct: [id number] Unit: [id number] Status: ADM IN Location: [place] [address]- Re08/30/16 Disch: Specimen: [id number] Collected: 09/01/16 Status: COMP Req#: [id number] Received: 09/01/16 Source: URINE CC Sp Desc : PP Subm Dr: Derik West MD Ordered: URINE CULT Procedure Result Verified Site Microbiology ARNALDO CULT URINE Final 09/03/16-0928 No growth (<1,000 organisms/mL) Name: HENRY HARRY Age/Sex: 61/F Attend Dr: Markos Milligan MD Acct: [id number] Unit: [id number] Status: ADM IN [place] [facility] [place] [facility] Re08/30/16 Disch: Specimen: [id number] Collected: 08/30/16 Status: JEANMARIE Guillory#: [id number] Received: 08/30/16 Source: BLOOD Sp Desc : AA Subm Dr: Marc Mcgrath DO Ordered: BC Comments: Collected by Nurse/Unit? Y/N N Comment: add on ok Procedure Result Verified Site Microbiology ARNALDO CULTURE BLOOD Final 09/04/16 NO GROWTH AFTER 5 DAYS X-Rays, CTs and MRIs CXR 09/08 1. Layering left pleural effusion and bibasilar airspace opacities consistent compressive atelectasis versus aspiration or pneumonia. Differential diagnosis would also include patchy pulmonary edema. CT Abd/pelvis with contrast There is an irregular, lobulated mass involving the left aspect of the liver. This mass measures slightly decreased in size compared to the prior examinations. Please correlate with interval treatment. New development of moderate simple fluid within the peritoneal cavity. The gallbladder wall appears irregular and hyperenhancing, consistent with the given history of gallbladder cancer. Stable left adrenal nodule. Faintly seen right adrenal nodule. A few stable pulmonary nodules can be seen at the lung bases. Incidental note is made of: Dextroconvex scoliosis and bony degenerative changes 12-lead ECG Personally and concurrently reviewed by Flaquito 09/09 . Sinus rhythm rate 75, QTC 479 ms . Low voltage, precordial leads * Borderline repol abnormality, lateral leads * No previous study for comparison 08/30 Cardiac Echo Impressions ECHO 09/08 Interpretation Summary The left ventricular cavity is small. The left ventricle is hyperdynamic. The ejection fraction is estimated to be 70-75%. There is no echo evidence for significant left ventricular outflow tract obstruction. The right ventricle is not well visualized. Right ventricular function cannot be assessed due to poor image quality. All the valves were not well visualized, however, no significant valvular pathology seen. [facility] Additional Diagnostics DateTimeAnalyzed 04:49:00 -_ pH ____7.331 - 7.350 7.450 pCO2 ___37.1__ -mmHg 35.0 45.0 pO2 115 -mmHg 69.0 116 HCO3- ___19.0__ -mmol/L 22.0 26.0 ABE ___-5.8__ -mmol/L -2.0 2.0 tHb ____7.1__ -g/dL O2Hb ___96.9__ -% COHb ____1.6__ -% MetHb ____0.6__ -% sO2 ___99.1__ -% 25.0 FIO2 ___28.0__ -% CPAP ___12.0__ -cmH2O PEEP ____5.0__ -cmH2O Set_RR ___12.0__ -b/min Drawn By MM - Date/Time Notified____ 04:53:00 -_ Oxygen Device 1 ____BIPAP - ABG DateTimeAnalyzed 11:57:00 -_ pH ____7.251 - 7.350 7.450 pCO2 ___47.3__ -mmHg 35.0 45.0 pO2 ___96.3__ -mmHg 69.0 116 HCO3- ___20.0__ -mmol/L 22.0 26.0 ABE ___-6.2__ -mmol/L -2.0 2.0 Assessment & Plan Patient is a 61-year-old female with a history of metastatic cholangiocarcinoma who presents for evaluation of acute jaundice and fever. - Patient appears to be stable and improving for now. We will revisit the patient in a few days. Please let us know if there are any acute changes or any questions or concerns for the time being. C difficile infection, acute - Pt tested positive for C diff. Currently receiving dual antibiotic treatment. - Continue PO Vancomycin and IV Flagyl - Stopped Clindamycin and Levofloxacin. Hyperbilirubinemia, acute. Improving. - MRCP showed ascites, a mass lesion within the liver as previously identified, contracted irregular gallbladder, and no visualized biliary ductal dilation. She may have intrahepatic cholestasis secondary to her tumor, although the mass does not appear to have changed significantly. There does not appear to be any extrahepatic pathology that can be addressed via ERCP. MRCP showed contracted irregular gallbladder. HIDA scan was inconclusive but suspicious for hepatocellular injury. Bilirubin now appears to be improving slowly. Will continue to trend. - Continue to monitor LFTs and bilirubin Elevated LFTs, acute. Stable. - LFTs have been mildly elevated since 07/26/16, normal before that date. They became more elevated around 08/30, when she started her nitrofurantoin. Hepatitis workup negative. Her LFTs have been fairly stable since, but appear to have started climbing again today. ARIANA positive, anti-smooth muscle weakly positive. Anti-Sm and [employer] negative. Autoimmune hepatitis is possible. LFTs appear to have improved. - Continue to monitor LFTs Acute anemia. Stable - She is off the heparin drip and on Lovenox, and there is some concern for a current hemorrhoid bleed. No bleeding recently and her H&H is stable. - Continue to monitor H&H - Transfuse as necessary Hemorrhoids. - This needs to be closely monitored given her recent heparin drip and current Lovenox, as well as her thrombocytopenia. If this continues to be an issue, consider surgery consultation for possible banding of hemorrhoids. Altered mental status, acute. Recurring. - Pt appears to be more lethargic and confused today. Because of her nausea and NPO status, she has not had oral lactulose or rifaximin in a few days, and vomited her medications yesterday. If her mentation does not improve, consider NG tube placement for admin of lactulose/rifaximin. - Lactulose 20g PO QID - hold while she is being treated for C diff - Rifaximin 550 mg BID Elevated INR, acute. - INR 1.82 on admission, significantly elevated from previous INR of 1.34 in July. Likely secondary to acute hepatic injury. - Continue to monitor INR daily Acute kidney injury. Stable - Cr has been steadily increasing since 09/04. May be related to recent contrast but may also be infection.Cr is fairly stable for now but still significantly elevated. Continue to monitor. - Consider nephrology consultation at this time. Right lower extremity DVT. - US showed RLE DVT. Currently on Lovenox - Watch for signs of bleeding. Leukocytosis, acute. Resolved. - Blood cultures negative, repeat urine culture negative. C diff negative. Her repeat UA showed more WBCs (>50) but follow up urine cultures were negative, as she was already on antibiotics. Her leukocytosis has since resolved since starting on antibiotics. History of Cholangiocarcinoma - Patient has history of intrahepatic cholangiocarcinoma diagnosed in February 2016 , mainly in the left hepatic lobe, metastatic to the right femur. She is currently receiving palliative chemotherapy per Dr. Meier with cisplatin. - Dr. Meier of Oncology is following at this time. We appreciate his input. GI Prophylaxis: Proton Pump Inhibitor (patient has thrombocytopenia and elevated INR and likely not a good candidate for anticoagulation.) VTE Prophylaxis: SCDs VTE Mechanical Devices: Intermittant Pneumatic CD Resuscitation Status: DNR/DNI:Do Not Resuscitate/Intubate Attending Statement Patient was seen and examined. Agree with assessment and plan as described by Dr Arnold. INR responsive to Vit K. Bili down slightly. Creatinine plateaued. ?? contrast induced nephropathy vs HRS. Would suggest another round of albumin with some lasix to mobilize fluid. Continue PO's including therapy for C diff as able. Continue Rifaximin. Will be away from hospital until sunday. If there are any GI related questions, Dr Oro will be covering the service until then. Arley Arnold Sep 14, 2016 14:39 Derik West MD Sep 15, 2016 08:01
--- NOTE | 2016-09-14 15:07 | PCM.PNMED ---
Subjective Date of Service Sep 14, 2016 Subjective She has a little more alertness today. She denies any pain. Her right side of her abdomen is bloated. She is having a lot of diarrhea. No nausea or vomiting. Shortness of breath or chest pain. Exam Vital Signs Vital Sign - Last Date Time Temp Pulse Resp B/P Pulse Ox O2 Delivery O2 Flow Rate FiO2 09/14/16 13:13 36.5 51 16 108/56 99 Room Air 09/14/16 04:32 21 09/09/16 09:21 2.00 Intake and Output 09/13/16 09/13/16 09/14/16 Cumulative From/Thru 15:00 23:00 07:00 08/30/16 13:59 - 09/14/16 06:26 Intake Total 400 ml 3603 ml 06977 ml Output Total 500 ml 450 ml 18857 ml Balance -100 ml 3153 ml 25181 ml Intake Oral 400 ml 550 ml 8984 ml IV Total 3053 ml 02843 ml Packed Cells 300 ml Output Urine Total 500 ml 450 ml 57662 ml Stool Total 304 ml Emesis 850 ml # Voids 2 # Bowel Movements 3 1 36 Exam Alert oriented 3, fluent speech. More alert Icteric sclera. Neck supple. Lungs are clear with normal effort. Heart is regular without murmur. Abdomen is distended but nontender Extremities with 1-2+ edema bilaterally., The right leg is slightly bigger than the left. IVs and Medications Medications Reviewed: Medications were reviewed in detail Lab and Diagnostics Result Diagram: 09/14/16 1115 09/14/16 1115 Microbiology Assessment & Plan 1. C difficile infection, acute. Diagnosed September 13. Continue by mouth vancomycin and IV metronidazole. She is able to take her by mouth meds only when alert we will continue to see how reliable this is. 2. Hyperbilirubinemia, acute. Improving. We will continue to follow her clinically. She still has evidence of confusion which may relate to hepatic encephalopathy. She declines more lactulose today but has ongoing delirium. 3. Elevated LFTs, acute. Stable. We will follow clinically. 4. Acute blood loss anemia. Stable - She is off the heparin drip and on Lovenox, and there is some concern for a current hemorrhoid bleed. No bleeding recently and her H&H is stable. - Continue to monitor H&H - Transfuse as necessary, she received 1 unit of blood yesterday. 5. Hemorrhoids. - This needs to be closely monitored given her recent heparin drip and current Lovenox, as well as her thrombocytopenia. If this continues to be an issue, consider surgery consultation for possible banding of hemorrhoids. She likely is not really a candidate for operative intervention at this point. 6. Possible hepatic encephalopathy. - Lactulose 20g PO QID - hold while she is being treated for C diff - Rifaximin 550 mg BID Placement NG tube to continue her by mouth meds would likely be declined by her based on level of care conversations yesterday. He had signaled to palliative care medicine that he may transition to comfort care within the next 2 days. 7. Coagulopathy, likely related to liver dysfunction. - INR 1.82 on admission, significantly elevated from previous INR of 1.34 in July. Likely secondary to acute hepatic injury. - Continue to monitor INR daily 8. Acute kidney injury. Stable, with secondary metabolic acidosis. We will continue to a monitored situation and see if her kidney function stays relatively stable to improving. Her creatinine appears to have plateaued at 2.0. Avoid nephrotoxic agents. 9. Right lower extremity DVT. - US showed RLE DVT. Currently on Lovenox - Watch for signs of bleeding. 10. Metastatic Cholangiocarcinoma - Patient has history of intrahepatic cholangiocarcinoma diagnosed in February 2016 , mainly in the left hepatic lobe, metastatic to the right femur. She is currently receiving palliative chemotherapy per Dr. Meier with cisplatin. - Dr. Meier of Oncology is following at this time. We appreciate his input. 11. Morbid obesity. BMI is 59. Patient's has indicated that he may change compared to more of a comfort care in the next 1-2 days. We will continue to follow with palliative care and their assistance. Pain Evaluation: Adequate Pain Control GI Prophylaxis: Proton Pump Inhibitor (patient has thrombocytopenia and elevated INR and likely not a good candidate for anticoagulation.) VTE Prophylaxis: SCDs VTE Mechanical Devices: Intermittant Pneumatic CD Resuscitation Status: DNR/DNI:Do Not Resuscitate/Intubate Time spent 25 minutes Ford Fernandes MD Sep 14, 2016 15:06 axetil, cephalexin and loracarbed when used for therapy of uncomplicated UTI's due to E. coli, K. pneumoniae, and Proteus mirabilis. Cefpodoxime, cefdinir and cefuroxime axetil may be tested individually because some isolates may be susceptible to these agents while testing resistant to cefazolin. (CLSI J678-W23 pg 53) 1. ESCHERICHIA COLI M.I.C Interp --------- ------ * AMOXICILLIN/CLAVULATE <=2 S * AMPICILLIN 4 S * CEFAZOLIN (CEPHALOSPORIN) UTI 4 S * CEFEPIME <=1 S * CEFTRIAXONE <=1 S * CEFUROXIME SODIUM 4 S * CIPROFLOXACIN <=0.25 S * ERTAPENEM <=0.5 S * GENTAMICIN <=1 S * IMIPENEM <=1 S * LEVOFLOXACIN <=0.12 S * NITROFURANTOIN <=16 S * TETRACYCLINE <=1 S * TOBRAMYCIN <=1 S * TRIMETHOPRIM/SULFAMETHOXAZOLE <=20 S Name: HENRY HARRY Age/Sex: 61/F Attend Dr: Markos Milligan MD Acct: [id number] Unit: [id number] Status: ADM IN Location: [facility] 239-1 Re08/30/16 Disch: Specimen: [id number] Collected: 09/01/16 Status: COMP Req#: [id number] Received: 09/01/16 Source: URINE CC Sp Desc : PP [place] Dr: Derik West MD Ordered: URINE CULT Procedure Result Verified Site Microbiology ARNALDO CULT URINE Final 09/03/16 No growth (<1,000 organisms/mL) Name: HENRY HARRY Age/Sex: 61/F Attend Dr: Markos Milligan MD Acct: [id number] Unit: [id number] Status: ADM IN Location: [facility] 239-1 Re08/30/16 Disch: Specimen: [id number] Collected: 08/30/16 Status: COMP Req#: [id number] Received: 08/30/16 Source: BLOOD Sp Desc : ADRIANO Perry Dr: Marc Mcgrath DO Ordered: Comments: Collected by Nurse/Unit? Y/N N Comment: add on ok Procedure Result Verified Site Microbiology ARNALDO CULTURE BLOOD Final 09/04/16 NO GROWTH AFTER 5 DAYS X-Rays, CTs and MRIs CXR 09/08 1. Layering left pleural effusion and bibasilar airspace opacities consistent compressive atelectasis versus aspiration or pneumonia. Differential diagnosis would also include patchy pulmonary edema. CT Abd/pelvis with contrast There is an irregular, lobulated mass involving the left aspect of the liver. This mass measures slightly decreased in size compared to the prior examinations. Please correlate with interval treatment. New development of moderate simple fluid within the peritoneal cavity. The gallbladder wall appears irregular and hyperenhancing, consistent with the given history of gallbladder cancer. Stable left adrenal nodule. Faintly seen right adrenal nodule. A few stable pulmonary nodules can be seen at the lung bases. Incidental note is made of: Dextroconvex scoliosis and bony degenerative changes 12-lead ECG Personally and concurrently reviewed by [place] 09/09 . Sinus rhythm rate 75, QTC 479 ms . Low voltage, precordial leads * Borderline repol abnormality, lateral leads * No previous study for comparison 08/30 Cardiac Echo Impressions ECHO 09/08 Interpretation Summary The left ventricular cavity is small. The left ventricle is hyperdynamic. The ejection fraction is estimated to be 70-75%. There is no echo evidence for significant left ventricular outflow tract obstruction. The right ventricle is not well visualized. Right ventricular function cannot be assessed due to poor image quality. All the valves were not well visualized, however, no significant valvular pathology seen. [facility] Additional Diagnostics DateTimeAnalyzed 04:49:00 -_ pH ____7.331 - 7.350 7.450 pCO2 ___37.1__ -mmHg 35.0 45.0 pO2 115 -mmHg 69.0 116 HCO3- ___19.0__ -mmol/L 22.0 26.0 ABE ___-5.8__ -mmol/L -2.0 2.0 tHb ____7.1__ -g/dL O2Hb ___96.9__ -% COHb ____1.6__ -% MetHb ____0.6__ -% sO2 ___99.1__ -% 25.0 FIO2 ___28.0__ -% CPAP ___12.0__ -cmH2O PEEP ____5.0__ -cmH2O Set_RR ___12.0__ -b/min Drawn By MM - Date/Time Notified____ 04:53:00 -_ Oxygen Device 1 ____BIPAP - ABG DateTimeAnalyzed 11:57:00 -_ pH ____7.251 - 7.350 7.450 pCO2 ___47.3__ -mmHg 35.0 45.0 pO2 ___96.3__ -mmHg 69.0 116 HCO3- ___20.0__ -mmol/L 22.0 26.0 ABE ___-6.2__ -mmol/L -2.0 2.0 Assessment & Plan Patient is a 61-year-old female with a history of metastatic cholangiocarcinoma who presents for evaluation of acute jaundice and fever. - Patient appears to be stable and improving for now. We will revisit the patient in a few days. Please let us know if there are any acute changes or any questions or concerns for the time being. C difficile infection, acute Continue by mouth vancomycin and IV metronidazole. She is able to take her by mouth meds only when alert we will continue to see how reliable this is. Hyperbilirubinemia, acute. Improving. We will continue to follow her clinically. She still has evidence of confusion which may relate to hepatic encephalopathy. She declines more lactulose today but has ongoing delirium. Elevated LFTs, acute. Stable. We will follow clinically. Acute anemia. Stable - She is off the heparin drip and on Lovenox, and there is some concern for a current hemorrhoid bleed. No bleeding recently and her H&H is stable. - Continue to monitor H&H - Transfuse as necessary, she received 1 unit of blood yesterday. Hemorrhoids. - This needs to be closely monitored given her recent heparin drip and current Lovenox, as well as her thrombocytopenia. If this continues to be an issue, consider surgery consultation for possible banding of hemorrhoids. She likely is not really a candidate for operative intervention at this point. Possible hepatic encephalopathy. - Lactulose 20g PO QID - hold while she is being treated for C diff - Rifaximin 550 mg BID Placement NG tube to continue her by mouth meds would likely be declined by her based on level of care conversations yesterday. He had signaled to palliative care medicine that he may transition to comfort care within the next 2 days. Coagulopathy, likely related to liver dysfunction. - INR 1.82 on admission, significantly elevated from previous INR of 1.34 in July. Likely secondary to acute hepatic injury. - Continue to monitor INR daily Acute kidney injury. Stable We will continue to a monitored situation and see if her kidney function stays relatively stable to improving. Right lower extremity DVT. - US showed RLE DVT. Currently on Lovenox - Watch for signs of bleeding. Metastatic Cholangiocarcinoma - Patient has history of intrahepatic cholangiocarcinoma diagnosed in February 2016 , mainly in the left hepatic lobe, metastatic to the right femur. She is currently receiving palliative chemotherapy per Dr. Meier with cisplatin. - Dr. Meier of Oncology is following at this time. We appreciate his input. Pain Evaluation: Adequate Pain Control GI Prophylaxis: Proton Pump Inhibitor (patient has thrombocytopenia and elevated INR and likely not a good candidate for anticoagulation.) VTE Prophylaxis: SCDs VTE Mechanical Devices: Intermittant Pneumatic CD Resuscitation Status: DNR/DNI:Do Not Resuscitate/Intubate Time spent 25 minutes Ford Fernandes MD Sep 14, 2016 15:06
--- NOTE | 2016-09-14 15:34 | NUR ---
Called Jon and updated Shima in admissions patient is now converting to comfort care and we need to make sure this will be enough to send her SNF and if they are still willing to accept patient as comfort. She is needing to consult with her ED and then call me in the morning. 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
--- NOTE | 2016-09-14 16:02 | NUR ---
Bridge of nose Alfonso open area on bridge of nose noted this am upon removal of duoderm, some of the skin was removed when removing the dressing. Applied mepilex and asked for wound care to stop by.
[2016-09-14] MEDS: HYDROmorphone 1 mg/mL Inj IVPUSH SCH ×2 (16:14→23:16)
[2016-09-14] MEDS ORDERED: Albumin 25% 25 GM in IV Premix 1 EACH IV ONE (16:20)
[2016-09-14] MEDS ORDERED: Furosemide 10 mg/mL 4 mL Inj IVPUSH ONE (16:20)
--- NOTE | 2016-09-14 18:15 | NUR ---
Wound Care Ask to see patient by nursing for concerns at bridge of nose, pt had been on Bipap machine. 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 Currently there is no weeping of the skin and pt is somnolent throughout the assessment. Recommended application of mepilex adhesive foam dressing in the shape of a y to protect area from further breakdown, respiratory therapy was consulted for fit of mask. Nursing to monitor and reapply mepilex as needed.
[2016-09-14] MEDS: Ondansetron 2 mg/mL 2 mL Inj IVPUSH SCH (19:50)
[2016-09-14] MEDS ORDERED: Ondansetron 8 mg ODT Tablet PO SCH (20:30)
[2016-09-14] MEDS: HYDROmorphone 0.5 mg/0.5 mL iSecure Syringe IVPUSH SCH (23:16)
[2016-09-14] MEDS: Phenyleph-Petrol-Min Oil 57 Gm Ointment RECTAL PRN (23:32)
[2016-09-15] VITALS (11 sets, daily range): BP systolic 92–122; BP diastolic 47–72; PULSE 52–65; RESP 12–20; O2SAT 94–99
[2016-09-15] MEDS: Albuterol 2.5 mg/3 mL Inhalation Solution NEB SCH ×2 (02:39→08:41)
[2016-09-15] MEDS: Vancomycin 100 mg/mL Oral Solution PO SCH ×4 (04:21→20:30)
[2016-09-15 04:59] LABS: INR 1.86 ratio
--- NOTE | 2016-09-15 05:41 | NUR ---
Skin Care / Mentation / Respiratory Mepilex in place to bridge of nose; dressing intact, no changes this shift. Pt has ongoing skin tears and maceration beneath pannus and to buttocks; ongoing hemorrhoid with bleeding this HS; skin cleaned with warmed barrier wipes and calmoseptine applied. Preparation H utilized for gently reinserting hemorrhoid. D/t ongoing edema, pt's extremities elevated. Q2H turns in place for promotion of skin healing. Dressing to LUE changed at HS. Pt drowsy at HS but rousable to loud voice or repeated stimuli, able to take medications and participate in care. Pt able to swallow approx. 3/4 of crushed medications in applesauce, unable to tolerate acidophilus. Pt refused nystatin and lactulose despite education. 4L oxymask administered at HS d/t desaturation while asleep; per RT, attempted to avoid BiPAP at night d/t skin breakdown. At approx. 0230, during Q2H turns, pt was difficult to rouse and unable to hold attention; pt's eyes were rolling back in her head and breathing pattern was altered, no participation in care. Pt placed on BiPAP for possible CO2 retention affecting mentation. At 0430 medications and Q2H turn, pt more alert than previously, though still drowsy and requiring repeated loud stimuli to stay awake. BiPAP reapplied after medication administration. At approx. 0500, pt SpO2 consistently intermittently dropped with spontaneous recovery after several seconds; RT paged; pt increased to 28% FiO2 from 21%. Pt resting. VSS, tele SB 50s-60s. SpO2 now 94%. Denies pain at this time.
[2016-09-15] MEDS: Lactulose 20 Gm/30 mL 30 mL Syrup PO SCH (05:56)
[2016-09-15] MEDS: Pantoprazole 40 mg ER24 Tablet PO SCH (05:57)
[2016-09-15] MEDS: HYDROmorphone 1 mg/mL Inj IVPUSH SCH ×4 (06:30→21:30)
[2016-09-15] MEDS: metroNIDAZOLE Inj 500 MG in IV Premix 1 EACH IV SCH ×2 (08:46→17:51)
[2016-09-15] MEDS: Ondansetron 2 mg/mL 2 mL Inj IVPUSH SCH ×2 (08:46→21:12)
[2016-09-15] MEDS: Nystatin 100,000 Unit/mL 5 mL Suspension PO SCH (08:49)
--- NOTE | 2016-09-15 10:46 | NUR ---
Called and left message at [facility] for Shima, just needing update on comfort care path. Updated MEN'S LOCKER ROOM ATTENDANT Addendum: 09/15/16 at 1203 by JANELLE HANLEY CM Spoke with Shima at [facility], patient is not going to qualify through insurance for comfort pathway. Patient needs to skilled in order for insurance to pay. Patient and family would have to pay privately for room, Semi private room is $250.00 per day and then there is a $175.00 incontinence charge for 30 days. For a Private room it would be $285.00 per day and then the incontinence charge. Normally they require 30 days up front but Shima was going to speak with her ED since patient has been there before and is now end of life care. Ed has relationship with the son and he was going to call and speak with him as well. Updated MEN'S LOCKER ROOM ATTENDANT Updated MEN'S LOCKER ROOM ATTENDANT
[2016-09-15] MEDS ORDERED: Albuterol 2.5 mg/3 mL Inhalation Solution NEB PRN (12:05)
[2016-09-15] MEDS: Ondansetron 2 mg/mL 2 mL Inj IVPUSH PRN (12:20)
--- NOTE | 2016-09-15 12:44 | PCM.PALLBR ---
Palliative Care Recommendation 61-year-old female with history of metastatic cholangiocarcinoma, admitted with hyperbilirubinemia as well as acute renal failure. Despite aggressive, appropriate evaluation and treatment her bilirubin has continued to rise and her renal failure, after initial improvement, has begun to worsen again. As a consequence, palliative medicine consulted to assist patient and family and determination of goals of care. Summary of palliative recommendations: Goals of Care: Discussed at length with again today. He has considered the very low likelihood that the patient will recover/regain any meaningful quality of life and plans on transition to comfort-focused care to start after her family has left, likely 09/16/16. We discussed further measures to start to increase her comfort now, including discontinuation of non-comfort medications, as well as: -Symptom management (Pain/other)- Pain: most significant area of pain is her right lower extremity/ right lower abdomen, presumably related to the DVT in her RLE. agrees to more regular dosing of IV hydromorphone to manage this. -- Continue 0.2 mg hydromorphone IV QID early during the day, then a 0.5 mg dose at HS. -- Continue prn hydromorphone to allow for adequate dosing 05/03. Nausea, with some vomiting: Pt mostly nauseated with morning and evening meds. These have now been discontinued. In addition: -- Continue scheduled ondansetron 8 mg ODT or IV q 12 hours (08,20) --consider alprazolam or haldol, especially if patient transitions to full comfort care. PLEASE NOTE: Due to increased ascites/fluid issues, IV hydration will be slowed to 10 ml/hr. Drs. Fernandes and Hardeep notified on 09/14 of these developments/changes for this patient's goals of care. Disposition- see below for details of my conversations with case management She was at [facility] but he would prefer her placed at [facility] if she needed to transfer from hospital. He does see her staying here for end of life as he does not think she will last long once the transition from current therapies to comfort has begun. -DPOA/Advanced Directives/POLST- DO NOT RESUSCITATE/DO NOT INTUBATE/ transitioning to comfort care -Family/emotional support- palliative medicine will continue to follow and support. Her family members in [place] and [place] have arrived and are visiting through Sunday. Support offered to ; he is appreciative and will look forward to palliative care following up with him -Spiritual support- offered Patient Goals: 1. Patient and family want to be told the truth about her illness, even if it is unpleasant. 2. Patient and family would like to be told prognosis when it can be predicted, to better guide treatment decisions. 3. Minimize suffering in the face of untreatable illness. Additional Medical Diagnoses with primary management by Hospitalist team include : Hyperbilirubinemia, acute. Oral thrush Elevated LFTs, acute. Elevated INR, acute. Constipation, acute-resolved Hypokalemia (resolved) New onset camphorus ulcers of the tounge (resolving) Hypomagnesemia on admission History of Cholangiocarcinoma Problems: End of Life Preferences DO NOT RESUSCITATE/DO NOT INTUBATE/limited interventions until family has gone, then comfort/end-of-life care Goals of Care Patient's wants care to now begin to focus on comfort. Disposition To be determined Resuscitation Status Resuscitation Status: DNR/DNI:Do Not Resuscitate/Intubate POLST Updates/Changes Previous POLST?: No Artificially Admin Nutrition: No Artifical Nutrition by Tube POLST Discussed with: Patient, Spouse/Other . Advanced Care Planning Address: Comfort care Pain: Mild Symptom management: Nausea, Drowsiness/sleepiness, Dyspnea, Pain Total time 65 minutes; >50% face to face with patient and family, providing counselling regarding plans and recommendations, and in care coordination with her medical teams. Of the above total time, 35 minutes counseling for advanced care planning with the patient/the patients family/the surrogate decision maker. copies to: Akhil Mo MD Palliative Brief Note Date of Service Sep 15, 2016 . Returned to reevaluate the patient and speak with her several times through the day. Spoke with her nurse on several occasions, reviewing care instructions, medications, etc. Also spoke with egg caser in detail regarding care plans. Reviewed with her conversations yesterday with Ms. Jett. Patient' s continues to request to transition to comfort/end-of-life care. He does not wish to discomfit family members visiting from out of town, and so plans on maintaining current visible level of care until they depart on 09/16/16. He did request that we discontinue unnecessary, particularly oral medications at this time for the patient's comfort. He is very comfortable with the plan to discontinue other support tomorrow and transition to purely end-of-life care. I reviewed the above with egg caser. My expectation is that she will within 24-48 hours of initiation of purely comfort care. bullet assembly press setter operator note that they will monitor and consider possible SNF placement for end-of-life care if by Sunday it appears that she would have lengthy time before expiring. Her understands this, though he certainly would prefer that she not have to be moved/transferred at the end-of-life. On my exam today, she appeared to be in occasional respiratory distress, significantly improved with medication. Vital signs noted. Skin is jaundiced, warm and dry. Heart, lungs, abdominal exam remained stable and unchanged. No new laboratory or imaging studies today. Gustavo Dean MD Sep 15, 2016 12:44
--- NOTE | 2016-09-15 14:30 | PCM.PNMED ---
Subjective Date of Service Sep 15, 2016 Subjective She is somnolent and difficult to arouse. She really cannot speak because of this and ROS and subjective are not obtainable. Exam Vital Signs Vital Sign - Last Date Time Temp Pulse Resp B/P Pulse Ox O2 Delivery O2 Flow Rate FiO2 09/15/16 09:23 36.5 19 92/57 97 Room Air 09/15/16 08:45 56 21 09/15/16 00:03 4.00 Intake and Output 09/14/16 09/14/16 09/15/16 Cumulative From/Thru 15:00 23:00 07:00 08/30/16 13:59 - 09/15/16 06:48 Intake Total 1696 ml 355 ml 08871 ml Output Total 600 ml 75 ml 95364 ml Balance 1096 ml 280 ml 62573 ml Intake Oral 600 ml 0 ml 9584 ml IV Total 1096 ml 355 ml 72358 ml Packed Cells 300 ml Output Urine Total 600 ml 75 ml 03733 ml Stool Total 304 ml Emesis 850 ml # Voids 2 # Bowel Movements 3 39 Exam She appears comfortable. She also has periods of apnea. Neck is supple. Lungs are clear with no extra sounds heard. Heart is regular without murmur. Abdomen is distended but non-rigid. Extremities with 1-2+ edema. Some ecchymoses. IVs and Medications Medications Reviewed: Medications were reviewed in detail Lab and Diagnostics Result Diagram: 09/14/16 1115 09/14/16 1115 Microbiology Assessment & Plan 1. C difficile infection, acute. Diagnosed September 13. We will continue her oral and IV antibiotic therapy for the time being. 2. Hyperbilirubinemia, acute. Improving. We will continue to follow her clinically. She still has evidence of confusion which may relate to hepatic encephalopathy. She declines more lactulose today but has ongoing delirium. This appears to be relatively stable. 3. Elevated LFTs, acute. Stable. We will follow clinically. Also appears to be relatively stable. 4. Acute blood loss anemia. Stable - She is off the heparin drip and on Lovenox, and there is some concern for a current hemorrhoid bleed. No bleeding recently and her H&H is stable. - Continue to monitor H&H - Transfuse as necessary, she received 1 unit of blood yesterday. No evidence of rectal bleeding last 24 hours. 5. Hemorrhoids. - This needs to be closely monitored given her recent heparin drip and current Lovenox, as well as her thrombocytopenia. If this continues to be an issue, consider surgery consultation for possible banding of hemorrhoids. She likely is not really a candidate for operative intervention at this point. 6. Possible hepatic encephalopathy. - Lactulose 20g PO QID - hold while she is being treated for C diff - Rifaximin 550 mg BID Placement NG tube to continue her by mouth meds would likely be declined by her based on level of care conversations yesterday. He had signaled to palliative care medicine that he may transition to comfort care within the next 2 days. She was declining her lactulose yesterday and really is having ongoing somnolence and encephalopathy today. 7. Coagulopathy, likely related to liver dysfunction. - INR 1.82 on admission, significantly elevated from previous INR of 1.34 in July. Likely secondary to acute hepatic injury. - Continue to monitor INR daily 8. Acute kidney injury. Stable, with secondary metabolic acidosis. We will continue to a monitored situation and see if her kidney function stays relatively stable to improving. Her creatinine appears to have plateaued at 2.0. Avoid nephrotoxic agents. No significant improvement. This point we are stopping lab draws per palliative care 9. Right lower extremity DVT. - US showed RLE DVT. Currently on Lovenox - Watch for signs of bleeding. 10. Metastatic Cholangiocarcinoma - Patient has history of intrahepatic cholangiocarcinoma diagnosed in February 2016 , mainly in the left hepatic lobe, metastatic to the right femur. She is currently receiving palliative chemotherapy per Dr. Meier with cisplatin. - Dr. Meier of Oncology is following at this time. We appreciate his input. 11. Morbid obesity. BMI is 59. We are stepping back medical care at this point we will be stopping by mouth medications and lab draws. We will use BiPAP tonight. As such as a Sunday evening will likely move to full formal comfort care measures. Pain Evaluation: Adequate Pain Control GI Prophylaxis: Proton Pump Inhibitor (patient has thrombocytopenia and elevated INR and likely not a good candidate for anticoagulation.) VTE Prophylaxis: SCDs VTE Mechanical Devices: Intermittant Pneumatic CD Resuscitation Status: DNR/DNI:Do Not Resuscitate/Intubate Time spent 25 minutes, met with the . For a detailed conversation regarding the level care and transition to comfort care. Also met with Corin Dean of palliative care. Ford Fernandes MD Sep 15, 2016 14:30
--- NOTE | 2016-09-15 15:00 | NUR ---
spiritual care: follow pt continuing to receive eucharistic visitors per request
--- NOTE | 2016-09-15 15:20 | NUR ---
Skin and Comfort Pt has multiple skin issues. Clean and dried pannus area. placed pillowcase in between folds to protect skin. Pt has open areas on left upper thigh right below buttocks that are bleeding, applied square Mediplex to the area. Gave pt some hemorrhoid cream for her hemorrhoid as well. Pt very somnolent after receiving small scheduled dose of Dilaudid. Spouse asks that we don't give her the 630am dose tomorrow as it will be the last day her sisters will be here.
--- NOTE | 2016-09-15 18:06 | NUR ---
Social Work: Comfort D: Pt is transitioning to comfort care, per palliative MD. Pt will likely go off BIPAP tomorrow and is not expected to survive the weekend. If pt is to survive past Sunday pt has been accepted to [facility] for comfort measures but would be private pay. Pt would be required to pay $250/day for a semi-private room with a 175/month incontinents charge. Palliative team is not sure pt will be stable for transport from [facility] even if she were to survive into the week. A: Pt who is currently transitioning to comfort care. P: LOCKSTITCH WAISTBAND SETTER to follow pt's clinical course and will determine if a conversation needs to be had with pt's family about transferring pt to [facility] pending clinical course. JUAN Song
[2016-09-15] MEDS: 0.9% Sodium Chloride 1,000 ML IV SCH (20:19)
[2016-09-15] MEDS: HYDROmorphone 0.5 mg/0.5 mL iSecure Syringe IVPUSH SCH (21:12)
--- NOTE | 2016-09-15 21:23 | NUR ---
Transfer Patient to transfer to 1030. Report called to Emely BATEMAN. Patient's belongings collected from room and taken with patient.
[2016-09-16] MEDS: metroNIDAZOLE Inj 500 MG in IV Premix 1 EACH IV SCH ×3 (01:05→16:44)
--- NOTE | 2016-09-16 01:21 | NUR ---
Transfer to [facility] Patient arrived to room 1030 around 2134 via yuan bed from room 2030. Patient unresponsive to verbal/tactile stimuli. Eyes open and moving around, pupils unresponsive to light. 2L Oxymask in place- 96%. Port to right chest with NS @ TKO running. Generalized edema, extremities elevated on pillows. Mccurdy in place, but no urine output thus far. Patient repositioned for comfort. FELDT score= 0. Per handoff report, requesting patient not receive 0630 Dilaudid dose, so sisters can say goodbye as patient is now comfort care. Addendum: 09/16/16 at 0539 by NA ROSE RN 0630 Dilaudid dose will be held per husbands request. FELDT score=0. No s/sx of pain or discomfort noted.
[2016-09-16] MEDS: Vancomycin 100 mg/mL Oral Solution PO SCH ×4 (01:57→19:44)
[2016-09-16] MEDS: 0.9% Sodium Chloride 1,000 ML IV SCH ×3 (02:19→19:44)
[2016-09-16] MEDS: HYDROmorphone 1 mg/mL Inj IVPUSH SCH ×4 (05:38→21:30)
[2016-09-16] MEDS: Ondansetron 2 mg/mL 2 mL Inj IVPUSH SCH ×2 (09:00→21:29)
[2016-09-16 09:24] VITALS: BP 72/48; PULSE 63; RESP 14; O2SAT 95
[2016-09-16 09:59] VITALS: BP 77/52
--- NOTE | 2016-09-16 10:49 | PCM.PNMED ---
Subjective Date of Service Sep 16, 2016 Subjective Attempts to speak but I can't understand what she's saying Exam Vital Signs Vital Sign - Last Date Time Temp Pulse Resp B/P Pulse Ox O2 Delivery O2 Flow Rate FiO2 09/16/16 09:59 77/52 09/16/16 09:24 36.5 63 14 95 OxyMask 2.00 09/15/16 08:45 21 Intake and Output 09/15/16 09/15/16 09/16/16 Cumulative From/Thru 15:00 23:00 07:00 08/30/16 13:59 - 09/16/16 05:17 Intake Total 120 ml 524 ml 27718 ml Output Total 150 ml 70130 ml Balance -30 ml 524 ml 75510 ml Intake Oral 120 ml 9704 ml IV Total 524 ml 51773 ml Packed Cells 300 ml Output Urine Total 50 ml 58564 ml Stool Total 304 ml Emesis 100 ml 950 ml # Voids 2 # Bowel Movements 39 Exam Gen: Seems like agonal resp when I first walked in the room but does arouse to voice, Attempts to speak but I can't understand what she's saying Heart: reg Lungs: clear ant/lat Abd: obese, soft, NT Extrem: no edema IVs and Medications Medications Reviewed: Medications were reviewed in detail Lab and Diagnostics Result Diagram: 09/14/16111409/14/161114 Microbiology Assessment & Plan 1. C difficile infection, acute. Diagnosed September 13. We will continue her oral and IV antibiotic therapy for the time being. 2. Hyperbilirubinemia, acute. Improving. We will continue to follow her clinically. She still has evidence of confusion which may relate to hepatic encephalopathy. Has declined lactulose but has ongoing delirium. 3. Elevated LFTs, acute. Stable. - No further labs planned 4. Acute blood loss anemia. Stable - She is off the heparin drip and on Lovenox, and there is some concern for a current hemorrhoid bleed. No bleeding recently and her H&H was stable. - No further labs planned 5. Hemorrhoids. - This needs to be closely monitored given her recent heparin drip and current Lovenox, as well as her thrombocytopenia. If this continues to be an issue, consider surgery consultation for possible banding of hemorrhoids. She likely is not really a candidate for operative intervention at this point. 6. Possible hepatic encephalopathy. - Lactulose 20g PO QID - hold while she is being treated for C diff - Rifaximin 550 mg BID has signaled to palliative care medicine that he will transition to comfort care, possibly today after visiting family leaves 7. Coagulopathy, likely related to liver dysfunction. - INR 1.82 on admission, significantly elevated from previous INR of 1.34 in July. Likely secondary to acute hepatic injury. 8. Acute kidney injury. Stable, with secondary metabolic acidosis. Her creatinine appears to have plateaued at 2.0. Avoid nephrotoxic agents. No significant improvement. This point we are stopping lab draws per palliative care 9. Right lower extremity DVT. - US showed RLE DVT. Currently on Lovenox - Watch for signs of bleeding. 10. Metastatic Cholangiocarcinoma - Patient has history of intrahepatic cholangiocarcinoma diagnosed in February 2016 , mainly in the left hepatic lobe, metastatic to the right femur. She was recently receiving palliative chemotherapy per Dr. Meier with cisplatin. - Dr. Meier of Oncology is following at this time. We appreciate his input. 11. Morbid obesity. BMI is 59. We are stepping back medical care at this point we will be stopping by mouth medications and lab draws. We will use BiPAP tonight. As such as a Sunday evening will likely move to full formal comfort care measures. GI Prophylaxis: Proton Pump Inhibitor (patient has thrombocytopenia and elevated INR and likely not a good candidate for anticoagulation.) VTE Prophylaxis: SCDs VTE Mechanical Devices: Intermittant Pneumatic CD Resuscitation Status: DNR/DNI:Do Not Resuscitate/Intubate Tona Slaughter MD Sep 16, 2016 10:49
[2016-09-16] MEDS ORDERED: Haloperidol 5 mg/mL Inj IVPUSH PRN (11:45)
[2016-09-16] MEDS ORDERED: Artificial Tears 15 mL Ophthalmic Solution AFFECT_EYE PRN (11:45)
[2016-09-16] MEDS ORDERED: Morphine 100 mg/100 mL NS 100 MG in IV Premix 1 EACH IV PRN (11:45)
[2016-09-16] MEDS ORDERED: LORazepam 100 mg/100 mL NS 100 MG in IV Premix 1 EACH IV PRN (11:45)
[2016-09-16] MEDS ORDERED: Atropine 1% 5 mL Ophthalmic Solution PO PRN (11:45)
[2016-09-16] MEDS: HYDROmorphone 0.5 mg/0.5 mL iSecure Syringe IVPUSH PRN ×2 (17:54→19:52)
--- NOTE | 2016-09-16 17:58 | NUR ---
Comfort Patient on comfort care. Dr. Dean ordered Ativan, Dilaudid, Ativan drip, Morphine drip, Haldol to keep patient comfortable. Patient's family in visiting most of the day. 0.2 mg of Dilaudid given at 1630. Patient snoring and grunting, asked if there was anything else that could be given to relive grunting. 0.2 mg of Dilaudid given prn every 1 hour for pain. Will continue to monitor patient hourly.
[2016-09-16 20:42] VITALS: PULSE 70; RESP 12
[2016-09-16] MEDS: HYDROmorphone 0.5 mg/0.5 mL iSecure Syringe IVPUSH SCH (21:29)
[2016-09-17] MEDS: metroNIDAZOLE Inj 500 MG in IV Premix 1 EACH IV SCH ×2 (00:28→09:50)
[2016-09-17] MEDS: HYDROmorphone 0.5 mg/0.5 mL iSecure Syringe IVPUSH PRN (00:34)
[2016-09-17] MEDS: Vancomycin 100 mg/mL Oral Solution PO SCH ×2 (01:35→08:30)
--- NOTE | 2016-09-17 03:28 | NUR ---
Comfort Patient noted to be snoring/grunting upon assessments throughout shift. Patients asking for morphine gtt to be started, rather than continuing with intermittent IVP Dilaudid. Morphine gtt @ 1mg/hour ordered. Drip set up and double checked with charger tester. requesting patient stay on right side, as this is the most comfortable position for her r/t previous left clavicle fracture. would like to keep O2 off at this time as well.
[2016-09-17] MEDS: HYDROmorphone 1 mg/mL Inj IVPUSH SCH ×2 (05:39→11:06)
[2016-09-17 06:16] VITALS: PULSE 64; RESP 12
[2016-09-17] MEDS: Ondansetron 2 mg/mL 2 mL Inj IVPUSH SCH ×2 (09:51→21:51)
[2016-09-17 09:56] VITALS: BP 66/36; PULSE 61; RESP 12; O2SAT 90
--- NOTE | 2016-09-17 11:29 | NUR ---
Comfort care interventions Pt on comfort care, assessment charting minimal. Checking RR's, lung, heart sounds PRN. Continuing to monitor.
--- NOTE | 2016-09-17 13:18 | PCM.PNMED ---
Subjective Date of Service Sep 17, 2016 Subjective feels she is having discomfort because of some moaning (during expiration) Exam Vital Signs Vital Sign - Last Date Time Temp Pulse Resp B/P Pulse Ox O2 Delivery O2 Flow Rate FiO2 09/17/16 09:56 36.6 61 12 66/36 90 Room Air 09/16/16 09:24 2.00 09/15/16 08:45 21 Intake and Output 09/16/16 09/16/16 09/17/16 Cumulative From/Thru 15:00 23:00 07:00 08/30/16 13:59 - 09/17/16 06:17 Intake Total 0 ml 402 ml 229 ml 38576 ml Output Total 25 ml 30 ml 25 ml 55307 ml Balance -25 ml 372 ml 204 ml 65774 ml Intake Oral 0 ml 50 ml 0 ml 9754 ml IV Total 352 ml 229 ml 50064 ml Packed Cells 300 ml Output Urine Total 25 ml 30 ml 25 ml 70457 ml Stool Total 304 ml Emesis 950 ml # Voids 2 # Bowel Movements 0 0 39 Exam Eyes open but doesn't otherwise respond to voice Slow snoring respirations Heart reg lungs: clear ant/lat IVs and Medications Medications Reviewed: Medications were reviewed in detail Lab and Diagnostics Result Diagram: 09/14/16 1115 09/14/16 1115 Microbiology Assessment & Plan Family visits finished yesterday so now ready for her to be comfort care only which includes no antibiotics. 1. C difficile infection, acute. Antibiotics discontinued 2. Hyperbilirubinemia, acute. No longer doing labs. 3. Elevated LFTs, acute. Stable. - No further labs planned 4. Acute blood loss anemia. Stable - She is off the heparin drip and on Lovenox, and there is some concern for a current hemorrhoid bleed. No bleeding recently and her H&H was stable. - No further labs planned 6. Possible hepatic encephalopathy. - Comfort care 7. Coagulopathy, likely related to liver dysfunction. - INR 1.82 on admission, significantly elevated from previous INR of 1.34 in July. Likely secondary to acute hepatic injury. 8. Acute kidney injury. Stable, with secondary metabolic acidosis. Her creatinine appears to have plateaued at 2.0. Avoid nephrotoxic agents. No significant improvement. - No further labs planned 9. Right lower extremity DVT. - US showed RLE DVT but comfort care only 10. Metastatic Cholangiocarcinoma - Patient has history of intrahepatic cholangiocarcinoma diagnosed in February 2016 , mainly in the left hepatic lobe, metastatic to the right femur. She was recently receiving palliative chemotherapy per Dr. Meier with cisplatin. 11. Morbid obesity. BMI is 59. GI Prophylaxis: Proton Pump Inhibitor (patient has thrombocytopenia and elevated INR and likely not a good candidate for anticoagulation.) VTE Prophylaxis: SCDs VTE Mechanical Devices: Intermittant Pneumatic CD Resuscitation Status: DNR/DNI:Do Not Resuscitate/Intubate Tona Slaughter MD Sep 17, 2016 13:18
[2016-09-17 20:00] VITALS: RESP 8
[2016-09-17] MEDS: 0.9% Sodium Chloride 1,000 ML IV SCH (20:19)
[2016-09-17] MEDS: 0.9% Sodium Chloride 250 ML IV SCH (21:51)
[2016-09-17 22:00] VITALS: RESP 9
--- NOTE | 2016-09-17 23:12 | NUR ---
Comfort care Pt was having increased secretions, given Robinul IVP and Scopolamine patch per eMAR with good result. Pt making louder moaning noises and request for Morphine bolus to be given, Morphine 1mg IVP administered. Pt continues to breath loudly (with less moaning) RR at 9 per minute. Positioning pt for comfort.
[2016-09-18 00:36] VITALS: RESP 7
[2016-09-18 02:04] VITALS: RESP 8
[2016-09-18 04:28] VITALS: RESP 7
[2016-09-18 09:15] VITALS: RESP 8
[2016-09-18] MEDS: Ondansetron 2 mg/mL 2 mL Inj IVPUSH SCH (09:22)
--- NOTE | 2016-09-18 09:30 | NUR ---
Morhine rate Changed rate for Morphine sulfate IV drip from 2 mg/hr to 3mg/hr per Dr Dean's verbal order. Monitoring pt's secretions and will apply additional Scopalomine patch if needed.
--- NOTE | 2016-09-18 12:55 | PCM.PALLBR ---
Palliative Care Recommendation 61-year-old female with history of metastatic cholangiocarcinoma, admitted with hyperbilirubinemia as well as acute renal failure. Despite aggressive, appropriate evaluation and treatment her bilirubin has continued to rise and her renal failure, after initial improvement, has begun to worsen again. As a consequence, palliative medicine consulted to assist patient and family and determination of goals of care. Summary of palliative recommendations: Goals of Care: Consistent with extensive earlier discussions last week, continued through the weekend and this morning, she was maintained on comfort care protocol until she . -DPOA/Advanced Directives/POLST- DO NOT RESUSCITATE/DO NOT INTUBATE/comfort care -Family/emotional support- palliative medicine will continue to follow and support. -Spiritual support- offered Patient Goals: 1. Patient and family want to be told the truth about her illness, even if it is unpleasant. 2. Patient and family would like to be told prognosis when it can be predicted, to better guide treatment decisions. 3. Minimize suffering in the face of untreatable illness. Additional Medical Diagnoses with primary management by Hospitalist team include : Hyperbilirubinemia, acute. Oral thrush Elevated LFTs, acute. Elevated INR, acute. Constipation, acute-resolved Hypokalemia (resolved) New onset camphorus ulcers of the tounge (resolving) Hypomagnesemia on admission History of Cholangiocarcinoma Problems: End of Life Preferences DO NOT RESUSCITATE/DO NOT INTUBATE/end-of-life/comfort care Goals of Care Patient's wanted care to focus on comfort. Disposition in hospital Resuscitation Status Resuscitation Status: DNR/DNI:Do Not Resuscitate/Intubate POLST Updates/Changes Previous POLST?: No Artificially Admin Nutrition: No Artifical Nutrition by Tube POLST Discussed with: Patient, Spouse/Other . Advanced Care Planning Address: Comfort care Pain: None Total time 70 minutes; >50% face to face with patient and family, spread across 3 visits this morning, providing counselling regarding plans and recommendations , and in care coordination with her medical teams. Of the above time, 55 minutes counseling for advanced care planning with the patient's family copies to: Akhil Mo MD; Demarco Sofia MD Palliative Brief Note Date of Service Sep 18, 2016 . Returned to reevaluate patient. I had visited over the weekend and spoke with her and other family members at that time. The last of the other family members left late yesterday. Today I visited with her on multiple occasions, including stopping back to talk with him after she finally at approximately 11:30. He was comfortable with the process and had no additional questions. At the time of my first visit this morning, I did instruct her nurse to increase the morphine drip because the patient was still moaning softly and appeared restless. This appeared to give her excellent relief. She also was using scopolamine patch for secretions and we talked about additional medications that could be used for that. Otherwise, I reviewed her updated records in the EMR in detail and spoke with her medical team members. On exam, she was a deeply jaundiced obese woman lying in bed, with agonal respirations even the first time I saw her in the morning. Vital signs were noted and consistent with near . Skin was warm. Lungs with scattered coarse crackles, heart sounds distant and almost inaudible. Abdominal exam remarkable for distention but no obvious tenderness. Gustavo Dean MD Sep 18, 2016 12:55
--- NOTE | 2016-09-18 13:20 | NUR ---
Pt Pt at 1145 hrs. Spouse at the bedside. Dr Dean and Dr Barros were informed of pt's passing. Charge nurse called donor line and then instilled eye drops in pt's eyes for corneal donation. Spouse took all of pt's personal belongings. Body was prepped for transport to home. Security notified to molded goods spot picker body for transport to [facility] [place].
--- NOTE | 2016-09-19 14:43 | PCM.DC.MEX ---
Discharge Summary Date of Service Sep 19, 2016 Dates of Hospitalization Date of Hospital Admission Aug 30, 2016 at 20:55 Date of Expiration: Sep 18, 2016 Time of Expiration: 11:45 Providers: Admitting Physician: Markos Milligan MD Primary Care Physician: Akhil Mo MD Attending Physician: Markos Milligan MD Diagnosis at Time of metastatic cholangiocarcinoma Respiratory arrest Consultations Palliative care Procedures Other Diagnostics PROCEDURE: NM HIDA SCAN WITHOUT CCK RADIOPHARMACEUTICAL: 5.6 mCi Tc-99m mebrofenin IV. INDICATIONS: Hyperbilirubinemia, hx cholangiocarcinoma TECHNIQUE: Following intravenous administration of Tc-99m mebrofenin, sequential anterior abdominal images were obtained through at least 60 minutes. COMPARISON: None. FINDINGS: There is markedly diminished tracer uptake and excretion by the liver. There is no visualization of intrahepatic ducts, common bile duct, and the gallbladder. There is no definite tracer excretion into duodenum. IMPRESSION: Study is nondiagnostic for evaluation of biliary disease. There is markedly reduced radiotracer uptake and excretion by the liver suggesting severe hepatocellular disease. Please correlate with clinical and laboratory data. Dictated by: Melissa Pa MD, PhD on 09/05/2016 at 11:55 Approved by: Melissa Pa MD, PhD on 09/05/2016 at 11:56 PROCEDURE: MR ABDOMEN MRCP INDICATIONS: Elevated bilirubin TECHNIQUE: Coronal HASTE through the abdomen, axial 2-D FLASH in- and [id number], and breath-hold T2 FSE with fat saturation through the biliary system and pancreas. Oblique coronal and axial thin-slice HASTE, radial thick-slab HASTE centered on the extrahepatic bile ducts. Intravenous secretin: Not requested. COMPARISON: [facility], CT, CT CHEST ABD PELVIS W CON, 08/15/2016, 10:56. Outside Film, CT, CT CHEST ABD PELVIS W CON, 04/07/2016, 9:05. [facility], CT, CT ABD W CON, 08/29/2016, 14:07. FINDINGS: Image quality: Excellent. Pancreas and biliary system: Intra- and extra-hepatic biliary ducts are non dilated. Pancreas is normal in morphology, without adjacent soft tissue edema. Pancreatic duct is normal in caliber, without developmental anomalies. Other solid organs: Demonstrates abnormal signal change predominantly within the left lobe, extending into a small portion of the medial right hepatic lobe. This corresponds to the previously identified area of neoplasm. Gallbladder is contracted and irregular. No adrenal nodules. Both kidneys are normal in size , without hydronephrosis. Nodes and vessels: No retroperitoneal or mesenteric adenopathy by size criteria. Aorta and inferior vena cava are normal in size. Bowel and peritoneum: Unenhanced bowel loops are normal in caliber. The intrahepatic and perisplenic fluid are present, unchanged compared to 08/29/16. Partially visualized pelvic fluid is also noted. Lung bases: No basal pleural effusions. Heart size is normal. Bones and soft tissues: No ventral hernias. Bone marrow is of normal overall signal. IMPRESSION: 1. Mass lesion within the liver as previously identified and consistent with known history of neoplasm. 2. Contracted irregular gallbladder as above. While this could be secondary to contraction, superimposed neoplasm cannot be excluded. 3. No visualized biliary ductal dilation. Dictated by: Andreina Pena M.D. on 08/31/2016 at 11:25 Approved by: Andreina Pena M.D. on 08/31/2016 at 11:25 Brief History History and physical obtained by on08/30 Patient is a 61-year-old female with a history of metastatic cholangiocarcinoma who presents for evaluation of acute jaundice and fever. Per patient and , she has been having intermittent fevers since Sunday (Tmax 102), and also mild epigastric pain/pressure on bowel movements, increase in loose stools, head of sales stools and darker urine, and fatigue. Family stated they did not notice any jaundice prior to today. She denies any associated CP, SOB, vision changes, focal weakness, or mental status changes. She denies pruritus. She reports that she had been experiencing dysuria and frequency, and was recently diagnosed with UTI and completed outpatient antibiotics. She reports some improved dysuria , and her frequency has resolved. reports that patient was diagnosed last summer with metastatic cholangiocarcinoma after a right femur fracture. She has been seen by Dr. Meier , treated with cisplatin and gemcitabine in our center with a palliative intent. She was seen by Dr. Meier today who referred her to the ED for admission and further workup after noticing that her total bilirubin has been rapidly rising over the past 10 days. She has also had a CT abd/pelvis last week that did not show any disease progression. During hospitalization patient continued with progression of hyperbilirubinemia and other liver function abnormalities. She was appropriately evaluated and no evidence was found of macroscopic obstructive process. She also showed evidence of acute renal insufficiency, initially improved with therapy but then deteriorating again. During this time she became progressively more somnolent/ encephalopathic. While she had earlier been considered for further intervention on her primary liver mass, her deterioration precluded this. Her oncologist spoke with the patient and her and informed them of this and opened the conversation about advance directive issues in light of her progressive illness. Palliative medicine was consulted by her hospitalist in order to assist patient and family in determination of goals of care and verification of their wishes for aggressive end-of-life care. Prior to visiting, I reviewed her records in the EMR in detail, going back all the way to her initial presentation at the oncology clinic following her initial treatment for pathologic fracture of the right femur. I spoke with her bedside nurse, and later spoke at length with her . When I visited, she is sleeping and quite lethargic. Deeply jaundiced. Was too sleepy to interact or cooperate with interview. Hospital Course Patient had debilitated conditions with advanced metastatic lobular carcinoma, hepatic encephalopathy, C. difficile infection, consulted by palliative care, comfortably on 09/18 11:45am 1. C difficile infection, acute. Antibiotics discontinued 2. Hyperbilirubinemia, acute. No longer doing labs. 3. Elevated LFTs, acute. Stable. - No further labs planned 4. Acute blood loss anemia. Stable - She is off the heparin drip and on Lovenox, and there is some concern for a current hemorrhoid bleed. No bleeding recently and her H&H was stable. - No further labs planned 6. Possible hepatic encephalopathy. - Comfort care 7. Coagulopathy, likely related to liver dysfunction. - INR 1.82 on admission, significantly elevated from previous INR of 1.34 in July. Likely secondary to acute hepatic injury. 8. Acute kidney injury. Stable, with secondary metabolic acidosis. Her creatinine appears to have plateaued at 2.0. Avoid nephrotoxic agents. No significant improvement. - No further labs planned 9. Right lower extremity DVT. - US showed RLE DVT but comfort care only 10. Metastatic Cholangiocarcinoma - Patient has history of intrahepatic cholangiocarcinoma diagnosed in February 2016 , mainly in the left hepatic lobe, metastatic to the right femur. She was recently receiving palliative chemotherapy per Dr. Meier with cisplatin. 11. Morbid obesity. BMI is 59. Exam Test 08/30/16 16:51 08/31/16 02:00 08/31/16 22:45 09/01/16 22:50 Urine Ictotest Positive (Negative) Lipase 40U/L (13-60) Hepatitis A IgM Antibody Negative (Negative) Hepatitis B Surface Antigen Negative (Negative) Hepatitis B Core IgM Antibody Negative (Negative) Hepatitis C Antibody <0.1s/co ratio (0.0-0.9) Hepatitis C Comment Comment (.) Anti-Nuclear Antibody Screen Positive (Negative) SM Antibody <0.2AI (0.0-0.9) MATERIALS ASSISTANT Antibody 0.2AI (0.0-0.9) Anti-Smooth Muscle Antibody 12Units (0-19) Urine Color Allen (YELLOW) Urine Appearance Cloudy (CLEAR,HAZY) Urine pH (5.0-8.0) Urine Specific [place] 1.024 (1.003-1.035) Urine Protein mg/dL (NEG,TRACE) Urine Glucose (UA) mg/dL (NEGATIVE) Urine Ketones mg/dL (NEGATIVE) Urine Occult Blood (NEGATIVE) Urine Nitrite (NEGATIVE) Urine Bilirubin (NEGATIVE) Urine Urobilinogen mg/dL (NORMAL) Urine Leukocyte Esterase (NEGATIVE) Urine RBC 11-50/hpf (0-2) Urine WBC >50/hpf (0-5) Urine Epithelial Cells Few/hpf (NONE-MOD) Urine Crystals None seen (NONE SEEN) Urine Bacteria None/hpf (NONE-FEW) Urine Hyaline Casts None/lpf (NONE) Urine Granular Casts None seen (NONE SEEN) Urine Waxy Casts None seen (NONE SEEN) Urine Red Blood Cell Casts None seen (NONE SEEN) Urine White Blood Cell Casts None seen (NONE SEEN) Urine Mucus None seen (None Seen) Urine Trichomonas None seen (NONE SEEN) Urine Yeast None (NONE SEEN) Urinalysis Comment Color interference Urine Culture Reflexed Indicated Test 09/07/16 06:30 09/08/16 04:45 09/08/16 13:53 09/09/16 05:35 Phosphorus Level 4.8mg/dL (2.5-4.9) Erythrocyte Sedimentation Rate 34mm/hr (0-40) C-Reactive Protein 3.2mg/dL (0.0-0.5) Haptoglobin < 10mg/dL (34-200) Lactate Dehydrogenase 212U/L (100-190) Hematology Comments Direct Bilirubin 14.0mg/dL (0.0-0.3) Test 09/09/16 15:30 09/10/16 05:00 09/13/16 03:00 09/14/16 11:15 D-Dimer 4.0mg/L (<0.50) Lactic Acid Level 1.6mmol/L (0.4-2.0) Ammonia 67ug/dL (18-53) Troponin T < 0.010ug/L (0.0-0.011) Pro-B-Type Natriuretic Peptide 3143pg/mL (0-287) Reticulocyte Count,Calculated 4.6% (0.6-2.6) Iron Level 78ug/dL (35-150) Total Iron Binding Capacity 95ug/dL (250-450) Percent Iron Saturation %sat (15-50) Unsaturated Iron Binding < 17ug/dL Vitamin B12 Level >1999pg/mL (211-946) Magnesium Level 1.7mg/dL (1.6-2.6) White Blood Count 7.9th/mm3 (3.8-10.1) Red Blood Count 2.44mil/mm3 (3.90-5.20) Hemoglobin 7.9g/dL (12.0-15.6) Hematocrit 23.0% (35.0-46.0) Mean Corpuscular Volume 94.3fL (81-100) Mean Corpuscular Hemoglobin 32.4pg (27.0-35.0) Mean Corpuscular Hemoglobin Concent 34.3% (32.0-37.0) Red Cell Distribution Width 21.7% (12.3-15.4) Platelet Count 98bil/L (150-400) Neutrophils (%) (Auto) 84.1% (40-74) Lymphocytes (%) (Auto) 9.5% (14-46) Monocytes (%) (Auto) 4.7% (4-12) Eosinophils (%) (Auto) 0.8% (0-5) Basophils (%) (Auto) 0% (0-3) Sodium Level 142mEq/L (134-144) Potassium Level 3.5mEq/L (3.5-5.2) Chloride Level 111mEq/L (97-108) Carbon Dioxide Level 17mmol/L (18-29) Blood Urea Nitrogen 61mg/dL (8-27) Creatinine 2.00mg/dL (0.57-1.00) Estimat Glomerular Filtration Rate 36mL/min (>59) Glucose Level 104mg/dL (60-99) Calcium Level 8.2mg/dL (8.5-10.1) Total Bilirubin 13.6mg/dL (0.0-1.2) Aspartate Amino Transf (AST/SGOT) 59U/L (0-50) Alanine Aminotransferase (ALT/SGPT) 33U/L (0-32) Alkaline Phosphatase 248U/L (25-165) Total Protein 4.5g/dL (6.4-8.4) Albumin 2.2g/dL (3.4-5.0) Test 09/15/16 04:30 Prothrombin Time 20.2sec (8.1-12.5) Prothromb Time International Ratio 1.86ratio Microbiology Results Time spent 30 minutes Moriah Barros MD Sep 19, 2016 14:43
--- NOTE | 2016-09-25 10:24 | NUR ---
Palliative care note D/A: Thank you card received from pt spouse who indicates that pt in her sleep. Phone call to [facility] to advise them no need to follow up with pt/spouse about services. P: No further need for PC to follow. Deann RESENDEZ, CCM
== END 2016-09-18 11:45 | disposition expired | DRG 441 ==
LOC: SED 13:53 → MOC 20:55 → PCC 09-08 14:12 → OSC 09-15 21:28
PROVIDERS: ADMIT Hospitalist; ATTEND Hospitalist
PROC: 4A033R1 Measurement of Arterial Saturation, Peripheral, Percutaneous Approach (ICD-10-PCS; principal; 2016-09-08)
PROC: 5A09557 Assistance with Respiratory Ventilation, Greater than 96 Consecutive Hours, Continuous Positive Airway Pressure (ICD-10-PCS; 2016-09-08)
PROC: 30233N1 Transfusion of Nonautologous Red Blood Cells into Peripheral Vein, Percutaneous Approach (ICD-10-PCS; 2016-09-11)
DX: E80.6 Other disorders of bilirubin metabolism (principal); J69.0 Pneumonitis due to inhalation of food and vomit; J96.02 Acute respiratory failure with hypercapnia; C22.1 Intrahepatic bile duct carcinoma; C79.51 Secondary malignant neoplasm of bone; N39.0 Urinary tract infection, site not specified; N17.9 Acute kidney failure, unspecified; Z68.42 Body mass index [BMI] 45.0-49.9, adult; B37.0 Candidal stomatitis; I82.401 Acute embolism and thrombosis of unspecified deep veins of right lower extremity; A04.7 Enterocolitis due to Clostridium difficile; D62 Acute posthemorrhagic anemia; I10 Essential (primary) hypertension; G47.33 Obstructive sleep apnea (adult) (pediatric); E83.42 Hypomagnesemia; D64.81 Anemia due to antineoplastic chemotherapy; F41.9 Anxiety disorder, unspecified; F32.9 Major depressive disorder, single episode, unspecified; E66.01 Morbid (severe) obesity due to excess calories; K59.00 Constipation, unspecified; B96.20 Unspecified Escherichia coli [E. coli] as the cause of diseases classified elsewhere; R79.1 Abnormal coagulation profile; E87.6 Hypokalemia; Z66 Do not resuscitate; Z51.5 Encounter for palliative care; K64.9 Unspecified hemorrhoids; K72.90 Hepatic failure, unspecified without coma